=== PATIENT | female | born 1965 | race Caucasian/White ===

== ENCOUNTER 2020-07-22 08:43 | Outpatient (REF) | payer OTHER, SELFPAY ==
[2020-07-22 10:07] LABS: MANUAL DIFF FLAG NO
[2020-07-22 10:16] LABS: Basophils Percent Auto 0.3 % (0-2); Eosinophils Absolute Auto 0.4 X10*3/uL (0.0-0.4); Eosinophils Percent Auto 4.6 % (0-4); Hematocrit 41.5 % (37-47); Hemoglobin 13.5 g/dl (12.0-16.0); Imm Gran Abs Auto 0.02 X10*3/uL (0.00-0.03); Imm Gran Pct Auto 0.2 % (0.0-0.4); Lymphocytes Absolute Auto 2.1 X10*3/uL (1.2-4.9); Lymphocytes Percent Auto 23.2 % (20-40); Mean Corpuscular HGB Conc 32.5 g/dl (31.0-35.0); Mean Corpuscular Hemoglobin 29.7 pg (27.0-33.0); Mean Corpuscular Volume 91.4 fL (80-98); Mean Platelet Volume 10.1 fL (9.4-12.3); Monocytes Absolute Auto 0.5 X10*3/uL (0.1-1.2); Neutrophils Absolute Auto 5.9 X10*3/uL (2.0-8.3); Neutrophils Percent Auto 65.7 % (45-73); Platelet Count 312 X10*3/uL (160-400); Red Blood Count 4.54 X10*6/uL (4.20-5.50); Red Cell Distribution Width 13.2 % (11.0-16.0); White Blood Count 9.1 X10*3/uL (4.8-10.8)
[2020-07-22 10:44] LABS: Alanine Aminotransferase 21 U/L (0-31); Albumin Level 4.2 g/dL (3.5-5.0); Alkaline Phosphatase 65 U/L (39-117); Anion Gap 13 (12-20); Aspartate Amino Transferase 18 U/L (5-31); Bilirubin Total 0.3 mg/dL (0.0-1.0); Blood Urea Nitrogen 17 mg/dL (9-16); Calcium 8.9 mg/dL (8.4-10.2); Carbon Dioxide 35 mmol/L (22-29); Chloride 100 mmol/L (96-108); Cholesterol 205 mg/dL; Estimated Glomerular Filt Rate > 60; Glucose Fasting 93 mg/dL (60-99); HDL Cholesterol 50 mg/dL; LDL Cholesterol Calculated 126 mg/dl; Sodium 144 mmol/L (135-145); Total Protein 7.1 g/dL (6.5-8.0); Triglycerides 146 mg/dL
[2020-07-22 11:04] LABS: Thyroid Stimulating Hormone 8.95 mIU/mL (0.32-4.0)
== END 2020-07-22 08:44 | disposition home or self-care (01) ==
LOC: HO.LAB 08:43
PROVIDERS: Visit Provider Internal Medicine
DX: M54.9 Dorsalgia, unspecified (principal); E11.9 Type 2 diabetes mellitus without complications; E03.9 Hypothyroidism, unspecified
CPT/HCPCS: 36415; 80053; 80061; 84443; 85025

== ENCOUNTER 2020-11-29 12:07 | Outpatient (REF) | payer OTHER, SELFPAY ==
--- NOTE | ~2020-11-29 | XR_ITS ---
EXAMINATION: XR KNEE, LEFT CLINICAL INFORMATION: Pain COMPARISON: Previous x-ray July 2012 TECHNIQUE: Four views of the left knee. FINDINGS: There is slight varus angulation at the knee joint. Bone alignment is otherwise normal. No fracture or dislocation is seen. There is severe arthritis at the medial femoral tibial and patellofemoral joints with joint space narrowing and osteophyte formation. There are small osteophytes at the lateral femoral tibial joint. There may be lateral ossified intra-articular loose bodies seen on the sunrise view. There is a small joint effusion. XR/XR knee LT 4V IMPRESSION: Severe arthritis. This is increased from 2012 exam.
== END 2020-11-29 12:08 | disposition home or self-care (01) ==
LOC: HO.XRAY 12:07
PROVIDERS: PCP Internal Medicine; Visit Provider Internal Medicine
DX: M25.562 Pain in left knee (principal)
CPT/HCPCS: 73564

== ENCOUNTER 2021-01-31 08:13 | Outpatient (REF) | payer OTHER, SELFPAY ==
--- NOTE | ~2021-01-31 | XR_ITS ---
EXAMINATION: XR KNEE AP STANDING CLINICAL INFORMATION: Pain. COMPARISON: Left knee radiographs dated 11/29/2020 and right knee radiograph dated 08/15/2012. TECHNIQUE: AP bilateral standing view of the knees was obtained. FINDINGS: Severe medial compartment joint space narrowing with bony remodeling. Prominent tricompartmental marginal osteophytes. No acute fracture or dislocation. No abnormal soft tissue calcification. Findings are similar when compared to the recent radiographs. Severe medial compartment joint space narrowing. Tricompartmental marginal osteophytes. No acute fracture or dislocation. No abnormal soft tissue calcification. Findings have progressed when compared to the prior radiographs. XR/XR knee standing BI IMPRESSION: 1. Tricompartmental osteoarthritis within the left knee, most severe within the medial compartment. Findings are similar when compared to the recent radiographs and are progressed when compared to the radiographs from 2011. 2. Tricompartmental right knee osteoarthritis, most severe within the medial compartment. Findings are progressed when compared to the radiographs from 2012.
== END 2021-01-31 08:14 | disposition home or self-care (01) ==
LOC: HO.HOSX 08:13
PROVIDERS: Visit Provider Orthopaedic Surgery
DX: M17.12 Unilateral primary osteoarthritis, left knee (principal)
CPT/HCPCS: 20610; 73565; J1100

== ENCOUNTER → 2021-05-02 13:58 | Outpatient (BNVA) | payer OTHER, SELFPAY | PROVIDERS: PCP Internal Medicine; Visit Provider Orthopaedic Surgery | DX: M17.12 Unilateral primary osteoarthritis, left knee (principal) | CPT/HCPCS: 20610; J1100 ==

== ENCOUNTER → 2021-08-01 13:54 | Outpatient (BNVA) | payer OTHER, SELFPAY | PROVIDERS: PCP Internal Medicine; Visit Provider Orthopaedic Surgery | DX: M17.12 Unilateral primary osteoarthritis, left knee (principal); M17.11 Unilateral primary osteoarthritis, right knee | CPT/HCPCS: 20610; J1100 ==

== ENCOUNTER 2021-09-13 15:00 | Outpatient (RCR) | payer OTHER, SELFPAY ==
--- NOTE | 2021-05-30 14:57 | MHC.PT.EP ---
[facility] Office [place] Office [place] Office [address] [phone] F: [phone] F: [phone] F: [phone] F: [phone] Physical Therapy Plan of Care Date of Evaluation: Date of Surgery: Diagnosis: primary OA L knee Assessment: 55 y/o F referred to PT with primary OA of L knee. She would like to avoid surgery. 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 Examination shows decreased knee AROM (L 0-108), decreased hip and knee strength, B TF joint tenderness, hypomobility of patella, and impaired gait pattern. Recommend PT 2x/week for 5 weeks to address impairments, implement HEP, and optimize functional mobility. Frequency and Duration: The patient will be seen 2x/week for 5 weeks Short Term Goals: 3 weeks 1. I with hEP 2. Improve knee flexion to 116 3. Improve hip abduction strength by one MMT grade Retirement Goals: 5 weeks 1. I with HEP and self management of sx 2. Pt will be able to walk > 30 min with pain < 3/10 3. Pt will be able to ascend/descend stairs in step through pattern with pineda < 3/10 Treatment Plan: Modalities to reduce pain, spasms and effusion. Manual therapy to restore motion and function. Therapeutic exercise to improve strength and flexibility. Neuromuscular re-education for posture and balance. Therapeutic activities to return to functional activities of daily living. Electronically signed by: Lizabeth Conrad PT Please sign and return to therapist. Thank you for your referral.
--- NOTE | 2021-09-19 14:13 | MHC.PT.DC ---
[facility] [place] Office [place] Office [place] Office [address] [phone] F: [phone] F: [phone] F: [phone] F: [phone] Physical Therapy Discharge Report Diagnosis: primary OA L knee Date of Surgery: Date of Evaluation: 05/30/21 Date of Discharge: 09/19/21 Treatments to Date: 20 Cancellations to Date: 0 No Shows to Date: 0 Discharge Status: Improved Function Independent with HEP Discharge Summary: Appropriate for d/c to I HEP. Improved strength and function noted. Electronically signed by: Lizaebth Conrad PT Please sign and return to therapist. Thank you for your referral.
== END 2021-09-19 14:14 | disposition home or self-care (01) ==
LOC: HO.PTCHIC 15:00
PROVIDERS: PCP Internal Medicine; Visit Provider Orthopaedic Surgery
DX: M17.12 Unilateral primary osteoarthritis, left knee (principal); R53.81 Other malaise
CPT/HCPCS: 97110; 97112; 97140; 97161; 97530

== ENCOUNTER → 2021-09-19 10:03 | Outpatient (BNVA) | payer OTHER, SELFPAY | PROVIDERS: Visit Provider Orthopaedic Surgery | DX: Z01.812 Encounter for preprocedural laboratory examination (principal); Z01.810 Encounter for preprocedural cardiovascular examination ==

== ENCOUNTER → 2021-10-13 13:55 | Outpatient (BNVA) | payer OTHER, SELFPAY | PROVIDERS: Visit Provider Physician Assistant ==

== ENCOUNTER 2021-10-18 11:36 | Inpatient (IN) | payer OTHER, SELFPAY ==
--- NOTE | 2021-09-19 11:29 | ECG_ITS ---
Test Reason : z01.810 Blood Pressure : / mmHG Vent. Rate : 064 BPM Atrial Rate : 064 BPM P-R Int : 154 ms QRS Dur : 086 ms QT Int : 420 ms P-R-T Axes : 072 018 -05 degrees QTc Int : 433 ms Normal sinus rhythm Normal ECG When compared with ECG of 30-AUG-2009 12:24, Nonspecific T wave abnormality now evident in Anterior leads Referred By: Isai Yusuf Electronically Signed By:MACARIO HOUGH MD
[2021-09-19 11:47] LABS: MANUAL DIFF FLAG NO
[2021-09-19 11:57] LABS: Basophils Percent Auto 0.4 % (0-2); Eosinophils Absolute Auto 0.3 X10*3/uL (0.0-0.4); Eosinophils Percent Auto 3.9 % (0-4); Hematocrit 38.3 % (37.0-47.0); Hemoglobin 12.6 g/dl (12.0-16.0); Imm Gran Abs Auto 0.01 X10*3/uL (0.00-0.03); Imm Gran Pct Auto 0.1 % (0.0-0.4); Lymphocytes Absolute Auto 2.3 X10*3/uL (1.2-4.9); Lymphocytes Percent Auto 30.1 % (20-40); Mean Corpuscular HGB Conc 32.9 g/dl (31.0-35.0); Mean Corpuscular Hemoglobin 29.8 pg (27.0-33.0); Mean Corpuscular Volume 90.5 fL (80.0-98.0); Mean Platelet Volume 9.4 fL (9.4-12.3); Monocytes Absolute Auto 0.6 X10*3/uL (0.1-1.2); Monocytes Percent Auto 8.3 % (2-11); Neutrophils Absolute Auto 4.4 x10*3/uL (2.0-8.3); Neutrophils Percent Auto 57.2 % (45-73); Platelet Count 258 X10*3/uL (160-400); Red Blood Count 4.23 X10*6/uL (4.20-5.50); Red Cell Distribution Width 12.9 % (11.0-16.0); White Blood Count 7.7 X10*3/uL (4.8-10.8)
[2021-09-19 12:18] LABS: Anion Gap 10 (12-20); Blood Urea Nitrogen 23 mg/dL (9-16); Calcium 9.5 mg/dL (8.4-10.2); Carbon Dioxide 37 mmol/L (22-29); Chloride 99 mmol/L (96-108); Estimated Glomerular Filt Rate 56; Glucose Random 99 mg/dL (60-115); Potassium 3.5 mmol/L (3.3-5.1); Sodium 142 mmol/L (135-145)
[2021-10-05 12:13] VITALS: BP 158/86; PULSE 82; RESP 20; O2SAT 97; BMI 38.9
--- NOTE | 2021-10-05 12:46 | P.CONAN_ITS ---
Documented by User: Serina Garcia NP 10/05/21 13:03 HPI - Anesthesia Eval Consult details Narrative: 56yo F for Left Total Knee Replacement Methadone and oxy daily for pain. Rx'd by PCP [facility] Active Problems Active Problems: All Active Problems (Updated 10/05/21 @ 12:30 by Shasta Díaz RN) Back pain (Acute) Osteoarthritis (Acute) Knee pain (Acute) Arthritis of left knee (Acute) Physical deconditioning (Acute) Primary localized osteoarthritis of right knee (Acute) Pre-op exam (Acute) Obesity (Acute) Hypothyroidism (Acute) Past Medical History Medical History COVID-19 vaccine series completed GERD (gastroesophageal reflux disease) Hernia of abdominal cavity History of COVID-19 HTN (hypertension) Hypothyroidism Obesity Osteoarthritis Family History Family History Father Esophageal cancer Mother No problems noted. Maternal Grandmother Osteoarthritis Sister No problems noted. Family history of problems with anesthesia: No Surgical History Surgical History H/O colonoscopy Hx of breast reduction, elective Hx of umbilical hernia repair History of Problems with Anesthesia: No Social History Social History Housing: House Are you a primary customer care specialist to a significant other at home: No Do you presently have visiting nurse or other home services: No Alcohol intake: current Alcohol intake frequency: holidays/special occasions o nly Patient Tobacco Use Status: Former Tobacco user Quit Date: 11/2020 Tobacco use type: Cigarette e-Cigarette/Vaping Use: Never Used Second Hand Smoke Exposure: No Use of substances other than those prescribed or required for medical reasons: No Substance Use Type Other:: is taking methadone/oxycodone for pain control - managed by Have you been hit, kicked, punched, or otherwise hurt by someone within the past year? If so, by whom?: No Are you DNR?: No Advance Directives Information Provided: Yes (brochure given per patient request) Advance Directives on File: No Recently lost weight without trying: No Nutrition Risks: No Nutritional Risk Patient : No Poor oral hygiene: No service: No Current occupational status: unemployed Current occupation: Right Handed Cognitive needs: No Hearing needs: No Vision needs: No Narrative Narrative: No recent illness No CP/SOB with activity. Limited to pain Meds Allergies Allergy/AdvReac Type Severity Reaction Status Date / Time No Known Allergies Allergy Verified 10/13/21 14:14 [No Known Allergies*] Exam Exam Date and Time: October 05, 2021 1246 Height,Weight and Vital Signs: Height 5 ft 4 in Weight 102.9 kg Last Vital Signs Pulse 82 10/05/21 12:13 Resp 20 10/05/21 12:13 BP 158/86 H 10/05/21 12:13 Pulse Ox 97 10/05/21 12:13 Pertinent Lab Results Pertinent Lab Results: Laboratory Tests 09/19/21 09/19/21 11:43 11:43 WBC 7.7 RBC 4.23 Hgb 12.6 Hct 38.3 MCV 90.5 MCH 29.8 MCHC 32.9 RDW 12.9 Plt Count 258 MPV 9.4 Immature Gran % (Auto) 0.1 Neut % (Auto) 57.2 Lymph % (Auto) 30.1 Lamb % (Auto) 8.3 Eos % (Auto) 3.9 Baso % (Auto) 0.4 Lymph # (Auto) 2.3 Lamb # (Auto) 0.6 Eos # (Auto) 0.3 Baso # (Auto) 0.0 Abs Immat Gran (auto) 0.01 Absolute Neuts (auto) 4.4 Absolute Nucleated RBC 0.000 Nucleated RBC % (auto) 0.0 Sodium 142 Potassium 3.5 Chloride 99 Carbon Dioxide 37 H Anion Gap 10 L BUN 23 H Creatinine 1.03 Estim Creat Clear Calc TNP Estimated GFR 56 Random Glucose 99 Calcium 9.5 D Narrative Narrative: EKG 09/2021 Vent. Rate : 064 BPM ? ? Atrial Rate : 064 BPM ?? P-R Int : 154 ms? QRS Dur : 086 ms ? ? QT Int : 420 ms ? ? ? P-R-T Axes : 072 018 -05 degrees ?? QTc Int : 433 ms ? Normal sinus rhythm Normal ECG When compared with ECG of 30-AUG-2009 12:24, Nonspecific T wave abnormality now evident in Anterior leads Airway Mallampati Class: I TM Dist: >3cm Neck ROM: Full Loose/Missing/Broken Teeth: Yes Heart: RRR Lungs: CTAB Assessment and Plan Assessment Anesthesia Assessment: Anesthesia Plan Discussed and PAT Visit Final Anesthetic Review Family History of Problems with Anesthesia: No History of Problems with Anesthesia: No Documented by User: Delta Loaiza MD 10/18/21 14:33 [facility] Past Medical History Medical History COVID-19 vaccine series completed GERD (gastroesophageal reflux disease) Hernia of abdominal cavity History of COVID-19 HTN (hypertension) Hypothyroidism Obesity Osteoarthritis Family History Family History Father Esophageal cancer Mother No problems noted. Maternal Grandmother Osteoarthritis Sister No problems noted. Surgical History Surgical History H/O colonoscopy Hx of breast reduction, elective Hx of umbilical hernia repair Social History Social History Housing: House Are you a primary customer care specialist to a significant other at home: No Do you presently have visiting nurse or other home services: No Alcohol intake: current Alcohol intake frequency: holidays/special occasions only Patient Tobacco Use Status: Former Tobacco user Quit Date: 11/2020 Tobacco use type: Cigarette e-Cigarette/Vaping Use: Never Used Second Hand Smoke Exposure: No Use of substances other than those prescribed or required for medical reasons: No Substance Use Type Other:: is taking methadone/oxycodone for pain control - managed by Have you been hit, kicked, punched, or otherwise hurt by someone within the past year? If so, by whom?: No Are you DNR?: No Advance Directives Information Provided: Yes (brochure given per patient request) Advance Directives on File: No Recently lost weight without trying: No Nutrition Risks: No Nutritional Risk Patient : No Poor oral hygiene: No service: No Current occupational status: unemployed Current occupation: Right Handed Cognitive needs: No Hearing needs: No Vision needs: No Meds Allergies Allergy/AdvReac Type Severity Reaction Status Date / Time No Known Allergies Allergy Verified 10/13/21 14:14 [No Known Allergies*] Assessment and Plan Final Anesthetic Review NPO: Yes ASA Class: III Final Preanesthetic Review: No Changes in Pt Med Stat, Meds/Allgs Chart Reviewed, Consent Obtained/Reviewed and Anes Risks/Benef Reviewed Patient Risk: Intermediate Procedure Risk: Intermediate Anesthetic Plan Anesthetic Plan: Spinal and Regional Block Disposition: Standard PACU
[2021-10-05 15:12] LABS: MRSA Nasal PCR NEGATIVE (Negative); SA Nasal PCR POSITIVE (Negative)
[2021-10-18] VITALS (11 sets, daily range): BP systolic 114–169; BP diastolic 67–104; PULSE 67–99; RESP 16–21; TEMP 36.1–37.3; O2SAT 94–100
--- NOTE | ~2021-10-18 | XR_ITS ---
EXAMINATION: XR KNEE, LEFT CLINICAL INFORMATION: Left TKA COMPARISON: Left knee 08/15/2012, 11/29/2020 TECHNIQUE: Three views of the left knee. FINDINGS: Status post left knee replacement. Orthopedic components in position. There is gas in the knee joint from the surgery. Surgical skin clips at the anterior knee. XR/XR knee LT 2V IMPRESSION: Status post left knee replacement.
[2021-10-18] MEDS: Lactated Ringers 1,000 ML 100 ML IVCONT (12:07)
--- NOTE | 2021-10-18 12:14 | PC.NURSE ---
Left inner eye noted to be bloodshot/broken blood vessels. Patient states It happened a few days, when I was sneezing I think. 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 Anesthesia aware.
[2021-10-18 12:16] LABS: COVID-19 Test Negative (Negative); IDNOW Serial# 9DD0AD1C
--- NOTE | 2021-10-18 12:51 | MHC.SHP ---
Pre-Procedural Eval Section A Date of Service: 10/18/21 The patient is an INPATIENT: No Changes since office visit: Yes Patient answered all questions; No Cold of Flu in the past 2 weeks, No New Medical Problems and No Changes in Medication The History & Physical has been completed within 30 days and I have reviewed it.: Yes Section B Chief Complaint: LT TKA Allergies: Allergies Allergy/AdvReac Type Severity Reaction Status Date / Time No Known Allergies Allergy Verified 10/13/21 14:14 [No Known Allergies*] Plan I have reviewed the history and physical and performed a pertinent physical examination on my patient. No changes have occurred unless specified.
--- NOTE | 2021-10-18 14:48 | P.BOP_ITS ---
Brief Operative Note Date of Service: 10/18/21 Pre-op diagnosis: Left knee OA Post-op diagnosis: same Procedure: Left TKA Implants: [place] triathalon press fir posterior stabilized 11/18/12 Surgeon: Isai Yusuf MD Anesthesia: regional and spinal Was an Senior Bookkeeper used for this Procedure?: Yes Senior Bookkeeper: Jeanine Soto Estimated blood loss (mL): 200 IV fluids (mL): 1,000 Pathology: other Condition: stable Disposition: PACU
--- NOTE | 2021-10-18 14:54 | W.PM.OPN ---
Operative Note Operative Note Date of Service: 10/18/21 Narrative: Date of Service: 10/18/21 Pre-op diagnosis: Left knee OA Post-op diagnosis: same Procedure: Left TKA Implants: [place] triathalon press fir posterior stabilized 11/18/12 Surgeon: Isai Yusuf MD Anesthesia: regional and spinal Was an Road Mixer Operator used for this Procedure?: Yes Road Mixer Operator: Jeanine Soto Estimated blood loss (mL): 200 IV fluids (mL): 1,000 Pathology: other Condition: stable Disposition: PACU Procedure in detail: The patient was brought to the operating room and prepped and draped in standard sterile fashion. A time-out was called to identify proper site proper procedure proper surgeon and IV antibiotics were administered. 1 g of IV tranexamic acid was administered. I began by making a midline incision to the retinaculum and performed a medial parapatellar arthrotomy. The patella was translated laterally and the knee was flexed up. There was medial compartment severe eburnation and extesive osteophytes along the lateral and inferior patella . I performed a small medial peel and resected the infrapatellar fat pad. Charo's line was then used to drill my intramedullary femoral guide and my distal femur cut of 12 mm was made in 5 degrees of valgus while protecting the soft tissues. She has a 10 deg pre operative flexion contracture. I then measured a # 3 femur and placed my cutting guide and made my anterior posterior and chamfer cuts protecting the soft tissues at all times. Once I was satisfied with my cuts I turned my attention to the tibia. I removed the meniscus medially and laterally and , using an external cutting guide, in line with the tibial crest and the third ray, I made my distal tibial cut in 0 deg slope of while protecting the posterior soft tissues at all times. I then made my box cut removeing the PCL. An extension block was used to confirm appropriate amount of bony resection. I then sized a #4 tibia and once I was satisfied that there was complete tibial coverage I placed my trial and with the trial femur in place took the knee through range of motion. I was satisfied with the extension and flexion as well as the stability at 0, 30 and 90 degrees. I then turned my attention to the patella where I removed 1 cm from the undersurface of the patella and then trialed a 29a patellar button. Again the knee was taken through range of motion I was satisfied with the tracking. I then returned to the femur and drilled my femoral lug holes and prepared the tibia. A femoral bone plug was placed and the knee was irrigated copiously. I then press fit the patella, tibia and femur in standard fashion. I trialed different inserts until I selected a #13insert. The final insert was placed and a 3 minutes iodine soak with local TXA was performed. The knee was then closed with a running Quill suture, a 3 0 Vicryl and keeley on the skin. Patient was then placed in sterile dressing and brought to recovery room in stable condition there were no known complications.
[2021-10-18] MEDS: ondansetron HCL 4 MG/2 ML VIAL IVPUSH (15:47)
--- NOTE | 2021-10-18 16:58 | PC.NURSE ---
patient able to move right lower extremity without diffficult. left leg remains unable to wiggle toes at this time. sensation at just above the knee present.
[2021-10-18] MEDS: Acetaminophen 325 MG TABLET 650 MG PO (18:10)
[2021-10-18] MEDS: HYDROmorphone HCl 1 MG/ML SYRINGE 0.25 MG IVPUSH (18:16)
[2021-10-18] MEDS: 0.9 % Sodium Chloride Flush 3 ML SYRINGE IVFLUSH (19:21)
[2021-10-18] MEDS: oxyCODONE HCl Immed Release 5 MG TABLET 10 MG PO (19:21)
[2021-10-18] MEDS: Dextrose 5 % and 0.45 % NaCl 1,000 ML 80 ML IVCONT (19:28)
[2021-10-18] MEDS: ceFAZolin Sodium/Dextrose,Iso 2 GM/50 ML PIGGYBACK IV (19:29)
[2021-10-18] MEDS: HYDROmorphone HCl 0.5 MG/0.5 ML SYRINGE IVPUSH (21:26)
[2021-10-18] MEDS: Docusate Sodium 100 MG CAPSULE PO (22:32)
[2021-10-18] MEDS: methADONE HCl 10 MG TABLET 40 MG PO (22:33)
[2021-10-19] VITALS (7 sets, daily range): BP systolic 143–176; BP diastolic 73–88; PULSE 82–98; RESP 18; TEMP 36.7–37.2; O2SAT 92–96
[2021-10-19] MEDS: HYDROmorphone HCl/NS 10 MG/50 ML PIGGYBACK 1.5 MG IV ×3 (00:03→19:14)
--- NOTE | 2021-10-19 00:26 | PC.NURSE ---
Pt was given GAMING CAGE CASHIER pump, values were checked by Nursing Air Brake Tester
--- NOTE | 2021-10-19 06:53 | HO.POSTANES ---
Post Anesthesia Evaluation Post Anesthesia Evaluation Vital Signs: Vital Signs Temp Pulse Resp BP Pulse Ox 10/19/21 03:08 98.8 F 98 18 174/81 H 96 10/18/21 23:00 99.2 F 95 21 H 167/87 H 97 10/18/21 19:31 97.9 F 99 18 169/104 H 96 Anesthesia: Spinal and Nerve Block Mental Status: Awake Pain Control: Satisfactory Nausea/Vomiting: None Hydration: Adequate Anesthesia-Related Issues: No Anes. Related Issues
[2021-10-19 07:00] LABS: MANUAL DIFF FLAG NO
[2021-10-19 07:03] LABS: Basophils Percent Auto 0.1 % (0-2); Hematocrit 35.1 % (37.0-47.0); Hemoglobin 11.6 g/dl (12.0-16.0); Imm Gran Abs Auto 0.08 X10*3/uL (0.00-0.03); Imm Gran Pct Auto 0.5 % (0.0-0.4); Lymphocytes Absolute Auto 1.6 X10*3/uL (1.2-4.9); Lymphocytes Percent Auto 9.1 % (20-40); Mean Corpuscular Hemoglobin 29.4 pg (27.0-33.0); Mean Corpuscular Volume 88.9 fL (80.0-98.0); Mean Platelet Volume 9.8 fL (9.4-12.3); Monocytes Absolute Auto 1.1 X10*3/uL (0.1-1.2); Monocytes Percent Auto 6.5 % (2-11); Neutrophils Absolute Auto 14.4 x10*3/uL (2.0-8.3); Neutrophils Percent Auto 83.8 % (45-73); Platelet Count 263 X10*3/uL (160-400); Red Blood Count 3.95 X10*6/uL (4.20-5.50); Red Cell Distribution Width 12.9 % (11.0-16.0); White Blood Count 17.2 X10*3/uL (4.8-10.8)
[2021-10-19 07:26] LABS: Anion Gap 13 (12-20); Blood Urea Nitrogen 15 mg/dL (9-16); Calcium 8.8 mg/dL (8.4-10.2); Carbon Dioxide 33 mmol/L (22-29); Chloride 97 mmol/L (96-108); Creatinine Clr Calc Pharmacy 90.5; Estimated Glomerular Filt Rate > 60; Glucose Fasting 145 mg/dL (60-99); Potassium 3.3 mmol/L (3.3-5.1); Sodium 140 mmol/L (135-145)
[2021-10-19] MEDS: methADONE HCl 10 MG TABLET 40 MG PO ×2 (08:35→21:44)
[2021-10-19] MEDS: Levothyroxine Sodium 150 MCG TABLET 300 MCG PO (08:35)
[2021-10-19] MEDS: Omeprazole 40 MG CAPSULE.DR PO (08:36)
[2021-10-19] MEDS: Acetaminophen 325 MG TABLET 650 MG PO ×2 (08:36→15:27)
[2021-10-19] MEDS: hydroCHLOROthiazide 25 MG TABLET PO (08:36)
[2021-10-19] MEDS: Famotidine 20 MG TABLET 40 MG PO (08:36)
[2021-10-19] MEDS: Docusate Sodium 100 MG CAPSULE PO ×2 (08:36→20:32)
[2021-10-19] MEDS: Sertraline HCL 50 MG TABLET PO (08:36)
[2021-10-19] MEDS: Dextrose 5 % and 0.45 % NaCl 1,000 ML 80 ML IVCONT (08:37)
--- NOTE | 2021-10-19 08:45 | P.PNOP_ITS ---
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 Denies cp, sob, palpitations Physical Exam Verdana 4l Vital Signs: Verdana 4d Verdana 4d Vital Signs: Verdana 4d Verdana 4Bd Last Vital Signs Verdana 4d Medical Office Assistant Instructor New 4d Medical Office Assistant Instructor New 4d Temp 99.0 F 10/19/21 07:19 Medical Office Assistant Instructor New 4d Pulse 95 10/19/21 07:19 Medical Office Assistant Instructor New 4d Resp 18 10/19/21 07:19 BP 170/84 H 10/19/21 07:19 Pulse Ox 93 10/19/21 07:19 BMI result Body Mass Index 38.9 Const: General: cooperative, healthy appearing and no acute distress Resp: Effort & Inspection: normal respiratory effort and able to speak in complete sentences Cardio: Rate: regular rate Peripheral pulses: Peripheral pulses 2+ throughout GI: Palpation (GI): Soft to palpation Skin: General skin exam: no rashes or lesions noted Extrem: Other: bandage c,d,i. No erythema or joint effusion. Calf supple nontender. Neurovascularly intact. 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, continue daily methadone dose PT for LT TKA ASA for dvt ppx dispo planning-PT eval and pain mgmnt Fall Risk Details Current Medications: Current Medications Acetaminophen (Acetaminophen 325 Mg Tablet) 650 mg PO Q6H PRN PRN Reason: Pain, Mild (Pain Scale 1-3) Last Admin: 10/19/21 08:36 Dose: 650 mg Documented by: Docusate Sodium (Docusate Sodium 100 Mg Capsule) 100 mg PO BID [facility] Last Admin: 10/19/21 08:36 Dose: 100 mg Documented by: Famotidine (Famotidine 20 Mg Tablet) 40 mg PO DAILY [facility] Last Admin: 10/19/21 08:36 Dose: 40 mg Documented by: Hydrochlorothiazide (Hydrochlorothiazide 25 Mg Tablet) 25 mg PO DAILY [facility] Last Admin: 10/19/21 08:36 Dose: 25 mg Documented by: Dextrose/Sodium Chloride (D51/2ns) 1,000 mls @ 80 mls/hr IVCONT .[id number] [facility] Last Admin: 10/19/21 08:37 Dose: 80 mls/hr Documented by: Hydromorphone HCl (Dilaudid) 10 mg in 50 mls @ 0 mls/hr IV .Q0M [facility]; Protocol Last Admin: 10/19/21 08:24 Dose: 0.3 mg/hr, 1.5 mls/hr Documented by: Ketorolac Tromethamine (Ketorolac Tromethamine 30 Mg/Ml Vial) 30 mg IVPUSH Q6H PRN PRN Reason: Pain, Severe (Pain Scale 7-10) Levothyroxine Sodium (Levothyroxine Sodium 150 Mcg Tablet) 300 mcg PO DAILY [facility] Last Admin: 10/19/21 08:35 Dose: 300 mcg Documented by: Methadone HCl (Methadone Hcl 10 Mg Tablet) 40 mg PO BID [facility] Last Admin: 10/19/21 08:35 Dose: 40 mg Documented by: Naloxone HCl (Naloxone Hcl 0.4 Mg/Ml Vial) 0.2 mg IVPUSH Q2M PRN PRN Reason: Excessive sedation or RR < 8 Omeprazole (Omeprazole 40 Mg Capsule.Dr) 40 mg PO DAILY [facility] Last Admin: 10/19/21 08:36 Dose: 40 mg Documented by: Ondansetron HCl (Ondansetron Hcl 4 Mg/2 Ml Vial) 4 mg IVPUSH Q8H PRN PRN Reason: Nausea and Vomiting Sertraline HCl (Sertraline Hcl 50 Mg Tablet) 50 mg PO DAILY [facility] Last Admin: 10/19/21 08:36 Dose: 50 mg Documented by: Sodium Chloride (0.9 % Sodium Chloride Flush 3 Ml Syringe) 3 ml IVFLUSH QSHIFT [facility] Last Admin: 10/19/21 08:36 Dose: Not Given Documented by: Time Spent With Patient Time: Total time spent is greater than 50% in coordination of care (as documented) at patient's floor/unit and/or counseling patient: Time with patient: less than 15 minutes Quality Stroke Does the patient have a stroke diagnosis?: No VTE Prior VTE?: No VTE Risk Level:: Surgical - very high VTE Device Contraindication: N/A - Device Ordered VTE Drug Contraindication: N/A - Med Ordered
--- NOTE | 2021-10-19 11:13 | P.CONIM_ITS ---
History of Present Illness Data of Consult Service Date: 10/19/21 Primary Care Provider: Barrera Coronado MD HPI Reason for consult: post-op medical management This is a 56 yo F with chronic back pain on methadone + oxycodone, HTN, hypothyroidism, obesity, OA, prior COVID19 infection who is admitted post-op L TKA. Medical consult requested for post-op medical management. Patient is seen and examined in her room. She reports L knee pain on chronic back pain as her main issue. She denies any symptoms of elevated HTN. She denies any cp or sob. She reports anxiety surrounding her pain and her ability to manage it at home. She does report that overall her pain is getting better compared to yesterday. Review of Systems Verdana 4l Review of Systems: Verdana 4d negative except Verdana 4d HPI Verdana 4d [facility] Medical History COVID-19 vaccine series completed GERD (gastroesophageal reflux disease) Hernia of abdominal cavity History of COVID-19 HTN (hypertension) Hypothyroidism Obesity Osteoarthritis Family History Father Esophageal cancer Mother No problems noted. Maternal Grandmother Osteoarthritis Sister No problems noted. Surgical History H/O colonoscopy Hx of breast reduction, elective Hx of umbilical hernia repair Social History Housing: House Are you a primary healthcare recruiter to a significant other at home: No Do you presently have visiting nurse or other home services: No Alcohol intake: current Alcohol intake frequency: holidays/special occasions only Patient Tobacco Use Status: Former Tobacco user Quit Date: 11/2020 Tobacco use type: Cigarette e-Cigarette/Vaping Use: Never Used Second Hand Smoke Exposure: No service: No Current occupational status: unemployed Current occupation: Right Handed Cognitive needs: No Hearing needs: No Vision needs: No Meds Allergies Allergy/AdvReac Type Severity Reaction Status Date / Time No Known Allergies Allergy Verified 10/13/21 14:14 [No Known Allergies*] Active Medications: Current Medications Acetaminophen (Acetaminophen 325 Mg Tablet) 650 mg PO Q6H PRN PRN Reason: Pain, Mild (Pain Scale 1-3) Last Admin: 10/19/21 08:36 Dose: 650 mg Documented by: Aspirin (Aspirin 325 Mg Tablet) 325 mg PO BID [facility] Docusate Sodium (Docusate Sodium 100 Mg Capsule) 100 mg PO BID [facility] Last Admin: 10/19/21 08:36 Dose: 100 mg Documented by: Famotidine (Famotidine 20 Mg Tablet) 40 mg PO DAILY [facility] Last Admin: 10/19/21 08:36 Dose: 40 mg Documented by: Hydrochlorothiazide (Hydrochlorothiazide 25 Mg Tablet) 25 mg PO DAILY [facility] Last Admin: 10/19/21 08:36 Dose: 25 mg Documented by: Dextrose/Sodium Chloride (D51/2ns) 1,000 mls @ 80 mls/hr IVCONT .[id number] [facility] Last Admin: 10/19/21 08:37 Dose: 80 mls/hr Documented by: Hydromorphone HCl (Dilaudid) 10 mg in 50 mls @ 0 mls/hr IV .Q0M [facility]; Protocol Last Admin: 10/19/21 08:24 Dose: 0.3 mg/hr, 1.5 mls/hr Documented by: Ketorolac Tromethamine (Ketorolac Tromethamine 30 Mg/Ml Vial) 30 mg IVPUSH Q6H PRN PRN Reason: Pain, Severe (Pain Scale 7-10) Levothyroxine Sodium (Levothyroxine Sodium 150 Mcg Tablet) 300 mcg PO DAILY [facility] Last Admin: 10/19/21 08:35 Dose: 300 mcg Documented by: Methadone HCl (Methadone Hcl 10 Mg Tablet) 40 mg PO BID [facility] Last Admin: 10/19/21 08:35 Dose: 40 mg Documented by: Naloxone HCl (Naloxone Hcl 0.4 Mg/Ml Vial) 0.2 mg IVPUSH Q2M PRN PRN Reason: Excessive sedation or RR < 8 Omeprazole (Omeprazole 40 Mg Capsule.Dr) 40 mg PO DAILY [facility] Last Admin: 10/19/21 08:36 Dose: 40 mg Documented by: Ondansetron HCl (Ondansetron Hcl 4 Mg/2 Ml Vial) 4 mg IVPUSH Q8H PRN PRN Reason: Nausea and Vomiting Sertraline HCl (Sertraline Hcl 50 Mg Tablet) 50 mg PO DAILY [facility] Last Admin: 10/19/21 08:36 Dose: 50 mg Documented by: Sodium Chloride (0.9 % Sodium Chloride Flush 3 Ml Syringe) 3 ml IVFLUSH QSHIFT DONG Last Admin: 10/19/21 08:36 Dose: Not Given Documented by: Physical Exam Verdana 4l Vital Signs and Narrative: Verdana 4d Verdana 4d Vital Signs: Verdana 4d Verdana 4Bd Last Vital Signs Verdana 4d Track Welder New 4d Track Welder New 4d Temp 98.3 F 10/19/21 10:55 Track Welder New 4d Pulse 97 10/19/21 10:55 Track Welder New 4d Resp 18 10/19/21 10:55 BP 176/87 H 10/19/21 10:55 Pulse Ox 95 10/19/21 10:55 BMI result Body Mass Index 38.9 Const: Other: General - no acute distress, appears comfortable Cardiovascular - regular rate and rhythm, S1-S2 Lungs - normal respiratory effort, clear to auscultation bilaterally, no wheezing Abdomen - soft, nontender, no rebound or guarding Extremities - no edema bilaterally Neuro - awake and alert, no focal deficits Results Labs CBC and Chem 7: 10/19/21 06:18 10/19/21 06:18 Labs: Laboratory Results - last 24 hr 10/18/21 10/19/21 10/19/21 11:10 06:18 06:18 MCV 88.9 MCH 29.4 MCHC 33.0 RDW 12.9 Plt Count 263 MPV 9.8 Immature Gran % (Auto) 0.5 H Neut % (Auto) 83.8 H Lymph % (Auto) 9.1 L [place] % (Auto) 6.5 Eos % (Auto) 0.0 Baso % (Auto) 0.1 Lymph # (Auto) 1.6 [place] # (Auto) 1.1 Eos # (Auto) 0.0 Baso # (Auto) 0.0 Abs Immat Gran (auto) 0.08 H Absolute Neuts (auto) 14.4 H Absolute Nucleated RBC 0.000 Nucleated RBC % (auto) 0.0 Anion Gap 13 Estim Creat Clear Calc 90.5 Estimated GFR > 60 Fasting Glucose 145 H Calcium 8.8 D COVID-19 (EVERT) Negative COVID-19 Clin Com See Note Imaging Radiologist's Impressions: Impressions Knee X-Ray 10/18/21 15:45 IMPRESSION: Status post left knee replacement. Assessment and Plan (1) Hypothyroidism: Status: Acute Plan This is a 56 yo F with chronic back pain on methadone + oxycodone, HTN, hypothyroidism, obesity, OA, prior COVID19 infection who is admitted post-op L TKA. Medical consult requested for post-op medical management. 1. HTN, uncontrolled suspect due to pain + anxiety - should improve as her pain improves chlorthalidone is NF, continue hctz no indication for IV antihypertensives at this time 2. Hyothyroid synthroid 3. Chronic pain continue her baseline line for her acute post-op pain -- on CASE LINER, continue; consider pain management consult if persistent 4. GERD PPI Will follow up as needed.
--- NOTE | 2021-10-19 11:18 | MHC.CM.PN ---
met with pt who lives with her ,she expects to be dcd fri and explinsm that leon denney [place] [facility] [place] ,she will make arrangemnts for her own transportaion home
[2021-10-19] MEDS: Aspirin 325 MG TABLET PO ×2 (13:27→20:32)
[2021-10-19] MEDS: 0.9 % Sodium Chloride Flush 3 ML SYRINGE IVFLUSH ×2 (15:28→20:32)
[2021-10-19] MEDS: Ketorolac Tromethamine 30 MG/ML VIAL IVPUSH (20:32)
[2021-10-20] VITALS (10 sets, daily range): BP systolic 122–165; BP diastolic 63–89; PULSE 83–97; RESP 14–18; TEMP 36–37.1; O2SAT 90–99
[2021-10-20] MEDS: Acetaminophen 325 MG TABLET 650 MG PO ×2 (04:09→17:53)
[2021-10-20 06:08] LABS: MANUAL DIFF FLAG NO
[2021-10-20 06:13] LABS: Basophils Percent Auto 0.1 % (0-2); Eosinophils Percent Auto 0.2 % (0-4); Hematocrit 30.7 % (37.0-47.0); Hemoglobin 10.4 g/dl (12.0-16.0); Imm Gran Abs Auto 0.06 X10*3/uL (0.00-0.03); Imm Gran Pct Auto 0.5 % (0.0-0.4); Lymphocytes Absolute Auto 1.6 X10*3/uL (1.2-4.9); Lymphocytes Percent Auto 12.5 % (20-40); Mean Corpuscular HGB Conc 33.9 g/dl (31.0-35.0); Mean Corpuscular Hemoglobin 29.6 pg (27.0-33.0); Mean Corpuscular Volume 87.5 fL (80.0-98.0); Monocytes Absolute Auto 1.2 X10*3/uL (0.1-1.2); Neutrophils Absolute Auto 10.2 x10*3/uL (2.0-8.3); Neutrophils Percent Auto 77.7 % (45-73); Platelet Count 211 X10*3/uL (160-400); Red Blood Count 3.51 X10*6/uL (4.20-5.50); Red Cell Distribution Width 13.3 % (11.0-16.0); White Blood Count 13.1 X10*3/uL (4.8-10.8)
[2021-10-20 06:42] LABS: Anion Gap 11 (12-20); Blood Urea Nitrogen 15 mg/dL (9-16); Calcium 8.4 mg/dL (8.4-10.2); Carbon Dioxide 36 mmol/L (22-29); Chloride 95 mmol/L (96-108); Creatinine Clr Calc Pharmacy 87.3; Estimated Glomerular Filt Rate > 60; Glucose Fasting 112 mg/dL (60-99); Potassium 2.8 mmol/L (3.3-5.1); Sodium 139 mmol/L (135-145)
[2021-10-20] MEDS: Famotidine 20 MG TABLET 40 MG PO (07:39)
[2021-10-20] MEDS: Omeprazole 40 MG CAPSULE.DR PO (07:39)
[2021-10-20] MEDS: methADONE HCl 10 MG TABLET 40 MG PO ×2 (07:39→20:24)
[2021-10-20] MEDS: Levothyroxine Sodium 150 MCG TABLET 300 MCG PO (07:39)
[2021-10-20] MEDS: Docusate Sodium 100 MG CAPSULE PO ×2 (07:39→20:25)
[2021-10-20] MEDS: Aspirin 325 MG TABLET PO ×2 (07:40→20:24)
[2021-10-20] MEDS: Sertraline HCL 50 MG TABLET PO (07:44)
[2021-10-20] MEDS: hydroCHLOROthiazide 25 MG TABLET PO (07:55)
--- NOTE | 2021-10-20 09:01 | P.PNOP_ITS ---
Subjective Subjective Date of Service: 10/20/21 Interval history: POD 2 s/p LT TKA No overnight events pain is improving has been working with PT denies cp, sob, palpitations Physical Exam Verdana 4l Vital Signs: Verdana 4d Verdana 4d Vital Signs: Verdana 4d Verdana 4Bd Last Vital Signs Verdana 4d Front Desk Lead New 4d Front Desk Lead New 4d Temp 98.3 F 10/20/21 07:54 Front Desk Lead New 4d Pulse 97 10/20/21 07:54 Front Desk Lead New 4d Resp 18 10/20/21 07:54 BP 165/88 H 10/20/21 07:54 Pulse Ox 97 10/20/21 07:54 BMI result Body Mass Index 38.9 Const: General: cooperative, healthy appearing and no acute distress Resp: Effort & Inspection: normal respiratory effort and able to speak in complete sentences Cardio: Rate: regular rate Peripheral pulses: Peripheral pulses 2+ throughout GI: Palpation (GI): Soft to palpation Skin: General skin exam: no rashes or lesions noted Extrem: Other: incision clean dry and intact. [place] intact. No erythema or joint effusion. Calf supple nontender. Neurovascularly intact. Procedures Date of Service Date of Service: 10/20/21 Progress Note: A&P Assessment and plan (1) Status post total left knee replacement: Status: Acute Assessment and Plan: * Continue pain mgmnt-wean BASKET PERSON begin PO meds * continue Aspirin for dvt ppx * continue PT for LT TKA * Dispo planning-Pending PT eval, pain mgmnt Fall Risk Details Current Medications: Current Medications Acetaminophen (Acetaminophen 325 Mg Tablet) 650 mg PO Q6H PRN PRN Reason: Pain, Mild (Pain Scale 1-3) Last Admin: 10/20/21 04:09 Dose: 650 mg Documented by: Aspirin (Aspirin 325 Mg Tablet) 325 mg PO BID [facility] Last Admin: 10/20/21 07:40 Dose: 325 mg Documented by: Docusate Sodium (Docusate Sodium 100 Mg Capsule) 100 mg PO BID [facility] Last Admin: 10/20/21 07:39 Dose: 100 mg Documented by: Famotidine (Famotidine 20 Mg Tablet) 40 mg PO DAILY [facility] Last Admin: 10/20/21 07:39 Dose: 40 mg Documented by: Hydrochlorothiazide (Hydrochlorothiazide 25 Mg Tablet) 25 mg PO DAILY [facility] Last Admin: 10/20/21 07:55 Dose: 25 mg Documented by: Hydromorphone HCl (Dilaudid) 10 mg in 50 mls @ 0 mls/hr IV .Q0M [facility]; Protocol Last Admin: 10/19/21 19:14 Dose: 0.3 mg/hr, 1.5 mls/hr Documented by: Ketorolac Tromethamine (Ketorolac Tromethamine 30 Mg/Ml Vial) 30 mg IVPUSH Q6H PRN PRN Reason: Pain, Severe (Pain Scale 7-10) Last Admin: 10/19/21 20:32 Dose: 30 mg Documented by: Levothyroxine Sodium (Levothyroxine Sodium 150 Mcg Tablet) 300 mcg PO DAILY [facility] Last Admin: 10/20/21 07:39 Dose: 300 mcg Documented by: Methadone HCl (Methadone Hcl 10 Mg Tablet) 40 mg PO BID [facility] Last Admin: 10/20/21 07:39 Dose: 40 mg Documented by: Naloxone HCl (Naloxone Hcl 0.4 Mg/Ml Vial) 0.2 mg IVPUSH Q2M PRN PRN Reason: Excessive sedation or RR < 8 Omeprazole (Omeprazole 40 Mg Capsule.Dr) 40 mg PO DAILY [facility] Last Admin: 10/20/21 07:39 Dose: 40 mg Documented by: Ondansetron HCl (Ondansetron Hcl 4 Mg/2 Ml Vial) 4 mg IVPUSH Q8H PRN PRN Reason: Nausea and Vomiting Sertraline HCl (Sertraline Hcl 50 Mg Tablet) 50 mg PO DAILY [facility] Last Admin: 10/20/21 07:44 Dose: 50 mg Documented by: Sodium Chloride (0.9 % Sodium Chloride Flush 3 Ml Syringe) 3 ml IVFLUSH QSHIFT [facility] Last Admin: 10/20/21 07:40 Dose: Not Given Documented by: Time Spent With Patient Time: Total time spent is greater than 50% in coordination of care (as documented) at patient's floor/unit and/or counseling patient: Time with patient: less than 15 minutes Quality Stroke Does the patient have a stroke diagnosis?: No VTE Prior VTE?: No VTE Risk Level:: Surgical - very high VTE Device Contraindication: N/A - Device Ordered VTE Drug Contraindication: N/A - Med Ordered
[2021-10-20] MEDS: oxyCODONE HCl ER 40 MG TAB.ER.12H PO ×2 (10:25→20:25)
[2021-10-20] MEDS: HYDROmorphone HCl/NS 10 MG/50 ML PIGGYBACK 1.5 MG IV (10:28)
--- NOTE | 2021-10-20 12:28 | MHC.CM.PN ---
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
[2021-10-20] MEDS: oxyCODONE HCl Immed Release 5 MG TABLET 10 MG PO ×2 (12:34→16:37)
[2021-10-21] VITALS (10 sets, daily range): BP systolic 123–136; BP diastolic 69–83; PULSE 84–88; RESP 14–18; TEMP 36.1–36.2; O2SAT 92–94
[2021-10-21] MEDS: HYDROmorphone HCl/NS 10 MG/50 ML PIGGYBACK 1.5 MG IV (00:02)
--- NOTE | 2021-10-21 00:24 | PC.NURSE ---
Addendum entered by Abby Hernández RN 10/21/21 00:28: wasted 35 ml in pyxis with Michell Jose RN. Original Note: dilaudid SURGICAL SCRUB TECHNOLOGIST pump bag changed and program changed with Michell Jose RN. program changed from 0.3 mg boluses q10/min, max of 4 per hour changed to 0.3 mg boluses q10/min, max 2 per hour.
[2021-10-21] MEDS: oxyCODONE HCl Immed Release 5 MG TABLET 10 MG PO ×2 (03:27→07:18)
[2021-10-21 06:17] LABS: MANUAL DIFF FLAG NO
[2021-10-21 06:20] LABS: Basophils Percent Auto 0.3 % (0-2); Eosinophils Absolute Auto 0.3 X10*3/uL (0.0-0.4); Eosinophils Percent Auto 3.2 % (0-4); Hematocrit 29.7 % (37.0-47.0); Hemoglobin 9.7 g/dl (12.0-16.0); Imm Gran Abs Auto 0.03 X10*3/uL (0.00-0.03); Imm Gran Pct Auto 0.3 % (0.0-0.4); Lymphocytes Absolute Auto 1.9 X10*3/uL (1.2-4.9); Lymphocytes Percent Auto 18.7 % (20-40); Mean Corpuscular HGB Conc 32.7 g/dl (31.0-35.0); Mean Corpuscular Hemoglobin 29.2 pg (27.0-33.0); Mean Corpuscular Volume 89.5 fL (80.0-98.0); Mean Platelet Volume 9.7 fL (9.4-12.3); Monocytes Absolute Auto 0.9 X10*3/uL (0.1-1.2); Monocytes Percent Auto 8.9 % (2-11); Neutrophils Absolute Auto 6.9 x10*3/uL (2.0-8.3); Neutrophils Percent Auto 68.6 % (45-73); Platelet Count 201 X10*3/uL (160-400); Red Blood Count 3.32 X10*6/uL (4.20-5.50); Red Cell Distribution Width 13.6 % (11.0-16.0); White Blood Count 10.1 X10*3/uL (4.8-10.8)
[2021-10-21 06:51] LABS: Anion Gap 12 (12-20); Blood Urea Nitrogen 13 mg/dL (9-16); Calcium 8.6 mg/dL (8.4-10.2); Carbon Dioxide 36 mmol/L (22-29); Chloride 99 mmol/L (96-108); Creatinine Clr Calc Pharmacy 93.9; Estimated Glomerular Filt Rate > 60; Glucose Fasting 101 mg/dL (60-99); Potassium 3.7 mmol/L (3.3-5.1); Sodium 143 mmol/L (135-145)
[2021-10-21] MEDS: Acetaminophen 325 MG TABLET 650 MG PO (07:18)
[2021-10-21] MEDS: Docusate Sodium 100 MG CAPSULE PO (09:41)
[2021-10-21] MEDS: Aspirin 325 MG TABLET PO (09:41)
[2021-10-21] MEDS: Famotidine 20 MG TABLET 40 MG PO (09:42)
[2021-10-21] MEDS: hydroCHLOROthiazide 25 MG TABLET PO (09:43)
[2021-10-21] MEDS: Levothyroxine Sodium 150 MCG TABLET 300 MCG PO (09:43)
[2021-10-21] MEDS: methADONE HCl 10 MG TABLET 40 MG PO (09:44)
[2021-10-21] MEDS: Omeprazole 40 MG CAPSULE.DR PO (09:46)
[2021-10-21] MEDS: Sertraline HCL 50 MG TABLET PO (09:47)
[2021-10-21] MEDS: oxyCODONE HCl ER 40 MG TAB.ER.12H PO (09:47)
--- NOTE | 2021-10-24 09:00 | P.DS_ITS ---
DS: Providers Provider Date of Service: 10/24/21 Date of admission: 10/18/21 11:36 Primary care physician: Barrera Coronado MD Consults: 10/18/21 18:00 Consult to Hospitalist Routine Consulting Provider: Hospitalist Reason For Exam: post op medical management DS: Diagnosis Discharge Diagnosis (1) Status post total left knee replacement: Status: Acute DS: Summary Hospital Course Hospital Course: The patient underwent a successful left total knee arthroplasty, was transferred to PACU and then to the floor to recover. During their stay, their vitals were stable, afebrile at 97.0. Labs were unremarkable, H/H 9.7/29.7. POD 1 she was started on ASA for DVT ppx, they also received PT services twice a day. Prior to discharge, their dressing was change, incision clean dry and intact, new Aquacel dressing applied and the plan was to be discharged home with vna services Time Spent with Patient Time attestation: Total time spent providing and/or coordinating discharge services: Discharge coordination time: Less than 30 minutes Quality: Stroke Does the patient have a stroke diagnosis?: No Physical Exam Verdana 4l Vital Signs: Verdana 4d Verdana 4d Vital Signs: Verdana 4d Verdana 4Bd Last Vital Signs Verdana 4d Dancing Instructor New 4d Dancing Instructor New 4d Temp 97.0 F 10/21/21 11:32 Dancing Instructor New 4d Pulse 88 10/21/21 11:32 Dancing Instructor New 4d Resp 18 10/21/21 11:32 BP 123/69 10/21/21 11:32 Pulse Ox 94 10/21/21 13:13 BMI result Body Mass Index 38.9 Const: General: cooperative, healthy appearing and no acute distress Resp: Effort & Inspection: normal respiratory effort and able to speak in complete sentences Cardio: Rate: regular rate Peripheral pulses: Peripheral pulses 2+ throughout GI: Palpation (GI): Soft to palpation Skin: General skin exam: no rashes or lesions noted Extrem: Other: incision clean dry and intact. [place] intact. No erythema or joint effusion. Calf supple nontender. Neurovascularly intact. DS: Data Data Completed and Pending Completed studies during hospitalization [Text1]: Pending at discharge 10/18/21 14:35 Surgical [PTH] Routine Discharge Plan Discharge Patient Disposition: Home Health Service Discharge Diagnosis: lt tka Referrals: [facility] [Other] - 1 Week (HOME PHYSICAL THERAPY TO START ON SUNDAY IF YOU DO NOT HEAR FROMT HEM BEFORE 12 NOON PLEASE CALL THE ABOVE NUMBER , (YOU WILL GET THE ANSWERING SERVICES ASK FOR THE OCULAR PATHOLOGIST PHYSICAL THERAPIST) THE ORTHOPEDIC PA [facility] INFORMED KAILA ALREADY THAT WE SECURED HOME PT FOR YOU PCP FOLLOW UP POST HOSPITAL DISCHARGE ORTHOPEDIC SURGICAL FOLLOW UP PER DIC INSTRUCTIONS TRANSPORTATION FAMILY ) Jeanine Soto PA-C [Physician Peer Financial Counselor] - 2 Weeks (11/03/21 11:30 [facility]geons Jeanine Soto PA-C) Discharge Medications: New docusate sodium 100 mg Capsule 100 mg PO BID 14 Days Qty: 28 0RF oxycodone 10 mg tablet 10 mg PO Q4-6H PRN (Reason: Pain, Moderate (Pain Scale 4-6) 7 Days Qty: 42 0RF aspirin 325 mg Tablet 325 mg PO BID 42 Days Qty: 84 0RF acetaminophen 325 mg Tablet 650 mg PO Q6H PRN (Reason: Pain, Mild (Pain Scale 1-3)) 30 Days Qty: 240 0RF Continued methadone 10 mg tablet 40 mg PO BID Qty: 240 0RF celecoxib [Celebrex] 200 mg capsule 200 mg PO BID 30 Days Qty: 60 3RF chlorthalidone 25 mg tablet 25 mg PO DAILY Qty: 90 8RF famotidine 40 mg tablet 40 mg PO DAILY Qty: 90 8RF levothyroxine 300 mcg tablet 300 mcg PO DAILY Qty: 90 8RF sertraline 50 mg tablet 50 mg PO DAILY Qty: 90 8RF Narcan 4 mg/actuation spray,non-aerosol 1 spray intranasal Q2M Qty: 2 0RF Rx Instructions: spray 1 dose into ONE nostril; alternate nostrils w each dose until help arrives omeprazole 40 mg capsule,delayed release(DR/EC) 40 mg PO DAILY Qty: 90 8RF oxycodone 10 mg tablet 10 mg PO Q4H Qty: 45 0RF Discharge Orders: Discharge Order (Routine); Ordered 10/21/21 Ordered By: Jeanine Soto Diet: regular diet Activity on Discharge: Use cane or walker Stand Alone Forms: Patient Portal Discharge page Care Plan Goals: Restore function of joint Health Concerns: Wean narcotics Plan of Treatment: * Physical Therapy for Total knee arthroplasty: gait training, ROM 0-12, quad strength * Limit stair climbing * No showering, no tub bath-keep dressing clean, dry and intact * No driving x6 weeks * Continue Aspirin twice a day x 6 weeks * Continue Oxycodone 10mg tabs po q4 hrs prn pain * 20mg bid x 2 days then wean to 10mg bid x1 day Not to exceed more than 40 mg a day on day 1 and 2, then not to exceed 20 mg a day on day 3 * Follow up with [facility] Orthopedics in 2 weeks Assessment: Physical Therapy Pain management DVT prophylaxis Discharge Date/Time: 10/21/21 13:41
== END 2021-10-21 13:41 | disposition home health service (06) | DRG 326 ==
LOC: HO.SSSA 15:56 → HO.S3 16:44 → HO.IMC 21:41 → HO.S3 10-19 18:07
PROVIDERS: Physician Assistant; Admitting Provider Orthopaedic Surgery; PCP Internal Medicine; Visit Provider Orthopaedic Surgery
PROC: 0SRD0JA Replacement of Left Knee Joint with Synthetic Substitute, Uncemented, Open Approach (ICD-10-PCS; CPT 27447; principal; 2021-10-18 12:50)
DX: M17.12 Unilateral primary osteoarthritis, left knee (principal); E03.9 Hypothyroidism, unspecified; G89.29 Other chronic pain; I10 Essential (primary) hypertension; E66.9 Obesity, unspecified; Z68.38 Body mass index [BMI] 38.0-38.9, adult; Z20.822 Contact with and (suspected) exposure to COVID-19; Z79.890 Hormone replacement therapy; Z87.891 Personal history of nicotine dependence; Z79.899 Other long term (current) drug therapy
CPT/HCPCS: 36415; 73560; 80048; 85025; 86850; 86900; 86901; 87635; 87640; 87641; 88305; 88311; 93005; 97110; 97116; 97162; 97530; C1776; J0690; J1100; J1170; J1885; J2250; J2405

== ENCOUNTER → 2021-11-03 11:20 | Outpatient (BNVA) | payer OTHER, SELFPAY | PROVIDERS: PCP Internal Medicine; Visit Provider Physician Assistant ==

== ENCOUNTER 2021-11-24 15:00 | Outpatient (RCR) | payer OTHER, SELFPAY ==
--- NOTE | 2021-11-03 13:30 | MHC.PT.EP ---
[facility] [place] Office [place] Office [place] Office [address] Emi Bennett [address] [phone] F: [phone] F: [phone] F: [phone] F: [phone] Physical Therapy Plan of Care Date of Evaluation: Date of Surgery: 10/18/21 Diagnosis: S/P LEFT TKA Assessment: 56 YO FEMALE REF TO PT S/P LEFT TKR ON 10/18/21- SHE HAD ADRIÁN REMOVED 11/03/21- Pt HAS OA IN Rt KNEE, BUT NOTED REDUCED PAIN S/P LEFT TKA- SHE HAS A H/O LEFT LBP AND LEFT SCIATICA-LIKE SXS PRE-OP AND CURRENT WITH LEFT THIGH HYPERSENSITIVITY AND NUMBNESS LEFT LAT KNEE. 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 OBJECTIVE FINDINGS: HEALING Lt KNEE INCISION, LUMBOPELVIC/ PROX LEs WEAKNESS, DECR POSTURAL AWARENESS, ALTERED GAIT (?LLI IMPACTING LBP), TIGHT PSOAS AND CALF, AND INTERM LEFT KNEE PAIN. FUNCTIONALLY, Pt IS MOTIVATED FOR INCR MOBILITY- SHE CURRENTLY AMB W A QUAD CANE, DECR OSBALDO TO PROLONGED STANDING, INCR STAIR MGMT, AND GENERAL ADLs/ HOUSEWORK. Pt WOULD BENEFIT FROM PT TO GUIDE HER IN MEETING HER POST-OP TKA GOALS, ADDRESSING THE ABOVE FINDINGS AND DEV A HEP/ SELF-SX MGMT STRATEGY PLAN. Frequency and Duration: The patient will be seen 2 x WK x 8 WKS Short Term Goals: Pt DEMON PROPER CORE STAB AND LEFT QUAD SET W THER EXER -> PROMOTING LUMBOPELVIC SYMMETRY IN 1 WK Pt'S LEFT KNEE PAIN DECREASED TO 2-3/10 IN 2 WKS Pt DEMON WFL AROM HIP EXT AND ANKLE DF/PF AND PROMOTE CURRENT AROM KNEE 0* TO 124* IN 3 WKS Pt DEMO IMPROVED GAIT MECH W LEAST RESTRICTIVE AD (REDUCED LATERAL WT SHIFT) ON LEVEL GROUND AND STAIRS IN 2 WKS Pt INDEP SELF SCAR MSG IN 3 WKS Mcfp Goals: Pt INDEP W HEP PROGRESSION AND SELF-SX MGMT STRATEGIES IN 8 WKS Pt RESUME REG ADLs EVIDENT W IMPROVED LEFI SCORE BY 5-8 POINTS (AT EVAL 46/80 ) IN 8 WKS Pt INCR LUMBOPELVIC STAB AND LEFT LE STRENGTH BY 1 GRADE IN 8 WKS Pt DEMON RECIPROCAL TECHN W STAIR MGMT , W RESPECT TO OPPOS (Rt KNEE ) IN 5 WKS Treatment Plan: Modalities to reduce pain, spasms and effusion. Manual therapy to restore motion and function. Therapeutic exercise to improve strength and flexibility. Neuromuscular re-education for posture and balance. Therapeutic activities to return to functional activities of daily living. Electronically signed by: Lindsay GutiérrezPT Please sign and return to therapist. Thank you for your referral.
--- NOTE | 2021-12-28 07:57 | MHC.PT.DC ---
[facility] [place] Office [place] Office [place] Office [address] Emi Bennett [address] [phone] F: [phone] F: [phone] F: [phone] F: [phone] Physical Therapy Discharge Report Diagnosis: S/P LEFT TKA Date of Surgery: 10/18/21 Date of Evaluation: 11/03/21 Date of Discharge: 12/28/21 Treatments to Date: 4 Cancellations to Date: No Shows to Date: Discharge Status: Achieved Goals Improved Function Independent with HEP Patient Elected to Stop Discharge Summary: Pt is demonstrating good ROM and strength at the time of the last PT session. Functionally, she was completing daily activities with minimal limitations allowing her to meet her goals. At times she feels a little less confident in her LLE when compared to her R but this is improving. She is very compliant with her HEP and has a thorough program at home to continue on her own. Discussion had on ending PT due to high copay which we had discussed right from the evaluation. Pt had elected to be put on a 30 day hold in case something comes up and will now be d/c at that time. Electronically signed by: Marie García PT Please sign and return to therapist. Thank you for your referral.
== END 2021-12-28 07:59 | disposition home or self-care (01) ==
LOC: HO.PTCHIC 15:00
PROVIDERS: Visit Provider Physician Assistant
DX: Z96.651 Presence of right artificial knee joint (principal)
CPT/HCPCS: 97110; 97161; 97530

== ENCOUNTER → 2021-11-28 09:57 | Outpatient (BNVA) | payer OTHER, SELFPAY | PROVIDERS: PCP Internal Medicine; Visit Provider Internal Medicine | DX: M54.30 Sciatica, unspecified side (principal); G54.1 Lumbosacral plexus disorders; Z79.891 Long term (current) use of opiate analgesic; Z87.891 Personal history of nicotine dependence; Z79.899 Other long term (current) drug therapy | CPT/HCPCS: 99202 ==

== ENCOUNTER → 2021-12-01 14:24 | Outpatient (BNVA) | payer OTHER, SELFPAY | PROVIDERS: Visit Provider Physician Assistant | DX: Z13.89 Encounter for screening for other disorder (principal) ==

== ENCOUNTER 2022-01-12 13:22 | Outpatient (REF) | payer OTHER, SELFPAY ==
--- NOTE | ~2022-01-12 | XR_ITS ---
EXAMINATION: XR KNEE, LEFT XR KNEE AP STANDING CLINICAL INFORMATION: Pain. COMPARISON: Prior radiographs, most recently 01/31/2021. TECHNIQUE: Four views of the left knee. AP bilateral standing view of the knees was obtained. FINDINGS: Prosthetic components of the left total knee arthroplasty are appropriately aligned without periprosthetic fracture or abnormal lucency. No component migration. No significant joint effusion. There is marked asymmetric narrowing of the medial joint space compartment of the right knee, with peripheral osteophyte formation. The lateral joint space compartment is well-maintained, with only mild peripheral osteophyte formation. There is a slight secondary valgus configuration. No fracture or dislocation is seen. There is no foreign body. XR/XR knee standing BI IMPRESSION: 1. There is alignment of the left total knee arthroplasty, without evidence of complications. 2. There is marked osteoarthritic change of the medial joint space compartment of the right knee, and only mild osteoarthritic change is seen of the medial joint space compartment. There is a secondary slight varus configuration.
--- NOTE | ~2022-01-12 | XR_ITS ---
EXAMINATION: XR KNEE, LEFT XR KNEE AP STANDING CLINICAL INFORMATION: Pain. COMPARISON: Prior radiographs, most recently 01/31/2021. TECHNIQUE: Four views of the left knee. AP bilateral standing view of the knees was obtained. FINDINGS: Prosthetic components of the left total knee arthroplasty are appropriately aligned without periprosthetic fracture or abnormal lucency. No component migration. No significant joint effusion. There is marked asymmetric narrowing of the medial joint space compartment of the right knee, with peripheral osteophyte formation. The lateral joint space compartment is well-maintained, with only mild peripheral osteophyte formation. There is a slight secondary valgus configuration. No fracture or dislocation is seen. There is no foreign body. XR/XR knee LT 2V IMPRESSION: 1. There is alignment of the left total knee arthroplasty, without evidence of complications. 2. There is marked osteoarthritic change of the medial joint space compartment of the right knee, and only mild osteoarthritic change is seen of the medial joint space compartment. There is a secondary slight varus configuration.
== END 2022-01-12 13:23 | disposition home or self-care (01) ==
LOC: HO.HOSX 13:22
PROVIDERS: Visit Provider Orthopaedic Surgery
DX: Z47.1 Aftercare following joint replacement surgery (principal); Z96.652 Presence of left artificial knee joint
CPT/HCPCS: 73560; 73565

== ENCOUNTER 2022-02-09 10:46 | Outpatient (REF) | payer OTHER, SELFPAY ==
--- NOTE | ~2022-02-09 | XR_ITS ---
EXAMINATION: XR FOOT, LEFT CLINICAL INFORMATION: Pain. COMPARISON: No similar priors. TECHNIQUE: AP, lateral, and oblique views of the left foot. FINDINGS: No acute fractures or malalignment. There is multifocal degenerative osteoarthritis, which is more notable on the lateral views along the dorsal surface of the TMT joints. Plantar calcaneal spurring. There is diffuse soft tissue swelling with a more focal area of greater thickness along the dorsal surface of the foot, in the area of the pain. There are no unexpected radiopaque foreign bodies. There are scattered vascular calcifications. XR/XR foot LT min 3V IMPRESSION: Soft tissue swelling in the dorsal surface of the foot is nonspecific, clinical correlation for infection and cellulitis should be obtained. Underlying this area of soft tissue thickening, there are prominent degenerative changes of the TMT joints without clear erosions. If a bone infection is suspected, correlation with an MR is recommended. Plantar calcaneus spurring. No acute fractures.
== END 2022-02-09 10:47 | disposition home or self-care (01) ==
LOC: HO.HOSX 10:46
PROVIDERS: Visit Provider Orthopaedic Surgery
DX: M79.672 Pain in left foot (principal); M17.11 Unilateral primary osteoarthritis, right knee; M19.079 Primary osteoarthritis, unspecified ankle and foot
CPT/HCPCS: 73630

== ENCOUNTER 2022-07-13 09:57 | Outpatient (REF) | payer OTHER, SELFPAY ==
[2022-07-13 10:13] LABS: MANUAL DIFF FLAG NO
[2022-07-13 10:57] LABS: Basophils Absolute Auto 0.1 X10*3/uL (0.0-0.2); Basophils Percent Auto 0.6 % (0-2); Eosinophils Absolute Auto 0.3 X10*3/uL (0.0-0.4); Eosinophils Percent Auto 3.7 % (0-4); Hematocrit 38.9 % (37.0-47.0); Hemoglobin 12.6 g/dl (12.0-16.0); Imm Gran Abs Auto 0.02 X10*3/uL (0.00-0.03); Imm Gran Pct Auto 0.2 % (0.0-0.4); Lymphocytes Absolute Auto 2.8 X10*3/uL (1.2-4.9); Lymphocytes Percent Auto 31.9 % (20-40); Mean Corpuscular HGB Conc 32.4 g/dl (31.0-35.0); Mean Corpuscular Volume 89.6 fL (80.0-98.0); Mean Platelet Volume 9.9 fL (9.4-12.3); Monocytes Absolute Auto 0.6 X10*3/uL (0.1-1.2); Monocytes Percent Auto 7.4 % (2-11); Neutrophils Absolute Auto 4.9 x10*3/uL (2.0-8.3); Neutrophils Percent Auto 56.2 % (45-73); Platelet Count 293 X10*3/uL (160-400); Red Blood Count 4.34 X10*6/uL (4.20-5.50); White Blood Count 8.7 X10*3/uL (4.8-10.8)
[2022-07-13 11:43] LABS: Alanine Aminotransferase 16 U/L (0-31); Albumin Level 4.1 g/dL (3.5-5.0); Alkaline Phosphatase 76 U/L (39-117); Anion Gap 16 (12-20); Aspartate Amino Transferase 17 U/L (5-31); Bilirubin Total 0.3 mg/dL (0.0-1.0); Blood Urea Nitrogen 21 mg/dL (9-16); Calcium 9.2 mg/dL (8.4-10.2); Carbon Dioxide 32 mmol/L (22-29); Chloride 98 mmol/L (96-108); Cholesterol 235 mg/dL; Estimated Glomerular Filt Rate > 60; Glucose Fasting 98 mg/dL (60-99); HDL Cholesterol 45 mg/dL; LDL Cholesterol Calculated 155 mg/dl; Potassium 3.6 mmol/L (3.3-5.1); Sodium 142 mmol/L (135-145); Total Protein 7.5 g/dL (6.5-8.0); Triglycerides 179 mg/dL
[2022-07-13 11:47] LABS: Thyroid Stimulating Hormone 0.03 uIU/mL (0.32-4.0)
== END 2022-07-13 09:58 | disposition home or self-care (01) ==
LOC: HO.LAB 09:57
PROVIDERS: PCP Internal Medicine; Visit Provider Internal Medicine
DX: I10 Essential (primary) hypertension (principal); E78.5 Hyperlipidemia, unspecified; E03.9 Hypothyroidism, unspecified; Z13.0 Encounter for screening for diseases of the blood and blood-forming organs and certain disorders involving the immune mechanism
CPT/HCPCS: 36415; 80053; 80061; 84443; 85025

== ENCOUNTER 2022-07-14 10:29 | Outpatient (REF) | payer OTHER, SELFPAY ==
--- NOTE | ~2022-07-14 | CT_ITS ---
EXAMINATION: CT ABDOMEN AND PELVIS WITHOUT CONTRAST CLINICAL INFORMATION: Other intra-abdominal and pelvic swelling, mass and lump. COMPARISON: None. TECHNIQUE: Multidetector volumetric imaging was performed from the superior aspect of the liver through the pubic symphysis. Sagittal and coronal reformatted images were obtained on the technologist's workstation. This CT examination was performed using dose optimization techniques as appropriate, variously including the following: *Automated exposure control *Adjustment of mA and/or kV according to patient size (this includes techniques or standardized protocols for targeted exams where dose is matched to indication/reason for exam; i.e. extremities or head) *Use of iterative reconstruction technique DLP: 754 mGy-cm. FINDINGS: LUNG BASES: The visualized lung bases are unremarkable aside from coronary calcifications. LIVER, GALLBLADDER, AND BILIARY TREE: The liver is normal in size, shape, and attenuation. No focal hepatic lesion or biliary ductal dilatation is present. The gallbladder is unremarkable with no evidence of radiopaque gallstones, gallbladder wall thickening, or obvious pericholecystic inflammatory changes. PANCREAS: Unremarkable. SPLEEN: Unremarkable. ADRENAL GLANDS: Right adrenal mass is present measuring 5.3 x 3.9 x 4.3 cm. The mass has punctate calcification (4:80) along with some hyperattenuating areas measuring 46 Hounsfield units. However, the majority of the mass measures fluid density, under 10 Hounsfield units. There is one small rounded 6 mm area of gross fat density (3:36 and 5:107). As such, this is compatible with a benign adenoma. The left adrenal gland is normal. KIDNEYS AND URETERS: The kidneys are normal in size, shape, and attenuation. The right kidney is displaced slightly by the adrenal mass. No hydronephrosis, hydroureter, or calculi seen. No perinephric stranding. BLADDER: Unremarkable. GASTROINTESTINAL TRACT: There are colonic diverticula without diverticulitis. The small and large bowel are unremarkable. The appendix is unremarkable. ABDOMINAL WALL: No significant hernia is appreciated. LYMPH NODES: Normal. VASCULAR: Unremarkable. PELVIC VISCERA: Normal anteverted uterus. There is a 3.3 cm benign left ovarian cyst. OSSEOUS STRUCTURES: Degenerative changes are noted throughout the spine. No bony destructive lesions. CT/CT abdomen pelvis wo IV con IMPRESSION: 1. Right adrenal mass as described above. The majority of the mass measures fluid density. There is one area of punctate calcification and one small area of gross fat density. Differential diagnosis includes an adrenal myelolipoma as well as a benign adenoma. Both of these are benign findings. 2. Other incidental findings as described above including coronary calcifications, benign left ovarian cyst, colonic diverticula and degenerative changes in the spine. Fleischner guidelines were followed.
== END 2022-07-14 10:30 | disposition home or self-care (01) ==
LOC: HO.CT 10:29
PROVIDERS: Visit Provider Surgery
DX: R19.09 Other intra-abdominal and pelvic swelling, mass and lump (principal)
CPT/HCPCS: 74176

== ENCOUNTER → 2022-10-18 13:18 | Outpatient (BNVA) | payer OTHER, SELFPAY | PROVIDERS: PCP Internal Medicine; Visit Provider Physician Assistant | DX: Z13.89 Encounter for screening for other disorder (principal) ==

== ENCOUNTER 2022-10-24 07:32 | Inpatient (IN) | payer OTHER, SELFPAY ==
--- NOTE | 2022-10-18 | ECG_ITS ---
Test Reason : LT TKA Blood Pressure : / mmHG Vent. Rate : 067 BPM Atrial Rate : 067 BPM P-R Int : 160 ms QRS Dur : 082 ms QT Int : 392 ms P-R-T Axes : 063 010 044 degrees QTc Int : 414 ms Normal sinus rhythm Nonspecific ST and T wave abnormality Abnormal ECG When compared with ECG of 19-SEP-2021 11:37, No significant change was found Referred By: Jeanine Soto Electronically Signed By:Marcelo Celis
[2022-10-18 12:16] VITALS: BP 129/78; PULSE 73; RESP 20; O2SAT 97; BMI 39.2
[2022-10-18 13:07] LABS: MANUAL DIFF FLAG NO
[2022-10-18 14:20] LABS: Anion Gap 14 (12-20); Blood Urea Nitrogen 19 mg/dL (9-16); Carbon Dioxide 35 mmol/L (22-29); Chloride 98 mmol/L (96-108); Creatinine Clr Calc Pharmacy 77.9; Estimated Glomerular Filt Rate 59; Potassium 4.3 mmol/L (3.3-5.1); Sodium 143 mmol/L (135-145)
[2022-10-18 14:27] LABS: Basophils Percent Auto 0.5 % (0-2); Eosinophils Absolute Auto 0.2 X10*3/uL (0.0-0.4); Eosinophils Percent Auto 2.7 % (0-4); Hematocrit 41.4 % (37.0-47.0); Hemoglobin 13.1 g/dl (12.0-16.0); Imm Gran Abs Auto 0.02 X10*3/uL (0.00-0.03); Imm Gran Pct Auto 0.2 % (0.0-0.4); Lymphocytes Percent Auto 22.6 % (20-40); Mean Corpuscular HGB Conc 31.6 g/dl (31.0-35.0); Mean Corpuscular Hemoglobin 28.8 pg (27.0-33.0); Mean Platelet Volume 9.7 fL (9.4-12.3); Monocytes Absolute Auto 0.6 X10*3/uL (0.1-1.2); Monocytes Percent Auto 6.8 % (2-11); Neutrophils Percent Auto 67.2 % (45-73); Platelet Count 292 X10*3/uL (160-400); Red Blood Count 4.55 X10*6/uL (4.20-5.50); Red Cell Distribution Width 13.3 % (11.0-16.0); White Blood Count 8.9 X10*3/uL (4.8-10.8)
[2022-10-18 15:25] LABS: MRSA Nasal PCR NEGATIVE (Negative); SA Nasal PCR POSITIVE (Negative)
[2022-10-24] VITALS (19 sets, daily range): BP systolic 120–172; BP diastolic 70–92; PULSE 64–98; RESP 12–20; TEMP 36.1–37.6; O2SAT 91–99
--- NOTE | ~2022-10-24 | XR_ITS ---
EXAMINATION: XR KNEE, RIGHT CLINICAL INFORMATION: Status post right total knee arthroplasty COMPARISON: None TECHNIQUE: Two views of the right knee. FINDINGS: The patient is status post right knee arthroplasty showing good anatomic alignment and no evidence for hardware malfunction. There is no acute fracture. Mild intra-articular and soft tissue air is noted. Multiple skin keeley are seen anteriorly. XR/XR knee RT 2V IMPRESSION: Postsurgical changes. No hardware abnormality.
--- NOTE | 2022-10-24 07:48 | HO.ANESPROP2 ---
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 Maternal Grandmother Osteoarthritis Sister No problems noted. Family history of problems with anesthesia: No Surgical History Surgical History H/O colonoscopy History of left knee replacement Hx of breast reduction, elective Hx of umbilical hernia repair History of Problems with Anesthesia: No Social History Social History Housing: House Are you a primary primary care physician to a significant other at home: No Do you presently have visiting nurse or other home services: No Alcohol intake: current Alcohol intake frequency: holidays/special occasions only Patient Tobacco Use Status: Former Tobacco user Quit Date: 2020 Tobacco use type: Cigarette Years Smoked: 40 e-Cigarette/Vaping Use: Never Used Second Hand Smoke Exposure: No Use of substances other than those prescribed or required for medical reasons: No Substance Use Type Other:: taking methadone for pain control-Rx Dr. Coronado Have you been hit, kicked, punched, or otherwise hurt by someone within the past year? If so, by whom?: No Are you DNR?: Yes Advance Directives Information Provided: Yes (will bring DOS) Advance Directives on File: No Recently lost weight without trying: No Eating poorly because of decreased appetite: No Nutrition Risks: No Nutritional Risk Poor oral hygiene: No service: No Current occupational status: unemployed Current occupation: Right Handed Cognitive needs: No Hearing needs: No Vision needs: Yes (reading glasses) Meds Allergies Allergy/AdvReac Type Severity Reaction Status Date / Time No Known Allergies Allergy Verified 10/04/22 09:30 [No Known Allergies*] Active Medications: Current Medications Hydromorphone HCl (Dilaudid) 10 mg in 50 mls @ 0 mls/hr IV .Q0M DONG; Protocol Cefazolin Sodium/Dextrose (Ancef) 2 gm in 50 mls @ 100 mls/hr IV PREOP ONE Stop: 10/24/22 08:01 Naloxone HCl (Naloxone Hcl 0.4 Mg/Ml Vial) 0.2 mg IVPUSH Q2M PRN PRN Reason: Excessive sedation or RR < 8 Home Medications Medication Instructions Recorded Confirmed Last Taken Type ibuprofen 600 mg tablet 600 mg PO BID PRN pain 10/18/22 10/18/22 Unknown History oxycodone 10 mg tablet 10 mg PO Q4H PRN Pain 10/18/22 10/18/22 Unknown History psyllium 1 packet PO DAILY 10/18/22 10/18/22 Unknown History Exam Exam Date and Time: October 24, 2022 0748 Height,Weight and Vital Signs: Height 5 ft 5 in Weight 107.048 kg Last Vital Signs Pulse 73 10/18/22 12:16 Resp 20 10/18/22 12:16 BP 129/78 10/18/22 12:16 Pulse Ox 97 10/18/22 12:16 O2 Del Method 10/18/22 12:16 Pertinent Lab Results Pertinent Lab Results: Laboratory Tests 10/18/22 10/18/22 10/18/22 12:30 13:05 13:05 WBC 8.9 RBC 4.55 Hgb 13.1 Hct 41.4 MCV 91.0 MCH 28.8 MCHC 31.6 RDW 13.3 Plt Count 292 MPV 9.7 Immature Gran % (Auto) 0.2 Neut % (Auto) 67.2 Lymph % (Auto) 22.6 [place] % (Auto) 6.8 Eos % (Auto) 2.7 Baso % (Auto) 0.5 Lymph # (Auto) 2.0 [place] # (Auto) 0.6 Eos # (Auto) 0.2 Baso # (Auto) 0.0 Abs Immat Gran (auto) 0.02 Absolute Neuts (auto) 6.0 Absolute Nucleated RBC 0.000 Nucleated RBC % (auto) 0.0 Sodium 143 Potassium 4.3 Chloride 98 Carbon Dioxide 35 H Anion Gap 14 BUN 19 H Creatinine 0.98 Estim Creat Clear Calc 77.9 Estimated GFR 59 Nasal Screen MRSA (PCR) NEGATIVE Nasal S. aureus Screen POSITIVE A Nasal MRSA/S.aureus Interp SEE NOTE Blood Type Antibody Screen 10/18/22 13:05 WBC RBC Hgb Hct MCV MCH MCHC RDW Plt Count MPV Immature Gran % (Auto) Neut % (Auto) Lymph % (Auto) [place] % (Auto) Eos % (Auto) Baso % (Auto) Lymph # (Auto) [place] # (Auto) Eos # (Auto) Baso # (Auto) Abs Immat Gran (auto) Absolute Neuts (auto) Absolute Nucleated RBC Nucleated RBC % (auto) Sodium Potassium Chloride Carbon Dioxide Anion Gap BUN Creatinine Estim Creat Clear Calc Estimated GFR Nasal Screen MRSA (PCR) Nasal S. aureus Screen Nasal MRSA/S.aureus Interp Blood Type A Positive Antibody Screen NEGATIVE Airway Mallampati Class: II TM Dist: >3cm Neck ROM: Full Heart: rrr Lungs: cta Assessment and Plan Assessment Anesthesia Assessment: Anesthesia Plan Discussed and Chart Reviewed Final Anesthetic Review Family History of Problems with Anesthesia: No History of Problems with Anesthesia: No ASA Class: III Final Preanesthetic Review: No Changes in Pt Med Stat, Meds/Allgs Chart Reviewed, Consent Obtained/Reviewed and Anes Risks/Benef Reviewed Patient Risk: Intermediate Procedure Risk: Intermediate Anesthetic Plan Anesthetic Plan: Spinal and Agree w/ Assess. and Plan Disposition: Standard PACU
[2022-10-24 07:53] LABS: Hematocrit 40.9 % (37.0-47.0); Hemoglobin 13.4 g/dl (12.0-16.0)
[2022-10-24 08:15] LABS: COVID-19 Test Negative (Negative); IDNOW Serial# BCCEAD1C
[2022-10-24] MEDS: Lactated Ringers 1,000 ML 50 ML IVCONT (08:25)
--- NOTE | 2022-10-24 09:03 | MHC.SHP ---
Pre-Procedural Eval Section A Date of Service: 10/24/22 The patient is an INPATIENT: No Changes since office visit: No Cold of Flu in the past 2 weeks, No New Medical Problems, No Changes in Medication and No Patient answered all questions The History & Physical has been completed within 30 days and I have reviewed it.: Yes Section B Chief Complaint: Right TKA Allergies: Allergies Allergy/AdvReac Type Severity Reaction Status Date / Time No Known Allergies Allergy Verified 10/04/22 09:30 [No Known Allergies*] Plan I have reviewed the history and physical and performed a pertinent physical examination on my patient. No changes have occurred unless specified. Time Spent With Patient Time: Total time managing care of this patient today ____ minutes.
--- NOTE | 2022-10-24 10:52 | PM.OP ---
Brief Operative Note Date of Service: 10/24/22 Pre-op diagnosis: Right knee OA Post-op diagnosis: same Procedure: Right TKA Implants: [place] Triathlon press fir posterior stabilized 11/17/10ps/32a Surgeon: Isai Yusuf MD Anesthesia: regional and spinal Was an Correspondence Representative used for this Procedure?: Yes Correspondence Representative: Jeanine Soto Estimated blood loss (mL): 150 IV fluids (mL): 800 Pathology: other Condition: stable Disposition: PACU
--- NOTE | 2022-10-24 10:55 | W.PM.OPN ---
Operative Note Operative Note Date of Service: 10/24/22 Narrative: Date of Service: 10/24/22 Pre-op diagnosis: Right knee OA Post-op diagnosis: same Procedure: Right TKA Implants: [place] Triathlon press fit posterior stabilized 11/17/10ps/32a Surgeon: Isai Yusuf MD Anesthesia: regional and spinal Was an Customer Supply Coordinator used for this Procedure?: Yes Customer Supply Coordinator: Jeanine Soto Estimated blood loss (mL): 150 IV fluids (mL): 800 Pathology: other Condition: stable Disposition: PACU Procedure in detail: The patient was brought to the operating room and prepped and draped in standard sterile fashion. A time-out was called to identify proper site proper procedure proper surgeon and IV antibiotics were administered. 1 g of IV tranexamic acid was administered. I began by making a midline incision to the retinaculum and performed a medial parapatellar arthrotomy. The patella was translated laterally and the knee was flexed up. There was medial and PF eburnation. I performed a small medial peel and resected the infrapatellar fat pad. Charo's line was then used to drill my intramedullary femoral guide and my distal femur cut of 10 mm was made in 5 degrees of valgus while protecting the soft tissues. I then measured a # 3 femur and placed my cutting guide and made my anterior posterior and chamfer cuts in 3 deg of ER while protecting the soft tissues at all times. I then made my box but removing the PCL. Once I was satisfied with my cuts I turned my attention to the tibia. I removed the meniscus medially and laterally and , using an external cutting guide, in line with the tibial crest and the third ray, I made my distal tibial cut in 0 deg slope of while protecting the posterior soft tissues at all times. An extension block was used to confirm appropriate amount of bony resection. I then sized a #3 tibia and once I was satisfied that there was complete tibial coverage I placed my trial and with the trial femur in place I took the knee through range of motion. I was satisfied with the extension and flexion as well as the stability at 0, 30 and 90 degrees. I then turned my attention to the patella where I removed 1 cm from the undersurface of the patella and then trialed a 32a patellar button. Again the knee was taken through range of motion I was satisfied with the tracking. I then returned to the femur and drilled my femoral lug holes and prepared the tibia. A femoral bone plug was placed and the knee was irrigated copiously. I then press fit the patella, tibia and femur in standard fashion. I trialed different inserts until I selected a #11 insert. The final insert was placed and a 3 minutes iodine soak with local TXA was performed. A Werewolf cautery wand was used to maintain hemostasis over the capsule and meniscal beds, the gutters and peripatellar soft tissues. The knee was then closed with a running Quill suture, a 3 0 Vicryl and keeley on the skin. Patient was then placed in sterile dressing and brought to recovery room in stable condition there were no known complications.
[2022-10-24] MEDS: Lactated Ringers 1,000 ML 100 ML IVCONT ×2 (11:31→20:12)
[2022-10-24] MEDS: HYDROmorphone HCl/NS 10 MG/50 ML PIGGYBACK 2.5 MG IV ×3 (12:31→23:00)
[2022-10-24] MEDS: Acetaminophen 325 MG TABLET 650 MG PO ×2 (12:34→20:00)
[2022-10-24] MEDS: ondansetron HCL 4 MG/2 ML VIAL IVPUSH (14:05)
[2022-10-24] MEDS: oxyCODONE HCl Immed Release 5 MG TABLET 10 MG PO ×2 (14:05→18:23)
[2022-10-24] MEDS: ceFAZolin Sodium/Dextrose,Iso 2 GM/50 ML PIGGYBACK IV (15:17)
[2022-10-24] MEDS: Celecoxib 200 MG CAPSULE PO (19:59)
[2022-10-24] MEDS: methADONE HCl 10 MG TABLET 40 MG PO (19:59)
[2022-10-25] VITALS (21 sets, daily range): BP systolic 132–181; BP diastolic 63–88; PULSE 79–93; RESP 18–20; TEMP 36.3–36.8; O2SAT 92–97
[2022-10-25] MEDS: Acetaminophen 325 MG TABLET 650 MG PO ×3 (03:30→21:12)
[2022-10-25] MEDS: oxyCODONE HCl Immed Release 5 MG TABLET 10 MG PO ×4 (05:09→17:11)
[2022-10-25] MEDS: Omeprazole 40 MG CAPSULE.DR PO (05:10)
[2022-10-25] MEDS: Levothyroxine Sodium 200 MCG TABLET PO (05:11)
[2022-10-25] MEDS: HYDROmorphone HCl/NS 10 MG/50 ML PIGGYBACK 2.5 MG IV ×3 (05:22→17:12)
[2022-10-25] MEDS: Lactated Ringers 1,000 ML 100 ML IVCONT (05:29)
[2022-10-25 06:22] LABS: MANUAL DIFF FLAG NO
[2022-10-25 06:46] LABS: Basophils Percent Auto 0.2 % (0-2); Eosinophils Absolute Auto 0.2 X10*3/uL (0.0-0.4); Eosinophils Percent Auto 1.7 % (0-4); Hematocrit 32.6 % (37.0-47.0); Hemoglobin 10.6 g/dl (12.0-16.0); Imm Gran Abs Auto 0.05 X10*3/uL (0.00-0.03); Imm Gran Pct Auto 0.5 % (0.0-0.4); Lymphocytes Absolute Auto 1.7 X10*3/uL (1.2-4.9); Lymphocytes Percent Auto 16.8 % (20-40); Mean Corpuscular HGB Conc 32.5 g/dl (31.0-35.0); Mean Corpuscular Hemoglobin 28.9 pg (27.0-33.0); Mean Corpuscular Volume 88.8 fL (80.0-98.0); Mean Platelet Volume 9.5 fL (9.4-12.3); Monocytes Percent Auto 10.1 % (2-11); Neutrophils Absolute Auto 7.1 x10*3/uL (2.0-8.3); Neutrophils Percent Auto 70.7 % (45-73); Platelet Count 222 X10*3/uL (160-400); Red Blood Count 3.67 X10*6/uL (4.20-5.50); Red Cell Distribution Width 13.2 % (11.0-16.0); White Blood Count 10.1 X10*3/uL (4.8-10.8)
[2022-10-25 07:06] LABS: Anion Gap 15 (12-20); Blood Urea Nitrogen 13 mg/dL (9-16); Calcium 8.5 mg/dL (8.4-10.2); Carbon Dioxide 30 mmol/L (22-29); Chloride 97 mmol/L (96-108); Creatinine Clr Calc Pharmacy 86.8; Estimated Glomerular Filt Rate > 60; Glucose Fasting 116 mg/dL (60-99); Potassium 3.2 mmol/L (3.3-5.1); Sodium 139 mmol/L (135-145)
--- NOTE | 2022-10-25 07:51 | P.PNOP_ITS ---
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 Physical Exam Vital Signs: Vital Signs: Last Vital Signs Temp 98.0 F 10/25/22 07:41 Pulse 89 10/25/22 07:41 Resp 18 10/25/22 07:41 BP 181/85 H 10/25/22 07:41 Pulse Ox 92 10/25/22 07:41 O2 Del Method 10/25/22 07:41 O2 Flow Rate 2 10/24/22 12:40 BMI result Body Mass Index 39.2 Const: General: cooperative, healthy appearing and no acute distress Resp: Effort & Inspection: normal respiratory effort and able to speak in complete sentences Cardio: Rate: regular rate Peripheral pulses: Peripheral pulses 2+ throughout GI: Palpation (GI): Soft to palpation Skin: General skin exam: no rashes or lesions noted Extrem: Other: incision clean dry and intact. [place] intact. No erythema or joint effusion. Calf supple nontender. Neurovascularly intact. Procedures Date of Service Date of Service: 10/25/22 Progress Note: A&P Assessment and plan (1) Status post total right knee replacement: Status: Acute Assessment and Plan: * Continue pain mgmnt * Begin Aspirin for dvt ppx * begin PT for RT TKA * Dispo planning-Pending PT eval, pain mgmnt Time Spent With Patient Time: Total time managing care of this patient today ____ minutes. Quality Stroke Does the patient have a stroke diagnosis?: No VTE Prior VTE?: No VTE Risk Level:: Surgical - very high VTE Device Contraindication: N/A - Device Ordered VTE Drug Contraindication: N/A - Med Ordered
[2022-10-25] MEDS: Aspirin 325 MG TABLET PO ×2 (09:10→21:12)
[2022-10-25] MEDS: Famotidine 20 MG TABLET 40 MG PO (09:11)
[2022-10-25] MEDS: Celecoxib 200 MG CAPSULE PO ×2 (09:11→21:11)
[2022-10-25] MEDS: Sertraline HCL 50 MG TABLET PO (09:11)
[2022-10-25] MEDS: methADONE HCl 10 MG TABLET 40 MG PO ×2 (10:45→21:12)
--- NOTE | 2022-10-25 10:57 | MHC.CM.PN ---
CM met with Patient and her at bedside. Patient lives in a house with her /HCP and she required no services nor DME SHAMPOOER. PT is recommending home with new VNA and CM has initiated and will follow for dc planning.Patient has received [employer]/Raidar[employer] vax x3 and her PCP is DR. Barrera Coronado.
--- NOTE | 2022-10-25 14:44 | HO.POSTANES ---
Post Anesthesia Evaluation Post Anesthesia Evaluation Vital Signs: Vital Signs Temp Pulse Resp BP Pulse Ox O2 Del Method 10/25/22 14:04 83 173/88 H 92 10/25/22 11:59 97.4 F 83 19 173/88 H 92 Room Air 10/25/22 10:00 98.2 F 83 19 173/79 H 92 Room Air 10/25/22 08:00 84 18 181/85 H 95 10/25/22 09:48 92 10/25/22 07:50 92 Room Air 10/25/22 07:41 98.0 F 89 18 181/85 H 92 Room Air 10/25/22 06:00 95 Room Air 10/25/22 04:00 84 18 132/70 95 10/25/22 03:26 97.9 F 79 20 154/74 H 93 Room Air Anesthesia: Spinal and Nerve Block Mental Status: Awake Pain Control: Satisfactory Nausea/Vomiting: None Hydration: Adequate Anesthesia-Related Issues: No Anes. Related Issues
[2022-10-26] VITALS (18 sets, daily range): BP systolic 116–166; BP diastolic 56–81; PULSE 81–97; RESP 16–19; TEMP 36.2–37.2; O2SAT 93–98
[2022-10-26] MEDS: HYDROmorphone HCl/NS 10 MG/50 ML PIGGYBACK 2.5 MG IV (01:54)
[2022-10-26] MEDS: Levothyroxine Sodium 200 MCG TABLET PO (05:47)
[2022-10-26] MEDS: Omeprazole 40 MG CAPSULE.DR PO (05:47)
[2022-10-26] MEDS: oxyCODONE HCl Immed Release 5 MG TABLET 10 MG PO ×4 (05:49→19:18)
[2022-10-26 06:49] LABS: MANUAL DIFF FLAG NO
[2022-10-26 07:03] LABS: Basophils Percent Auto 0.4 % (0-2); Eosinophils Absolute Auto 0.4 X10*3/uL (0.0-0.4); Eosinophils Percent Auto 4.1 % (0-4); Hematocrit 34.1 % (37.0-47.0); Imm Gran Abs Auto 0.03 X10*3/uL (0.00-0.03); Imm Gran Pct Auto 0.3 % (0.0-0.4); Lymphocytes Absolute Auto 1.6 X10*3/uL (1.2-4.9); Lymphocytes Percent Auto 15.5 % (20-40); Mean Corpuscular HGB Conc 32.3 g/dl (31.0-35.0); Mean Corpuscular Hemoglobin 29.2 pg (27.0-33.0); Mean Corpuscular Volume 90.5 fL (80.0-98.0); Mean Platelet Volume 9.8 fL (9.4-12.3); Monocytes Absolute Auto 0.8 X10*3/uL (0.1-1.2); Monocytes Percent Auto 7.4 % (2-11); Neutrophils Absolute Auto 7.5 x10*3/uL (2.0-8.3); Neutrophils Percent Auto 72.3 % (45-73); Platelet Count 231 X10*3/uL (160-400); Red Blood Count 3.77 X10*6/uL (4.20-5.50); Red Cell Distribution Width 13.8 % (11.0-16.0); White Blood Count 10.4 X10*3/uL (4.8-10.8)
[2022-10-26 07:26] LABS: Anion Gap 18 (12-20); Blood Urea Nitrogen 10 mg/dL (9-16); Calcium 8.5 mg/dL (8.4-10.2); Carbon Dioxide 30 mmol/L (22-29); Chloride 100 mmol/L (96-108); Creatinine Clr Calc Pharmacy 95.5; Estimated Glomerular Filt Rate > 60; Glucose Fasting 106 mg/dL (60-99); Potassium 3.5 mmol/L (3.3-5.1); Sodium 144 mmol/L (135-145)
--- NOTE | 2022-10-26 08:43 | P.PNOP_ITS ---
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 tolerating pain well Physical Exam Vital Signs: Vital Signs: Last Vital Signs Temp 98.9 F 10/26/22 07:45 Pulse 97 10/26/22 07:45 Resp 17 10/26/22 07:45 BP 139/67 10/26/22 07:45 Pulse Ox 94 10/26/22 07:45 O2 Del Method 10/26/22 07:45 O2 Flow Rate 2 10/24/22 12:40 BMI result Body Mass Index 39.2 Const: General: cooperative, healthy appearing and no acute distress Resp: Effort & Inspection: normal respiratory effort and able to speak in complete sentences Cardio: Rate: regular rate Peripheral pulses: Peripheral pulses 2+ throughout GI: Palpation (GI): Soft to palpation Skin: General skin exam: no rashes or lesions noted Extrem: Other: incision clean dry and intact. [place] intact. No erythema or joint effusion. Calf supple nontender. Neurovascularly intact. Procedures Date of Service Date of Service: 10/26/22 Progress Note: A&P Assessment and plan (1) Status post total right knee replacement: Status: Acute Assessment and Plan: * Continue pain mgmnt * continue Aspirin for dvt ppx * continue PT for RT TKA * Dispo planning-pain mgmnt and PT Time Spent With Patient Time: Total time managing care of this patient today ____ minutes. Quality Stroke Does the patient have a stroke diagnosis?: No VTE Prior VTE?: No VTE Risk Level:: Surgical - very high VTE Device Contraindication: N/A - Device Ordered VTE Drug Contraindication: N/A - Med Ordered
[2022-10-26] MEDS: Sertraline HCL 50 MG TABLET PO (08:56)
[2022-10-26] MEDS: Famotidine 20 MG TABLET 40 MG PO (08:56)
[2022-10-26] MEDS: Celecoxib 200 MG CAPSULE PO ×2 (08:56→21:13)
[2022-10-26] MEDS: methADONE HCl 10 MG TABLET 40 MG PO ×2 (08:56→21:13)
[2022-10-26] MEDS: Aspirin 325 MG TABLET PO ×2 (08:57→21:14)
[2022-10-26] MEDS: Acetaminophen 325 MG TABLET 650 MG PO (08:57)
--- NOTE | 2022-10-26 09:16 | PC.NURSE ---
NAVAL AIRCREWMAN OPERATOR pump basal rate adjusted per MD order from 0.5mg/hr to 0.2mg/hr. Per same order bolus amount adjusted from 0.5mg to 0.2mg and number of boluses per hour adjusted from 4/hr to 2/hr Doreen Cash RN witness to changes in pump.
--- NOTE | 2022-10-26 11:55 | MHC.CM.PN ---
PT S/P TKA CURRENT RECOMMENDATION IS HOME WITH PT REFERRAL BROADCASTED TO ALL [facility] CONTRACTED VNA'S IN THE AREA NO ONE HAS ACCEPTED AWAITING FURTHER RESPONSES
[2022-10-26] MEDS: HYDROmorphone HCl/NS 10 MG/50 ML PIGGYBACK IV (14:45)
--- NOTE | 2022-10-26 14:55 | PC.NURSE ---
New bag of Dilaudid hung witnessed, with KIT Ames. Wasted 10ml of previous bag with KIT Ames.
[2022-10-27] VITALS (10 sets, daily range): BP systolic 108–157; BP diastolic 59–78; PULSE 73–84; RESP 12–18; TEMP 36.4–37.3; O2SAT 93–97
[2022-10-27] MEDS: oxyCODONE HCl Immed Release 5 MG TABLET 10 MG PO ×2 (00:59→05:45)
[2022-10-27] MEDS: Omeprazole 40 MG CAPSULE.DR PO (05:45)
[2022-10-27] MEDS: Levothyroxine Sodium 200 MCG TABLET PO (05:45)
[2022-10-27 07:05] LABS: MANUAL DIFF FLAG NO
[2022-10-27 07:13] LABS: Basophils Percent Auto 0.3 % (0-2); Eosinophils Absolute Auto 0.6 X10*3/uL (0.0-0.4); Eosinophils Percent Auto 6.5 % (0-4); Hematocrit 30.2 % (37.0-47.0); Hemoglobin 9.5 g/dl (12.0-16.0); Imm Gran Abs Auto 0.02 X10*3/uL (0.00-0.03); Imm Gran Pct Auto 0.2 % (0.0-0.4); Lymphocytes Absolute Auto 1.9 X10*3/uL (1.2-4.9); Lymphocytes Percent Auto 20.5 % (20-40); Mean Corpuscular HGB Conc 31.5 g/dl (31.0-35.0); Mean Corpuscular Hemoglobin 28.9 pg (27.0-33.0); Mean Corpuscular Volume 91.8 fL (80.0-98.0); Monocytes Absolute Auto 0.7 X10*3/uL (0.1-1.2); Monocytes Percent Auto 7.3 % (2-11); Neutrophils Absolute Auto 5.9 x10*3/uL (2.0-8.3); Neutrophils Percent Auto 65.2 % (45-73); Platelet Count 224 X10*3/uL (160-400); Red Blood Count 3.29 X10*6/uL (4.20-5.50); Red Cell Distribution Width 13.8 % (11.0-16.0); White Blood Count 9.1 X10*3/uL (4.8-10.8)
--- NOTE | 2022-10-27 07:49 | PM.DS ---
DS: Providers Provider Date of Service: 10/27/22 Date of admission: 10/24/22 07:32 Primary care physician: Barrera Coronado MD DS: Diagnosis Discharge Diagnosis (1) Status post total right knee replacement: Status: Acute DS: Summary Hospital Course Hospital Course: The patient underwent a successful right total knee arthroplasty, was transferred to PACU and then to the floor to recover. During their stay, their vitals were stable, afebrile at 97.6. Labs were unremarkable, H/H 9.5/30.2. POD 1 she was started on ASA for DVT ppx, they also received pt services twice a day. Prior to discharge, their dressing was change, incision clean dry and intact, new Aquacel dressing applied and the plan was to be discharged home with VNA Time Spent with Patient Time attestation: Total time managing care of this patient today ____ minutes. Discharge coordination time: Less than 30 minutes Quality: Safe Use of Opioids Does Pt have an Active Cancer Diagnosis on the Problem List?: No Quality: Stroke Does the patient have a stroke diagnosis?: No Physical Exam Vital Signs: Vital Signs: Last Vital Signs Temp 97.6 F 10/27/22 07:45 Pulse 73 10/27/22 07:45 Resp 18 10/27/22 07:45 BP 108/59 L 10/27/22 07:45 Pulse Ox 97 10/27/22 07:45 O2 Del Method 10/27/22 07:45 O2 Flow Rate 2 10/24/22 12:40 BMI result Body Mass Index 39.2 Const: General: cooperative, healthy appearing and no acute distress Resp: Effort & Inspection: normal respiratory effort and able to speak in complete sentences Cardio: Rate: regular rate Peripheral pulses: Peripheral pulses 2+ throughout GI: Palpation (GI): Soft to palpation Skin: General skin exam: no rashes or lesions noted Extrem: Other: incision clean dry and intact. [place] intact. No erythema or joint effusion. Calf supple nontender. Neurovascularly intact. DS: Data Data Completed and Pending Completed studies during hospitalization [Text1]: Pending at discharge 10/24/22 10:49 Surgical [PTH] Routine Procedures Replacement of Left Knee Joint with Synthetic Substitute, Uncemented, Open Approach (10/18/21) Labs on day of discharge: Laboratory Results - last 24 hr 10/27/22 05:30 WBC 9.1 RBC 3.29 L Hgb 9.5 L Hct 30.2 L MCV 91.8 MCH 28.9 MCHC 31.5 RDW 13.8 Plt Count 224 MPV 10.0 Immature Gran % (Auto) 0.2 Neut % (Auto) 65.2 Lymph % (Auto) 20.5 [place] % (Auto) 7.3 Eos % (Auto) 6.5 H Baso % (Auto) 0.3 Lymph # (Auto) 1.9 [place] # (Auto) 0.7 Eos # (Auto) 0.6 H Baso # (Auto) 0.0 Abs Immat Gran (auto) 0.02 Absolute Neuts (auto) 5.9 Absolute Nucleated RBC 0.000 Nucleated RBC % (auto) 0.0 Discharge Plan Discharge Anticipated Discharge Date/Time: 10/27/22 15:00 Patient Disposition: Home Health Service Discharge Diagnosis: s/p RTKA Referrals: Aenta Marshall PA-C [Physician Commodities Manager] - 11/09/22 1:30 pm Discharge Medications: New celecoxib 200 mg Capsule 200 mg PO BID 30 Days Qty: 60 0RF aspirin 325 mg Tablet 325 mg PO BID 42 Days Qty: 84 0RF acetaminophen 325 mg Tablet 650 mg PO Q6H PRN (Reason: Pain, Mild (Pain Scale 1-3)) 30 Days Qty: 240 0RF oxycodone 5 mg Tablet 10 mg PO Q4H PRN (Reason: Pain, Moderate (Pain Scale 4-6) 7 Days Qty: 42 0RF Rx Instructions: Partial Fill upon patient request. Continued chlorthalidone 25 mg tablet 25 mg PO DAILY Qty: 90 8RF famotidine 40 mg tablet 40 mg PO DAILY Qty: 90 8RF sertraline 50 mg tablet 50 mg PO DAILY Qty: 90 8RF oxycodone 10 mg tablet 10 mg PO Q4H PRN (Reason: Pain) psyllium Packet 1 packet PO DAILY Rx Instructions: mix into at least 8 oz of water or juice before administering Narcan 4 mg/actuation spray,non-aerosol 1 spray intranasal Q2M Qty: 2 0RF Rx Instructions: spray 1 dose into ONE nostril; alternate nostrils w each dose until help arrives omeprazole 40 mg capsule,delayed release(DR/EC) 40 mg PO DAILY Qty: 90 8RF levothyroxine 200 mcg tablet 200 mcg PO DAILY Qty: 90 8RF methadone 10 mg tablet 40 mg PO BID Qty: 240 0RF Discontinued ibuprofen 600 mg tablet 600 mg PO BID PRN (Reason: pain) Discharge Orders: Discharge Order (Routine); Ordered 10/27/22 Ordered By: Jeanine Soto Diet: Regular diet Activity on Discharge: Use cane or walker Stand Alone Forms: Patient Portal Discharge page Activity Restrictions/Additional Instructions: Physical Therapy for ROM 0-120, quad strength, gait training. Use walker for ambulation Limit stair climbing, No shower, No tub bath, No driving Continue anticoagulant Keep Aquacel dressing clean, dry and intact. Follow up with orthopedics in 2 weeks Care Plan Goals: restore fxn to right knee Health Concerns: None Plan of Treatment: Physical Therapy for ROM 0-120, quad strength, gait training. Use walker for ambulation Limit stair climbing, No shower, No tub bath, No driving Continue anticoagulant Keep Aquacel dressing clean, dry and intact. Follow up with orthopedics in 2 weeks Assessment: Stable for d/c
[2022-10-27 07:52] LABS: Anion Gap 12 (12-20); Blood Urea Nitrogen 11 mg/dL (9-16); Calcium 8.1 mg/dL (8.4-10.2); Carbon Dioxide 32 mmol/L (22-29); Chloride 101 mmol/L (96-108); Creatinine Clr Calc Pharmacy 96.6; Estimated Glomerular Filt Rate > 60; Glucose Fasting 95 mg/dL (60-99); Potassium 3.3 mmol/L (3.3-5.1); Sodium 142 mmol/L (135-145)
[2022-10-27] MEDS: methADONE HCl 10 MG TABLET 40 MG PO (08:56)
[2022-10-27] MEDS: Aspirin 325 MG TABLET PO (08:56)
[2022-10-27] MEDS: Acetaminophen 325 MG TABLET 650 MG PO (08:56)
[2022-10-27] MEDS: Celecoxib 200 MG CAPSULE PO (08:57)
[2022-10-27] MEDS: Famotidine 20 MG TABLET 40 MG PO (08:57)
[2022-10-27] MEDS: Sertraline HCL 50 MG TABLET PO (08:57)
--- NOTE | 2022-10-27 09:01 | PC.NURSE ---
Addendum entered by Raquel Ames RN 10/27/22 09:08: 20ml hydromorphone wasted, witnessed by Mahi Pop RN, Original Note: CUSTOM PROTECTION OFFICER pump discontinued per Jeanine PUENTE.
--- NOTE | 2022-10-27 09:21 | MHC.CM.PN ---
DP: PT HAS BEEN MEDICALLY CLEARED FOR DC [place] [facility] [place] VNA IS ABLE TO ACCEPT. RN AWARE. PA AWARE. WILL TRANSPORT HOME.
== END 2022-10-27 11:08 | disposition home health service (06) | DRG 326 ==
LOC: HO.SSSA 10:33 → HO.S3 12:55
PROVIDERS: Physician Assistant; Admitting Provider Orthopaedic Surgery; PCP Internal Medicine; Visit Provider Orthopaedic Surgery
PROC: 0SRC0JA Replacement of Right Knee Joint with Synthetic Substitute, Uncemented, Open Approach (ICD-10-PCS; CPT 27447; principal; 2022-10-24 09:40)
DX: M17.11 Unilateral primary osteoarthritis, right knee (principal); E03.9 Hypothyroidism, unspecified; K21.9 Gastro-esophageal reflux disease without esophagitis; Z20.822 Contact with and (suspected) exposure to COVID-19; Z86.16 Personal history of COVID-19; Z79.890 Hormone replacement therapy; Z79.899 Other long term (current) drug therapy
CPT/HCPCS: 27447; 36415; 73560; 80048; 80051; 82565; 84520; 85014; 85018; 85025; 86850; 86900; 86901; 87635; 87640; 87641; 88305; 88311; 93005; 97110; 97116; 97162; C1776; J0690; J1100; J1170; J2250; J2370; J2405; J2795

== ENCOUNTER → 2022-11-09 12:51 | Outpatient (BNVA) | payer OTHER, SELFPAY | PROVIDERS: PCP Internal Medicine; Visit Provider Physician Assistant | DX: Z13.89 Encounter for screening for other disorder (principal) ==

== ENCOUNTER 2022-11-29 15:00 | Outpatient (RCR) | payer OTHER, SELFPAY ==
--- NOTE | 2022-10-31 16:00 | MHC.PT.EP ---
[facility] [place] Office [place] Office [place] Office [address] Emi Bennett [address] [phone] F: [phone] F: [phone] F: [phone] F: [phone] Physical Therapy Plan of Care Date of Evaluation: Date of Surgery: 10/24/2022 Diagnosis: R TKA 10/24/2022 Assessment: Patient is a 57 year old female presenting to PT s/p R TKA on 10/24/2022. She presents today with impairments in pain, ROM, knee strength, hip strength, gait mechanics. Pt's current occupation is retired, with baseline physical activities including ADLs, ambulating, stair negotiation. 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 Clinical presentation today is most consistent with signs and sx associated with s/p R TKA 10/24/2022 and pt will benefit from skilled PT to address the following problems and impairments noted upon evaluation: pain, ROM, knee strength, hip strength, gait mechanics. These problems limit the patient with the following functional activities: ambulating, stair negotiation, ADLs. The prescribed treatment plan of care is medically necessary. Co-morbidities of HTN were identified and taken into considerations of plan of care. Pt was educated on HEP, role of PT, prognosis, POC. Frequency and Duration: The patient will be seen 1 x week x 6 weeks Short Term Goals: Pt will demonstrate improved R knee AROM to 120 in 3 weeks. Pt will demonstrate ability to perform SLR without lag in 3 weeks for improved quad control. Pt will demonstrate improved knee strength to 5/5 for in 3 weeks. Penitentiary Goals: Pt will demonstrate improved LEFI score by 9 points in 6 weeks for improved functional mobility. Pt will demonstrate ability to ambulate community distances with min to no pain or antalgia in 6 weeks for return to PLOF. Pt will demonstrate ability to negotiate stairs with step over step pattern and min to no pain in 6 weeks for improved access to her home. Treatment Plan: Modalities to reduce pain, spasms and effusion. Manual therapy to restore motion and function. Therapeutic exercise to improve strength and flexibility. Neuromuscular re-education for posture and balance. Therapeutic activities to return to functional activities of daily living. Electronically signed by: Shania Paula, PT, DPT, ATC Please sign and return to therapist. Thank you for your referral.
--- NOTE | 2022-12-06 10:40 | MHC.PT.DC ---
[facility] [place] Office [place] Office [place] Office [address] Emi Bennett [address] [phone] F: [phone] F: [phone] F: [phone] F: [phone] Physical Therapy Discharge Report Diagnosis: R TKA 10/24/2022 Date of Surgery: 10/24/2022 Date of Evaluation: 10/31/22 Date of Discharge: 12/06/22 Treatments to Date: 5 Cancellations to Date: 0 No Shows to Date: 0 Discharge Status: Achieved Goals Independent with HEP Discharge Summary: Pt saw HUMAN SERVICES WORKER for last visit. Per last HUMAN SERVICES WORKER note she is demonstrating good ROM and strength at this point and is happy with her progress. Pt to be d/c to HEP. Electronically signed by: Shania Paula, PT, DPT, ATC Please sign and return to therapist. Thank you for your referral.
== END 2022-12-06 10:40 | disposition home or self-care (01) ==
LOC: HO.PTCHIC 15:00
PROVIDERS: PCP Internal Medicine; Visit Provider Physician Assistant
DX: Z96.651 Presence of right artificial knee joint (principal)
CPT/HCPCS: 97110; 97161; 97530

== ENCOUNTER 2022-12-27 09:18 | Outpatient (REF) | payer OTHER, SELFPAY ==
[2022-12-27 11:52] LABS: Alanine Aminotransferase 16 U/L (0-31); Albumin Level 4.3 g/dL (3.5-5.0); Alkaline Phosphatase 88 U/L (39-117); Anion Gap 13 (12-20); Aspartate Amino Transferase 14 U/L (5-31); Bilirubin Total 0.5 mg/dL (0.0-1.0); Blood Urea Nitrogen 20 mg/dL (9-16); Calcium 9.6 mg/dL (8.4-10.2); Carbon Dioxide 37 mmol/L (22-29); Chloride 97 mmol/L (96-108); Cholesterol 249 mg/dL; Estimated Glomerular Filt Rate > 60; Glucose Fasting 102 mg/dL (60-99); HDL Cholesterol 43 mg/dL; LDL Cholesterol Calculated 164 mg/dl; Potassium 4.4 mmol/L (3.3-5.1); Sodium 143 mmol/L (135-145); Total Protein 7.5 g/dL (6.5-8.0); Triglycerides 210 mg/dL
[2022-12-27 12:10] LABS: Thyroid Stimulating Hormone 7.89 uIU/mL (0.32-4.0)
== END 2022-12-27 09:19 | disposition home or self-care (01) ==
LOC: HO.LAB 09:18
PROVIDERS: PCP Internal Medicine; Visit Provider Internal Medicine
DX: E78.5 Hyperlipidemia, unspecified (principal); N28.9 Disorder of kidney and ureter, unspecified; E03.9 Hypothyroidism, unspecified
CPT/HCPCS: 36415; 80053; 80061; 84443

== ENCOUNTER 2023-04-19 09:47 | Outpatient (AMB) | payer OTHER, SELFPAY ==
[2023-04-19 09:48] VITALS: BP 120/70; PULSE 85; O2SAT 97; BMI 37.5
--- NOTE | 2023-04-19 09:48 | MHC.PC.OV ---
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 Teacher Required: No Accompanied by: Self / Same As Patient Allergies No Known Allergies [No Known Allergies*] Allergy (Verified 04/19/23 09:49) Medication List - Last Reconciled 04/19/23 by Barrera Coronado MD acetaminophen 650 mg (2 x 325 mg) PO Q6H PRN 30 days aspirin 325 mg PO BID 42 days celecoxib 200 mg PO BID chlorthalidone 25 mg PO DAILY famotidine 40 mg PO DAILY levothyroxine 200 mcg PO DAILY methadone 40 mg (4 x 10 mg) PO BID naloxone 4 mg/actuation (Narcan) 1 spray intranasal Q2M omeprazole 40 mg PO DAILY oxycodone 10 mg PO Q4H PRN 7 days psyllium 1 packet PO DAILY sertraline 50 mg PO DAILY Tobacco use date assessed: 04/19/23 Dental Screening Dental Screen Date: 04/19/23 Did you have a dental visit in the last 12 months?: Yes Did you have a dental problem in the last 6 months where you did not have access to dental care?: No Was dental information given to patient?: Patient has dentist HPI med HPI Details f/u chronic back pain; stable on rx PFSH Medical History COVID-19 vaccine series completed GERD (gastroesophageal reflux disease) Hernia of abdominal cavity History of COVID-19 HTN (hypertension) Hypothyroidism Neuropathy of genitofemoral nerve Obesity Osteoarthritis Surgical History H/O colonoscopy History of left knee replacement Hx of breast reduction, elective Hx of umbilical hernia repair Family History Father Esophageal cancer Mother No problems noted. Maternal Grandmother Osteoarthritis Sister No problems noted. Social History Household Members: Spouse Housing: House Are you a primary childcare administrator to a significant other at home: No Do you presently have visiting nurse or other home services: No Alcohol intake: current Alcohol intake frequency: holidays/special occasions only Patient Tobacco Use Status: Never used Tobacco Tobacco use type: Cigarette Years Smoked: 40 e-Cigarette/Vaping Use: Never Used Second Hand Smoke Exposure: No service: No Current occupational status: retired Current occupation: Right Handed Cognitive needs: No Hearing needs: No Vision needs: Yes (reading glasses) Questionnaire PHQ-9 Over the last 2 weeks, how often have you been bothered by any of the following problems? 1. Little interest or pleasure in doing things: not at all 2. Feeling down, depressed, or hopeless: not at all 3. Trouble falling or staying asleep, or sleeping too much: not at all 4. Feeling tired or having little energy: not at all 5. Poor appetite or overeating: not at all 6. Feeling bad about yourself - or that you are a failure or have let yourself or your family down: not at all 7. Trouble concentrating on things, such as reading the newspaper or watching television: not at all 8. Moving or speaking so slowly that other people could have noticed. Or the opposite - being so fidgety or restless that you have been moving around a lot more than usual: not at all 9. Thoughts that you would be better off or of hurting yourself in some way: not at all Total score: 0 Depression Screening Interpretation: Negative 24866 - PHQ-9 Billing: Yes Source: Developed by Drs. Cecil Harley, Shanell Suarez, Carlos Seth and colleagues, with an educational sanjay from [employer]. Thrive Questionnaire Date Thrive assessed: 04/19/23 I am a: Patient What is your living situation today?: I have a steady place to live Within the past 12 months, did the food you bought not last and you didn't have the money to get more?: Never true Within the past 12 months, did you worry whether your food would run out before you got money to buy more?: Never true Do you have trouble paying for medicines?: No Do you have trouble getting transportation to medical appointments?: No Do you have trouble paying your heating and electricity bill?: No Do you have trouble taking care of your child, family member or friend?: No Do you have trouble with day-to-day activities such as bathing, preparing meals, shopping, managing finances, etc.?: No Are you currently unemployed and looking for a job?: No Are you interested in more education?: No Please select the resources that you would like help with: None Currently or been in a relationship where the following occur: no concerns reported AUDIT C Alcohol Use Questionnaire (AUDIT-C) 1. How often do you have a drink containing alcohol?: Monthly or less 2. How many drinks containing alcohol do you have on a typical day when you are drinking?: 1 or 2 3. How often do you have six or more drinks on one occasion?: Never Total Score: 1 Score Reviewed/Action Taken: Yes GHULAM-7 AMB Questionnaire GHULAM-7 Date GHULAM - 7 assessed: 04/19/23 Feeling nervous, anxious, or on edge: 0 = Not at all Not being able to stop or control worryin = Not at all Worrying too much about different things: 0 = Not at all Trouble relaxin = Not at all Being so restless that it is hard to sit still: 0 = Not at all Becoming easily annoyed or irritable: 0 = Not at all Feeling afraid as if something awful might happen: 0 = Not at all Total GHULAM-7 score (0-4 normal; 5-9 mild; 10-14 moderate; 15-21 severe): 0 Source: Developed by Drs. Cecil Harley, Shanell Suarez, Carlso Seth and colleagues, with an educational sanjay from [employer]. Review of Systems Const Denies chills, Denies headache(s) and Denies weight loss ENT Denies headache(s) Card Denies chest pain, Denies syncope, Denies irregular heart rhythm and Denies dyspnea Resp Denies chest congestion, Denies cough and Denies dyspnea GI Denies abdominal pain, Denies change in stool character, Denies nausea and Denies vomiting Musc Denies deformity and Denies joint swelling Neuro Denies syncope and Denies headache(s) Physical exam (Primary Care) Vital Signs: Last Vital Signs Pulse 85 04/19/23 09:48 BP 120/70 04/19/23 09:48 Pulse Ox 97 04/19/23 09:48 Oxygen Delivery Method Room Air 04/19/23 09:48 BMI result Body Mass Index 37.5 Tobacco/Smoking Status: Tobacco use Status Tobacco use date assessed 04/19/23 04/19/23 09:58 Patient Tobacco Use Status Never used Tobacco 04/19/23 09:58 Tobacco use type Cigarette 04/19/23 09:58 e-Cigarette/Vaping Use Never Used 04/19/23 09:58 PHQ-9: PHQ-9 Score PHQ-9: Total score 0 04/19/23 10:01 Depression Screening Interpretation: Negative Thrive Assessment: Date of Thrive Assessment Date Thrive assessed 04/19/23 04/19/23 09:58 Currently or been in a relationship where the following occur: no concerns reported Const General: cooperative, comfortable and no acute distress Resp Effort & Inspection: normal respiratory effort Auscultation: clear to auscultation bilaterally Percussion: percussion normal Cardio Jugular venous distension: no JVD Rate: regular rate Rhythm: regular rhythm GI Inspection: Yes normal to inspection Assessment and Plan Assessment & Plan (1) Low back pain: Code(s): M54.50 - Low back pain, unspecified Plan: stable; same rx Orders: Orders Thyroid Stimulating Hormone Today E03.9 - Hypothyroidism, unspecified Medications: Refilled methadone 40 mg (4 x 10 mg) PO BID 240 tabs 0RF M25.569 - Pain in unspecified knee, M54.9 - Dorsalgia, unspecified oxycodone 10 mg PO Q4H PRN 45 tabs 0RF Pain 7 days Coding Level of Care Code Est Pt Level 3 (21780) Diagnoses Low back pain M54.50
== END 2023-04-19 10:41 | disposition home or self-care (01) ==
PROVIDERS: PCP Internal Medicine; Visit Provider Internal Medicine
DX: M54.50 Low back pain, unspecified (principal)
CPT/HCPCS: 99213

== ENCOUNTER 2023-04-19 10:38 | Outpatient (REF) | payer OTHER, SELFPAY ==
[2023-04-19 12:01] LABS: Thyroid Stimulating Hormone 10.23 uIU/mL (0.32-4.0)
== END 2023-04-19 10:39 | disposition home or self-care (01) ==
LOC: HO.LAB 10:38
PROVIDERS: PCP Internal Medicine; Visit Provider Internal Medicine
DX: E03.9 Hypothyroidism, unspecified (principal)
CPT/HCPCS: 36415; 84443

== ENCOUNTER 2023-05-18 09:34 | Outpatient (AMB) | payer OTHER, SELFPAY ==
[2023-05-18 09:36] VITALS: BP 130/82; PULSE 75; O2SAT 98; BMI 38.3
--- NOTE | 2023-05-18 09:36 | MHC.PC.OV ---
Vital Signs 05/18/23 09:36 Height 5 ft 5 in Weight 230 lb 2 oz BMI 38.3 BP 130/82 Blood Pressure Location Lt brachial Position Sitting Pulse 75 Pulse Source Pulse Oximeter Pulse Oximetry (%) 98 Oxygen Delivery Method Room Air Intake Visit Reasons: med Health Informatics Instructor Required: No Sap Portal Developer: Not Required per policy Accompanied by: Self / Same As Patient Allergies No Known Allergies [No Known Allergies*] Allergy (Verified 05/18/23 09:37) Medication List - Last Reconciled 05/18/23 by Barrera Coronado MD acetaminophen 650 mg (2 x 325 mg) PO Q6H PRN 30 days aspirin 325 mg PO BID 42 days celecoxib 200 mg PO BID chlorthalidone 25 mg PO DAILY famotidine 40 mg PO DAILY levothyroxine 200 mcg PO DAILY methadone 40 mg (4 x 10 mg) PO BID naloxone 4 mg/actuation (Narcan) 1 spray intranasal Q2M omeprazole 40 mg PO DAILY oxycodone 10 mg PO Q4H PRN 7 days psyllium 1 packet PO DAILY sertraline 50 mg PO DAILY Tobacco use date assessed: 04/19/23 Dental Screening Dental Screen Date: 05/18/23 Did you have a dental visit in the last 12 months?: Yes Did you have a dental problem in the last 6 months where you did not have access to dental care?: No Was dental information given to patient?: Patient has dentist HPI med HPI Details f/u chronic back pain; stable PFSH Medical History COVID-19 vaccine series completed GERD (gastroesophageal reflux disease) Hernia of abdominal cavity History of COVID-19 HTN (hypertension) Hypothyroidism Neuropathy of genitofemoral nerve Obesity Osteoarthritis Surgical History H/O colonoscopy History of left knee replacement Hx of breast reduction, elective Hx of umbilical hernia repair Family History Father Esophageal cancer Mother No problems noted. Maternal Grandmother Osteoarthritis Sister No problems noted. Social History Household Members: Spouse Housing: House Are you a primary career center advisor to a significant other at home: No Do you presently have visiting nurse or other home services: No Alcohol intake: current Alcohol intake frequency: holidays/special occasions only Patient Tobacco Use Status: Never used Tobacco Tobacco use type: Cigarette Years Smoked: 40 e-Cigarette/Vaping Use: Never Used Second Hand Smoke Exposure: No service: No Current occupational status: retired Current occupation: Right Handed Cognitive needs: No Hearing needs: No Vision needs: Yes (reading glasses) Questionnaire PHQ-9 Over the last 2 weeks, how often have you been bothered by any of the following problems? 1. Little interest or pleasure in doing things: not at all 2. Feeling down, depressed, or hopeless: not at all 3. Trouble falling or staying asleep, or sleeping too much: not at all 4. Feeling tired or having little energy: not at all 5. Poor appetite or overeating: not at all 6. Feeling bad about yourself - or that you are a failure or have let yourself or your family down: not at all 7. Trouble concentrating on things, such as reading the newspaper or watching television: not at all 8. Moving or speaking so slowly that other people could have noticed. Or the opposite - being so fidgety or restless that you have been moving around a lot more than usual: not at all 9. Thoughts that you would be better off or of hurting yourself in some way: not at all Total score: 0 Depression Screening Interpretation: Negative 99302 - PHQ-9 Billing: Yes Source: Developed by Drs. Cecil Harley, Shanell Suarez, Carlos Seth and colleagues, with an educational sanjay from [employer]. Thrive Questionnaire Date Thrive assessed: 04/19/23 Currently or been in a relationship where the following occur: no concerns reported AUDIT C Alcohol Use Questionnaire (AUDIT-C) 1. How often do you have a drink containing alcohol?: Monthly or less 2. How many drinks containing alcohol do you have on a typical day when you are drinking?: 1 or 2 3. How often do you have six or more drinks on one occasion?: Never Total Score: 1 Score Reviewed/Action Taken: Yes GHULAM-7 AMB Questionnaire GHULAM-7 Date GHULAM - 7 assessed: 04/19/23 Source: Developed by Drs. Cecil Harley, Carlos Collins Kroenke and colleagues, with an educational sanjay from [employer]. Review of Systems Const Denies chills, Denies headache(s) and Denies weight loss ENT Denies headache(s) Card Denies chest pain, Denies syncope, Denies irregular heart rhythm and Denies dyspnea Resp Denies chest congestion, Denies cough and Denies dyspnea GI Denies abdominal pain, Denies change in stool character, Denies nausea and Denies vomiting Musc Denies deformity and Denies joint swelling Neuro Denies syncope and Denies headache(s) Physical exam (Primary Care) Vital Signs: Last Vital Signs Pulse 75 05/18/23 09:36 BP 130/82 05/18/23 09:36 Pulse Ox 98 05/18/23 09:36 Oxygen Delivery Method Room Air 05/18/23 09:36 BMI result Body Mass Index 38.3 Tobacco/Smoking Status: Tobacco use Status Tobacco use date assessed 04/19/23 05/18/23 09:38 Patient Tobacco Use Status Never used Tobacco 05/18/23 09:38 Tobacco use type Cigarette 05/18/23 09:38 e-Cigarette/Vaping Use Never Used 05/18/23 09:38 PHQ-9: PHQ-9 Score PHQ-9: Total score 0 05/18/23 09:38 Depression Screening Interpretation: Negative Thrive Assessment: Date of Thrive Assessment Date Thrive assessed 04/19/23 05/18/23 09:38 Currently or been in a relationship where the following occur: no concerns reported Const General: cooperative, comfortable and no acute distress Resp Effort & Inspection: normal respiratory effort Auscultation: clear to auscultation bilaterally Percussion: percussion normal Cardio Jugular venous distension: no JVD Rate: regular rate Rhythm: regular rhythm GI Inspection: Yes normal to inspection Assessment and Plan Assessment & Plan (1) Low back pain: Code(s): M54.50 - Low back pain, unspecified Plan: stable; same rx Medications: Refilled methadone 40 mg (4 x 10 mg) PO BID 240 tabs 0RF M25.569 - Pain in unspecified knee, M54.9 - Dorsalgia, unspecified oxycodone 10 mg PO Q4H PRN 45 tabs 0RF Pain 7 days Coding Level of Care Code Est Pt Level 3 (25977) Diagnoses Low back pain M54.50
== END 2023-05-18 09:52 | disposition home or self-care (01) ==
PROVIDERS: PCP Internal Medicine; Visit Provider Internal Medicine
DX: M54.50 Low back pain, unspecified (principal)
CPT/HCPCS: 99213

== ENCOUNTER 2023-06-18 09:17 | Outpatient (AMB) | payer OTHER, SELFPAY ==
[2023-06-18 09:25] VITALS: BP 136/82; PULSE 76; O2SAT 98; BMI 38.3
--- NOTE | 2023-06-18 09:25 | MHC.PC.OV ---
Vital Signs 06/18/23 09:25 Height 5 ft 5 in Weight 230 lb BMI 38.3 BP 136/82 Blood Pressure Location Lt brachial Position Sitting Pulse 76 Pulse Source Pulse Oximeter Pulse Oximetry (%) 98 Oxygen Delivery Method Room Air Intake Visit Reasons: med Allergies No Known Allergies [No Known Allergies*] Allergy (Verified 06/18/23 09:26) Medication List - Last Reconciled 06/18/23 by Barrera Coronado MD acetaminophen 650 mg (2 x 325 mg) PO Q6H PRN 30 days aspirin 325 mg PO BID 42 days celecoxib 200 mg PO BID chlorthalidone 25 mg PO DAILY famotidine 40 mg PO DAILY levothyroxine 200 mcg PO DAILY methadone 40 mg (4 x 10 mg) PO BID naloxone 4 mg/actuation (Narcan) 1 spray intranasal Q2M omeprazole 40 mg PO DAILY oxycodone 10 mg PO Q4H PRN 7 days psyllium 1 packet PO DAILY sertraline 50 mg PO DAILY Tobacco use date assessed: 04/19/23 Dental Screening Dental Screen Date: 06/18/23 Did you have a dental visit in the last 12 months?: Yes Did you have a dental problem in the last 6 months where you did not have access to dental care?: No Was dental information given to patient?: Patient has dentist HPI med HPI Details chronic back pain on rx; stable and compliant [facility] Medical History Neuropathy of genitofemoral nerve History of COVID-19 HTN (hypertension) GERD (gastroesophageal reflux disease) COVID-19 vaccine series completed Osteoarthritis Obesity Hypothyroidism Hernia of abdominal cavity Surgical History History of left knee replacement H/O colonoscopy Hx of umbilical hernia repair Hx of breast reduction, elective Family History Father Esophageal cancer Mother No problems noted. Maternal Grandmother Osteoarthritis Sister No problems noted. Social History Household Members: Spouse Housing: House Are you a primary emergency care attendant to a significant other at home: No Do you presently have visiting nurse or other home services: No Alcohol intake: current Alcohol intake frequency: holidays/special occasions only Patient Tobacco Use Status: Never used Tobacco Tobacco use type: Cigarette Years Smoked: 40 e-Cigarette/Vaping Use: Never Used Second Hand Smoke Exposure: No service: No Current occupational status: retired Current occupation: Right Handed Cognitive needs: No Hearing needs: No Vision needs: Yes (reading glasses) Questionnaire PHQ-9 Over the last 2 weeks, how often have you been bothered by any of the following problems? 1. Little interest or pleasure in doing things: not at all 2. Feeling down, depressed, or hopeless: not at all 3. Trouble falling or staying asleep, or sleeping too much: not at all 4. Feeling tired or having little energy: not at all 5. Poor appetite or overeating: not at all 6. Feeling bad about yourself - or that you are a failure or have let yourself or your family down: not at all 7. Trouble concentrating on things, such as reading the newspaper or watching television: not at all 8. Moving or speaking so slowly that other people could have noticed. Or the opposite - being so fidgety or restless that you have been moving around a lot more than usual: not at all 9. Thoughts that you would be better off or of hurting yourself in some way: not at all Total score: 0 Depression Screening Interpretation: Negative 49811 - PHQ-9 Billing: Yes Source: Developed by Drs. Cecil Harley, Shanell Suarez, Carlos Seth and colleagues, with an educational sanjay from [employer]. Thrive Questionnaire Date Thrive assessed: 04/19/23 AUDIT C Alcohol Use Questionnaire (AUDIT-C) 1. How often do you have a drink containing alcohol?: Monthly or less 2. How many drinks containing alcohol do you have on a typical day when you are drinking?: 1 or 2 3. How often do you have six or more drinks on one occasion?: Never Total Score: 1 Score Reviewed/Action Taken: Yes GHULAM-7 AMB Questionnaire GHULAM-7 Date GHULAM - 7 assessed: 04/19/23 Source: Developed by Drs. Cecil Harley, Shanell Suarez, Carlos Seth and colleagues, with an educational sanjay from [employer]. Review of Systems Const Denies chills, Denies headache(s) and Denies weight loss ENT Denies headache(s) Card Denies chest pain, Denies syncope, Denies irregular heart rhythm and Denies dyspnea Resp Denies chest congestion, Denies cough and Denies dyspnea GI Denies abdominal pain, Denies change in stool character, Denies nausea and Denies vomiting Musc Denies deformity and Denies joint swelling Neuro Denies syncope and Denies headache(s) Physical exam (Primary Care) Vital Signs: Last Vital Signs Pulse 76 06/18/23 09:25 BP 136/82 06/18/23 09:25 Pulse Ox 98 06/18/23 09:25 Oxygen Delivery Method Room Air 06/18/23 09:25 BMI result Body Mass Index 38.3 Tobacco/Smoking Status: Tobacco use Status Tobacco use date assessed 04/19/23 06/18/23 09:30 Patient Tobacco Use Status Never used Tobacco 06/18/23 09:30 Tobacco use type Cigarette 06/18/23 09:30 e-Cigarette/Vaping Use Never Used 06/18/23 09:30 PHQ-9: PHQ-9 Score PHQ-9: Total score 0 06/18/23 09:30 Depression Screening Interpretation: Negative Thrive Assessment: Date of Thrive Assessment Date Thrive assessed 04/19/23 06/18/23 09:30 Const General: cooperative, comfortable, no acute distress and alert Neck Neck: Yes no lymphadenopathy Thyroid: Thyroid normal Resp Effort & Inspection: normal respiratory effort Auscultation: clear to auscultation bilaterally Percussion: percussion normal Cardio Jugular venous distension: no JVD Palpation: normal PMI Rate: regular rate Rhythm: regular rhythm Heart sounds: S1 normal heart sound present and S2 normal heart sound present GI Inspection: Yes normal to inspection Palpation (GI): No hepatosplenomegaly present Skin General skin exam: no rashes or lesions noted Extrem General: Yes no clubbing, cyanosis or edema Assessment and Plan Assessment & Plan (1) Low back pain: Code(s): M54.50 - Low back pain, unspecified Plan: stable; same rx Orders: Orders Influenza [id number] Immunization Today Z23 - Encounter for immunization Medications: New flu vacc [id number] 6mos up(PF) 0.5 mL IM ONCE 0.5 mL 0RF Z23 - Encounter for immunization Coding Level of Care Code Est Pt Level 3 (15259) Diagnoses Low back pain M54.50
== END 2023-06-18 09:40 | disposition home or self-care (01) ==
PROVIDERS: Visit Provider Internal Medicine
DX: M54.50 Low back pain, unspecified (principal); Z23 Encounter for immunization
CPT/HCPCS: 90471; 90686; 99213

== ENCOUNTER 2023-07-18 09:28 | Outpatient (AMB) | payer OTHER, SELFPAY ==
--- NOTE | 2023-07-18 09:33 | A.OFFPC_ITS ---
Vital Signs 07/18/23 09:34 Height 5 ft 5 in Weight 235 lb BMI 39.1 BP 122/60 Blood Pressure Location Lt brachial Position Sitting Intake Visit Reasons: med Intake Note: Patient is here to follow up on medication management. 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: Not Required per policy Accompanied by: Self / Same As Patient Allergies No Known Allergies [No Known Allergies*] Allergy (Verified 07/18/23 09:34) Medication List - Last Reconciled 07/18/23 by Barrera Coronado MD acetaminophen 650 mg (2 x 325 mg) PO Q6H PRN 30 days aspirin 325 mg PO BID 42 days celecoxib 200 mg PO BID chlorthalidone 25 mg PO DAILY famotidine 40 mg PO DAILY levothyroxine 200 mcg PO DAILY methadone 40 mg (4 x 10 mg) PO BID naloxone 4 mg/actuation (Narcan) 1 spray intranasal Q2M omeprazole 40 mg PO DAILY oxycodone 10 mg PO Q4H PRN 7 days psyllium 1 packet PO DAILY sertraline 50 mg PO DAILY Tobacco use date assessed: 07/18/23 HPI med HPI Details f/u chronic back pain; doing well and compliant [facility] Medical History Neuropathy of genitofemoral nerve History of COVID-19 HTN (hypertension) GERD (gastroesophageal reflux disease) COVID-19 vaccine series completed Osteoarthritis Obesity Hypothyroidism Hernia of abdominal cavity Surgical History History of left knee replacement H/O colonoscopy Hx of umbilical hernia repair Hx of breast reduction, elective Family History Father Esophageal cancer Mother No problems noted. Maternal Grandmother Osteoarthritis Sister No problems noted. Social History Household Members: Spouse Housing: House Are you a primary senior caregiver to a significant other at home: No Do you presently have visiting nurse or other home services: No Alcohol intake: current Alcohol intake frequency: holidays/special occasions only Patient Tobacco Use Status: Never used Tobacco Tobacco use type: Cigarette Years Smoked: 40 e-Cigarette/Vaping Use: Never Used Second Hand Smoke Exposure: No service: No Current occupational status: retired Current occupation: Right Handed Cognitive needs: No Hearing needs: No Vision needs: Yes (reading glasses) Questionnaire Thrive Questionnaire Date Thrive assessed: 04/19/23 GHULAM-7 AMB Questionnaire GHULAM-7 Date GHULAM - 7 assessed: 04/19/23 Source: Developed by Drs. Cecil Harley, Shanell Suarez, Carlos Seth and colleagues, with an educational sanjay from [employer]. Review of Systems Const Denies chills, Denies headache(s) and Denies weight loss ENT Denies headache(s) Card Denies chest pain, Denies syncope, Denies irregular heart rhythm and Denies dyspnea Resp Denies chest congestion, Denies cough and Denies dyspnea GI Denies abdominal pain, Denies change in stool character, Denies nausea and Denies vomiting Musc Denies deformity and Denies joint swelling Neuro Denies syncope and Denies headache(s) Physical exam (Primary Care) Vital Signs: Last Vital Signs BP 122/60 07/18/23 09:34 BMI result Body Mass Index 39.1 Tobacco/Smoking Status: Tobacco use Status Tobacco use date assessed 07/18/23 07/18/23 09:38 Patient Tobacco Use Status Never used Tobacco 07/18/23 09:38 Tobacco use type Cigarette 07/18/23 09:38 e-Cigarette/Vaping Use Never Used 07/18/23 09:38 Thrive Assessment: Date of Thrive Assessment Date Thrive assessed 04/19/23 07/18/23 09:38 Const General: cooperative, comfortable, no acute distress and alert Neck Neck: Yes no lymphadenopathy Thyroid: Thyroid normal Resp Effort & Inspection: normal respiratory effort Auscultation: clear to auscultation bilaterally Percussion: percussion normal Cardio Jugular venous distension: no JVD Palpation: normal PMI Rate: regular rate Rhythm: regular rhythm Heart sounds: S1 normal heart sound present and S2 normal heart sound present GI Inspection: Yes normal to inspection Palpation (GI): No hepatosplenomegaly present Skin General skin exam: no rashes or lesions noted Extrem General: Yes no clubbing, cyanosis or edema Assessment and Plan Assessment & Plan (1) Back pain: Code(s): M54.9 - Dorsalgia, unspecified Plan: stable; same rx Medications: Refilled methadone 40 mg (4 x 10 mg) PO BID 240 tabs 0RF M25.569 - Pain in unspecified knee, M54.9 - Dorsalgia, unspecified oxycodone 10 mg PO Q4H PRN 45 tabs 0RF Pain 7 days Coding Level of Care Code Est Pt Level 3 (99073) Diagnoses Back pain M54.9
[2023-07-18 09:34] VITALS: BP 122/60; BMI 39.1
== END 2023-07-18 09:48 | disposition home or self-care (01) ==
PROVIDERS: PCP Internal Medicine; Visit Provider Internal Medicine
DX: M54.9 Dorsalgia, unspecified (principal)
CPT/HCPCS: 99213

== ENCOUNTER 2023-08-15 09:46 | Outpatient (AMB) | payer OTHER, SELFPAY ==
[2023-08-15 09:49] VITALS: BP 140/78; PULSE 81; O2SAT 98; BMI 39.1
--- NOTE | 2023-08-15 09:49 | MHC.PC.OV ---
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: Not Required per policy Accompanied by: Self / Same As Patient Allergies No Known Allergies [No Known Allergies*] Allergy (Verified 08/15/23 09:49) Medication List - Last Reconciled 08/15/23 by Barrera Coronado MD acetaminophen 650 mg (2 x 325 mg) PO Q6H PRN 30 days aspirin 325 mg PO BID 42 days celecoxib 200 mg PO BID chlorthalidone 25 mg PO DAILY famotidine 40 mg PO DAILY levothyroxine 200 mcg PO DAILY methadone 40 mg (4 x 10 mg) PO BID naloxone 4 mg/actuation (Narcan) 1 spray intranasal Q2M omeprazole 40 mg PO DAILY oxycodone 10 mg PO Q4H PRN 7 days psyllium 1 packet PO DAILY sertraline 50 mg PO DAILY Tobacco use date assessed: 07/18/23 Dental Screening Dental Screen Date: 08/15/23 Did you have a dental visit in the last 12 months?: Yes Did you have a dental problem in the last 6 months where you did not have access to dental care?: No Was dental information given to patient?: Patient has dentist HPI med HPI Details f/u chronic back pain; stable on rx PFSH Medical History Neuropathy of genitofemoral nerve History of COVID-19 HTN (hypertension) GERD (gastroesophageal reflux disease) COVID-19 vaccine series completed Osteoarthritis Obesity Hypothyroidism Hernia of abdominal cavity Surgical History History of left knee replacement H/O colonoscopy Hx of umbilical hernia repair Hx of breast reduction, elective Family History Father Esophageal cancer Mother No problems noted. Maternal Grandmother Osteoarthritis Sister No problems noted. Social History Household Members: Spouse Housing: House Are you a primary ambulatory care nurse to a significant other at home: No Do you presently have visiting nurse or other home services: No Alcohol intake: current Alcohol intake frequency: holidays/special occasions only Patient Tobacco Use Status: Never used Tobacco Tobacco use type: Cigarette Years Smoked: 40 e-Cigarette/Vaping Use: Never Used Second Hand Smoke Exposure: No service: No Current occupational status: retired Current occupation: Right Handed Cognitive needs: No Hearing needs: No Vision needs: Yes (reading glasses) Questionnaire Thrive Questionnaire Date Thrive assessed: 04/19/23 GHULAM-7 AMB Questionnaire GHULAM-7 Date GHULAM - 7 assessed: 04/19/23 Source: Developed by Drs. Cecil Harley, Shanell Suarez, Carlos Seth and colleagues, with an educational sanjay from [employer]. Review of Systems Const Denies chills, Denies headache(s) and Denies weight loss ENT Denies headache(s) Card Denies chest pain, Denies syncope, Denies irregular heart rhythm and Denies dyspnea Resp Denies chest congestion, Denies cough and Denies dyspnea GI Denies abdominal pain, Denies change in stool character, Denies nausea and Denies vomiting Musc Denies deformity and Denies joint swelling Neuro Denies syncope and Denies headache(s) Physical exam (Primary Care) Vital Signs: Last Vital Signs Pulse 81 08/15/23 09:49 BP 140/78 H 08/15/23 09:49 Pulse Ox 98 08/15/23 09:49 Oxygen Delivery Method Room Air 08/15/23 09:49 BMI result Body Mass Index 39.1 Tobacco/Smoking Status: Tobacco use Status Tobacco use date assessed 07/18/23 08/15/23 09:54 Patient Tobacco Use Status Never used Tobacco 08/15/23 09:54 Tobacco use type Cigarette 08/15/23 09:54 e-Cigarette/Vaping Use Never Used 08/15/23 09:54 Thrive Assessment: Date of Thrive Assessment Date Thrive assessed 04/19/23 08/15/23 09:54 Const General: cooperative, comfortable, no acute distress and alert Neck Neck: Yes no lymphadenopathy Thyroid: Thyroid normal Resp Effort & Inspection: normal respiratory effort Auscultation: clear to auscultation bilaterally Percussion: percussion normal Cardio Jugular venous distension: no JVD Palpation: normal PMI Rate: regular rate Rhythm: regular rhythm Heart sounds: S1 normal heart sound present and S2 normal heart sound present GI Inspection: Yes normal to inspection Palpation (GI): No hepatosplenomegaly present Skin General skin exam: no rashes or lesions noted Extrem General: Yes no clubbing, cyanosis or edema Assessment and Plan Assessment & Plan (1) Low back pain: Code(s): M54.50 - Low back pain, unspecified Plan: stable, same rx Medications: Refilled oxycodone 10 mg PO Q4H 7 days PRN 45 tabs 0RF Pain methadone 40 mg (4 x 10 mg) PO BID 240 tabs 0RF pain M25.569 - Pain in unspecified knee, M54.9 - Dorsalgia, unspecified Coding Level of Care Code Est Pt Level 3 (69742) Diagnoses Low back pain M54.50
== END 2023-08-15 10:01 | disposition home or self-care (01) ==
PROVIDERS: PCP Internal Medicine; Visit Provider Internal Medicine
DX: M54.50 Low back pain, unspecified (principal)
CPT/HCPCS: 99213

== ENCOUNTER 2023-09-19 13:14 | Outpatient (AMB) | payer OTHER, SELFPAY ==
[2023-09-19 13:16] VITALS: BP 130/86; PULSE 96; O2SAT 94; BMI 38.9
--- NOTE | 2023-09-19 13:16 | MHC.PC.OV ---
Vital Signs 09/19/23 13:16 Height 5 ft 5 in Weight 234 lb BMI 38.9 BP 130/86 Blood Pressure Location Lt brachial Position Sitting Pulse 96 Pulse Source Pulse Oximeter Pulse Oximetry (%) 94 Oxygen Delivery Method Room Air Intake Visit Reasons: follow up Pediatrician Required: No Motor Assembly Supervisor: Not Required per policy Accompanied by: Self / Same As Patient Allergies No Known Allergies [No Known Allergies*] Allergy (Verified 09/19/23 13:16) Medication List - Last Reconciled 09/19/23 by Barrera Coronado MD acetaminophen 650 mg (2 x 325 mg) PO Q6H PRN 30 days aspirin 325 mg PO BID 42 days celecoxib 200 mg PO BID chlorthalidone 25 mg PO DAILY famotidine 40 mg PO DAILY levothyroxine 200 mcg PO DAILY methadone 40 mg (4 x 10 mg) PO BID 21 days naloxone 4 mg/actuation (Narcan) 1 spray intranasal Q2M omeprazole 40 mg PO DAILY oxycodone 10 mg PO Q4H PRN 7 days psyllium 1 packet PO DAILY sertraline 50 mg PO DAILY Tobacco use date assessed: 07/18/23 Dental Screening Dental Screen Date: 09/19/23 Did you have a dental visit in the last 12 months?: Yes Did you have a dental problem in the last 6 months where you did not have access to dental care?: No Was dental information given to patient?: Patient has dentist HPI follow up HPI Details chronic back pain on rx; compliant [facility] Medical History Neuropathy of genitofemoral nerve History of COVID-19 HTN (hypertension) GERD (gastroesophageal reflux disease) COVID-19 vaccine series completed Osteoarthritis Obesity Hypothyroidism Hernia of abdominal cavity Surgical History History of left knee replacement H/O colonoscopy Hx of umbilical hernia repair Hx of breast reduction, elective Family History Father Esophageal cancer Mother No problems noted. Maternal Grandmother Osteoarthritis Sister No problems noted. Social History Household Members: Spouse Housing: House Are you a primary primary care nurse to a significant other at home: No Do you presently have visiting nurse or other home services: No Alcohol intake: current Alcohol intake frequency: holidays/special occasions only Patient Tobacco Use Status: Never used Tobacco Tobacco use type: Cigarette Years Smoked: 40 e-Cigarette/Vaping Use: Never Used Second Hand Smoke Exposure: No service: No Current occupational status: retired Current occupation: Right Handed Cognitive needs: No Hearing needs: No Vision needs: Yes (reading glasses) Questionnaire Thrive Questionnaire Date Thrive assessed: 04/19/23 GHULAM-7 AMB Questionnaire GHULAM-7 Date GHULAM - 7 assessed: 04/19/23 Source: Developed by Drs. Cecil Harley, Shanell Suarez, Carlos Seth and colleagues, with an educational sanjay from [employer]. Review of Systems Const Denies chills, Denies headache(s) and Denies weight loss ENT Denies headache(s) Card Denies chest pain, Denies syncope, Denies irregular heart rhythm and Denies dyspnea Resp Denies chest congestion, Denies cough and Denies dyspnea GI Denies abdominal pain, Denies change in stool character, Denies nausea and Denies vomiting Musc Denies deformity and Denies joint swelling Neuro Denies syncope and Denies headache(s) Physical exam (Primary Care) Vital Signs: Last Vital Signs Pulse 96 09/19/23 13:16 BP 130/86 09/19/23 13:16 Pulse Ox 94 09/19/23 13:16 Oxygen Delivery Method Room Air 09/19/23 13:16 BMI result Body Mass Index 38.9 Tobacco/Smoking Status: Tobacco use Status Tobacco use date assessed 07/18/23 09/19/23 13:17 Patient Tobacco Use Status Never used Tobacco 09/19/23 13:17 Tobacco use type Cigarette 09/19/23 13:17 e-Cigarette/Vaping Use Never Used 09/19/23 13:17 Thrive Assessment: Date of Thrive Assessment Date Thrive assessed 04/19/23 09/19/23 13:17 Const General: cooperative, comfortable, no acute distress and alert Neck Neck: Yes no lymphadenopathy Thyroid: Thyroid normal Resp Effort & Inspection: normal respiratory effort Auscultation: clear to auscultation bilaterally Percussion: percussion normal Cardio Jugular venous distension: no JVD Palpation: normal PMI Rate: regular rate Rhythm: regular rhythm Heart sounds: S1 normal heart sound present and S2 normal heart sound present GI Inspection: Yes normal to inspection Palpation (GI): No hepatosplenomegaly present Skin General skin exam: no rashes or lesions noted Extrem General: Yes no clubbing, cyanosis or edema Assessment and Plan Assessment & Plan (1) Back pain: Code(s): M54.9 - Dorsalgia, unspecified Plan: stable; same rx Medications: Changed From methadone 40 mg (4 x 10 mg) PO BID 56 tabs 0RF 7 days M25.569 - Pain in unspecified knee, M54.9 - Dorsalgia, unspecified To methadone 40 mg (4 x 10 mg) PO BID 168 tabs 0RF 21 days M25.569 - Pain in unspecified knee, M54.9 - Dorsalgia, unspecified Coding Level of Care Code Est Pt Level 3 (11100) Diagnoses Back pain M54.9
== END 2023-09-19 13:35 | disposition home or self-care (01) ==
PROVIDERS: PCP Internal Medicine; Visit Provider Internal Medicine
DX: M54.9 Dorsalgia, unspecified (principal)
CPT/HCPCS: 99213

== ENCOUNTER 2023-10-15 08:49 | Outpatient (AMB) | payer OTHER, SELFPAY ==
--- NOTE | 2023-10-15 08:55 | MHC.PC.OV ---
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: Not Required per policy Accompanied by: Self / Same As Patient Allergies No Known Allergies [No Known Allergies*] Allergy (Verified 10/15/23 08:56) Medication List - Last Reconciled 10/15/23 by Barrera Coronado MD acetaminophen 650 mg (2 x 325 mg) PO Q6H PRN 30 days aspirin 325 mg PO BID 42 days celecoxib 200 mg PO BID chlorthalidone 25 mg PO DAILY famotidine 40 mg PO DAILY levothyroxine 200 mcg PO DAILY methadone 40 mg (4 x 10 mg) PO BID 21 days naloxone 4 mg/actuation (Narcan) 1 spray intranasal Q2M omeprazole 40 mg PO DAILY oxycodone 10 mg PO Q4H PRN 7 days psyllium 1 packet PO DAILY sertraline 50 mg PO DAILY Tobacco use date assessed: 10/15/23 Dental Screening Dental Screen Date: 10/15/23 Did you have a dental visit in the last 12 months?: Yes Did you have a dental problem in the last 6 months where you did not have access to dental care?: No Was dental information given to patient?: Patient has dentist HPI med review HPI Details f/u chronic back pain on rx; doing well and stable on rx PFSH Medical History Neuropathy of genitofemoral nerve History of COVID-19 HTN (hypertension) GERD (gastroesophageal reflux disease) COVID-19 vaccine series completed Osteoarthritis Obesity Hypothyroidism Hernia of abdominal cavity Surgical History History of left knee replacement H/O colonoscopy Hx of umbilical hernia repair Hx of breast reduction, elective Family History Father Esophageal cancer Mother No problems noted. Maternal Grandmother Osteoarthritis Sister No problems noted. Social History Household Members: Spouse Housing: House Are you a primary dialysis patient care technician to a significant other at home: No Do you presently have visiting nurse or other home services: No Alcohol intake: current Alcohol intake frequency: holidays/special occasions only Patient Tobacco Use Status: Never used Tobacco Tobacco use type: Cigarette Years Smoked: 40 e-Cigarette/Vaping Use: Never Used Second Hand Smoke Exposure: No service: No Current occupational status: retired Current occupation: Right Handed Cognitive needs: No Hearing needs: No Vision needs: Yes (reading glasses) Questionnaire PHQ-9 Over the last 2 weeks, how often have you been bothered by any of the following problems? 1. Little interest or pleasure in doing things: not at all 2. Feeling down, depressed, or hopeless: not at all 3. Trouble falling or staying asleep, or sleeping too much: not at all 4. Feeling tired or having little energy: not at all 5. Poor appetite or overeating: not at all 6. Feeling bad about yourself - or that you are a failure or have let yourself or your family down: not at all 7. Trouble concentrating on things, such as reading the newspaper or watching television: not at all 8. Moving or speaking so slowly that other people could have noticed. Or the opposite - being so fidgety or restless that you have been moving around a lot more than usual: not at all 9. Thoughts that you would be better off or of hurting yourself in some way: not at all Total score: 0 Depression Screening Interpretation: Negative Depression Screening Done: Yes 19946 - PHQ-9 Billing: Yes Source: Developed by Drs. Cecil Harley, Carlos Collins and colleagues, with an educational sanjay from [employer]. Thrive Questionnaire Date Thrive assessed: 04/19/23 GHULAM-7 AMB Questionnaire GHULAM-7 Date GHULAM - 7 assessed: 04/19/23 Source: Developed by Drs. Cecil Harley, Carlos Collins and colleagues, with an educational sanjay from [employer]. Review of Systems Const Denies chills, Denies headache(s) and Denies weight loss ENT Denies headache(s) Card Denies chest pain, Denies syncope, Denies irregular heart rhythm and Denies dyspnea Resp Denies chest congestion, Denies cough and Denies dyspnea GI Denies abdominal pain, Denies change in stool character, Denies nausea and Denies vomiting Musc Denies deformity and Denies joint swelling Neuro Denies syncope and Denies headache(s) Physical exam (Primary Care) Vital Signs: Last Vital Signs Pulse 76 10/15/23 08:56 BP 130/64 10/15/23 08:56 Pulse Ox 98 10/15/23 08:56 Oxygen Delivery Method Room Air 10/15/23 08:56 BMI result Body Mass Index 39.6 Tobacco/Smoking Status: Tobacco use Status Tobacco use date assessed 10/15/23 10/15/23 08:57 Patient Tobacco Use Status Never used Tobacco 10/15/23 08:57 Tobacco use type Cigarette 10/15/23 08:57 e-Cigarette/Vaping Use Never Used 10/15/23 08:57 PHQ-9: PHQ-9 Score PHQ-9: Total score 0 10/15/23 10:37 Depression Screening Interpretation: Negative Thrive Assessment: Date of Thrive Assessment Date Thrive assessed 04/19/23 10/15/23 08:57 Const General: cooperative, comfortable, no acute distress and alert Neck Neck: Yes no lymphadenopathy Thyroid: Thyroid normal Resp Effort & Inspection: normal respiratory effort Auscultation: clear to auscultation bilaterally Percussion: percussion normal Cardio Jugular venous distension: no JVD Palpation: normal PMI Rate: regular rate Rhythm: regular rhythm Heart sounds: S1 normal heart sound present and S2 normal heart sound present GI Inspection: Yes normal to inspection Palpation (GI): No hepatosplenomegaly present Skin General skin exam: no rashes or lesions noted Extrem General: Yes no clubbing, cyanosis or edema Assessment and Plan Assessment & Plan (1) Back pain: Code(s): M54.9 - Dorsalgia, unspecified Plan: stable; same rx Medications: Refilled methadone 40 mg (4 x 10 mg) PO BID 168 tabs 0RF 21 days M25.569 - Pain in unspecified knee, M54.9 - Dorsalgia, unspecified oxycodone 10 mg PO Q4H PRN 45 tabs 0RF Pain 7 days Coding Level of Care Code Est Pt Level 3 (81105) Diagnoses Back pain M54.9
[2023-10-15 08:56] VITALS: BP 130/64; PULSE 76; O2SAT 98; BMI 39.6
== END 2023-10-15 10:46 | disposition home or self-care (01) ==
PROVIDERS: PCP Internal Medicine; Visit Provider Internal Medicine
DX: M54.9 Dorsalgia, unspecified (principal)
CPT/HCPCS: 99213

== ENCOUNTER 2023-11-01 10:56 | Outpatient (AMB) | payer OTHER, SELFPAY ==
[2023-11-01 10:58] VITALS: BP 142/86; PULSE 83; O2SAT 95; BMI 39.3
--- NOTE | 2023-11-01 10:58 | A.OFFPC_ITS ---
Vital Signs 11/01/23 10:58 Height 5 ft 5 in Weight 236 lb BMI 39.3 BP 142/86 H Blood Pressure Location Lt brachial Position Sitting Pulse 83 Pulse Source Pulse Oximeter Pulse Oximetry (%) 95 Oxygen Delivery Method Room Air Intake Visit Reasons: medication follow-up. Switchboard Wirer Required: No Fitness Coordinator: Not Required per policy Accompanied by: Self / Same As Patient Allergies No Known Allergies [No Known Allergies*] Allergy (Verified 11/01/23 10:58) Medication List - Last Reconciled 11/01/23 by Barrera Coronado MD acetaminophen 650 mg (2 x 325 mg) PO Q6H PRN 30 days aspirin 325 mg PO BID 42 days celecoxib 200 mg PO BID chlorthalidone 25 mg PO DAILY famotidine 40 mg PO DAILY levothyroxine 200 mcg PO DAILY methadone 40 mg (4 x 10 mg) PO BID 21 days naloxone 4 mg/actuation (Narcan) 1 spray intranasal Q2M omeprazole 40 mg PO DAILY oxycodone 10 mg PO Q4H PRN 7 days psyllium 1 packet PO DAILY sertraline 50 mg PO DAILY Tobacco use date assessed: 10/15/23 HPI medication follow-up. HPI Details Because she could only get a one week prescription for methadone from this office while I was away, her scripts and appts are now out of sync; she is due for methadone but not her oxycodone [facility] Medical History Neuropathy of genitofemoral nerve History of COVID-19 HTN (hypertension) GERD (gastroesophageal reflux disease) COVID-19 vaccine series completed Osteoarthritis Obesity Hypothyroidism Hernia of abdominal cavity Surgical History History of left knee replacement H/O colonoscopy Hx of umbilical hernia repair Hx of breast reduction, elective Family History Father Esophageal cancer Mother No problems noted. Maternal Grandmother Osteoarthritis Sister No problems noted. Social History Household Members: Spouse Housing: House Are you a primary hearing care professional to a significant other at home: No Do you presently have visiting nurse or other home services: No Alcohol intake: current Alcohol intake frequency: holidays/special occasions only Patient Tobacco Use Status: Never used Tobacco Tobacco use type: Cigarette Years Smoked: 40 e-Cigarette/Vaping Use: Never Used Second Hand Smoke Exposure: No service: No Current occupational status: retired Current occupation: Right Handed Cognitive needs: No Hearing needs: No Vision needs: Yes (reading glasses) Questionnaire Thrive Questionnaire Date Thrive assessed: 11/01/23 I am a: Patient What is your living situation today?: I have a steady place to live Within the past 12 months, did the food you bought not last and you didn't have the money to get more?: Never true Within the past 12 months, did you worry whether your food would run out before you got money to buy more?: Never true Do you have trouble paying for medicines?: No Do you have trouble getting transportation to medical appointments?: No Do you have trouble paying your heating and electricity bill?: No Do you have trouble taking care of your child, family member or friend?: No Do you have trouble with day-to-day activities such as bathing, preparing meals, shopping, managing finances, etc.?: No Are you currently unemployed and looking for a job?: No Are you interested in more education?: No Please select the resources that you would like help with: None THRIVE Score: 0 AUDIT C Alcohol Use Questionnaire (AUDIT-C) 1. How often do you have a drink containing alcohol?: Monthly or less 2. How many drinks containing alcohol do you have on a typical day when you are drinking?: 1 or 2 3. How often do you have six or more drinks on one occasion?: Never Total Score: 1 Score Reviewed/Action Taken: Yes GHULAM-7 AMB Questionnaire GHULAM-7 Date GHULAM - 7 assessed: 11/01/23 Feeling nervous, anxious, or on edge: 0 = Not at all Not being able to stop or control worryin = Not at all Worrying too much about different things: 0 = Not at all Trouble relaxin = Not at all Being so restless that it is hard to sit still: 0 = Not at all Becoming easily annoyed or irritable: 0 = Not at all Feeling afraid as if something awful might happen: 0 = Not at all Total GHULAM-7 score (0-4 normal; 5-9 mild; 10-14 moderate; 15-21 severe): 0 Source: Developed by Drs. Cecil Harley, Shanell Suarez, Carlos Seth and colleagues, with an educational sanjay from [employer]. Review of Systems Const Denies chills, Denies headache(s) and Denies weight loss ENT Denies headache(s) Card Denies chest pain, Denies syncope, Denies irregular heart rhythm and Denies dyspnea Resp Denies chest congestion, Denies cough and Denies dyspnea GI Denies abdominal pain, Denies change in stool character, Denies nausea and Denies vomiting Musc Denies deformity and Denies joint swelling Neuro Denies syncope and Denies headache(s) Physical exam (Primary Care) Vital Signs: Last Vital Signs Pulse 83 11/01/23 10:58 BP 142/86 H 11/01/23 10:58 Pulse Ox 95 11/01/23 10:58 Oxygen Delivery Method Room Air 11/01/23 10:58 BMI result Body Mass Index 39.3 Tobacco/Smoking Status: Tobacco use Status Tobacco use date assessed 10/15/23 11/01/23 10:59 Patient Tobacco Use Status Never used Tobacco 11/01/23 10:59 Tobacco use type Cigarette 11/01/23 10:59 e-Cigarette/Vaping Use Never Used 11/01/23 10:59 Thrive Assessment: Date of Thrive Assessment Date Thrive assessed 11/01/23 11/01/23 10:59 Const General: cooperative, comfortable, no acute distress and alert Neck Neck: Yes no lymphadenopathy Thyroid: Thyroid normal Resp Effort & Inspection: normal respiratory effort Auscultation: clear to auscultation bilaterally Percussion: percussion normal Cardio Jugular venous distension: no JVD Palpation: normal PMI Rate: regular rate Rhythm: regular rhythm Heart sounds: S1 normal heart sound present and S2 normal heart sound present GI Inspection: Yes normal to inspection Palpation (GI): No hepatosplenomegaly present Skin General skin exam: no rashes or lesions noted Extrem General: Yes no clubbing, cyanosis or edema Assessment and Plan Assessment & Plan (1) Low back pain: Code(s): M54.50 - Low back pain, unspecified Plan: stable; same rx Medications: Refilled methadone 40 mg (4 x 10 mg) PO BID 240 tabs 0RF 21 days M25.569 - Pain in unspecified knee, M54.9 - Dorsalgia, unspecified Coding Level of Care Code Est Pt Level 3 (82954) Diagnoses Low back pain M54.50
== END 2023-11-01 11:21 | disposition home or self-care (01) ==
PROVIDERS: PCP Internal Medicine; Visit Provider Internal Medicine
DX: M54.50 Low back pain, unspecified (principal)
CPT/HCPCS: 99213

== ENCOUNTER 2023-11-28 08:27 | Outpatient (AMB) | payer OTHER, SELFPAY ==
[2023-11-28 08:37] VITALS: BP 140/82; PULSE 84; O2SAT 98; BMI 40.4
--- NOTE | 2023-11-28 08:37 | MHC.PC.OV ---
Vital Signs 11/28/23 08:37 Height 5 ft 5 in Weight 243 lb BMI 40.4 BP 140/82 H Blood Pressure Location Lt brachial Position Sitting Pulse 84 Pulse Source Pulse Oximeter Pulse Oximetry (%) 98 Oxygen Delivery Method Room Air Intake Visit Reasons: Med Review Lead Retail Sales Associate Required: No Oxyacetylene Torch Operator: Not Required per policy Accompanied by: Self / Same As Patient Allergies No Known Allergies [No Known Allergies*] Allergy (Verified 11/28/23 08:37) Medication List - Last Reconciled 11/28/23 by Barrera Coronado MD acetaminophen 650 mg (2 x 325 mg) PO Q6H PRN 30 days aspirin 325 mg PO BID 42 days celecoxib 200 mg PO BID chlorthalidone 25 mg PO DAILY famotidine 40 mg PO DAILY levothyroxine 200 mcg PO DAILY methadone 40 mg (4 x 10 mg) PO BID 21 days naloxone 4 mg/actuation (Narcan) 1 spray intranasal Q2M omeprazole 40 mg PO DAILY oxycodone 10 mg PO Q4H PRN 7 days psyllium 1 packet PO DAILY sertraline 50 mg PO DAILY Tobacco use date assessed: 10/15/23 HPI Med Review HPI Details chronic back pain on pain management; doing well and compliant [facility] Medical History Neuropathy of genitofemoral nerve History of COVID-19 HTN (hypertension) GERD (gastroesophageal reflux disease) COVID-19 vaccine series completed Osteoarthritis Obesity Hypothyroidism Hernia of abdominal cavity Surgical History History of left knee replacement H/O colonoscopy Hx of umbilical hernia repair Hx of breast reduction, elective Family History Father Esophageal cancer Mother No problems noted. Maternal Grandmother Osteoarthritis Sister No problems noted. Social History Household Members: Spouse Housing: House Are you a primary congregational care pastor to a significant other at home: No Do you presently have visiting nurse or other home services: No Alcohol intake: current Alcohol intake frequency: holidays/special occasions only Patient Tobacco Use Status: Never used Tobacco Tobacco use type: Cigarette Years Smoked: 40 e-Cigarette/Vaping Use: Never Used Second Hand Smoke Exposure: No service: No Current occupational status: retired Current occupation: Right Handed Cognitive needs: No Hearing needs: No Vision needs: Yes (reading glasses) Questionnaire Thrive Questionnaire Date Thrive assessed: 11/01/23 GHULAM-7 AMB Questionnaire GHULAM-7 Date GHULAM - 7 assessed: 11/01/23 Source: Developed by Drs. Cecil Harley, Shanell Suarez, Carlos Seth and colleagues, with an educational sanjay from [employer]. Review of Systems Const Denies chills, Denies headache(s) and Denies weight loss ENT Denies headache(s) Card Denies chest pain, Denies syncope, Denies irregular heart rhythm and Denies dyspnea Resp Denies chest congestion, Denies cough and Denies dyspnea GI Denies abdominal pain, Denies change in stool character, Denies nausea and Denies vomiting Musc Denies deformity and Denies joint swelling Neuro Denies syncope and Denies headache(s) Physical exam (Primary Care) Vital Signs: Last Vital Signs Pulse 84 11/28/23 08:37 BP 140/82 H 11/28/23 08:37 Pulse Ox 98 11/28/23 08:37 Oxygen Delivery Method Room Air 11/28/23 08:37 BMI result Body Mass Index 40.4 Tobacco/Smoking Status: Tobacco use Status Tobacco use date assessed 10/15/23 11/28/23 08:38 Patient Tobacco Use Status Never used Tobacco 11/28/23 08:38 Tobacco use type Cigarette 11/28/23 08:38 e-Cigarette/Vaping Use Never Used 11/28/23 08:38 Thrive Assessment: Date of Thrive Assessment Date Thrive assessed 11/01/23 11/28/23 08:38 Const General: cooperative, comfortable, no acute distress and alert Neck Neck: Yes no lymphadenopathy Thyroid: Thyroid normal Resp Effort & Inspection: normal respiratory effort Auscultation: clear to auscultation bilaterally Percussion: percussion normal Cardio Jugular venous distension: no JVD Palpation: normal PMI Rate: regular rate Rhythm: regular rhythm Heart sounds: S1 normal heart sound present and S2 normal heart sound present GI Inspection: Yes normal to inspection Palpation (GI): No hepatosplenomegaly present Skin General skin exam: no rashes or lesions noted Extrem General: Yes no clubbing, cyanosis or edema Assessment and Plan Assessment & Plan (1) Back pain: Code(s): M54.9 - Dorsalgia, unspecified Plan: stable; same rx Medications: Refilled oxycodone 10 mg PO Q4H PRN 45 tabs 0RF Pain 7 days methadone 40 mg (4 x 10 mg) PO BID 240 tabs 0RF 21 days M25.569 - Pain in unspecified knee, M54.9 - Dorsalgia, unspecified Coding Level of Care Code Est Pt Level 3 (04852) Diagnoses Back pain M54.9
== END 2023-11-28 08:59 | disposition home or self-care (01) ==
PROVIDERS: PCP Internal Medicine; Visit Provider Internal Medicine
DX: M54.9 Dorsalgia, unspecified (principal)
CPT/HCPCS: 99213

== ENCOUNTER 2023-12-27 10:52 | Outpatient (AMB) | payer OTHER, SELFPAY ==
[2023-12-27 10:58] VITALS: BP 134/82; PULSE 82; O2SAT 95; BMI 39.6
--- NOTE | 2023-12-27 10:58 | MHC.PC.OV ---
Vital Signs 12/27/23 10:58 Height 5 ft 5 in Weight 238 lb BMI 39.6 BP 134/82 Blood Pressure Location Lt brachial Position Sitting Pulse 82 Pulse Source Pulse Oximeter Pulse Oximetry (%) 95 Oxygen Delivery Method Room Air Intake Visit Reasons: Med Review Allergies No Known Allergies [No Known Allergies*] Allergy (Verified 12/27/23 11:47) Tobacco use date assessed: 10/15/23 Dental Screening Dental Screen Date: 10/15/23 HPI Med Review HPI Details chronic back pain on pain management; doing well and compliant [facility] Medical History Neuropathy of genitofemoral nerve History of COVID-19 HTN (hypertension) GERD (gastroesophageal reflux disease) COVID-19 vaccine series completed Osteoarthritis Obesity Hypothyroidism Hernia of abdominal cavity Surgical History History of left knee replacement H/O colonoscopy Hx of umbilical hernia repair Hx of breast reduction, elective Family History Father Esophageal cancer Mother No problems noted. Maternal Grandmother Osteoarthritis Sister No problems noted. Social History Household Members: Spouse Housing: House Are you a primary critical care clinical nurse specialist to a significant other at home: No Do you presently have visiting nurse or other home services: No Alcohol intake: current Alcohol intake frequency: holidays/special occasions only Patient Tobacco Use Status: Never used Tobacco Tobacco use type: Cigarette Years Smoked: 40 e-Cigarette/Vaping Use: Never Used Second Hand Smoke Exposure: No service: No Current occupational status: retired Current occupation: Right Handed Cognitive needs: No Hearing needs: No Vision needs: Yes (reading glasses) Questionnaire Thrive Questionnaire Date Thrive assessed: 11/01/23 AUDIT C Alcohol Use Questionnaire (AUDIT-C) 1. How often do you have a drink containing alcohol?: Monthly or less 2. How many drinks containing alcohol do you have on a typical day when you are drinking?: 1 or 2 3. How often do you have six or more drinks on one occasion?: Never Total Score: 1 Score Reviewed/Action Taken: Yes GHULAM-7 AMB Questionnaire GHULAM-7 Date GHULAM - 7 assessed: 11/01/23 Source: Developed by Shanell Fuller B.W. Erick, Carlos Seth and colleagues, with an educational sanjay from [employer]. Review of Systems Const Denies chills, Denies headache(s) and Denies weight loss ENT Denies headache(s) Card Denies chest pain, Denies syncope, Denies irregular heart rhythm and Denies dyspnea Resp Denies chest congestion, Denies cough and Denies dyspnea GI Denies abdominal pain, Denies change in stool character, Denies nausea and Denies vomiting Musc Denies deformity and Denies joint swelling Neuro Denies syncope and Denies headache(s) Physical exam (Primary Care) Vital Signs: Last Vital Signs Pulse 82 12/27/23 10:58 BP 134/82 12/27/23 10:58 Pulse Ox 95 12/27/23 10:58 Oxygen Delivery Method Room Air 12/27/23 10:58 BMI result Body Mass Index 39.6 Tobacco/Smoking Status: Tobacco use Status Tobacco use date assessed 10/15/23 12/27/23 11:03 Patient Tobacco Use Status Never used Tobacco 12/27/23 11:03 Tobacco use type Cigarette 12/27/23 11:03 e-Cigarette/Vaping Use Never Used 12/27/23 11:03 Thrive Assessment: Date of Thrive Assessment Date Thrive assessed 11/01/23 12/27/23 11:03 Const General: cooperative, comfortable, no acute distress and alert Neck Neck: Yes no lymphadenopathy Thyroid: Thyroid normal Resp Effort & Inspection: normal respiratory effort Auscultation: clear to auscultation bilaterally Percussion: percussion normal Cardio Jugular venous distension: no JVD Palpation: normal PMI Rate: regular rate Rhythm: regular rhythm Heart sounds: S1 normal heart sound present and S2 normal heart sound present GI Inspection: Yes normal to inspection Palpation (GI): No hepatosplenomegaly present Skin General skin exam: no rashes or lesions noted Extrem General: Yes no clubbing, cyanosis or edema Assessment and Plan Assessment & Plan (1) Low back pain: Code(s): M54.50 - Low back pain, unspecified Plan: stable; same rx Orders: Orders Lipid Panel Today Z13.220 - Encounter for screening for lipoid disorders Thyroid Stimulating Hormone Today Z13.29 - Encounter for screening for other suspected endocrine disorder Complete Blood Count Auto Diff Today Z13.0 - Encounter for screening for diseases of the blood and blood-forming organs and certain disorders involving the immune mechanism Comprehensive [place]. Panel Fast Today Z13.9 - Encounter for screening, unspecified Medications: Refilled methadone 40 mg (4 x 10 mg) PO BID 21 days 240 tabs 0RF pain M25.569 - Pain in unspecified knee, M54.9 - Dorsalgia, unspecified oxycodone 10 mg PO Q4H 7 days PRN 45 tabs 0RF Pain Coding Level of Care Code Est Pt Level 3 (82866) Diagnoses Low back pain M54.50
== END 2023-12-27 11:06 | disposition home or self-care (01) ==
PROVIDERS: PCP Internal Medicine; Visit Provider Internal Medicine
DX: M54.50 Low back pain, unspecified (principal)
CPT/HCPCS: 99213

== ENCOUNTER 2023-12-27 11:23 | Outpatient (AMB) | payer OTHER, SELFPAY ==
--- NOTE | 2023-12-27 11:41 | MHC.OFFVIS ---
Intake Vital Signs 12/27/23 11:47 Height 5 ft 5 in Weight 238 lb BMI 39.6 BP 134/82 Blood Pressure Location Lt brachial Position Sitting Pulse 82 Pulse Oximetry (%) 95 Oxygen Delivery Method Room Air Intake Visit Reasons: poss recurrent umbilical hernia Intake Note: This patient presents for question of possible recurrent umbilical hernia. Pt c/o; reports no complaints. Automotive Service Professional Required: No Accompanied by: Self / Same As Patient Allergies No Known Allergies [No Known Allergies*] Allergy (Verified 12/27/23 11:47) Medication List - Last Reconciled 12/27/23 by Brad Junior MD acetaminophen 650 mg (2 x 325 mg) PO Q6H PRN 30 days amoxicillin 2,000 mg (4 x 500 mg) PO ONCE 1 day aspirin 325 mg PO BID 42 days celecoxib 200 mg PO BID chlorthalidone 25 mg PO DAILY famotidine 40 mg PO DAILY ibuprofen 600 mg PO TID PRN levothyroxine 200 mcg PO DAILY methadone 40 mg (4 x 10 mg) PO BID 21 days naloxone 4 mg/actuation (Narcan) 1 spray intranasal Q2M omeprazole 40 mg PO DAILY oxycodone 10 mg PO Q4H PRN 7 days psyllium 1 packet PO DAILY sertraline 50 mg PO DAILY HPI poss recurrent umbilical hernia HPI Details She is here to have her old hernia repair site in the umbilicus checked. She had umbilical hernia repair with V patch mesh in 2019. She is concerned about a recurrence as she feels some ?hardness? on the area of the repair site. She describes some occasional sharp pains as well especially when she is bending over. She otherwise denies GI complaints. [facility] Medical History Neuropathy of genitofemoral nerve History of COVID-19 HTN (hypertension) GERD (gastroesophageal reflux disease) COVID-19 vaccine series completed Osteoarthritis Obesity Hypothyroidism Hernia of abdominal cavity Surgical History History of left knee replacement H/O colonoscopy Hx of umbilical hernia repair Hx of breast reduction, elective Family History Father Esophageal cancer Mother No problems noted. Maternal Grandmother Osteoarthritis Sister No problems noted. Social History Household Members: Spouse Housing: House Are you a primary patient care to a significant other at home: No Do you presently have visiting nurse or other home services: No Alcohol intake: current Alcohol intake frequency: holidays/special occasions only Patient Tobacco Use Status: Never used Tobacco Tobacco use type: Cigarette Years Smoked: 40 e-Cigarette/Vaping Use: Never Used Second Hand Smoke Exposure: No service: No Current occupational status: retired Current occupation: Right Handed Cognitive needs: No Hearing needs: No Vision needs: Yes (reading glasses) Review of Systems Const Denies chills and Denies fever(s) Card Denies chest pain, Denies dyspnea and Denies dyspnea on exertion Resp Denies cough, Denies dyspnea and Denies dyspnea on exertion GI Denies hematochezia and Denies change in bowel habits Denies hematuria Musc Denies back pain and Denies limited range of motion Neuro Denies focal weakness and Denies convulsions Psych Denies depression and Denies mood swings Physical Exam Vital Signs: Last Vital Signs Pulse 82 12/27/23 11:47 BP 134/82 12/27/23 11:47 Pulse Ox 95 12/27/23 11:47 Oxygen Delivery Method Room Air 12/27/23 11:47 BMI result Body Mass Index 39.6 Const Other: Morbidly obese General: comfortable and no acute distress Orientation/consciousness: patient oriented x3 Neck Neck: Yes no lymphadenopathy Resp Auscultation: clear to auscultation bilaterally Cardio Rhythm: regular rhythm GI Other: Question of deep induration and the old hernia repair site on the umbilicus, exam difficult in view of morbid obesity Palpation (GI): Soft to palpation, nontender and no guarding Neuro General: patient oriented x3 Assessment & Plan Assessment & Plan (1) Umbilical mass: Code(s): R19.09 - Other intra-abdominal and pelvic swelling, mass and lump Plan: I will order for a CAT scan of the abdomen without contrast to check for hernia recurrence in the umbilicus. Exam is difficult inferior her morbid obesity I will see her again in the office after her CT scan. She understands the plan well and is comfortable with this. Orders: Orders CT abdomen pelvis wo IV con Today R19.09 - Other intra-abdominal and pelvic swelling, mass and lump Coding Level of Care Code Est Pt Level 3 (43076) Diagnoses Umbilical mass R19.09
[2023-12-27 11:47] VITALS: BP 134/82; PULSE 82; O2SAT 95; BMI 39.6
== END 2023-12-27 11:54 | disposition home or self-care (01) ==
LOC: HO.HGS 11:23
PROVIDERS: PCP Internal Medicine; Visit Provider Surgery
DX: R19.09 Other intra-abdominal and pelvic swelling, mass and lump (principal)
CPT/HCPCS: 99213

== ENCOUNTER → 2023-12-27 11:23 | Outpatient (BNVA) | payer OTHER, SELFPAY | PROVIDERS: PCP Internal Medicine; Visit Provider Surgery | DX: R19.09 Other intra-abdominal and pelvic swelling, mass and lump (principal) | CPT/HCPCS: 99212 ==

== ENCOUNTER 2024-01-24 09:20 | Outpatient (AMB) | payer OTHER, SELFPAY ==
[2024-01-24 09:25] VITALS: BP 132/80; PULSE 87; O2SAT 98; BMI 39.9
--- NOTE | 2024-01-24 09:25 | MHC.PC.OV ---
Vital Signs 01/24/24 09:25 Height 5 ft 5 in Weight 240 lb BMI 39.9 BP 132/80 Blood Pressure Location Lt brachial Position Standing Pulse 87 Pulse Source Pulse Oximeter Pulse Oximetry (%) 98 Oxygen Delivery Method Room Air Intake Visit Reasons: Med Review [employer] Aide Required: No Hospice Home Health Aide: Not Required per policy Accompanied by: Self / Same As Patient Allergies No Known Allergies [No Known Allergies*] Allergy (Verified 01/24/24 09:25) Medication List - Last Reconciled 01/24/24 by Barrera Coronado MD acetaminophen 650 mg (2 x 325 mg) PO Q6H PRN 30 days amoxicillin 2,000 mg (4 x 500 mg) PO ONCE 1 day aspirin 325 mg PO BID 42 days celecoxib 200 mg PO BID chlorthalidone 25 mg PO DAILY famotidine 40 mg PO DAILY ibuprofen 600 mg PO TID PRN levothyroxine 200 mcg PO DAILY methadone 40 mg (4 x 10 mg) PO BID 21 days naloxone 4 mg/actuation (Narcan) 1 spray intranasal Q2M omeprazole 40 mg PO DAILY oxycodone 10 mg PO Q4H PRN 7 days psyllium 1 packet PO DAILY sertraline 50 mg PO DAILY Tobacco use date assessed: 10/15/23 Dental Screening Dental Screen Date: 10/15/23 HPI Med Review HPI Details chronic back pain on rx; doing well and compliant [facility] Medical History Neuropathy of genitofemoral nerve History of COVID-19 HTN (hypertension) GERD (gastroesophageal reflux disease) COVID-19 vaccine series completed Osteoarthritis Obesity Hypothyroidism Hernia of abdominal cavity Surgical History History of left knee replacement H/O colonoscopy Hx of umbilical hernia repair Hx of breast reduction, elective Family History Father Esophageal cancer Mother No problems noted. Maternal Grandmother Osteoarthritis Sister No problems noted. Social History Household Members: Spouse Housing: House Are you a primary child care lead teacher to a significant other at home: No Do you presently have visiting nurse or other home services: No Alcohol intake: current Alcohol intake frequency: holidays/special occasions only Patient Tobacco Use Status: Never used Tobacco Tobacco use type: Cigarette Years Smoked: 40 e-Cigarette/Vaping Use: Never Used Second Hand Smoke Exposure: No service: No Current occupational status: retired Current occupation: Right Handed Cognitive needs: No Hearing needs: No Vision needs: Yes (reading glasses) Questionnaire Thrive Questionnaire Date Thrive assessed: 11/01/23 GHULAM-7 AMB Questionnaire GHULAM-7 Date GHULAM - 7 assessed: 11/01/23 Source: Developed by Drs. Cecil Harley, Shanell Suarez, Carlos Seth and colleagues, with an educational sanjay from [employer]. Review of Systems Const Denies chills, Denies headache(s) and Denies weight loss ENT Denies headache(s) Card Denies chest pain, Denies syncope, Denies irregular heart rhythm and Denies dyspnea Resp Denies chest congestion, Denies cough and Denies dyspnea GI Denies abdominal pain, Denies change in stool character, Denies nausea and Denies vomiting Musc Denies deformity and Denies joint swelling Neuro Denies syncope and Denies headache(s) Physical exam (Primary Care) Vital Signs: Last Vital Signs Pulse 87 01/24/24 09:25 BP 132/80 01/24/24 09:25 Pulse Ox 98 01/24/24 09:25 Oxygen Delivery Method Room Air 01/24/24 09:25 BMI result Body Mass Index 39.9 Tobacco/Smoking Status: Tobacco use Status Tobacco use date assessed 10/15/23 01/24/24 09:33 Patient Tobacco Use Status Never used Tobacco 01/24/24 09:33 Tobacco use type Cigarette 01/24/24 09:33 e-Cigarette/Vaping Use Never Used 01/24/24 09:33 Thrive Assessment: Date of Thrive Assessment Date Thrive assessed 11/01/23 01/24/24 09:33 Const General: cooperative, comfortable, no acute distress and alert Neck Neck: Yes no lymphadenopathy Thyroid: Thyroid normal Resp Effort & Inspection: normal respiratory effort Auscultation: clear to auscultation bilaterally Percussion: percussion normal Cardio Jugular venous distension: no JVD Palpation: normal PMI Rate: regular rate Rhythm: regular rhythm Heart sounds: S1 normal heart sound present and S2 normal heart sound present GI Inspection: Yes normal to inspection Palpation (GI): No hepatosplenomegaly present Skin General skin exam: no rashes or lesions noted Extrem General: Yes no clubbing, cyanosis or edema Assessment and Plan Assessment & Plan (1) Back pain: Code(s): M54.9 - Dorsalgia, unspecified Plan: stable; same rx Medications: Refilled ibuprofen 600 mg PO TID PRN 90 tabs 8RF pain oxycodone 10 mg PO Q4H 7 days PRN 45 tabs 0RF Pain methadone 40 mg (4 x 10 mg) PO BID 21 days 240 tabs 0RF pain M25.569 - Pain in unspecified knee, M54.9 - Dorsalgia, unspecified Coding Level of Care Code Est Pt Level 3 (67202) Diagnoses Back pain M54.9
== END 2024-01-24 09:40 | disposition home or self-care (01) ==
PROVIDERS: PCP Internal Medicine; Visit Provider Internal Medicine
DX: M54.9 Dorsalgia, unspecified (principal)
CPT/HCPCS: 99213

== ENCOUNTER 2024-01-24 09:55 | Outpatient (REF) | payer OTHER, SELFPAY ==
[2024-01-24 10:15] LABS: MANUAL DIFF FLAG NO
[2024-01-24 10:54] LABS: Basophils Absolute Auto 0.1 X10*3/uL (0.0-0.2); Basophils Percent Auto 0.6 % (0-2); Eosinophils Absolute Auto 0.4 X10*3/uL (0.0-0.4); Eosinophils Percent Auto 5.1 % (0-4); Hematocrit 39.9 % (37.0-47.0); Imm Gran Abs Auto 0.03 X10*3/uL (0.00-0.03); Imm Gran Pct Auto 0.4 % (0.0-0.4); Lymphocytes Percent Auto 23.4 % (20-40); Mean Corpuscular HGB Conc 32.6 g/dl (31.0-35.0); Mean Corpuscular Hemoglobin 29.4 pg (27.0-33.0); Mean Corpuscular Volume 90.3 fL (80.0-98.0); Mean Platelet Volume 9.7 fL (9.4-12.3); Monocytes Absolute Auto 0.6 X10*3/uL (0.1-1.2); Monocytes Percent Auto 6.6 % (2-11); Neutrophils Absolute Auto 5.4 x10*3/uL (2.0-8.3); Neutrophils Percent Auto 63.9 % (45-73); Platelet Count 278 X10*3/uL (160-400); Red Blood Count 4.42 X10*6/uL (4.20-5.50); Red Cell Distribution Width 13.8 % (11.0-16.0); White Blood Count 8.4 X10*3/uL (4.8-10.8)
[2024-01-24 11:27] LABS: Alanine Aminotransferase 19 U/L (0-31); Albumin Level 4.1 g/dL (3.5-5.0); Alkaline Phosphatase 65 U/L (39-117); Anion Gap 14 (12-20); Aspartate Amino Transferase 17 U/L (5-31); Bilirubin Total 0.4 mg/dL (0.0-1.0); Blood Urea Nitrogen 15 mg/dL (9-16); Calcium 9.2 mg/dL (8.4-10.2); Carbon Dioxide 34 mmol/L (22-29); Chloride 98 mmol/L (96-108); Cholesterol 236 mg/dL (<200); Estimated Glomerular Filt Rate > 60; Glucose Fasting 106 mg/dL (60-99); HDL Cholesterol 54 mg/dL (>40); LDL Cholesterol Calculated 153 mg/dL (<100); Potassium 3.2 mmol/L (3.3-5.1); Sodium 143 mmol/L (135-145); Total Protein 7.6 g/dL (6.5-8.0); Triglycerides 146 mg/dL (<150)
[2024-01-24 11:44] LABS: Thyroid Stimulating Hormone 13.48 uIU/mL (0.32-4.0)
== END 2024-01-24 09:56 | disposition home or self-care (01) ==
LOC: HO.LAB 09:55
PROVIDERS: PCP Internal Medicine; Visit Provider Internal Medicine
DX: E03.9 Hypothyroidism, unspecified (principal); Z13.29 Encounter for screening for other suspected endocrine disorder; Z13.9 Encounter for screening, unspecified; Z13.220 Encounter for screening for lipoid disorders; Z13.0 Encounter for screening for diseases of the blood and blood-forming organs and certain disorders involving the immune mechanism
CPT/HCPCS: 36415; 80053; 80061; 84443; 85025

== ENCOUNTER 2024-02-15 14:33 | Outpatient (REF) | payer OTHER, SELFPAY ==
--- NOTE | ~2024-02-15 | CT_ITS ---
EXAMINATION: CT ABDOMEN AND PELVIS WITHOUT CONTRAST CLINICAL INFORMATION: Question of umbilical hernia. COMPARISON: None available. TECHNIQUE: Multidetector volumetric imaging was performed from the superior aspect of the liver through the pubic symphysis. Exam was performed during a Valsalva maneuver. Sagittal and coronal reformatted images were obtained on the technologist's workstation. This CT examination was performed using dose optimization techniques as appropriate, variously including the following: *Automated exposure control. *Adjustment of mA and/or kV according to patient size (this includes techniques or standardized protocols for targeted exams where dose is matched to indication/reason for exam; i.e. extremities or head). *Use of iterative reconstruction technique. DLP: 811 mGy-cm FINDINGS: LUNG BASES: The visualized lung bases are unremarkable aside from coronary calcifications. The right hemidiaphragm is elevated. LIVER, GALLBLADDER, AND BILIARY TREE: The liver is enlarged measuring 19.6 cm in greatest length similar to prior. Attenuation and shape is normal. No focal hepatic lesion or biliary ductal dilatation is present. The gallbladder is contracted but otherwise unremarkable with no evidence of radiopaque gallstones, gallbladder wall thickening, or obvious pericholecystic inflammatory changes. PANCREAS: Unremarkable. SPLEEN: Unremarkable. ADRENAL GLANDS: Right adrenal mass is entirely unchanged measuring 5.3 x 3.9 x 4.3 cm. The mass contains punctate calcification along with some hyperattenuating areas but the majority of the mass measures fluid density, under 10 Hounsfield units. Again seen is one small rounded 6 mm area of gross fat density . Findings are consistent with a benign etiology such as a benign adenoma or adrenal myelolipoma. The left adrenal gland is normal. KIDNEYS AND URETERS: The kidneys are normal in size, shape, and attenuation. The right kidney is displaced slightly by the adrenal mass. No hydronephrosis, hydroureter, or calculi seen. No perinephric stranding. BLADDER: Unremarkable. GASTROINTESTINAL TRACT: There are colonic diverticula without diverticulitis. The small and large bowel are unremarkable. The appendix is unremarkable. ABDOMINAL WALL: No significant hernia is appreciated. There is a small amount of soft tissue thickening in the skin at the level of the umbilicus similar to prior but there is definitely no umbilical hernia present. In the posterior abdominal wall, there is a small chronic fluid collection with some calcium present measuring 7.3 x 1.0 x 5.3 cm. LYMPH NODES: No retroperitoneal lymphadenopathy. VASCULAR: Unremarkable. PELVIC VISCERA: Normal anteverted uterus. There is a 3.3 cm benign left ovarian cyst. OSSEOUS STRUCTURES: Degenerative changes are noted throughout the spine most marked in the lumbar region. No bony destructive lesions. CT/CT abdomen pelvis wo IV con IMPRESSION: 1. No evidence of an umbilical hernia. 2. Incidental note made of a stable benign right adrenal mass, hepatomegaly, colonic diverticulosis and degenerative changes in the spine. 3. Other incidental findings as described above. Fleischner guidelines were followed.
== END 2024-02-15 14:34 | disposition home or self-care (01) ==
LOC: HO.CT 14:33
PROVIDERS: PCP Internal Medicine; Visit Provider Surgery
DX: R19.09 Other intra-abdominal and pelvic swelling, mass and lump (principal)
CPT/HCPCS: 74176

== ENCOUNTER 2024-02-26 13:47 | Outpatient (AMB) | payer OTHER, SELFPAY ==
--- NOTE | 2024-02-26 13:51 | A.OFFPC_ITS ---
Vital Signs 02/26/24 13:52 Height 5 ft 5 in Weight 234 lb 8 oz BMI 39.0 BP 130/88 Blood Pressure Location Lt brachial Position Sitting Pulse 93 Pulse Source Pulse Oximeter Pulse Oximetry (%) 95 Oxygen Delivery Method Room Air Intake Visit Reasons: Med Review [place] Required: No Accompanied by: Self / Same As Patient Allergies No Known Allergies [No Known Allergies*] Allergy (Verified 02/26/24 13:52) Medication List - Last Reconciled 02/27/24 by Barrera Coronado MD acetaminophen 650 mg (2 x 325 mg) PO Q6H PRN 30 days aspirin 325 mg PO BID 42 days celecoxib 200 mg PO BID chlorthalidone 25 mg PO DAILY famotidine 40 mg PO DAILY ibuprofen 600 mg PO TID PRN levothyroxine 50 mcg PO DAILY levothyroxine 200 mcg PO DAILY methadone 40 mg (4 x 10 mg) PO BID 21 days naloxone 4 mg/actuation (Narcan) 1 spray intranasal Q2M omeprazole 40 mg PO DAILY oxycodone 10 mg PO Q4H PRN 7 days psyllium 1 packet PO DAILY sertraline 50 mg PO DAILY Tobacco use date assessed: 10/15/23 Dental Screening Dental Screen Date: 10/15/23 HPI Med Review HPI Details chronic back pain on rx; compliant with regimen PFSH Medical History Neuropathy of genitofemoral nerve History of COVID-19 HTN (hypertension) GERD (gastroesophageal reflux disease) COVID-19 vaccine series completed Osteoarthritis Obesity Hypothyroidism Hernia of abdominal cavity Surgical History History of left knee replacement H/O colonoscopy Hx of umbilical hernia repair Hx of breast reduction, elective Family History Father Esophageal cancer Mother No problems noted. Maternal Grandmother Osteoarthritis Sister No problems noted. Social History Household Members: Spouse Housing: House Are you a primary residential care facility manager to a significant other at home: No Do you presently have visiting nurse or other home services: No Alcohol intake: current Alcohol intake frequency: holidays/special occasions only Patient Tobacco Use Status: Never used Tobacco Tobacco use type: Cigarette Years Smoked: 40 e-Cigarette/Vaping Use: Never Used Second Hand Smoke Exposure: No service: No Current occupational status: retired Current occupation: Right Handed Cognitive needs: No Hearing needs: No Vision needs: Yes (reading glasses) Questionnaire Thrive Questionnaire Date Thrive assessed: 11/01/23 GHULAM-7 AMB Questionnaire GHULAM-7 Date GHULAM - 7 assessed: 11/01/23 Source: Developed by Drs. Cecil Harley, Shanell Suarez, Carlos Seth and colleagues, with an educational sanjay from [employer]. Review of Systems Const Denies chills, Denies headache(s) and Denies weight loss ENT Denies headache(s) Card Denies chest pain, Denies syncope, Denies irregular heart rhythm and Denies dyspnea Resp Denies chest congestion, Denies cough and Denies dyspnea GI Denies abdominal pain, Denies change in stool character, Denies nausea and Denies vomiting Musc Denies deformity and Denies joint swelling Neuro Denies syncope and Denies headache(s) Physical exam (Primary Care) Vital Signs: Last Vital Signs Pulse 93 02/26/24 13:52 BP 130/88 02/26/24 13:52 Pulse Ox 95 02/26/24 13:52 Oxygen Delivery Method Room Air 02/26/24 13:52 BMI result Body Mass Index 39.0 Tobacco/Smoking Status: Tobacco use Status Tobacco use date assessed 10/15/23 02/26/24 13:51 Patient Tobacco Use Status Never used Tobacco 02/26/24 13:51 Tobacco use type Cigarette 02/26/24 13:51 e-Cigarette/Vaping Use Never Used 02/26/24 13:51 Thrive Assessment: Date of Thrive Assessment Date Thrive assessed 11/01/23 02/26/24 13:51 Const General: cooperative, comfortable, no acute distress and alert Neck Neck: Yes no lymphadenopathy Thyroid: Thyroid normal Resp Effort & Inspection: normal respiratory effort Auscultation: clear to auscultation bilaterally Percussion: percussion normal Cardio Jugular venous distension: no JVD Palpation: normal PMI Rate: regular rate Rhythm: regular rhythm Heart sounds: S1 normal heart sound present and S2 normal heart sound present GI Inspection: Yes normal to inspection Palpation (GI): No hepatosplenomegaly present Skin General skin exam: no rashes or lesions noted Extrem General: Yes no clubbing, cyanosis or edema Assessment and Plan Assessment & Plan (1) Low back pain: Code(s): M54.50 - Low back pain, unspecified Plan: stable; same rx Medications: Refilled oxycodone 10 mg PO Q4H PRN 45 tabs 0RF Pain 7 days methadone 40 mg (4 x 10 mg) PO BID 240 tabs 0RF 21 days M25.569 - Pain in unspecified knee, M54.9 - Dorsalgia, unspecified Coding Level of Care Code Est Pt Level 3 (81574) Diagnoses Low back pain M54.50
[2024-02-26 13:52] VITALS: BP 130/88; PULSE 93; O2SAT 95; BMI 39.0
== END 2024-02-26 14:10 | disposition home or self-care (01) ==
PROVIDERS: PCP Internal Medicine; Visit Provider Internal Medicine
DX: M54.50 Low back pain, unspecified (principal)
CPT/HCPCS: 99213

== ENCOUNTER 2024-03-26 13:58 | Outpatient (AMB) | payer OTHER, SELFPAY ==
[2024-03-26 14:07] VITALS: BP 130/82; PULSE 87; O2SAT 96; BMI 39.3
--- NOTE | 2024-03-26 14:07 | MHC.PC.OV ---
Vital Signs 03/26/24 14:07 Height 5 ft 5 in Weight 236 lb BMI 39.3 BP 130/82 Blood Pressure Location Lt brachial Position Sitting Pulse 87 Pulse Source Pulse Oximeter Pulse Oximetry (%) 96 Oxygen Delivery Method Room Air Intake Visit Reasons: Med Review Allergies No Known Allergies [No Known Allergies*] Allergy (Verified 02/26/24 13:52) Tobacco use date assessed: 10/15/23 Dental Screening Dental Screen Date: 10/15/23 HPI Med Review HPI Details f/u chronic back pain; stable on rx; doing well PFSH Medical History Neuropathy of genitofemoral nerve History of COVID-19 HTN (hypertension) GERD (gastroesophageal reflux disease) COVID-19 vaccine series completed Osteoarthritis Obesity Hypothyroidism Hernia of abdominal cavity Surgical History History of left knee replacement H/O colonoscopy Hx of umbilical hernia repair Hx of breast reduction, elective Family History Father Esophageal cancer Mother No problems noted. Maternal Grandmother Osteoarthritis Sister No problems noted. Social History Household Members: Spouse Housing: House Are you a primary home care music therapist to a significant other at home: No Do you presently have visiting nurse or other home services: No Alcohol intake: current Alcohol intake frequency: holidays/special occasions only Patient Tobacco Use Status: Never used Tobacco Tobacco use type: Cigarette Years Smoked: 40 e-Cigarette/Vaping Use: Never Used Second Hand Smoke Exposure: No service: No Current occupational status: retired Current occupation: Right Handed Cognitive needs: No Hearing needs: No Vision needs: Yes (reading glasses) Questionnaire Thrive Questionnaire Date Thrive assessed: 11/01/23 GHULAM-7 AMB Questionnaire GHULAM-7 Date GHULAM - 7 assessed: 11/01/23 Source: Developed by Drs. Cecil Harley, Shanell Suarez, Carlos Seth and colleagues, with an educational sanjay from [employer]. Review of Systems Const Denies chills, Denies headache(s) and Denies weight loss ENT Denies headache(s) Card Denies chest pain, Denies syncope, Denies irregular heart rhythm and Denies dyspnea Resp Denies chest congestion, Denies cough and Denies dyspnea GI Denies abdominal pain, Denies change in stool character, Denies nausea and Denies vomiting Musc Denies deformity and Denies joint swelling Neuro Denies syncope and Denies headache(s) Physical exam (Primary Care) Vital Signs: Last Vital Signs Pulse 87 03/26/24 14:07 BP 130/82 03/26/24 14:07 Pulse Ox 96 03/26/24 14:07 Oxygen Delivery Method Room Air 03/26/24 14:07 BMI result Body Mass Index 39.3 Tobacco/Smoking Status: Tobacco use Status Tobacco use date assessed 10/15/23 03/26/24 14:09 Patient Tobacco Use Status Never used Tobacco 03/26/24 14:09 Tobacco use type Cigarette 03/26/24 14:09 e-Cigarette/Vaping Use Never Used 03/26/24 14:09 Thrive Assessment: Date of Thrive Assessment Date Thrive assessed 11/01/23 03/26/24 14:09 Const General: cooperative, comfortable, no acute distress and alert Neck Neck: Yes no lymphadenopathy Thyroid: Thyroid normal Resp Effort & Inspection: normal respiratory effort Auscultation: clear to auscultation bilaterally Percussion: percussion normal Cardio Jugular venous distension: no JVD Palpation: normal PMI Rate: regular rate Rhythm: regular rhythm Heart sounds: S1 normal heart sound present and S2 normal heart sound present GI Inspection: Yes normal to inspection Palpation (GI): No hepatosplenomegaly present Skin General skin exam: no rashes or lesions noted Extrem General: Yes no clubbing, cyanosis or edema Assessment and Plan Assessment & Plan (1) Back pain: Code(s): M54.9 - Dorsalgia, unspecified Plan: stable; same rx Orders: Orders XR shoulder RT min 2V Today M25.519 - Pain in unspecified shoulder PT Evaluation and Treatment Today M77.8 - Other enthesopathies, not elsewhere classified Medications: Refilled methadone 40 mg (4 x 10 mg) PO BID 240 tabs 0RF 21 days M25.569 - Pain in unspecified knee, M54.9 - Dorsalgia, unspecified oxycodone 10 mg PO Q4H PRN 45 tabs 0RF Pain 7 days Coding Level of Care Code Est Pt Level 3 (94481) Diagnoses Back pain M54.9
== END 2024-03-26 14:19 | disposition home or self-care (01) ==
PROVIDERS: PCP Internal Medicine; Visit Provider Internal Medicine
DX: M54.9 Dorsalgia, unspecified (principal)
CPT/HCPCS: 99213

== ENCOUNTER 2024-03-26 14:29 | Outpatient (REF) | payer OTHER, SELFPAY ==
--- NOTE | ~2024-03-26 | XR_ITS ---
EXAMINATION: XR SHOULDER, RIGHT CLINICAL INFORMATION: Pain and unspecified shoulder COMPARISON: None available. TECHNIQUE: AP external rotation, Grashey, scapular Y, and axillary views of the right shoulder. FINDINGS: The bones and soft tissues are normal. No fracture. Glenohumeral and acromioclavicular alignment is anatomic with normal joint space. Tiny ossific density is adjacent to the greater tubercle. Dystrophic calcification in the subcutaneous tissue of the mid right arm. XR/XR shoulder RT min 2V IMPRESSION: No acute fracture or dislocation of the right shoulder.
[2024-03-26 16:05] LABS: Thyroid Stimulating Hormone 0.21 uIU/mL (0.32-4.0)
== END 2024-03-26 14:30 | disposition home or self-care (01) ==
LOC: HO.XRAY 14:29
PROVIDERS: PCP Internal Medicine; Visit Provider Internal Medicine
DX: M25.511 Pain in right shoulder (principal); Z13.89 Encounter for screening for other disorder
CPT/HCPCS: 36415; 73030; 84443

== ENCOUNTER 2024-04-24 09:50 | Outpatient (AMB) | payer OTHER, SELFPAY ==
[2024-04-24 10:00] VITALS: BMI 39.3
--- NOTE | 2024-04-24 10:00 | A.OFFVIS_ITS ---
Vital Signs 04/24/24 10:00 04/24/24 10:01 Height 5 ft 5 in 5 ft 5 in Weight 236 lb 236 lb BMI 39.3 39.3 Intake Visit Reasons: Newprob-pain in right shoulder Intake Note: Honey is a 58 year old right hand dominant female who presents today for a new problem visit with complaints of right shoulder pain. Patient reports that she has had ongoing right shoulder pain for months, the left shoulder has recently become painful as well. Her pain is felt all the time, and is at its worst at night and wakes her up from her sleep. Pain increases with lateral above the shoulder movements. Occasional tingling in the the right hand Allergies No Known Allergies [No Known Allergies*] Allergy (Verified 04/24/24 10:01) HPI HPI Newprob-pain in right shoulder: Details: Honey is a 58 year old right hand dominant female who presents today for a new problem visit with complaints of right shoulder pain. Patient reports that she has had ongoing right shoulder pain for months, the left shoulder has recently become painful as well. Her pain is felt all the time, and is at its worst at night and wakes her up from her sleep. Pain increases with lateral above the shoulder movements. Occasional tingling in the the right hand [facility] Medical History Neuropathy of genitofemoral nerve History of COVID-19 HTN (hypertension) GERD (gastroesophageal reflux disease) COVID-19 vaccine series completed Osteoarthritis Obesity Hypothyroidism Hernia of abdominal cavity Surgical History History of left knee replacement H/O colonoscopy Hx of umbilical hernia repair Hx of breast reduction, elective Family History Father Esophageal cancer Mother No problems noted. Maternal Grandmother Osteoarthritis Sister No problems noted. Social History Household Members: Spouse Housing: House Are you a primary career manager to a significant other at home: No Do you presently have visiting nurse or other home services: No Alcohol intake: current Alcohol intake frequency: holidays/special occasions only Patient Tobacco Use Status: Never used Tobacco Tobacco use type: Cigarette Years Smoked: 40 e-Cigarette/Vaping Use: Never Used Second Hand Smoke Exposure: No service: No Current occupational status: retired Current occupation: Right Handed Cognitive needs: No Hearing needs: No Vision needs: Yes (reading glasses) Physical Exam Vital Signs: BMI result Body Mass Index 39.3 Extrem Other: Subdeltoid pain with Gan and Neer testing bilaterally. 4/+5 strength empty can testing bilaterally. Full range of motion bilaterally Results Reviewed Results Reviewed: I personally reviewed relevant radiographs. Normal right shoulder radiographs Assessment & Plan Assessment & Plan (1) Bilateral shoulder bursitis: Code(s): M75.51 - Bursitis of right shoulder; M75.52 - Bursitis of left shoulder Category: Medical Plan: Honey has shoulder bursitis. I injected her right shoulder and recommend physical therapy. Coding Level of Care Code Est Pt Level 3 (12528) Diagnoses Bilateral shoulder bursitis M75.51; M75.52
[2024-04-24 10:01] VITALS: BMI 39.3
== END 2024-04-24 11:04 | disposition home or self-care (01) ==
PROVIDERS: PCP Internal Medicine; Visit Provider Orthopaedic Surgery
DX: M75.51 Bursitis of right shoulder (principal); M75.52 Bursitis of left shoulder
CPT/HCPCS: 20610; 99213

== ENCOUNTER → 2024-04-24 09:50 | Outpatient (BNVA) | payer OTHER, SELFPAY | PROVIDERS: PCP Internal Medicine; Visit Provider Orthopaedic Surgery | DX: M75.51 Bursitis of right shoulder (principal); M75.52 Bursitis of left shoulder | CPT/HCPCS: 20610; 99212; J0665; J1100 ==

== ENCOUNTER 2024-04-25 09:31 | Outpatient (AMB) | payer OTHER, SELFPAY ==
--- NOTE | 2024-04-25 09:32 | MHC.PC.OV ---
Vital Signs 04/25/24 09:33 Height 5 ft 5 in Weight 234 lb BMI 38.9 BP 132/88 Blood Pressure Location Lt brachial Position Sitting Pulse 78 Pulse Source Pulse Oximeter Pulse Oximetry (%) 98 Oxygen Delivery Method Room Air Intake Visit Reasons: 1 Month F/U Allergies No Known Allergies [No Known Allergies*] Allergy (Verified 04/25/24 09:33) Tobacco use date assessed: 10/15/23 Dental Screening Dental Screen Date: 10/15/23 HPI 1 Month F/U HPI Details chronic back pain on rx; doing well and compliant [facility] Medical History Neuropathy of genitofemoral nerve History of COVID-19 HTN (hypertension) GERD (gastroesophageal reflux disease) COVID-19 vaccine series completed Osteoarthritis Obesity Hypothyroidism Hernia of abdominal cavity Surgical History History of left knee replacement H/O colonoscopy Hx of umbilical hernia repair Hx of breast reduction, elective Family History Father Esophageal cancer Mother No problems noted. Maternal Grandmother Osteoarthritis Sister No problems noted. Social History Household Members: Spouse Housing: House Are you a primary rn palliative care to a significant other at home: No Do you presently have visiting nurse or other home services: No Alcohol intake: current Alcohol intake frequency: holidays/special occasions only Patient Tobacco Use Status: Former Tobacco user Tobacco use type: Cigarette Years Smoked: 40 e-Cigarette/Vaping Use: Never Used Second Hand Smoke Exposure: No service: No Current occupational status: retired Current occupation: Right Handed Cognitive needs: No Hearing needs: No Vision needs: Yes (reading glasses) Questionnaire PHQ-9 Over the last 2 weeks, how often have you been bothered by any of the following problems? 1. Little interest or pleasure in doing things: not at all 2. Feeling down, depressed, or hopeless: not at all 3. Trouble falling or staying asleep, or sleeping too much: not at all 4. Feeling tired or having little energy: not at all 5. Poor appetite or overeating: not at all 6. Feeling bad about yourself - or that you are a failure or have let yourself or your family down: not at all 7. Trouble concentrating on things, such as reading the newspaper or watching television: not at all 8. Moving or speaking so slowly that other people could have noticed. Or the opposite - being so fidgety or restless that you have been moving around a lot more than usual: not at all 9. Thoughts that you would be better off or of hurting yourself in some way: not at all Total score: 0 Depression Screening Interpretation: Negative Depression Screening Done: Yes 89216 - PHQ-9 Billing: Yes Source: Developed by Drs. Cecil Harley, Carlos Collins and colleagues, with an educational sanjay from [employer]. Thrive Questionnaire Date Thrive assessed: 11/01/23 AUDIT C Alcohol Use Questionnaire (AUDIT-C) 1. How often do you have a drink containing alcohol?: Monthly or less 2. How many drinks containing alcohol do you have on a typical day when you are drinking?: 1 or 2 3. How often do you have six or more drinks on one occasion?: Never Total Score: 1 Score Reviewed/Action Taken: Yes GHULAM-7 AMB Questionnaire GHULAM-7 Date GHULAM - 7 assessed: 11/01/23 Source: Developed by Drs. Cecil Harley, Shanell Suarez, Carlos Seth and colleagues, with an educational sanjay from [employer]. Review of Systems Const Denies chills, Denies headache(s) and Denies weight loss ENT Denies headache(s) Card Denies chest pain, Denies syncope, Denies irregular heart rhythm and Denies dyspnea Resp Denies chest congestion, Denies cough and Denies dyspnea GI Denies abdominal pain, Denies change in stool character, Denies nausea and Denies vomiting Musc Denies deformity and Denies joint swelling Neuro Denies syncope and Denies headache(s) Physical exam (Primary Care) Vital Signs: Last Vital Signs Pulse 78 04/25/24 09:33 BP 132/88 04/25/24 09:33 Pulse Ox 98 04/25/24 09:33 Oxygen Delivery Method Room Air 04/25/24 09:33 BMI result Body Mass Index 38.9 Tobacco/Smoking Status: Tobacco use Status Tobacco use date assessed 10/15/23 04/25/24 09:34 Patient Tobacco Use Status Former Tobacco user 04/25/24 09:34 Tobacco use type Cigarette 04/25/24 09:34 e-Cigarette/Vaping Use Never Used 04/25/24 09:34 PHQ-9: PHQ-9 Score PHQ-9: Total score 0 04/25/24 09:38 Depression Screening Interpretation: Negative Thrive Assessment: Date of Thrive Assessment Date Thrive assessed 11/01/23 04/25/24 09:34 Const General: cooperative, comfortable, no acute distress and alert Neck Neck: Yes no lymphadenopathy Thyroid: Thyroid normal Resp Effort & Inspection: normal respiratory effort Auscultation: clear to auscultation bilaterally Percussion: percussion normal Cardio Jugular venous distension: no JVD Palpation: normal PMI Rate: regular rate Rhythm: regular rhythm Heart sounds: S1 normal heart sound present and S2 normal heart sound present GI Inspection: Yes normal to inspection Palpation (GI): No hepatosplenomegaly present Skin General skin exam: no rashes or lesions noted Extrem General: Yes no clubbing, cyanosis or edema Assessment and Plan Assessment & Plan (1) Low back pain: Code(s): M54.50 - Low back pain, unspecified Plan: stable; same rx Medications: Refilled methadone 40 mg (4 x 10 mg) PO BID 21 days 240 tabs 0RF pain M25.569 - Pain in unspecified knee, M54.9 - Dorsalgia, unspecified oxycodone 10 mg PO Q4H 7 days PRN 45 tabs 0RF Pain Coding Level of Care Code Est Pt Level 3 (70140) Diagnoses Low back pain M54.50
[2024-04-25 09:33] VITALS: BP 132/88; PULSE 78; O2SAT 98; BMI 38.9
== END 2024-04-25 09:53 | disposition home or self-care (01) ==
PROVIDERS: PCP Internal Medicine; Visit Provider Internal Medicine
DX: M54.50 Low back pain, unspecified (principal)
CPT/HCPCS: 99213

== ENCOUNTER 2024-05-23 08:34 | Outpatient (AMB) | payer OTHER, SELFPAY ==
[2024-05-23 08:42] VITALS: BP 134/84; PULSE 73; O2SAT 94; BMI 38.4
--- NOTE | 2024-05-23 08:42 | MHC.PC.OV ---
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 Accompanied by: Self / Same As Patient Allergies No Known Allergies [No Known Allergies*] Allergy (Verified 05/23/24 08:44) Medication List - Last Reconciled 05/23/24 by Barrera Coronado MD acetaminophen 650 mg (2 x 325 mg) PO Q6H PRN 30 days aspirin 325 mg PO BID 42 days celecoxib 200 mg PO BID chlorthalidone 25 mg PO DAILY famotidine 40 mg PO DAILY ibuprofen 600 mg PO TID PRN levothyroxine 50 mcg PO DAILY levothyroxine 200 mcg PO DAILY methadone 40 mg (4 x 10 mg) PO BID 21 days naloxone 4 mg/actuation (Narcan) 1 spray intranasal Q2M omeprazole 40 mg PO DAILY oxycodone 10 mg PO Q4H PRN 7 days psyllium 1 packet PO DAILY sertraline 50 mg PO DAILY Tobacco use date assessed: 10/15/23 Dental Screening Dental Screen Date: 10/15/23 HPI 1 Month F/U HPI Details chronic back pain on rx; doing well and compliant [facility] Medical History Neuropathy of genitofemoral nerve History of COVID-19 HTN (hypertension) GERD (gastroesophageal reflux disease) COVID-19 vaccine series completed Osteoarthritis Obesity Hypothyroidism Hernia of abdominal cavity Surgical History History of left knee replacement H/O colonoscopy Hx of umbilical hernia repair Hx of breast reduction, elective Family History Father Esophageal cancer Mother No problems noted. Maternal Grandmother Osteoarthritis Sister No problems noted. Social History Household Members: Spouse Housing: House Are you a primary health care / medical job titles to a significant other at home: No Do you presently have visiting nurse or other home services: No Alcohol intake: current Alcohol intake frequency: holidays/special occasions only Patient Tobacco Use Status: Former Tobacco user Tobacco use type: Cigarette Years Smoked: 40 e-Cigarette/Vaping Use: Never Used Second Hand Smoke Exposure: No service: No Current occupational status: retired Current occupation: Right Handed Cognitive needs: No Hearing needs: No Vision needs: Yes (reading glasses) Questionnaire PHQ-9 Over the last 2 weeks, how often have you been bothered by any of the following problems? 1. Little interest or pleasure in doing things: not at all 2. Feeling down, depressed, or hopeless: not at all 3. Trouble falling or staying asleep, or sleeping too much: not at all 4. Feeling tired or having little energy: not at all 5. Poor appetite or overeating: not at all 6. Feeling bad about yourself - or that you are a failure or have let yourself or your family down: not at all 7. Trouble concentrating on things, such as reading the newspaper or watching television: not at all 8. Moving or speaking so slowly that other people could have noticed. Or the opposite - being so fidgety or restless that you have been moving around a lot more than usual: not at all 9. Thoughts that you would be better off or of hurting yourself in some way: not at all Total score: 0 Depression Screening Interpretation: Negative Depression Screening Done: Yes 92770 - PHQ-9 Billing: Yes Source: Developed by Drs. Cecil Harley, Carlos Collins and colleagues, with an educational sanjay from [facility]. Thrive Questionnaire Date Thrive assessed: 11/01/23 AUDIT C Alcohol Use Questionnaire (AUDIT-C) 1. How often do you have a drink containing alcohol?: Monthly or less 2. How many drinks containing alcohol do you have on a typical day when you are drinking?: 1 or 2 3. How often do you have six or more drinks on one occasion?: Never Total Score: 1 Score Reviewed/Action Taken: Yes GHULAM-7 AMB Questionnaire GHULAM-7 Date GHULAM - 7 assessed: 11/01/23 Source: Developed by Drs. Cecil Harley, Carlos Collins and colleagues, with an educational sanjay from [facility]. Review of Systems Const Denies chills, Denies headache(s) and Denies weight loss ENT Denies headache(s) Card Denies chest pain, Denies syncope, Denies irregular heart rhythm and Denies dyspnea Resp Denies chest congestion, Denies cough and Denies dyspnea GI Denies abdominal pain, Denies change in stool character, Denies nausea and Denies vomiting Musc Denies deformity and Denies joint swelling Neuro Denies syncope and Denies headache(s) Physical exam (Primary Care) Vital Signs: Last Vital Signs Pulse 73 05/23/24 08:42 BP 134/84 05/23/24 08:42 Pulse Ox 94 05/23/24 08:42 Oxygen Delivery Method Room Air 05/23/24 08:42 BMI result Body Mass Index 38.4 Tobacco/Smoking Status: Tobacco use Status Tobacco use date assessed 10/15/23 05/23/24 08:47 Patient Tobacco Use Status Former Tobacco user 05/23/24 08:47 Tobacco use type Cigarette 05/23/24 08:47 e-Cigarette/Vaping Use Never Used 05/23/24 08:47 PHQ-9: PHQ-9 Score PHQ-9: Total score 0 05/23/24 08:47 Depression Screening Interpretation: Negative Thrive Assessment: Date of Thrive Assessment Date Thrive assessed 11/01/23 05/23/24 08:47 Const General: cooperative, comfortable, no acute distress and alert Neck Neck: Yes no lymphadenopathy Thyroid: Thyroid normal Resp Effort & Inspection: normal respiratory effort Auscultation: clear to auscultation bilaterally Percussion: percussion normal Cardio Jugular venous distension: no JVD Palpation: normal PMI Rate: regular rate Rhythm: regular rhythm Heart sounds: S1 normal heart sound present and S2 normal heart sound present GI Inspection: Yes normal to inspection Palpation (GI): No hepatosplenomegaly present Skin General skin exam: no rashes or lesions noted Extrem General: Yes no clubbing, cyanosis or edema Assessment and Plan Assessment & Plan (1) Low back pain: Code(s): M54.50 - Low back pain, unspecified Plan: stable; same rx Medications: Refilled oxycodone 10 mg PO Q4H 7 days PRN 45 tabs 0RF Pain methadone 40 mg (4 x 10 mg) PO BID 21 days 240 tabs 0RF pain M25.569 - Pain in unspecified knee, M54.9 - Dorsalgia, unspecified Coding Level of Care Code Est Pt Level 3 (08764) Diagnoses Low back pain M54.50
== END 2024-05-23 09:05 | disposition home or self-care (01) ==
PROVIDERS: PCP Internal Medicine; Visit Provider Internal Medicine
DX: M54.50 Low back pain, unspecified (principal)
CPT/HCPCS: 99213

== ENCOUNTER 2024-06-23 08:41 | Outpatient (AMB) | payer OTHER, SELFPAY ==
[2024-06-23 08:46] VITALS: BP 132/84; PULSE 78; O2SAT 93; BMI 38.4
--- NOTE | 2024-06-23 08:46 | A.OFFPC_ITS ---
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 Accompanied by: Self / Same As Patient Allergies No Known Allergies [No Known Allergies*] Allergy (Verified 06/23/24 08:48) Medication List - Last Reconciled 06/23/24 by Barrera Coronado MD acetaminophen 650 mg (2 x 325 mg) PO Q6H PRN 30 days aspirin 325 mg PO BID 42 days celecoxib 200 mg PO BID chlorthalidone 25 mg PO DAILY famotidine 40 mg PO DAILY ibuprofen 600 mg PO TID PRN levothyroxine 50 mcg PO DAILY levothyroxine 200 mcg PO DAILY methadone 40 mg (4 x 10 mg) PO BID 21 days naloxone 4 mg/actuation (Narcan) 1 spray intranasal Q2M omeprazole 40 mg PO DAILY oxycodone 10 mg PO Q4H PRN 7 days psyllium 1 packet PO DAILY sertraline 50 mg PO DAILY Tobacco use date assessed: 10/15/23 Dental Screening Dental Screen Date: 10/15/23 HPI 1 Month F/U HPI Details f/u chronic back pain; doing well on rx PFSH Medical History Neuropathy of genitofemoral nerve History of COVID-19 HTN (hypertension) GERD (gastroesophageal reflux disease) COVID-19 vaccine series completed Osteoarthritis Obesity Hypothyroidism Hernia of abdominal cavity Surgical History History of left knee replacement H/O colonoscopy Hx of umbilical hernia repair Hx of breast reduction, elective Family History Father Esophageal cancer Mother No problems noted. Maternal Grandmother Osteoarthritis Sister No problems noted. Social History Household Members: Spouse Housing: House Are you a primary transitional care nurse to a significant other at home: No Do you presently have visiting nurse or other home services: No Alcohol intake: current Alcohol intake frequency: holidays/special occasions only Patient Tobacco Use Status: Former Tobacco user Tobacco use type: Cigarette Years Smoked: 40 e-Cigarette/Vaping Use: Never Used Second Hand Smoke Exposure: No service: No Current occupational status: retired Current occupation: Right Handed Cognitive needs: No Hearing needs: No Vision needs: Yes (reading glasses) Questionnaire Thrive Questionnaire Date Thrive assessed: 11/01/23 Are you currently unemployed and looking for a job?: No GHULAM-7 AMB Questionnaire GHULAM-7 Date GHULAM - 7 assessed: 11/01/23 Source: Developed by Drs. Cecil Harley, Shanell Suarez, Carlos Seth and colleagues, with an educational sanjay from [employer]. Review of Systems Const Denies chills, Denies headache(s) and Denies weight loss ENT Denies headache(s) Card Denies chest pain, Denies syncope, Denies irregular heart rhythm and Denies dyspnea Resp Denies chest congestion, Denies cough and Denies dyspnea GI Denies abdominal pain, Denies change in stool character, Denies nausea and Denies vomiting Musc Denies deformity and Denies joint swelling Neuro Denies syncope and Denies headache(s) Physical exam (Primary Care) Vital Signs: Last Vital Signs Pulse 78 06/23/24 08:46 BP 132/84 06/23/24 08:46 Pulse Ox 93 06/23/24 08:46 Oxygen Delivery Method Room Air 06/23/24 08:46 BMI result Body Mass Index 38.4 Tobacco/Smoking Status: Tobacco use Status Tobacco use date assessed 10/15/23 06/23/24 08:51 Patient Tobacco Use Status Former Tobacco user 06/23/24 08:51 Tobacco use type Cigarette 06/23/24 08:51 e-Cigarette/Vaping Use Never Used 06/23/24 08:51 Thrive Assessment: Date of Thrive Assessment Date Thrive assessed 11/01/23 06/23/24 08:51 Const General: cooperative, comfortable, no acute distress and alert Neck Neck: Yes no lymphadenopathy Thyroid: Thyroid normal Resp Effort & Inspection: normal respiratory effort Auscultation: clear to auscultation bilaterally Percussion: percussion normal Cardio Jugular venous distension: no JVD Palpation: normal PMI Rate: regular rate Rhythm: regular rhythm Heart sounds: S1 normal heart sound present and S2 normal heart sound present GI Inspection: Yes normal to inspection Palpation (GI): No hepatosplenomegaly present Skin General skin exam: no rashes or lesions noted Extrem General: Yes no clubbing, cyanosis or edema Coding Level of Care Code Est Pt Level 3 (57346) Diagnoses Low back pain M54.50 Assessment & Plan Assessment & Plan (1) Low back pain: Code(s): M54.50 - Low back pain, unspecified Category: Medical Plan: stable; same rx Medications: Refilled oxycodone 10 mg PO Q4H 7 days PRN 45 tabs 0RF Pain methadone 40 mg (4 x 10 mg) PO BID 21 days 240 tabs 0RF pain M25.569 - Pain in unspecified knee, M54.9 - Dorsalgia, unspecified
== END 2024-06-23 09:03 | disposition home or self-care (01) ==
PROVIDERS: PCP Internal Medicine; Visit Provider Internal Medicine
DX: M54.50 Low back pain, unspecified (principal)

== ENCOUNTER → 2024-06-23 08:41 | Outpatient (BNVA) | payer OTHER, SELFPAY | PROVIDERS: PCP Internal Medicine; Visit Provider Internal Medicine | DX: M54.50 Low back pain, unspecified (principal) | CPT/HCPCS: 99212 ==

== ENCOUNTER 2024-07-24 09:27 | Outpatient (AMB) | payer OTHER, SELFPAY ==
[2024-07-24 09:28] VITALS: BP 132/86; PULSE 84; O2SAT 92; BMI 38.6
--- NOTE | 2024-07-24 09:28 | A.OFFPC_ITS ---
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 Accompanied by: Self / Same As Patient Allergies No Known Allergies [No Known Allergies*] Allergy (Verified 07/24/24 09:29) Medication List - Last Reconciled 07/24/24 by Barrera Coronado MD acetaminophen 650 mg (2 x 325 mg) PO Q6H PRN 30 days aspirin 325 mg PO BID 42 days celecoxib 200 mg PO BID chlorthalidone 25 mg PO DAILY famotidine 40 mg PO DAILY ibuprofen 600 mg PO TID PRN levothyroxine 50 mcg PO DAILY levothyroxine 200 mcg PO DAILY methadone 40 mg (4 x 10 mg) PO BID 21 days naloxone 4 mg/actuation (Narcan) 1 spray intranasal Q2M omeprazole 40 mg PO DAILY oxycodone 10 mg PO Q4H PRN 7 days psyllium 1 packet PO DAILY sertraline 50 mg PO DAILY Tobacco use date assessed: 10/15/23 Dental Screening Dental Screen Date: 10/15/23 HPI 1 month f/u HPI Details chronic low back pain on rx; doing well; compliant [facility] Medical History Neuropathy of genitofemoral nerve History of COVID-19 HTN (hypertension) GERD (gastroesophageal reflux disease) COVID-19 vaccine series completed Osteoarthritis Obesity Hypothyroidism Hernia of abdominal cavity Surgical History History of left knee replacement H/O colonoscopy Hx of umbilical hernia repair Hx of breast reduction, elective Family History Father Esophageal cancer Mother No problems noted. Maternal Grandmother Osteoarthritis Sister No problems noted. Social History Household Members: Spouse Housing: House Are you a primary senior resident care director to a significant other at home: No Do you presently have visiting nurse or other home services: No Alcohol intake: current Alcohol intake frequency: holidays/special occasions only Patient Tobacco Use Status: Former Tobacco user Tobacco use type: Cigarette Years Smoked: 40 e-Cigarette/Vaping Use: Never Used Second Hand Smoke Exposure: No service: No Current occupational status: retired Current occupation: Right Handed Cognitive needs: No Hearing needs: No Vision needs: Yes (reading glasses) Questionnaire Thrive Questionnaire Date Thrive assessed: 11/01/23 Are you currently unemployed and looking for a job?: No AUDIT C Alcohol Use Questionnaire (AUDIT-C) 2. How many drinks containing alcohol do you have on a typical day when you are drinking?: 1 or 2 3. How often do you have six or more drinks on one occasion?: Never Total Score: 0 GHULAM-7 AMB Questionnaire GHULAM-7 Date GHULAM - 7 assessed: 11/01/23 Source: Developed by Drs. Cecil Harley, Shanell Suarez, Carlos Seth and colleagues, with an educational sanjay from [employer]. Review of Systems Const Denies chills, Denies headache(s) and Denies weight loss ENT Denies headache(s) Card Denies chest pain, Denies syncope, Denies irregular heart rhythm and Denies dyspnea Resp Denies chest congestion, Denies cough and Denies dyspnea GI Denies abdominal pain, Denies change in stool character, Denies nausea and Denies vomiting Musc Denies deformity and Denies joint swelling Neuro Denies syncope and Denies headache(s) Physical exam (Primary Care) Vital Signs: Last Vital Signs Pulse 84 07/24/24 09:28 BP 132/86 07/24/24 09:28 Pulse Ox 92 07/24/24 09:28 Oxygen Delivery Method Room Air 07/24/24 09:28 BMI result Body Mass Index 38.6 Tobacco/Smoking Status: Tobacco use Status Tobacco use date assessed 10/15/23 07/24/24 09:32 Patient Tobacco Use Status Former Tobacco user 07/24/24 09:32 Tobacco use type Cigarette 07/24/24 09:32 e-Cigarette/Vaping Use Never Used 07/24/24 09:32 Thrive Assessment: Date of Thrive Assessment Date Thrive assessed 11/01/23 07/24/24 09:32 Const General: cooperative, comfortable, no acute distress and alert Neck Neck: Yes no lymphadenopathy Thyroid: Thyroid normal Resp Effort & Inspection: normal respiratory effort Auscultation: clear to auscultation bilaterally Percussion: percussion normal Cardio Jugular venous distension: no JVD Palpation: normal PMI Rate: regular rate Rhythm: regular rhythm Heart sounds: S1 normal heart sound present and S2 normal heart sound present GI Inspection: Yes normal to inspection Palpation (GI): No hepatosplenomegaly present Skin General skin exam: no rashes or lesions noted Extrem General: Yes no clubbing, cyanosis or edema Coding Level of Care Code Est Pt Level 3 (21353) Diagnoses Back pain M54.9 Assessment & Plan Assessment & Plan (1) Back pain: Code(s): M54.9 - Dorsalgia, unspecified Category: Medical Plan: stable; same rx Orders: Referrals Orthopedics Referral M75.51 - Bursitis of right shoulder, M75.52 - Bursitis of left shoulder Medications: Refilled methadone 40 mg (4 x 10 mg) PO BID 21 days 240 tabs 0RF pain M25.569 - Pain in unspecified knee, M54.9 - Dorsalgia, unspecified oxycodone 10 mg PO Q4H 7 days PRN 45 tabs 0RF Pain
== END 2024-07-24 09:43 | disposition home or self-care (01) ==
LOC: HO.HMCH 09:27
PROVIDERS: PCP Internal Medicine; Visit Provider Internal Medicine
DX: M54.9 Dorsalgia, unspecified (principal)

== ENCOUNTER → 2024-07-24 09:27 | Outpatient (BNVA) | payer OTHER, SELFPAY | PROVIDERS: PCP Internal Medicine; Visit Provider Internal Medicine | DX: M54.9 Dorsalgia, unspecified (principal) | CPT/HCPCS: 99212 ==

== ENCOUNTER 2024-07-25 14:00 | Outpatient (RCR) | payer OTHER, SELFPAY ==
--- NOTE | 2024-06-16 14:50 | MHC.PT.EP ---
[facility] [place] Office [place] Office [place] Office [address] [phone] F: [phone] F: [phone] F: [phone] F: [phone] Physical Therapy Plan of Care Date of Evaluation: 06/16/24 Date of Surgery: Diagnosis: B shoulder bursitis Assessment: 58 y/o R hand dominant female referred to PT with B shoulder bursitis. Reports pain and difficulty with reaching, grooming, dressing, brushing teeth, lifting, and sleeping. Examination shows painful arc with abduction and flexion, decreased shoulder strength, decreased upper trap length, pain, and impaired postural awareness. S/s consistent with diagnosis and tendinopathy. Recommend PT 2x/week for 5 weeks to address impairments, implement HEP, and optimize functional mobility Frequency and Duration: The patient will be seen 2x/week for 5 weeks Short Term Goals: 3 weeks I with HEP Egg Sorter Goals: 5 weeks I with HEP and self management of sx Pt will be able to reach overhead with pain < 3/10 Pt will be able to carry grocery bag wtih pain < 3/10 Treatment Plan: Modalities to reduce pain, spasms and effusion. Manual therapy to restore motion and function. Therapeutic exercise to improve strength and flexibility. Neuromuscular re-education for posture and balance. Therapeutic activities to return to functional activities of daily living. Electronically signed by: Lizabeth Conrad PT Please sign and return to therapist. Thank you for your referral.
--- NOTE | 2024-08-25 13:57 | MHC.PT.DC ---
[facility] [place] Office [place] Office [place] Office [address] Emi Bennett [address] [phone] F: [phone] F: [phone] F: [phone] F: [phone] Physical Therapy Discharge Report Diagnosis: B shoulder bursitis Date of Surgery: Date of Evaluation: 06/16/24 Date of Discharge: 08/25/24 Treatments to Date: 9 Cancellations to Date: 1 No Shows to Date: 0 Discharge Status: Independent with HEP Discharge Summary: B shoulder ROM appears WFL except L ER (40*) and IR. She performs exercises quickly and needs cues to decrease pace and work on eccentric control. She had no pain with R shoulder exercises today but L shoulder was painful with ER. ? tendinopathy verse small tear. She cancelled last appointment as she would like MRI and will continue HEP I. Electronically signed by: Lizabeth Conrad PT Please sign and return to therapist. Thank you for your referral.
== END 2024-08-25 13:58 | disposition home or self-care (01) ==
LOC: HO.PTCHIC 14:00
PROVIDERS: PCP Internal Medicine; Visit Provider Orthopaedic Surgery
DX: M75.51 Bursitis of right shoulder (principal); M75.52 Bursitis of left shoulder
CPT/HCPCS: 97014; 97110; 97140; 97161

== ENCOUNTER 2024-08-22 08:47 | Outpatient (REF) | payer OTHER, SELFPAY ==
[2024-08-22 12:01] LABS: Thyroid Stimulating Hormone 0.28 uIU/mL (0.32-4.0)
== END 2024-08-22 08:48 | disposition home or self-care (01) ==
LOC: HO.LAB 08:47
PROVIDERS: PCP Internal Medicine; Visit Provider Internal Medicine
DX: M54.50 Low back pain, unspecified (principal); Z13.29 Encounter for screening for other suspected endocrine disorder; Z23 Encounter for immunization
CPT/HCPCS: 36415; 84443; 90471; 90656; 96127; 99212

== ENCOUNTER 2024-08-22 08:47 | Outpatient (AMB) | payer OTHER, SELFPAY ==
[2024-08-22 08:50] VITALS: BP 122/80; PULSE 87; O2SAT 98; BMI 39.3
--- NOTE | 2024-08-22 08:50 | MHC.PC.OV ---
Vital Signs 08/22/24 08:50 Height 5 ft 5 in Weight 236 lb BMI 39.3 BP 122/80 Blood Pressure Location Lt brachial Position Sitting Pulse 87 Pulse Source Pulse Oximeter Pulse Oximetry (%) 98 Oxygen Delivery Method Room Air Intake Visit Reasons: 1 Month F/U Accompanied by: Self / Same As Patient Allergies No Known Allergies [No Known Allergies*] Allergy (Verified 08/22/24 08:51) Medication List - Last Reconciled 08/22/24 by Barrera Coronado MD acetaminophen 650 mg (2 x 325 mg) PO Q6H PRN 30 days aspirin 325 mg PO BID 42 days celecoxib 200 mg PO BID chlorthalidone 25 mg PO DAILY famotidine 40 mg PO DAILY ibuprofen 600 mg PO TID PRN levothyroxine 50 mcg PO DAILY levothyroxine 200 mcg PO DAILY methadone 40 mg (4 x 10 mg) PO BID 21 days naloxone 4 mg/actuation (Narcan) 1 spray intranasal Q2M omeprazole 40 mg PO DAILY oxycodone 10 mg PO Q4H PRN 7 days psyllium 1 packet PO DAILY sertraline 50 mg PO DAILY Tobacco use date assessed: 08/22/24 Dental Screening Dental Screen Date: 08/22/24 Did you have a dental visit in the last 12 months?: Yes Did you have a dental problem in the last 6 months where you did not have access to dental care?: No Was dental information given to patient?: Patient has dentist HPI 1 Month F/U HPI Details chronic back pain; due for meds; doing well and compliant [facility] Medical History Neuropathy of genitofemoral nerve History of COVID-19 HTN (hypertension) GERD (gastroesophageal reflux disease) COVID-19 vaccine series completed Osteoarthritis Obesity Hypothyroidism Hernia of abdominal cavity Surgical History History of left knee replacement H/O colonoscopy Hx of umbilical hernia repair Hx of breast reduction, elective Family History Father Esophageal cancer Mother No problems noted. Maternal Grandmother Osteoarthritis Sister No problems noted. Social History Household Members: Spouse Housing: House Are you a primary senior care provider to a significant other at home: No Do you presently have visiting nurse or other home services: No Alcohol intake: current Alcohol intake frequency: holidays/special occasions only Patient Tobacco Use Status: Former Tobacco user Tobacco use type: Cigarette Years Smoked: 40 e-Cigarette/Vaping Use: Never Used Second Hand Smoke Exposure: No service: No Current occupational status: retired Current occupation: Right Handed Cognitive needs: No Hearing needs: No Vision needs: Yes (reading glasses) Questionnaire PHQ-9 Over the last 2 weeks, how often have you been bothered by any of the following problems? 1. Little interest or pleasure in doing things: not at all 2. Feeling down, depressed, or hopeless: not at all 3. Trouble falling or staying asleep, or sleeping too much: not at all 4. Feeling tired or having little energy: not at all 5. Poor appetite or overeating: not at all 6. Feeling bad about yourself - or that you are a failure or have let yourself or your family down: not at all 7. Trouble concentrating on things, such as reading the newspaper or watching television: not at all 8. Moving or speaking so slowly that other people could have noticed. Or the opposite - being so fidgety or restless that you have been moving around a lot more than usual: not at all 9. Thoughts that you would be better off or of hurting yourself in some way: not at all Total score: 0 Depression Screening Interpretation: Negative Depression Screening Done: Yes 09721 - PHQ-9 Billing: Yes Source: Developed by Drs. Cecil Harley, Shanell Suarez, Carlos Seth and colleagues, with an educational sanjay from [employer] Thrive Questionnaire Date Thrive assessed: 08/22/24 I am a: Patient What is your living situation today?: I have a steady place to live Within the past 12 months, did the food you bought not last and you didn't have the money to get more?: Never true Within the past 12 months, did you worry whether your food would run out before you got money to buy more?: Never true Do you have trouble paying for medicines?: No Do you have trouble getting transportation to medical appointments?: No Do you have trouble paying your heating and electricity bill?: No Do you have trouble taking care of your child, family member or friend?: No Do you have trouble with day-to-day activities such as bathing, preparing meals, shopping, managing finances, etc.?: No Are you currently unemployed and looking for a job?: No Are you interested in more education?: No Please select the resources that you would like help with: None Currently or been in a relationship where the following occur: No concerns reported THRIVE Score: 0 AUDIT C Alcohol Use Questionnaire (AUDIT-C) 2. How many drinks containing alcohol do you have on a typical day when you are drinking?: 1 or 2 3. How often do you have six or more drinks on one occasion?: Never Total Score: 0 GHULAM-7 AMB Questionnaire GHULAM-7 Date GHULAM - 7 assessed: 08/22/24 Feeling nervous, anxious, or on edge: 0 = Not at all Not being able to stop or control worryin = Not at all Worrying too much about different things: 0 = Not at all Trouble relaxin = Not at all Being so restless that it is hard to sit still: 0 = Not at all Becoming easily annoyed or irritable: 0 = Not at all Feeling afraid as if something awful might happen: 0 = Not at all Total GHULAM-7 score (0-4 normal; 5-9 mild; 10-14 moderate; 15-21 severe): 0 Source: Developed by Drs. Cecil Harley, Shanell Suarez, Carlos Seth and colleagues, with an educational sanjay from [employer] Review of Systems Const Denies chills, Denies headache(s) and Denies weight loss ENT Denies headache(s) Card Denies chest pain, Denies syncope, Denies irregular heart rhythm and Denies dyspnea Resp Denies chest congestion, Denies cough and Denies dyspnea GI Denies abdominal pain, Denies change in stool character, Denies nausea and Denies vomiting Musc Denies deformity and Denies joint swelling Neuro Denies syncope and Denies headache(s) Physical exam (Primary Care) Vital Signs: Last Vital Signs Pulse 87 08/22/24 08:50 BP 122/80 08/22/24 08:50 Pulse Ox 98 08/22/24 08:50 Oxygen Delivery Method Room Air 08/22/24 08:50 BMI result Body Mass Index 39.3 Tobacco/Smoking Status: Tobacco use Status Tobacco use date assessed 08/22/24 08/22/24 08:55 Patient Tobacco Use Status Former Tobacco user 08/22/24 08:55 Tobacco use type Cigarette 08/22/24 08:55 e-Cigarette/Vaping Use Never Used 08/22/24 08:55 PHQ-9: PHQ-9 Score PHQ-9: Total score 0 08/22/24 08:55 Depression Screening Interpretation: Negative Thrive Assessment: Date of Thrive Assessment Date Thrive assessed 08/22/24 08/22/24 08:55 Currently or been in a relationship where the following occur: No concerns reported Const General: cooperative, comfortable, no acute distress and alert Neck Neck: Yes no lymphadenopathy Thyroid: Thyroid normal Resp Effort & Inspection: normal respiratory effort Auscultation: clear to auscultation bilaterally Percussion: percussion normal Cardio Jugular venous distension: no JVD Palpation: normal PMI Rate: regular rate Rhythm: regular rhythm Heart sounds: S1 normal heart sound present and S2 normal heart sound present GI Inspection: Yes normal to inspection Palpation (GI): No hepatosplenomegaly present Skin General skin exam: no rashes or lesions noted Extrem General: Yes no clubbing, cyanosis or edema Coding Level of Care Code Est Pt Level 3 (03714) Diagnoses Low back pain M54.50 Additional Codes PHQ-9 - 93411 - PHQ-9 Billing: Yes ([id number]) Assessment & Plan Assessment & Plan (1) Low back pain: Code(s): M54.50 - Low back pain, unspecified Category: Medical Plan: stable; same rx Orders: Orders Thyroid Stimulating Hormone Today Z13.29 - Encounter for screening for other suspected endocrine disorder Influenza [id number] Immunization Today Z23 - Encounter for immunization Medications: New Fluarix Triv [id number] (PF) (flu vacc [id number] 6mos up(PF)) 0.5 mL IM ONCE 0.5 mL 0RF NS Z23 - Encounter for immunization Refilled methadone 40 mg (4 x 10 mg) PO BID 21 days 240 tabs 0RF pain M25.569 - Pain in unspecified knee, M54.9 - Dorsalgia, unspecified oxycodone 10 mg PO Q4H 7 days PRN 45 tabs 0RF Pain
== END 2024-08-22 09:06 | disposition home or self-care (01) ==
PROVIDERS: PCP Internal Medicine; Visit Provider Internal Medicine
DX: Z23 Encounter for immunization (principal); M54.50 Low back pain, unspecified

== ENCOUNTER 2024-09-22 09:33 | Outpatient (AMB) | payer OTHER, SELFPAY ==
--- NOTE | 2024-09-22 09:35 | A.OFFPC_ITS ---
Vital Signs 09/22/24 09:38 Height 5 ft 5 in Weight 232 lb 8 oz BMI 38.7 BP 120/82 Blood Pressure Location Lt brachial Position Sitting Pulse 84 Pulse Source Pulse Oximeter Pulse Oximetry (%) 97 Oxygen Delivery Method Room Air Intake Visit Reasons: Med Management Intake Note: Patient is here to follow up on Med Management. [employer] Police Sergeant Required: No Home Care Manager Rn: Not Required per policy Accompanied by: Self / Same As Patient Allergies No Known Allergies [No Known Allergies*] Allergy (Verified 09/22/24 09:37) Medication List - Last Reconciled 09/22/24 by Barrera Coronado MD acetaminophen 650 mg (2 x 325 mg) PO Q6H PRN 30 days aspirin 325 mg PO BID 42 days celecoxib 200 mg PO BID chlorthalidone 25 mg PO DAILY famotidine 40 mg PO DAILY ibuprofen 600 mg PO TID PRN levothyroxine 50 mcg PO DAILY levothyroxine 200 mcg PO DAILY methadone 40 mg (4 x 10 mg) PO BID 21 days naloxone 4 mg/actuation (Narcan) 1 spray intranasal Q2M omeprazole 40 mg PO DAILY oxycodone 10 mg PO Q4H PRN 7 days psyllium 1 packet PO DAILY sertraline 50 mg PO DAILY Tobacco use date assessed: 09/22/24 Dental Screening Dental Screen Date: 09/22/24 Did you have a dental visit in the last 12 months?: Yes Did you have a dental problem in the last 6 months where you did not have access to dental care?: No Was dental information given to patient?: Patient has dentist HPI HPI Comments History of Present Illness Details chronic back pain on rx; doing well on current regimen PFSH Medical History Neuropathy of genitofemoral nerve History of COVID-19 HTN (hypertension) GERD (gastroesophageal reflux disease) COVID-19 vaccine series completed Osteoarthritis Obesity Hypothyroidism Hernia of abdominal cavity Surgical History History of left knee replacement H/O colonoscopy Hx of umbilical hernia repair Hx of breast reduction, elective Family History Father Esophageal cancer Mother No problems noted. Maternal Grandmother Osteoarthritis Sister No problems noted. Social History Household Members: Spouse Housing: House Are you a primary care program director to a significant other at home: No Do you presently have visiting nurse or other home services: No Alcohol intake: current Alcohol intake frequency: holidays/special occasions only Patient Tobacco Use Status: Former Tobacco user Tobacco use type: Cigarette Years Smoked: 40 e-Cigarette/Vaping Use: Never Used Second Hand Smoke Exposure: No service: No Current occupational status: retired Current occupation: Right Handed Cognitive needs: No Hearing needs: No Vision needs: Yes (reading glasses) Questionnaire PHQ-9 Over the last 2 weeks, how often have you been bothered by any of the following problems? 1. Little interest or pleasure in doing things: not at all 2. Feeling down, depressed, or hopeless: not at all 3. Trouble falling or staying asleep, or sleeping too much: not at all 4. Feeling tired or having little energy: not at all 5. Poor appetite or overeating: not at all 6. Feeling bad about yourself - or that you are a failure or have let yourself or your family down: not at all 7. Trouble concentrating on things, such as reading the newspaper or watching television: not at all 8. Moving or speaking so slowly that other people could have noticed. Or the opposite - being so fidgety or restless that you have been moving around a lot more than usual: not at all 9. Thoughts that you would be better off or of hurting yourself in some way: not at all Total score: 0 Depression Screening Interpretation: Negative Depression Screening Done: Yes Source: Developed by Drs. Cecil Harley, Shanell Suarez, Carlos Seth and colleagues, with an educational sanjay from [employer]. Thrive Questionnaire Date Thrive assessed: 09/22/24 I am a: Patient What is your living situation today?: I have a steady place to live Within the past 12 months, did the food you bought not last and you didn't have the money to get more?: Never true Within the past 12 months, did you worry whether your food would run out before you got money to buy more?: Never true Do you have trouble paying for medicines?: No Do you have trouble getting transportation to medical appointments?: No Do you have trouble paying your heating and electricity bill?: No Do you have trouble taking care of your child, family member or friend?: No Do you have trouble with day-to-day activities such as bathing, preparing meals, shopping, managing finances, etc.?: No Are you currently unemployed and looking for a job?: No Are you interested in more education?: No Currently or been in a relationship where the following occur: No concerns reported THRIVE Score: 0 AUDIT C Alcohol Use Questionnaire (AUDIT-C) 1. How often do you have a drink containing alcohol?: Monthly or less 2. How many drinks containing alcohol do you have on a typical day when you are drinking?: 1 or 2 Total Score: 1 GHULAM-7 AMB Questionnaire GHULAM-7 Date GHULAM - 7 assessed: 09/22/24 Feeling nervous, anxious, or on edge: 0 = Not at all Not being able to stop or control worryin = Not at all Worrying too much about different things: 0 = Not at all Trouble relaxin = Not at all Being so restless that it is hard to sit still: 0 = Not at all Becoming easily annoyed or irritable: 0 = Not at all Feeling afraid as if something awful might happen: 0 = Not at all Total GHULAM-7 score (0-4 normal; 5-9 mild; 10-14 moderate; 15-21 severe): 0 Source: Developed by Drs. Cecil Harley, Shanell Suarez, Carlos Seth and colleagues, with an educational sanjay from [employer]. Review of Systems Const Denies chills, Denies headache(s) and Denies weight loss ENT Denies headache(s) Card Denies chest pain, Denies syncope, Denies irregular heart rhythm and Denies dyspnea Resp Denies chest congestion, Denies cough and Denies dyspnea GI Denies abdominal pain, Denies change in stool character, Denies nausea and Denies vomiting Musc Denies deformity and Denies joint swelling Neuro Denies syncope and Denies headache(s) Physical exam (Primary Care) Vital Signs: Last Vital Signs Pulse 84 09/22/24 09:38 BP 120/82 09/22/24 09:38 Pulse Ox 97 09/22/24 09:38 Oxygen Delivery Method Room Air 09/22/24 09:38 BMI result Body Mass Index 38.7 Tobacco/Smoking Status: Tobacco use Status Tobacco use date assessed 09/22/24 09/22/24 09:42 Patient Tobacco Use Status Former Tobacco user 09/22/24 09:42 Tobacco use type Cigarette 09/22/24 09:42 e-Cigarette/Vaping Use Never Used 09/22/24 09:42 PHQ-9: PHQ-9 Score PHQ-9: Total score 0 09/22/24 09:42 Depression Screening Interpretation: Negative Thrive Assessment: Date of Thrive Assessment Date Thrive assessed 09/22/24 09/22/24 09:42 Currently or been in a relationship where the following occur: No concerns reported Const General: cooperative, comfortable, no acute distress and alert Neck Neck: Yes no lymphadenopathy Thyroid: Thyroid normal Resp Effort & Inspection: normal respiratory effort Auscultation: clear to auscultation bilaterally Percussion: percussion normal Cardio Jugular venous distension: no JVD Palpation: normal PMI Rate: regular rate Rhythm: regular rhythm Heart sounds: S1 normal heart sound present and S2 normal heart sound present GI Inspection: Yes normal to inspection Palpation (GI): No hepatosplenomegaly present Skin General skin exam: no rashes or lesions noted Extrem General: Yes no clubbing, cyanosis or edema Coding Level of Care Code Est Pt Level 3 (45402) Diagnoses Low back pain M54.50 Assessment & Plan Assessment & Plan (1) Low back pain: Code(s): M54.50 - Low back pain, unspecified Category: Medical Plan: cont same rx Medications: Refilled methadone 40 mg (4 x 10 mg) PO BID 21 days 240 tabs 0RF pain M25.569 - Pain in unspecified knee, M54.9 - Dorsalgia, unspecified oxycodone 10 mg PO Q4H 7 days PRN 45 tabs 0RF Pain
[2024-09-22 09:38] VITALS: BP 120/82; PULSE 84; O2SAT 97; BMI 38.7
== END 2024-09-22 09:56 | disposition home or self-care (01) ==
PROVIDERS: PCP Internal Medicine; Visit Provider Internal Medicine
DX: M54.50 Low back pain, unspecified (principal)

== ENCOUNTER → 2024-09-22 09:33 | Outpatient (BNVA) | payer OTHER, SELFPAY | PROVIDERS: PCP Internal Medicine; Visit Provider Internal Medicine | DX: M54.50 Low back pain, unspecified (principal); M25.569 Pain in unspecified knee | CPT/HCPCS: 99212 ==

== ENCOUNTER → 2024-10-22 09:26 | Outpatient (BNVA) | payer OTHER, SELFPAY | PROVIDERS: PCP Internal Medicine; Visit Provider Internal Medicine | DX: M54.50 Low back pain, unspecified (principal) | CPT/HCPCS: 99212 ==

== ENCOUNTER 2024-11-19 09:42 | Outpatient (AMB) | payer OTHER, SELFPAY ==
--- NOTE | 2024-11-19 09:52 | MHC.PC.OV ---
Vital Signs 11/19/24 09:53 Height 5 ft 5 in Weight 229 lb 4 oz BMI 38.1 BP 120/72 Blood Pressure Location Lt brachial Position Sitting Pulse 84 Pulse Source Pulse Oximeter Temp 97.1 F Temp Source Temporal Artery Scan Pulse Oximetry (%) 95 Oxygen Delivery Method Room Air Intake Visit Reasons: Med Management Intake Note: Patient is here to follow up on Med management. Manufacturing Baker Required: No Architectural Manager: Not Required per policy Accompanied by: Self / Same As Patient Allergies No Known Allergies [No Known Allergies*] Allergy (Verified 11/19/24 09:52) Medication List - Last Reconciled 11/19/24 by Barrera Coronado MD acetaminophen 650 mg (2 x 325 mg) PO Q6H PRN 30 days aspirin 325 mg PO BID 42 days celecoxib 200 mg PO BID chlorthalidone 25 mg PO DAILY famotidine 40 mg PO DAILY ibuprofen 600 mg PO TID PRN levothyroxine 50 mcg PO DAILY levothyroxine 200 mcg PO DAILY methadone 40 mg (4 x 10 mg) PO BID 21 days naloxone 4 mg/actuation (Narcan) 1 spray intranasal Q2M omeprazole 40 mg PO DAILY oxycodone 10 mg PO Q4H PRN 7 days psyllium 1 packet PO DAILY sertraline 50 mg PO DAILY Tobacco use date assessed: 11/19/24 Dental Screening Dental Screen Date: 11/19/24 HPI Med Management HPI Details f/u chronic back pain; very anxious PFSH Medical History Neuropathy of genitofemoral nerve History of COVID-19 HTN (hypertension) GERD (gastroesophageal reflux disease) COVID-19 vaccine series completed Osteoarthritis Obesity Hypothyroidism Hernia of abdominal cavity Surgical History History of left knee replacement H/O colonoscopy Hx of umbilical hernia repair Hx of breast reduction, elective Family History Father Esophageal cancer Mother No problems noted. Maternal Grandmother Osteoarthritis Sister No problems noted. Social History Household Members: Spouse Housing: House Are you a primary clinical care coordinator to a significant other at home: No Do you presently have visiting nurse or other home services: No Alcohol intake: current Alcohol intake frequency: holidays/special occasions only Patient Tobacco Use Status: Former Tobacco user Tobacco use type: Cigarette Years Smoked: 40 e-Cigarette/Vaping Use: Never Used Second Hand Smoke Exposure: No service: No Current occupational status: retired Current occupation: Right Handed Cognitive needs: No Hearing needs: No Vision needs: Yes (reading glasses) Questionnaire Thrive Questionnaire Date Thrive assessed: 09/22/24 GHULAM-7 AMB Questionnaire GHULAM-7 Date GHULAM - 7 assessed: 09/22/24 Source: Developed by Drs. Cecil Harley, Shanell Suarez, Carlos Seth and colleagues, with an educational sanjay from [employer]. Review of Systems Const Denies chills, Denies headache(s) and Denies weight loss ENT Denies headache(s) Card Denies chest pain, Denies syncope, Denies irregular heart rhythm and Denies dyspnea Resp Denies chest congestion, Denies cough and Denies dyspnea GI Denies abdominal pain, Denies change in stool character, Denies nausea and Denies vomiting Musc Denies deformity and Denies joint swelling Neuro Denies syncope and Denies headache(s) Physical exam (Primary Care) Vital Signs: Last Vital Signs Temp 97.1 F 11/19/24 09:53 Pulse 84 11/19/24 09:53 BP 120/72 11/19/24 09:53 Pulse Ox 95 11/19/24 09:53 Oxygen Delivery Method Room Air 11/19/24 09:53 BMI result Body Mass Index 38.1 Tobacco/Smoking Status: Tobacco use Status Tobacco use date assessed 11/19/24 11/19/24 09:58 Patient Tobacco Use Status Former Tobacco user 11/19/24 09:58 Tobacco use type Cigarette 11/19/24 09:58 e-Cigarette/Vaping Use Never Used 11/19/24 09:58 Thrive Assessment: Date of Thrive Assessment Date Thrive assessed 09/22/24 11/19/24 09:58 Const General: cooperative, comfortable, no acute distress and alert Neck Neck: Yes no lymphadenopathy Thyroid: Thyroid normal Resp Effort & Inspection: normal respiratory effort Auscultation: clear to auscultation bilaterally Percussion: percussion normal Cardio Jugular venous distension: no JVD Palpation: normal PMI Rate: regular rate Rhythm: regular rhythm Heart sounds: S1 normal heart sound present and S2 normal heart sound present GI Inspection: Yes normal to inspection Palpation (GI): No hepatosplenomegaly present Skin General skin exam: no rashes or lesions noted Extrem General: Yes no clubbing, cyanosis or edema Coding Level of Care Code Est Pt Level 3 (47218) Diagnoses Low back pain M54.50 Assessment & Plan Assessment & Plan (1) Low back pain: Code(s): M54.50 - Low back pain, unspecified Category: Medical Plan: stable; smae rx Medications: Refilled oxycodone 10 mg PO Q4H 7 days PRN 45 tabs 0RF Pain methadone 40 mg (4 x 10 mg) PO BID 21 days 240 tabs 0RF pain M25.569 - Pain in unspecified knee, M54.9 - Dorsalgia, unspecified
[2024-11-19 09:53] VITALS: BP 120/72; PULSE 84; TEMP 36.2; O2SAT 95; BMI 38.1
== END 2024-11-19 10:25 | disposition home or self-care (01) ==
PROVIDERS: PCP Internal Medicine; Visit Provider Internal Medicine
DX: M54.50 Low back pain, unspecified (principal)

== ENCOUNTER → 2024-11-19 09:42 | Outpatient (BNVA) | payer OTHER, SELFPAY | PROVIDERS: PCP Internal Medicine; Visit Provider Internal Medicine | DX: M54.50 Low back pain, unspecified (principal) | CPT/HCPCS: 99212 ==

== ENCOUNTER 2024-12-19 14:55 | Outpatient (AMB) | payer OTHER, SELFPAY ==
[2024-12-19 15:08] VITALS: BP 118/64; PULSE 98; O2SAT 95; BMI 37.8
--- NOTE | 2024-12-19 15:08 | A.OFFPC_ITS ---
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: No Accompanied by: Self / Same As Patient Allergies No Known Allergies [No Known Allergies*] Allergy (Verified 12/19/24 15:39) Medication List - Last Reconciled 12/21/24 by Adrian Quinonez MD acetaminophen 650 mg (2 x 325 mg) PO Q6H PRN 30 days aspirin 325 mg PO BID 42 days chlorthalidone 25 mg PO DAILY famotidine 40 mg PO DAILY ibuprofen 600 mg PO TID PRN levothyroxine 200 mcg PO DAILY levothyroxine 50 mcg PO DAILY methadone 40 mg (4 x 10 mg) PO BID 21 days naloxone 4 mg/actuation (Narcan) 1 spray intranasal Q2M omeprazole 40 mg PO DAILY oxycodone 10 mg PO Q4H PRN 7 days psyllium 1 packet PO DAILY sertraline 50 mg PO DAILY Tobacco use date assessed: 12/19/24 Dental Screening Dental Screen Date: 12/19/24 Did you have a dental visit in the last 12 months?: Yes Did you have a dental problem in the last 6 months where you did not have access to dental care?: No Was dental information given to patient?: Patient has dentist HPI COMPLEX MED REVIEW HPI Details Patient comes in today for her follow up visit - is transferring over from Dr. Coronado, who retired from the practice a couple of weeks ago Patient states that she has been on chronic pain medications for over 15 years - she has been on Methadone 40 mg BID and Oxycodone 10 mg every 4-6 hours PRN since she had Dr. Cardoza as her PCP many years ago She later transferred over to Dr. Coronado when Dr. Cardoza stopped practicing years ago States that she takes her pain medications for chronic low back pain and bilateral knee pain although she reports that her knee pains have improved since her knee replacement surgeries done a couple of years ago States that she has been stable on her current pain medications and these allow her to at least be functional and be able to work and get through the day States that in all the years that she has been on her pain medications, she has never taken them inappropriately or asked for early refills or dose escalations States that Dr. Coronado used to do random drug screens on her and she has no problem continuing to do this if it is required States that she feels okay otherwise She denies any headaches or dizziness Denies any chest pains, no shortness of breath No nausea/vomiting, no abdominal pain No change in bowel habits noted [facility] Medical History (Updated 12/21/24 @ 06:06 by Adrian Quinonez MD) Obesity (BMI 30-39.9) GERD without esophagitis Acquired hypothyroidism Essential hypertension Bilateral primary osteoarthritis of knee Lumbar degenerative disc disease Neuropathy of genitofemoral nerve History of COVID-19 GERD (gastroesophageal reflux disease) COVID-19 vaccine series completed Osteoarthritis Hernia of abdominal cavity Surgical History History of left knee replacement H/O colonoscopy Hx of umbilical hernia repair Hx of breast reduction, elective Family History Father Esophageal cancer Mother No problems noted. Maternal Grandmother Osteoarthritis Sister No problems noted. Social History Household Members: Spouse Housing: House Are you a primary foster care therapist to a significant other at home: No Do you presently have visiting nurse or other home services: No Alcohol intake: current Alcohol intake frequency: holidays/special occasions only Patient Tobacco Use Status: Former Tobacco user Tobacco use type: Cigarette Years Smoked: 40 e-Cigarette/Vaping Use: Never Used Second Hand Smoke Exposure: No service: No Current occupational status: retired Current occupation: Right Handed Cognitive needs: No Hearing needs: No Vision needs: Yes (reading glasses) Questionnaire PHQ-9 Over the last 2 weeks, how often have you been bothered by any of the following problems? 1. Little interest or pleasure in doing things: not at all 2. Feeling down, depressed, or hopeless: not at all 3. Trouble falling or staying asleep, or sleeping too much: not at all 4. Feeling tired or having little energy: not at all 5. Poor appetite or overeating: not at all 6. Feeling bad about yourself - or that you are a failure or have let yourself or your family down: not at all 7. Trouble concentrating on things, such as reading the newspaper or watching television: not at all 8. Moving or speaking so slowly that other people could have noticed. Or the opposite - being so fidgety or restless that you have been moving around a lot more than usual: not at all 9. Thoughts that you would be better off or of hurting yourself in some way: not at all Total score: 0 Depression Screening Interpretation: Negative Depression Screening Done: Yes 37619 - PHQ-9 Billing: Yes Source: Developed by Drs. Cecil Harley, Shanell Suarez, Carlos Seth and colleagues, with an educational sanjay from [employer]. Thrive Questionnaire Date Thrive assessed: 12/19/24 I am a: Patient What is your living situation today?: I have a steady place to live Within the past 12 months, did the food you bought not last and you didn't have the money to get more?: Never true Within the past 12 months, did you worry whether your food would run out before you got money to buy more?: Never true Do you have trouble paying for medicines?: No Do you have trouble getting transportation to medical appointments?: No Do you have trouble paying your heating and electricity bill?: No Do you have trouble taking care of your child, family member or friend?: No Do you have trouble with day-to-day activities such as bathing, preparing meals, shopping, managing finances, etc.?: No Are you currently unemployed and looking for a job?: No Are you interested in more education?: No Please select the resources that you would like help with: None Currently or been in a relationship where the following occur: No concerns reported THRIVE Score: 0 AUDIT C Alcohol Use Questionnaire (AUDIT-C) 1. How often do you have a drink containing alcohol?: Monthly or less 2. How many drinks containing alcohol do you have on a typical day when you are drinking?: 1 or 2 3. How often do you have six or more drinks on one occasion?: Never Total Score: 1 Score Reviewed/Action Taken: Yes GHULAM-7 AMB Questionnaire GHULAM-7 Date GHULAM - 7 assessed: 12/19/24 Feeling nervous, anxious, or on edge: 0 = Not at all Not being able to stop or control worryin = Not at all Worrying too much about different things: 0 = Not at all Trouble relaxin = Not at all Being so restless that it is hard to sit still: 0 = Not at all Becoming easily annoyed or irritable: 0 = Not at all Feeling afraid as if something awful might happen: 0 = Not at all Total GHULAM-7 score (0-4 normal; 5-9 mild; 10-14 moderate; 15-21 severe): 0 Source: Developed by Drs. Cecil Harley, Shanell Suarez, Carlos Seth and colleagues, with an educational sanjay from [employer]. Review of Systems Const Denies chills, Denies fatigue, Denies fever(s) and Denies headache(s) ENT Denies dysphagia, Denies dizziness, Denies otalgia, Denies headache(s), Denies neck pain, Denies odynophagia and Denies sore throat Card Denies chest pain, Denies palpitations and Denies dyspnea Resp Denies chest congestion, Denies cough and Denies dyspnea GI Denies abdominal pain, Denies constipation, Denies dysphagia, Denies heartburn, Denies diarrhea, Denies nausea, Denies odynophagia and Denies vomiting Denies difficulty voiding, Denies nocturia, Denies dysuria and Denies urinary urgency Musc Reports back pain (over the lower back - chronic), Reports arthralgias (in both knees (chronic), although her knee pains have decreased since TKA) and Denies neck pain Skin/Breast Denies rash Neuro Denies dizziness and Denies headache(s) Endo Denies fatigue and Denies palpitations Physical exam (Primary Care) Vital Signs: Last Vital Signs Pulse 98 12/19/24 15:08 BP 118/64 12/19/24 15:08 Pulse Ox 95 12/19/24 15:08 Oxygen Delivery Method Room Air 12/19/24 15:08 BMI result Body Mass Index 37.8 Tobacco/Smoking Status: Tobacco use Status Tobacco use date assessed 12/19/24 12/19/24 15:09 Patient Tobacco Use Status Former Tobacco user 12/19/24 15:09 Tobacco use type Cigarette 12/19/24 15:09 e-Cigarette/Vaping Use Never Used 12/19/24 15:09 PHQ-9: PHQ-9 Score PHQ-9: Total score 0 12/19/24 15:52 Depression Screening Interpretation: Negative Thrive Assessment: Date of Thrive Assessment Date Thrive assessed 12/19/24 12/19/24 15:19 Currently or been in a relationship where the following occur: No concerns reported Const General: no acute distress and alert HENMT Ears: TM's normal bilaterally and EAC's normal Throat: Yes posterior oropharynx normal and Yes tonsils normal (no TP congestion) Neck Neck: Yes supple and No lymphadenopathy Thyroid: Thyroid normal Resp Auscultation: clear to auscultation bilaterally, no rales and no wheezes Cardio Rate: regular rate Rhythm: regular rhythm Heart sounds: no murmurs GI Palpation (GI): Soft to palpation and nontender Auscultation: normal bowel sounds General: Yes no CVA tenderness Back/Spine/Pelvis Back: no CVA tenderness Thoracic/Lumbar Spine: lumbar spinal tenderness Skin Rashes: no rashes Extrem Other: (+) healed vertical scar over the anterior aspect of both knees General: Yes no clubbing, cyanosis or edema Right lower extremity: knee Details: tenderness; no swelling Left lower extremity: knee Details: tenderness; no swelling Coding Level of Care Code Est Pt Level 4 (89514) Diagnoses Degeneration of intervertebral disc of lumbar region with discogenic back pain M51.360 Disc-related pain type: discogenic back pain only Bilateral primary osteoarthritis of knee M17.0 Essential hypertension I10 Acquired hypothyroidism E03.9 GERD without esophagitis K21.9 Anxiety F41.9 Obesity (BMI 30-39.9) E66.9 Additional Codes PHQ-9 - 23316 - PHQ-9 Billing: Yes ([id number]) Assessment & Plan Assessment & Plan (1) Lumbar degenerative disc disease: Code(s): M51.369 - Other intervertebral disc degeneration, lumbar region without mention of lumbar back pain or lower extremity pain Category: Medical Qualifiers: Disc-related pain type: discogenic back pain only Qualified Code(s): M51.360 - Other intervertebral disc degeneration, lumbar region with discogenic back pain only Plan: Reinforced activity and weight-lifting restrictions Patient has reportedly been on Methadone 40 mg BID and Oxycodone 10 mg Q 4 hours PRN for her chronic low back pain and joint (knee) pains for over 15 years, ever since she had Dr. Cardoza as her PCP Relates that Dr. Cardoza has tried her on several different pain medications years ago and that Methadone was the one that provided her with the best pain relief with least side effects States that these medications help with her chronic pain and allow her to stay active and to continue working and have some quality of life She transferred over to Dr. Coronado when Dr. Cardoza retired from active practice years ago and Dr. Coroando continued her on her current medications Relates that she has had multiple random drug screens done and has never tested inappropriately at any time Adds that she has been on the same pain medications for many years and has never once taken them inappropriately or asked for any early refills or dose escalations and is hoping to be able to continue on the same medications, which she states she manages judiciously Have advised patient at present, I will keep her on the same medications but will likely her renew her pain management agreement at her next visit - Rx refilled Have advised her that I will continue to request for random drug screens as a requirement of the pain management agreement that she will be renewing at her next visit (2) Bilateral primary osteoarthritis of knee: Code(s): M17.0 - Bilateral primary osteoarthritis of knee Category: Medical Plan: S/P left TKA on 10/18/2021 and right TKA on 10/24/2022, both with Dr. Yusuf Patient states that she still has (chronic) bilateral knee pains but these have improved a lot with her joint replacement surgeries Continue Ibuprofen 600 mg TID PRN or Acetaminophen 650 mg Q 6 hours PRN, Methadone 40 mg BID and Oxycodone 10 mg Q 4 hours PRN Follow-up with orthopedics as scheduled (3) Essential hypertension: Code(s): I10 - Essential (primary) hypertension Category: Medical Plan: Reinforced low-sodium diet - goal is systolic BP of 120 mm or less Continue Chlorthalidone 25 mg QD Patient is reminded to continue monitoring her blood pressure regularly (4) Acquired hypothyroidism: Code(s): E03.9 - Hypothyroidism, unspecified Category: Medical Plan: Continue Levothyroxine 250 mcg QD Will have patient recheck her labs and TFTs in a few weeks for follow up, as she has not had any follow up labs done in almost a year now (5) GERD without esophagitis: Code(s): K21.9 - Gastro-esophageal reflux disease without esophagitis Category: Medical Plan: Dietary restrictions reinforced Continue Omeprazole 40 mg QD and Famotidine 40 mg QD PRN (6) Anxiety: Code(s): F41.9 - Anxiety disorder, unspecified Category: Medical Plan: Continue Sertraline 50 mg QD (7) Obesity (BMI 30-39.9): Code(s): E66.9 - Obesity, unspecified Category: Medical Plan: Reinforced diet/exercise as tolerated/lose weight Plan Follow up in 1 month Orders: Orders Complete Blood Count Auto Diff 3 Weeks D64.9 - Anemia, unspecified Lipid Panel 3 Weeks E78.00 - Pure hypercholesterolemia, unspecified UA CC w/rflx Micro + Cult 3 Weeks R30.0 - Dysuria Free T4 (Free Thyroxine) 3 Weeks E03.9 - Hypothyroidism, unspecified Thyroid Stimulating Hormone 3 Weeks E03.9 - Hypothyroidism, unspecified Triiodothyronine T3 Total 3 Weeks R79.89 - Other specified abnormal findings of blood chemistry Comprehensive Coleman. Panel Fast 3 Weeks E78.00 - Pure hypercholesterolemia, unspecified Vitamin B12 and Folate 3 Weeks E53.8 - Deficiency of other specified B group vitamins Vitamin D 25-OH Total 3 Weeks E55.9 - Vitamin D deficiency, unspecified Medications: Refilled methadone 40 mg (4 x 10 mg) PO BID 21 days 240 tabs 0RF pain M25.569 - Pain in unspecified knee, M54.9 - Dorsalgia, unspecified oxycodone 10 mg PO Q4H 7 days PRN 45 tabs 0RF Pain
== END 2024-12-19 16:00 | disposition home or self-care (01) ==
LOC: HO.HMCH 14:55
PROVIDERS: PCP Internal Medicine; Visit Provider Internal Medicine
DX: M51.360 Other intervertebral disc degeneration, lumbar region with discogenic back pain only (principal); M17.0 Bilateral primary osteoarthritis of knee; E66.9 Obesity, unspecified; Z68.37 Body mass index [BMI] 37.0-37.9, adult; I10 Essential (primary) hypertension; E03.9 Hypothyroidism, unspecified; K21.9 Gastro-esophageal reflux disease without esophagitis; F41.9 Anxiety disorder, unspecified

== ENCOUNTER → 2024-12-19 14:55 | Outpatient (BNVA) | payer OTHER, SELFPAY | PROVIDERS: PCP Internal Medicine; Visit Provider Internal Medicine | DX: M51.360 Other intervertebral disc degeneration, lumbar region with discogenic back pain only (principal); M17.0 Bilateral primary osteoarthritis of knee; I10 Essential (primary) hypertension; E03.9 Hypothyroidism, unspecified; K21.9 Gastro-esophageal reflux disease without esophagitis; F41.9 Anxiety disorder, unspecified; E66.9 Obesity, unspecified; R79.89 Other specified abnormal findings of blood chemistry; E78.00 Pure hypercholesterolemia, unspecified; E53.8 Deficiency of other specified B group vitamins; E55.9 Vitamin D deficiency, unspecified; Z68.37 Body mass index [BMI] 37.0-37.9, adult | CPT/HCPCS: 96127; 99212 ==

== ENCOUNTER 2025-01-01 10:44 | Outpatient (REF) | payer OTHER, SELFPAY ==
[2025-01-01 10:59] LABS: MANUAL DIFF FLAG NO
[2025-01-01 12:06] LABS: Basophils Percent Auto 0.4 % (0-2); Eosinophils Absolute Auto 0.3 X10*3/uL (0.0-0.4); Eosinophils Percent Auto 4.5 % (0-4); Hematocrit 40.7 % (37.0-47.0); Hemoglobin 13.3 g/dl (12.0-16.0); Imm Gran Abs Auto 0.02 X10*3/uL (0.00-0.03); Imm Gran Pct Auto 0.3 % (0.0-0.4); Lymphocytes Absolute Auto 2.1 X10*3/uL (1.2-4.9); Lymphocytes Percent Auto 30.4 % (20-40); Mean Corpuscular HGB Conc 32.7 g/dl (31.0-35.0); Mean Corpuscular Hemoglobin 29.2 pg (27.0-33.0); Mean Corpuscular Volume 89.5 fL (80.0-98.0); Mean Platelet Volume 9.8 fL (9.4-12.3); Monocytes Absolute Auto 0.5 X10*3/uL (0.1-1.2); Monocytes Percent Auto 6.6 % (2-11); Neutrophils Percent Auto 57.8 % (45-73); Platelet Count 279 X10*3/uL (160-400); Red Blood Count 4.55 X10*6/uL (4.20-5.50); Red Cell Distribution Width 13.4 % (11.0-16.0); White Blood Count 6.9 X10*3/uL (4.8-10.8)
[2025-01-01 12:22] LABS: Appearance Urine Clear; Color Urine Yellow; Glucose Urine UA Negative (Negative); Leukocyte Esterase Urine Moderate (2+) (Negative); Nitrite Urine Negative (Negative); Specific Gravity - Urine 1.015 (1.005-1.025); UMIC TRIGGER UACC YES; Urine Blood Negative (Negative); Urine Ketones Negative (Negative); Urine Protein Negative (Neg-Trace)
[2025-01-01 12:27] LABS: Bacteria Urine None Seen (None Seen); Hyaline Casts Urine 0-2 /LPF (0-2); RBC Urine 0-2 /HPF (0-2); Squamous Epithelial Cell Urine 0-2 /HPF (0-2); UACC Culture Trigger YES
[2025-01-01 12:44] LABS: Alanine Aminotransferase 18 U/L (0-31); Anion Gap 13 (12-20); Aspartate Amino Transferase 18 U/L (5-31); Bilirubin Total 0.4 mg/dL (0.0-1.0); Blood Urea Nitrogen 19 mg/dL (9-16); Calcium 9.1 mg/dL (8.4-10.2); Carbon Dioxide 34 mmol/L (22-29); Chloride 98 mmol/L (96-108); Cholesterol 245 mg/dL (<200); Estimated Glomerular Filt Rate > 60; Glucose Fasting 98 mg/dL (60-99); HDL Cholesterol 50 mg/dL (>40); LDL Cholesterol Calculated 158 mg/dL (<100); Potassium 3.3 mmol/L (3.3-5.1); Sodium 142 mmol/L (135-145); Total Protein 7.4 g/dL (6.5-8.0); Triglycerides 188 mg/dL (<150)
[2025-01-01 12:53] LABS: Alkaline Phosphatase 75 U/L (39-117); Free T4 (Free Thyroxine) 1.35 ng/dL (0.71-1.85); Thyroid Stimulating Hormone 0.19 uIU/mL (0.32-4.0); Vitamin D 25-OH Total 30.5 ng/mL (>30)
[2025-01-01 13:07] LABS: Folate 13.7 ng/mL (> or = 4.0); Vitamin B12 673 pg/mL (200-900)
[2025-01-02 04:33] LABS: Triiodothyronine T3 Total 88 ng/dL (76-181)
== END 2025-01-01 10:45 | disposition home or self-care (01) ==
LOC: HO.LAB 10:44
PROVIDERS: PCP Internal Medicine; Visit Provider Internal Medicine
DX: E78.00 Pure hypercholesterolemia, unspecified (principal); D64.9 Anemia, unspecified; E03.9 Hypothyroidism, unspecified; R79.89 Other specified abnormal findings of blood chemistry; E55.9 Vitamin D deficiency, unspecified; E53.9 Vitamin B deficiency, unspecified; R30.0 Dysuria
CPT/HCPCS: 36415; 80053; 80061; 81001; 82306; 82607; 82746; 84439; 84443; 84480; 85025; 87086

== ENCOUNTER 2025-01-15 12:04 | Outpatient (AMB) | payer OTHER, SELFPAY ==
[2025-01-15 12:28] VITALS: BP 124/68; PULSE 88; O2SAT 94; BMI 38.2
--- NOTE | 2025-01-15 12:28 | A.OFFPC_ITS ---
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 Required: No Accompanied by: Self / Same As Patient Allergies No Known Allergies [No Known Allergies*] Allergy (Verified 01/15/25 12:55) Medication List - Last Reconciled 01/15/25 by Adrian Quinonez MD acetaminophen 650 mg (2 x 325 mg) PO Q6H PRN 30 days aspirin 325 mg PO BID 42 days chlorthalidone 25 mg PO DAILY famotidine 40 mg PO DAILY ibuprofen 600 mg PO TID PRN levothyroxine 200 mcg PO DAILY levothyroxine 50 mcg PO DAILY methadone 40 mg (4 x 10 mg) PO BID 21 days naloxone 4 mg/actuation (Narcan) 1 spray intranasal Q2M omeprazole 40 mg PO DAILY oxycodone 10 mg PO Q4H PRN 7 days psyllium 1 packet PO DAILY sertraline 50 mg PO DAILY Tobacco use date assessed: 01/15/25 Dental Screening Dental Screen Date: 01/15/25 Did you have a dental visit in the last 12 months?: Yes Did you have a dental problem in the last 6 months where you did not have access to dental care?: No Was dental information given to patient?: Patient has dentist HPI Med Management HPI Details Patient comes in today for her follow up visit States that she feels okay She denies any headaches or dizziness Denies any chest pains, no shortness of breath No nausea/vomiting, no abdominal pain No change in bowel habits noted States that her current pain medications is helping with her chronic low back pain and allow her to be able to stay productive - will need her pain meds Rx refilled today She had her follow-up labs done a couple of weeks ago - to discuss her results [facility] Medical History (Updated 01/19/25 @ 01:36 by Adrian Quinonez MD) Mixed hyperlipidemia Pure hypercholesterolemia Obesity (BMI 30-39.9) GERD without esophagitis Acquired hypothyroidism Essential hypertension Bilateral primary osteoarthritis of knee Lumbar degenerative disc disease Neuropathy of genitofemoral nerve History of COVID-19 GERD (gastroesophageal reflux disease) COVID-19 vaccine series completed Osteoarthritis Hernia of abdominal cavity Surgical History History of left knee replacement H/O colonoscopy Hx of umbilical hernia repair Hx of breast reduction, elective Family History Father Esophageal cancer Mother No problems noted. Maternal Grandmother Osteoarthritis Sister No problems noted. Social History Household Members: Spouse Housing: House Are you a primary healthcare architect to a significant other at home: No Do you presently have visiting nurse or other home services: No Alcohol intake: current Alcohol intake frequency: holidays/special occasions only Patient Tobacco Use Status: Former Tobacco user Tobacco use type: Cigarette Years Smoked: 40 e-Cigarette/Vaping Use: Never Used Second Hand Smoke Exposure: No service: No Current occupational status: retired Current occupation: Right Handed Cognitive needs: No Hearing needs: No Vision needs: Yes (reading glasses) Questionnaire PHQ-9 Over the last 2 weeks, how often have you been bothered by any of the following problems? 1. Little interest or pleasure in doing things: not at all 2. Feeling down, depressed, or hopeless: not at all 3. Trouble falling or staying asleep, or sleeping too much: not at all 4. Feeling tired or having little energy: not at all 5. Poor appetite or overeating: not at all 6. Feeling bad about yourself - or that you are a failure or have let yourself or your family down: not at all 7. Trouble concentrating on things, such as reading the newspaper or watching television: not at all 8. Moving or speaking so slowly that other people could have noticed. Or the opposite - being so fidgety or restless that you have been moving around a lot more than usual: not at all 9. Thoughts that you would be better off or of hurting yourself in some way: not at all Total score: 0 Depression Screening Interpretation: Negative Depression Screening Done: Yes 05872 - PHQ-9 Billing: Yes Source: Developed by Drs. Cecil Harley, Shanell Suarez, Carlos Seth and colleagues, with an educational sanjay from [employer]. Thrive Questionnaire Date Thrive assessed: 01/15/25 I am a: Patient What is your living situation today?: I have a steady place to live Within the past 12 months, did the food you bought not last and you didn't have the money to get more?: Never true Within the past 12 months, did you worry whether your food would run out before you got money to buy more?: Never true Do you have trouble paying for medicines?: No Do you have trouble getting transportation to medical appointments?: No Do you have trouble paying your heating and electricity bill?: No Do you have trouble taking care of your child, family member or friend?: No Do you have trouble with day-to-day activities such as bathing, preparing meals, shopping, managing finances, etc.?: No Are you currently unemployed and looking for a job?: No Are you interested in more education?: No Please select the resources that you would like help with: None Currently or been in a relationship where the following occur: No concerns reported THRIVE Score: 0 AUDIT C Alcohol Use Questionnaire (AUDIT-C) 1. How often do you have a drink containing alcohol?: Never 3. How often do you have six or more drinks on one occasion?: Never Total Score: 0 Score Reviewed/Action Taken: Yes GHULAM-7 AMB Questionnaire GHULAM-7 Date GHULAM - 7 assessed: 01/15/25 Feeling nervous, anxious, or on edge: 0 = Not at all Not being able to stop or control worryin = Not at all Worrying too much about different things: 0 = Not at all Trouble relaxin = Not at all Being so restless that it is hard to sit still: 0 = Not at all Becoming easily annoyed or irritable: 0 = Not at all Feeling afraid as if something awful might happen: 0 = Not at all Total GHULAM-7 score (0-4 normal; 5-9 mild; 10-14 moderate; 15-21 severe): 0 Source: Developed by Drs. Cecil Harley, Shanell Suarez, Carlos Seth and colleagues, with an educational sanjay from [employer]. Review of Systems Const Denies chills, Denies fatigue, Denies fever(s) and Denies headache(s) ENT Denies dysphagia, Denies dizziness, Denies otalgia, Denies headache(s), Denies neck pain, Denies odynophagia and Denies sore throat Card Denies chest pain, Denies palpitations and Denies dyspnea Resp Denies chest congestion, Denies cough and Denies dyspnea GI Denies abdominal pain, Denies constipation, Denies dysphagia, Denies heartburn, Denies diarrhea, Denies nausea, Denies odynophagia and Denies vomiting Denies difficulty voiding, Denies nocturia, Denies dysuria and Denies urinary urgency Musc Reports back pain (over the lower back - chronic), Reports arthralgias (in both knees (chronic), although her knee pains have decreased since TKA) and Denies neck pain Skin/Breast Denies rash Neuro Denies dizziness and Denies headache(s) Endo Denies fatigue and Denies palpitations Physical exam (Primary Care) Vital Signs: Last Vital Signs Pulse 88 01/15/25 12:28 BP 124/68 01/15/25 12:28 Pulse Ox 94 01/15/25 12:28 Oxygen Delivery Method Room Air 01/15/25 12:28 BMI result Body Mass Index 38.2 Tobacco/Smoking Status: Tobacco use Status Tobacco use date assessed 01/15/25 01/15/25 12:30 Patient Tobacco Use Status Former Tobacco user 01/15/25 12:30 Tobacco use type Cigarette 01/15/25 12:30 e-Cigarette/Vaping Use Never Used 01/15/25 12:30 PHQ-9: PHQ-9 Score PHQ-9: Total score 0 01/15/25 12:58 Depression Screening Interpretation: Negative Thrive Assessment: Date of Thrive Assessment Date Thrive assessed 01/15/25 01/15/25 12:30 Currently or been in a relationship where the following occur: No concerns reported Const General: no acute distress and alert HENMT Throat: Yes posterior oropharynx normal and Yes tonsils normal (no TP congestion) Neck Neck: Yes supple and No lymphadenopathy Thyroid: Thyroid normal Resp Auscultation: clear to auscultation bilaterally, no rales and no wheezes Cardio Rate: regular rate Rhythm: regular rhythm Heart sounds: no murmurs GI Palpation (GI): Soft to palpation and nontender Auscultation: normal bowel sounds General: Yes no CVA tenderness Back/Spine/Pelvis Back: no CVA tenderness Thoracic/Lumbar Spine: lumbar spinal tenderness Skin Rashes: no rashes Extrem Other: (+) healed vertical scar over the anterior aspect of both knees General: Yes no clubbing, cyanosis or edema Right lower extremity: knee Details: tenderness; no swelling Left lower extremity: knee Details: tenderness; no swelling Results Reviewed Results Reviewed: Laboratory Tests 01/01/25 01/01/25 10:51 10:57 WBC 6.9 Hgb 13.3 Hct 40.7 Plt Count 279 Sodium 142 Potassium 3.3 Creatinine 0.79 Estimated GFR > 60 Fasting Glucose 98 Calcium 9.1 AST 18 ALT 18 Triglycerides 188 H Cholesterol 245 H LDL Cholesterol, Calc 158 H HDL Cholesterol 50 Vitamin B12 673 25-OH Vitamin D Total 30.5 TSH 0.19 L Free T4 1.35 Total T3 88 Ur Specific [place] 1.015 Urine Protein Negative Urine Glucose (UA) Negative Urine Blood Negative Urine Nitrite Negative Ur Leukocyte Esterase Moderate (2+) H Coding Level of Care Code Est Pt Level 4 (24993) Diagnoses Degeneration of intervertebral disc of lumbar region with discogenic back pain M51.360 Disc-related pain type: discogenic back pain only Bilateral primary osteoarthritis of knee M17.0 Essential hypertension I10 Acquired hypothyroidism E03.9 Mixed hyperlipidemia E78.2 GERD without esophagitis K21.9 Anxiety F41.9 Obesity (BMI 30-39.9) E66.9 Additional Codes PHQ-9 - 29551 - PHQ-9 Billing: Yes ([id number]) Assessment & Plan Assessment & Plan (1) Lumbar degenerative disc disease: Code(s): M51.369 - Other intervertebral disc degeneration, lumbar region without mention of lumbar back pain or lower extremity pain Category: Medical Qualifiers: Disc-related pain type: discogenic back pain only Qualified Code(s): M51.360 - Other intervertebral disc degeneration, lumbar region with discogenic back pain only Plan: Reinforced activity and weight-lifting restrictions Patient has reportedly been on Methadone 40 mg BID and Oxycodone 10 mg Q 4 hours PRN for her chronic low back pain and joint (knee) pains for over 15 years, ever since she had Dr. Cardoza as her PCP Relates that Dr. Cardoza has tried her on several different pain medications years ago and that Methadone was the one that provided her with the best pain relief and the least side effects States that these medications help with her chronic pain and allow her to stay active and to continue working and have some quality of life She transferred over to Dr. Coronado when Dr. Cardoza retired from active practice years ago and Dr. Coronado continued her on her current medications Adds that she has been on the same pain medications for many years and has never once taken them inappropriately or asked for any early refills or dose escalations Per previous discussion, I will continue patient on the same medications but w ill need her to renew her pain management agreement today and continue random drug screens as a requirement of the agreement (2) Bilateral primary osteoarthritis of knee: Code(s): M17.0 - Bilateral primary osteoarthritis of knee Category: Medical Plan: S/P left TKA on 10/18/2021 and right TKA on 10/24/2022, both with Dr. Yusuf Patient states that she still has (chronic) bilateral knee pains but these have improved a lot with her joint replacement surgeries Continue Ibuprofen 600 mg TID PRN or Acetaminophen 650 mg Q 6 hours PRN, Methadone 40 mg BID and Oxycodone 10 mg Q 4 hours PRN Follow-up with orthopedics as scheduled (3) Essential hypertension: Code(s): I10 - Essential (primary) hypertension Category: Medical Plan: Reinforced low-sodium diet - goal is systolic BP of 120 mm or less Continue Chlorthalidone 25 mg QD Patient is reminded to continue monitoring her blood pressure regularly (4) Acquired hypothyroidism: Code(s): E03.9 - Hypothyroidism, unspecified Category: Medical Plan: Her TFTs have remained normal on her recent labs Continue Levothyroxine 250 mcg QD (5) Mixed hyperlipidemia: Code(s): E78.2 - Mixed hyperlipidemia Category: Medical Plan: Results of her labs done a couple of weeks ago reviewed and discussed with patient - she is advised that her cholesterol levels are elevated and have increased from previous Reinforce low-cholesterol diet Patient is agreeable to starting on cholesterol-lowering medications - we will start her on Atorvastatin 10 mg QD Will have her recheck her fasting lipids in a few months for follow-up - these will be ordered accordingly (6) GERD without esophagitis: Code(s): K21.9 - Gastro-esophageal reflux disease without esophagitis Category: Medical Plan: Dietary restrictions reinforced Continue Omeprazole 40 mg QD and Famotidine 40 mg QD PRN (7) Anxiety: Code(s): F41.9 - Anxiety disorder, unspecified Category: Medical Plan: Continue Sertraline 50 mg QD (8) Obesity (BMI 30-39.9): Code(s): E66.9 - Obesity, unspecified Category: Medical Plan: Reinforced diet/exercise as tolerated/lose weight Plan Follow up in 1 month Medications: New atorvastatin 10 mg PO BEDTIME 30 days 30 tabs 3RF Refilled methadone 40 mg (4 x 10 mg) PO BID 21 days 240 tabs 0RF pain M25.569 - Pain in unspecified knee, M54.9 - Dorsalgia, unspecified oxycodone 10 mg PO Q4H 7 days PRN 45 tabs 0RF Pain
== END 2025-01-15 13:16 | disposition home or self-care (01) ==
LOC: HO.HMCH 12:05
PROVIDERS: PCP Internal Medicine; Visit Provider Internal Medicine
DX: M51.360 Other intervertebral disc degeneration, lumbar region with discogenic back pain only (principal); M17.0 Bilateral primary osteoarthritis of knee; E66.9 Obesity, unspecified; Z68.38 Body mass index [BMI] 38.0-38.9, adult; I10 Essential (primary) hypertension; E03.9 Hypothyroidism, unspecified; E78.2 Mixed hyperlipidemia; K21.9 Gastro-esophageal reflux disease without esophagitis; F41.9 Anxiety disorder, unspecified

== ENCOUNTER → 2025-01-15 12:04 | Outpatient (BNVA) | payer OTHER, SELFPAY | PROVIDERS: PCP Internal Medicine; Visit Provider Internal Medicine | DX: M51.360 Other intervertebral disc degeneration, lumbar region with discogenic back pain only (principal); M17.0 Bilateral primary osteoarthritis of knee; I10 Essential (primary) hypertension; E03.9 Hypothyroidism, unspecified; E78.2 Mixed hyperlipidemia; K21.9 Gastro-esophageal reflux disease without esophagitis; F41.9 Anxiety disorder, unspecified; E66.9 Obesity, unspecified; Z68.38 Body mass index [BMI] 38.0-38.9, adult; Z87.891 Personal history of nicotine dependence; Z79.899 Other long term (current) drug therapy | CPT/HCPCS: 96127; 99212 ==

== ENCOUNTER 2025-02-13 13:06 | Outpatient (AMB) | payer OTHER, SELFPAY ==
--- NOTE | 2025-02-13 13:07 | MHC.PC.OV ---
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: No Accompanied by: Self / Same As Patient Allergies No Known Allergies [No Known Allergies*] Allergy (Verified 02/13/25 13:23) Medication List - Last Reconciled 02/13/25 by Adrian Quinonez MD acetaminophen 650 mg (2 x 325 mg) PO Q6H PRN 30 days aspirin 325 mg PO BID 42 days atorvastatin 10 mg PO BEDTIME 30 days chlorthalidone 25 mg PO DAILY famotidine 40 mg PO DAILY ibuprofen 600 mg PO TID PRN levothyroxine 200 mcg PO DAILY levothyroxine 50 mcg PO DAILY methadone 40 mg (4 x 10 mg) PO BID 21 days naloxone 4 mg/actuation (Narcan) 1 spray intranasal Q2M omeprazole 40 mg PO DAILY oxycodone 10 mg PO Q4H PRN 7 days psyllium 1 packet PO DAILY sertraline 50 mg PO DAILY Tobacco use date assessed: 02/13/25 Dental Screening Dental Screen Date: 02/13/25 Did you have a dental visit in the last 12 months?: Yes Did you have a dental problem in the last 6 months where you did not have access to dental care?: No Was dental information given to patient?: Patient has dentist HPI Med Management HPI Details Patient comes in today for her follow up visit States that she feels okay She denies any headaches or dizziness Denies any chest pains, no shortness of breath No nausea/vomiting, no abdominal pain No change in bowel habits noted States that her current pain medication is helping with her chronic low back pain, which is mostly unchanged from previous, and allows her to continue to stay productive - will need her pain meds Rx refilled today [facility] Medical History Mixed hyperlipidemia Pure hypercholesterolemia Obesity (BMI 30-39.9) GERD without esophagitis Acquired hypothyroidism Essential hypertension Bilateral primary osteoarthritis of knee Lumbar degenerative disc disease Neuropathy of genitofemoral nerve History of COVID-19 GERD (gastroesophageal reflux disease) COVID-19 vaccine series completed Osteoarthritis Hernia of abdominal cavity Surgical History History of left knee replacement H/O colonoscopy Hx of umbilical hernia repair Hx of breast reduction, elective Family History Father Esophageal cancer Mother No problems noted. Maternal Grandmother Osteoarthritis Sister No problems noted. Social History Household Members: Spouse Housing: House Are you a primary rn primary care to a significant other at home: No Do you presently have visiting nurse or other home services: No Alcohol intake: current Alcohol intake frequency: holidays/special occasions only Patient Tobacco Use Status: Former Tobacco user Tobacco use type: Cigarette Years Smoked: 40 e-Cigarette/Vaping Use: Never Used Second Hand Smoke Exposure: No service: No Current occupational status: retired Current occupation: Right Handed Current occupational exposures/hazards: No Cognitive needs: No Hearing needs: No Vision needs: Yes (reading glasses) Questionnaire PHQ-9 Over the last 2 weeks, how often have you been bothered by any of the following problems? 1. Little interest or pleasure in doing things: not at all 2. Feeling down, depressed, or hopeless: not at all 3. Trouble falling or staying asleep, or sleeping too much: not at all 4. Feeling tired or having little energy: not at all 5. Poor appetite or overeating: not at all 6. Feeling bad about yourself - or that you are a failure or have let yourself or your family down: not at all 7. Trouble concentrating on things, such as reading the newspaper or watching television: not at all 8. Moving or speaking so slowly that other people could have noticed. Or the opposite - being so fidgety or restless that you have been moving around a lot more than usual: not at all 9. Thoughts that you would be better off or of hurting yourself in some way: not at all Total score: 0 Depression Screening Interpretation: Negative Depression Screening Done: Yes 70900 - PHQ-9 Billing: Yes Source: Developed by Drs. Cecil Harley, Shanell Suarez, Carlos Seth and colleagues, with an educational sanjay from [employer] Thrive Questionnaire Date Thrive assessed: 02/13/25 I am a: Patient What is your living situation today?: I have a steady place to live Within the past 12 months, did the food you bought not last and you didn't have the money to get more?: Never true Within the past 12 months, did you worry whether your food would run out before you got money to buy more?: Never true Do you have trouble paying for medicines?: No Do you have trouble getting transportation to medical appointments?: No Do you have trouble paying your heating and electricity bill?: No Do you have trouble taking care of your child, family member or friend?: No Do you have trouble with day-to-day activities such as bathing, preparing meals, shopping, managing finances, etc.?: No Are you currently unemployed and looking for a job?: No Are you interested in more education?: No Please select the resources that you would like help with: None Currently or been in a relationship where the following occur: No concerns reported THRIVE Score: 0 AUDIT C Alcohol Use Questionnaire (AUDIT-C) 1. How often do you have a drink containing alcohol?: Never 3. How often do you have six or more drinks on one occasion?: Never Total Score: 0 Score Reviewed/Action Taken: Yes GHULAM-7 AMB Questionnaire GHULAM-7 Date GHULAM - 7 assessed: 02/13/25 Feeling nervous, anxious, or on edge: 0 = Not at all Not being able to stop or control worryin = Not at all Worrying too much about different things: 0 = Not at all Trouble relaxin = Not at all Being so restless that it is hard to sit still: 0 = Not at all Becoming easily annoyed or irritable: 0 = Not at all Feeling afraid as if something awful might happen: 0 = Not at all Total GHULAM-7 score (0-4 normal; 5-9 mild; 10-14 moderate; 15-21 severe): 0 Source: Developed by Drs. Cecil Harley, Shanell Suarez, Carlos Seth and colleagues, with an educational sanjay from [employer] Review of Systems Const Denies chills, Denies fatigue, Denies fever(s) and Denies headache(s) ENT Denies dysphagia, Denies dizziness, Denies otalgia, Denies headache(s), Denies neck pain, Denies odynophagia and Denies sore throat Card Denies chest pain, Denies palpitations and Denies dyspnea Resp Denies chest congestion, Denies cough and Denies dyspnea GI Denies abdominal pain, Denies constipation, Denies dysphagia, Denies heartburn, Denies diarrhea, Denies nausea, Denies odynophagia and Denies vomiting Denies difficulty voiding, Denies nocturia, Denies dysuria and Denies urinary urgency Musc Reports back pain (over the lower back - chronic), Reports arthralgias (in both knees (chronic), although her knee pains have decreased since TKA) and Denies neck pain Skin/Breast Denies rash Neuro Denies dizziness and Denies headache(s) Endo Denies fatigue and Denies palpitations Physical exam (Primary Care) Vital Signs: Last Vital Signs Pulse 90 02/13/25 13:08 BP 118/76 02/13/25 13:08 Pulse Ox 95 02/13/25 13:08 Oxygen Delivery Method Room Air 02/13/25 13:08 BMI result Body Mass Index 38.0 Tobacco/Smoking Status: Tobacco use Status Tobacco use date assessed 02/13/25 02/13/25 13:11 Patient Tobacco Use Status Former Tobacco user 02/13/25 13:11 Tobacco use type Cigarette 02/13/25 13:11 e-Cigarette/Vaping Use Never Used 02/13/25 13:11 PHQ-9: PHQ-9 Score PHQ-9: Total score 0 02/13/25 13:11 Depression Screening Interpretation: Negative Thrive Assessment: Date of Thrive Assessment Date Thrive assessed 02/13/25 02/13/25 13:11 Currently or been in a relationship where the following occur: No concerns reported Const General: no acute distress and alert HENMT Ears: TM's normal bilaterally and EAC's normal Throat: Yes posterior oropharynx normal and Yes tonsils normal (no TP congestion) Neck Neck: Yes supple and No lymphadenopathy Thyroid: Thyroid normal Resp Auscultation: clear to auscultation bilaterally, no rales and no wheezes Cardio Rate: regular rate Rhythm: regular rhythm Heart sounds: no murmurs GI Palpation (GI): Soft to palpation and nontender Auscultation: normal bowel sounds General: Yes no CVA tenderness Back/Spine/Pelvis Back: no CVA tenderness Thoracic/Lumbar Spine: lumbar spinal tenderness Skin Rashes: no rashes Extrem Other: (+) healed vertical scar over the anterior aspect of both knees General: Yes no clubbing, cyanosis or edema Right lower extremity: knee Details: tenderness; no swelling Left lower extremity: knee Details: tenderness; no swelling Coding Level of Care Code Est Pt Level 4 (08905) Diagnoses Degeneration of intervertebral disc of lumbar region with discogenic back pain M51.360 Disc-related pain type: discogenic back pain only Bilateral primary osteoarthritis of knee M17.0 Essential hypertension I10 Acquired hypothyroidism E03.9 Mixed hyperlipidemia E78.2 GERD without esophagitis K21.9 Anxiety F41.9 Obesity (BMI 30-39.9) E66.9 Additional Codes PHQ-9 - 03447 - PHQ-9 Billing: Yes ([id number]) Assessment & Plan Assessment & Plan (1) Lumbar degenerative disc disease: Code(s): M51.369 - Other intervertebral disc degeneration, lumbar region without mention of lumbar back pain or lower extremity pain Category: Medical Qualifiers: Disc-related pain type: discogenic back pain only Qualified Code(s): M51.360 - Other intervertebral disc degeneration, lumbar region with discogenic back pain only Plan: Reinforced activity and weight-lifting restrictions Patient has reportedly been on Methadone 40 mg BID and Oxycodone 10 mg Q 4 hours PRN for her chronic low back pain and joint (knee) pains for over 15 years, ever since she had Dr. Cardoza as her PCP Recalls that Dr. Cardoza has tried her on several different pain medications years ago and that Methadone was the one that provided her with the best pain relief and the least side effects States that these medications are helping with her chronic pain and allow her to stay active and to continue working and have some quality of life She transferred over to Dr. Coronado when Dr. Cardoza retired from active practice years ago and Dr. Coronado continued her on her current medications Adds that she has been on the same pain medications for many years and has never once taken them inappropriately or asked for any early refills or dose escalations Per previous discussion, I will continue patient on the same medications; as per the stipulations in her pain management agreement, we will need to continue random/unannounced drug screens and/or pill counts going forward (2) Bilateral primary osteoarthritis of knee: Code(s): M17.0 - Bilateral primary osteoarthritis of knee Category: Medical Plan: S/P left TKA on 10/18/2021 and right TKA on 10/24/2022, both with Dr. Yusuf Patient states that she still has (chronic) bilateral knee pains but these have improved a lot with her joint replacement surgeries Continue Ibuprofen 600 mg TID PRN or Acetaminophen 650 mg Q 6 hours PRN, Methadone 40 mg BID and Oxycodone 10 mg Q 4 hours PRN Follow-up with orthopedics as scheduled (3) Essential hypertension: Code(s): I10 - Essential (primary) hypertension Category: Medical Plan: Reinforced low-sodium diet - goal is systolic BP of 120 mm or less Continue Chlorthalidone 25 mg QD Patient is reminded to continue monitoring her blood pressure regularly (4) Acquired hypothyroidism: Code(s): E03.9 - Hypothyroidism, unspecified Category: Medical Plan: Continue Levothyroxine 250 mcg QD (5) Mixed hyperlipidemia: Code(s): E78.2 - Mixed hyperlipidemia Category: Medical Plan: Reinforced low-cholesterol diet Continue Atorvastatin 10 mg QD Will have her recheck her fasting lipids in a couple of months for follow-up - these will be ordered accordingly when it is time (6) GERD without esophagitis: Code(s): K21.9 - Gastro-esophageal reflux disease without esophagitis Category: Medical Plan: Dietary restrictions reinforced Continue Omeprazole 40 mg QD and Famotidine 40 mg QD PRN (7) Anxiety: Code(s): F41.9 - Anxiety disorder, unspecified Category: Medical Plan: Continue Sertraline 50 mg QD (8) Obesity (BMI 30-39.9): Code(s): E66.9 - Obesity, unspecified Category: Medical Plan: Reinforced diet/exercise as tolerated/lose weight Plan Follow up in 1 month Medications: Refilled methadone 40 mg (4 x 10 mg) PO BID 21 days 240 tabs 0RF pain M25.569 - Pain in unspecified knee, M54.9 - Dorsalgia, unspecified oxycodone 10 mg PO Q4H 7 days PRN 45 tabs 0RF Pain
[2025-02-13 13:08] VITALS: BP 118/76; PULSE 90; O2SAT 95; BMI 38.0
== END 2025-02-13 13:41 | disposition home or self-care (01) ==
LOC: HO.HMCH 13:07
PROVIDERS: PCP Internal Medicine; Visit Provider Internal Medicine
DX: M51.360 Other intervertebral disc degeneration, lumbar region with discogenic back pain only (principal); M17.0 Bilateral primary osteoarthritis of knee; E66.9 Obesity, unspecified; Z68.38 Body mass index [BMI] 38.0-38.9, adult; I10 Essential (primary) hypertension; E03.9 Hypothyroidism, unspecified; E78.2 Mixed hyperlipidemia; K21.9 Gastro-esophageal reflux disease without esophagitis; F41.9 Anxiety disorder, unspecified

== ENCOUNTER → 2025-02-13 13:06 | Outpatient (BNVA) | payer OTHER, SELFPAY | PROVIDERS: PCP Internal Medicine; Visit Provider Internal Medicine | DX: M51.360 Other intervertebral disc degeneration, lumbar region with discogenic back pain only (principal); G89.29 Other chronic pain; M17.0 Bilateral primary osteoarthritis of knee; I10 Essential (primary) hypertension; E03.9 Hypothyroidism, unspecified; E78.2 Mixed hyperlipidemia; K21.9 Gastro-esophageal reflux disease without esophagitis; F41.9 Anxiety disorder, unspecified; E66.9 Obesity, unspecified; Z68.38 Body mass index [BMI] 38.0-38.9, adult | CPT/HCPCS: 96127; 99212 ==

== ENCOUNTER 2025-03-13 11:14 | Outpatient (AMB) | payer OTHER, SELFPAY ==
[2025-03-13 11:18] VITALS: BP 118/76; PULSE 76; O2SAT 97; BMI 38.1
--- NOTE | 2025-03-13 11:18 | A.OFFPC_ITS ---
Vital Signs 03/13/25 11:18 Height 5 ft 5 in Weight 229 lb 4 oz BMI 38.1 BP 118/76 Blood Pressure Location Rt femoral Position Sitting Pulse 76 Pulse Source Pulse Oximeter Pulse Oximetry (%) 97 Oxygen Delivery Method Room Air Intake Visit Reasons: med Management Monogram Maker Required: No Accompanied by: Self / Same As Patient Allergies No Known Allergies (No Known Allergies*) Allergy (Verified 03/13/25 11:59) Medication List - Last Reconciled 03/13/25 by Adrian Quinonez MD acetaminophen 650 mg (2 x 325 mg) PO Q6H PRN 30 days aspirin 325 mg PO BID 42 days atorvastatin 10 mg PO BEDTIME 30 days chlorthalidone 25 mg PO DAILY 90 days famotidine 40 mg PO DAILY ibuprofen 600 mg PO TID PRN levothyroxine 200 mcg PO DAILY levothyroxine 50 mcg PO DAILY methadone 40 mg (4 x 10 mg) PO BID 21 days naloxone 4 mg/actuation (Narcan) 1 spray intranasal Q2M omeprazole 40 mg PO DAILY oxycodone 10 mg PO Q4H PRN 7 days psyllium 1 packet PO DAILY sertraline 50 mg PO DAILY Tobacco use date assessed: 03/13/25 Dental Screening Dental Screen Date: 03/13/25 Did you have a dental visit in the last 12 months?: Yes Did you have a dental problem in the last 6 months where you did not have access to dental care?: No Was dental information given to patient?: Patient has dentist HPI med Management HPI Details Patient comes in today for her follow up visit States that she feels okay and that her current pain medications are helping with her chronic low back pain, which is mostly unchanged from previous - as before, she will need her pain meds Rx refilled today She denies any headaches or dizziness Denies any chest pains, no shortness of breath No nausea/vomiting, no abdominal pain No change in bowel habits noted PFSH Medical History Mixed hyperlipidemia Pure hypercholesterolemia Obesity (BMI 30-39.9) GERD without esophagitis Acquired hypothyroidism Essential hypertension Bilateral primary osteoarthritis of knee Lumbar degenerative disc disease Neuropathy of genitofemoral nerve History of COVID-19 GERD (gastroesophageal reflux disease) COVID-19 vaccine series completed Osteoarthritis Hernia of abdominal cavity Surgical History History of left knee replacement H/O colonoscopy Hx of umbilical hernia repair Hx of breast reduction, elective Family History Father Esophageal cancer Mother No problems noted. Maternal Grandmother Osteoarthritis Sister No problems noted. Social History Household Members: Spouse Housing: House Are you a primary customer care voice consultant to a significant other at home: No Do you presently have visiting nurse or other home services: No Alcohol intake: current Alcohol intake frequency: holidays/special occasions only Patient Tobacco Use Status: Former Tobacco user Tobacco use type: Cigarette Years Smoked: 40 e-Cigarette/Vaping Use: Never Used Second Hand Smoke Exposure: No service: No Current occupational status: retired Current occupation: Right Handed Current occupational exposures/hazards: No Cognitive needs: No Hearing needs: No Vision needs: Yes (reading glasses) Questionnaire PHQ-9 Over the last 2 weeks, how often have you been bothered by any of the following problems? 1. Little interest or pleasure in doing things: not at all 2. Feeling down, depressed, or hopeless: not at all 3. Trouble falling or staying asleep, or sleeping too much: not at all 4. Feeling tired or having little energy: not at all 5. Poor appetite or overeating: not at all 6. Feeling bad about yourself - or that you are a failure or have let yourself or your family down: not at all 7. Trouble concentrating on things, such as reading the newspaper or watching television: not at all 8. Moving or speaking so slowly that other people could have noticed. Or the opposite - being so fidgety or restless that you have been moving around a lot more than usual: not at all 9. Thoughts that you would be better off or of hurting yourself in some way: not at all Total score: 0 Depression Screening Interpretation: Negative Depression Screening Done: Yes 85482 - PHQ-9 Billing: Yes Source: Developed by Drs. Cecil Harley, Shanell Suarez, Carlos Seth and colleagues, with an educational sanjay from [employer]. Thrive Questionnaire Date Thrive assessed: 03/13/25 I am a: Patient What is your living situation today?: I have a steady place to live Within the past 12 months, did the food you bought not last and you didn't have the money to get more?: Never true Within the past 12 months, did you worry whether your food would run out before you got money to buy more?: Never true Do you have trouble paying for medicines?: No Do you have trouble getting transportation to medical appointments?: No Do you have trouble paying your heating and electricity bill?: No Do you have trouble taking care of your child, family member or friend?: No Do you have trouble with day-to-day activities such as bathing, preparing meals, shopping, managing finances, etc.?: No Are you currently unemployed and looking for a job?: No Are you interested in more education?: No Please select the resources that you would like help with: None Currently or been in a relationship where the following occur: No concerns reported THRIVE Score: 0 AUDIT C Alcohol Use Questionnaire (AUDIT-C) 1. How often do you have a drink containing alcohol?: Never 3. How often do you have six or more drinks on one occasion?: Never Total Score: 0 Score Reviewed/Action Taken: Yes GHULAM-7 AMB Questionnaire GHULAM-7 Date GHULAM - 7 assessed: 03/13/25 Feeling nervous, anxious, or on edge: 0 = Not at all Not being able to stop or control worryin = Not at all Worrying too much about different things: 0 = Not at all Trouble relaxin = Not at all Being so restless that it is hard to sit still: 0 = Not at all Becoming easily annoyed or irritable: 0 = Not at all Feeling afraid as if something awful might happen: 0 = Not at all Total GHULAM-7 score (0-4 normal; 5-9 mild; 10-14 moderate; 15-21 severe): 0 Source: Developed by Drs. Cecil Harley, Shanell Suarez, Carlos Seth and colleagues, with an educational sanjay from [employer]. Review of Systems Const Denies chills, Denies fatigue, Denies fever(s) and Denies headache(s) ENT Denies dysphagia, Denies dizziness, Denies otalgia, Denies headache(s), Denies neck pain, Denies odynophagia and Denies sore throat Card Denies chest pain, Denies palpitations and Denies dyspnea Resp Denies chest congestion, Denies cough and Denies dyspnea GI Denies abdominal pain, Denies constipation, Denies dysphagia, Denies heartburn, Denies diarrhea, Denies nausea, Denies odynophagia and Denies vomiting Denies difficulty voiding, Denies nocturia, Denies dysuria and Denies urinary urgency Musc Reports back pain (over the lower back - chronic), Reports arthralgias (in both knees (chronic), although her knee pains have decreased since TKA) and Denies neck pain Skin/Breast Denies rash Neuro Denies dizziness and Denies headache(s) Endo Denies fatigue and Denies palpitations Physical exam (Primary Care) Vital Signs: Last Vital Signs Pulse 76 03/13/25 11:18 BP 118/76 03/13/25 11:18 Pulse Ox 97 03/13/25 11:18 Oxygen Delivery Method Room Air 03/13/25 11:18 BMI result Body Mass Index 38.1 Tobacco/Smoking Status: Tobacco use Status Tobacco use date assessed 03/13/25 03/13/25 11:24 Patient Tobacco Use Status Former Tobacco user 03/13/25 11:24 Tobacco use type Cigarette 03/13/25 11:24 e-Cigarette/Vaping Use Never Used 03/13/25 11:24 PHQ-9: PHQ-9 Score PHQ-9: Total score 0 03/13/25 11:59 Depression Screening Interpretation: Negative Thrive Assessment: Date of Thrive Assessment Date Thrive assessed 03/13/25 03/13/25 11:24 Currently or been in a relationship where the following occur: No concerns reported Const General: no acute distress and alert HENMT Ears: TM's normal bilaterally and EAC's normal Throat: Yes posterior oropharynx normal and Yes tonsils normal (no TP congestion) Neck Neck: Yes supple and No lymphadenopathy Thyroid: Thyroid normal Resp Auscultation: clear to auscultation bilaterally, no rales and no wheezes Cardio Rate: regular rate Rhythm: regular rhythm Heart sounds: no murmurs GI Palpation (GI): Soft to palpation and nontender Auscultation: normal bowel sounds General: Yes no CVA tenderness Back/Spine/Pelvis Back: no CVA tenderness Thoracic/Lumbar Spine: lumbar spinal tenderness Skin Rashes: no rashes Extrem Other: (+) healed vertical scar over the anterior aspect of both knees General: Yes no clubbing, cyanosis or edema Right lower extremity: knee Details: tenderness; no swelling Left lower extremity: knee Details: tenderness; no swelling Coding Level of Care Code Est Pt Level 4 (20176) Diagnoses Degeneration of intervertebral disc of lumbar region with discogenic back pain M51.360 Disc-related pain type: discogenic back pain only Bilateral primary osteoarthritis of knee M17.0 Essential hypertension I10 Acquired hypothyroidism E03.9 Mixed hyperlipidemia E78.2 GERD without esophagitis K21.9 Anxiety F41.9 Obesity (BMI 30-39.9) E66.9 Additional Codes PHQ-9 - 26182 - PHQ-9 Billing: Yes ([id number]) Assessment & Plan Assessment & Plan (1) Lumbar degenerative disc disease: Code(s): M51.369 - Other intervertebral disc degeneration, lumbar region without mention of lumbar back pain or lower extremity pain Category: Medical Qualifiers: Disc-related pain type: discogenic back pain only Qualified Code(s): M51.360 - Other intervertebral disc degeneration, lumbar region with discogenic back pain only Plan: Reinforced activity and weight-lifting restrictions Patient has reportedly been on Methadone 40 mg BID and Oxycodone 10 mg Q 4 hours PRN for her chronic low back pain and joint (knee) pains for over 15 years, ever since she had Dr. Cardoza as her PCP She recalls that Dr. Cardoza tried her on several different pain medications years ago and that Methadone was the one that provided her with the best pain relief and the least side effects and states that these medications are helping with her chronic pain and allow her to stay active and to continue working and have some quality of life She transferred over to Dr. Coronado when Dr. Cardoza retired from active practice years ago and Dr. Coronado continued her on her current medications She has reportedly been on the same pain medications for many years and has never taken them inappropriately or asked for any early refills or dose escalations over the years Per previous discussion, I will continue patient on the same medications - Rx for both Methadone and Oxycodone refilled today (2) Bilateral primary osteoarthritis of knee: Code(s): M17.0 - Bilateral primary osteoarthritis of knee Category: Medical Plan: S/P left TKA on 10/18/2021 and right TKA on 10/24/2022, both with Dr. Yusuf Patient states that she still has (chronic) bilateral knee pains but these have improved a lot with her joint replacement surgeries Continue Ibuprofen 600 mg TID PRN or Acetaminophen 650 mg Q 6 hours PRN, Methadone 40 mg BID and Oxycodone 10 mg Q 4 hours PRN Follow-up with orthopedics as scheduled (3) Essential hypertension: Code(s): I10 - Essential (primary) hypertension Category: Medical Plan: Reinforced low-sodium diet - goal is systolic BP of 120 mm or less Continue Chlorthalidone 25 mg QD Patient is reminded to continue monitoring her blood pressure regularly (4) Acquired hypothyroidism: Code(s): E03.9 - Hypothyroidism, unspecified Category: Medical Plan: Continue Levothyroxine 250 mcg QD (5) Mixed hyperlipidemia: Code(s): E78.2 - Mixed hyperlipidemia Category: Medical Plan: Reinforced low-cholesterol diet Continue Atorvastatin 10 mg QD Will have her recheck her fasting lipids and labs next month for follow-up (6) GERD without esophagitis: Code(s): K21.9 - Gastro-esophageal reflux disease without esophagitis Category: Medical Plan: Dietary restrictions reinforced Continue Omeprazole 40 mg QD and Famotidine 40 mg QD PRN (7) Anxiety: Code(s): F41.9 - Anxiety disorder, unspecified Category: Medical Plan: Continue Sertraline 50 mg QD (8) Obesity (BMI 30-39.9): Code(s): E66.9 - Obesity, unspecified Category: Medical Plan: Reinforced diet/exercise as tolerated/lose weight Plan Follow up in 1 month Orders: Orders Complete Blood Count Auto Diff 4 Weeks D64.9 - Anemia, unspecified Comprehensive [place]. Panel Fast 4 Weeks E78.00 - Pure hypercholesterolemia, unspecified Lipid Panel 4 Weeks E78.00 - Pure hypercholesterolemia, unspecified Free T4 (Free Thyroxine) 4 Weeks E03.9 - Hypothyroidism, unspecified Thyroid Stimulating Hormone 4 Weeks E03.9 - Hypothyroidism, unspecified UA CC w/rflx Micro + Cult 4 Weeks R30.0 - Dysuria Vitamin B12 and Folate 4 Weeks E53.8 - Deficiency of other specified B group vitamins Vitamin D 25-OH Total 4 Weeks E55.9 - Vitamin D deficiency, unspecified Medications: Refilled methadone 40 mg (4 x 10 mg) PO BID 240 tabs 0RF 21 days M25.569 - Pain in unspecified knee, M54.9 - Dorsalgia, unspecified oxycodone 10 mg PO Q4H PRN 45 tabs 0RF Pain 7 days
== END 2025-03-13 12:18 | disposition home or self-care (01) ==
LOC: HO.HMCH 11:14
PROVIDERS: PCP Internal Medicine; Visit Provider Internal Medicine
DX: M51.360 Other intervertebral disc degeneration, lumbar region with discogenic back pain only (principal); M17.0 Bilateral primary osteoarthritis of knee; E66.9 Obesity, unspecified; Z68.38 Body mass index [BMI] 38.0-38.9, adult; I10 Essential (primary) hypertension; E03.9 Hypothyroidism, unspecified; E78.2 Mixed hyperlipidemia; K21.9 Gastro-esophageal reflux disease without esophagitis; F41.9 Anxiety disorder, unspecified

== ENCOUNTER → 2025-03-13 11:14 | Outpatient (BNVA) | payer OTHER, SELFPAY | PROVIDERS: PCP Internal Medicine; Visit Provider Internal Medicine | DX: M51.360 Other intervertebral disc degeneration, lumbar region with discogenic back pain only (principal); M17.0 Bilateral primary osteoarthritis of knee; I10 Essential (primary) hypertension; E03.9 Hypothyroidism, unspecified; E78.2 Mixed hyperlipidemia; K21.9 Gastro-esophageal reflux disease without esophagitis; F41.9 Anxiety disorder, unspecified; E66.9 Obesity, unspecified; Z68.38 Body mass index [BMI] 38.0-38.9, adult | CPT/HCPCS: 96127; 99212 ==

== ENCOUNTER 2025-04-01 10:23 | Outpatient (REF) | payer OTHER, SELFPAY ==
[2025-04-01 10:54] LABS: MANUAL DIFF FLAG NO
[2025-04-01 11:03] LABS: Hematocrit 39.5 % (37.0-47.0); Hemoglobin 12.9 g/dl (12.0-16.0); Imm Gran Abs Auto 0.01 X10*3/uL (0.00-0.03); Imm Gran Pct Auto 0.1 % (0.0-0.4); Lymphocytes Absolute Auto 2.4 X10*3/uL (1.2-4.9); Mean Corpuscular HGB Conc 32.7 g/dl (31.0-35.0); Mean Corpuscular Hemoglobin 28.8 pg (27.0-33.0); Mean Corpuscular Volume 88.2 fL (80.0-98.0); NRBC Abs Auto 0.000 X10*3/uL (0.0-0.012); NRBC Pct Auto 0.0 /100WBC (0.0-0.2); Platelet Count 248 X10*3/uL (160-400); Red Blood Count 4.48 X10*6/uL (4.20-5.50); White Blood Count 8.1 X10*3/uL (4.8-10.8)
[2025-04-01 12:04] LABS: Albumin Level 4.3 g/dL (3.5-5.0); Alkaline Phosphatase 74 U/L (39-117); Anion Gap 10 (12-20); Aspartate Amino Transferase 20 U/L (5-31); Blood Urea Nitrogen 15 mg/dL (9-16); Calcium 9.0 mg/dL (8.4-10.2); Carbon Dioxide 37 mmol/L (22-29); Chloride 98 mmol/L (96-108); Cholesterol 160 mg/dL (<200); Estimated Glomerular Filt Rate > 60; HDL Cholesterol 50 mg/dL (>40); Potassium 3.3 mmol/L (3.3-5.1); Sodium 142 mmol/L (135-145); Total Protein 7.3 g/dL (6.5-8.0); Triglycerides 122 mg/dL (<150)
[2025-04-01 12:10] LABS: Appearance Urine Clear; Glucose Urine UA Negative (Negative); PH 8.5 (5.0-9.0); Specific Gravity - Urine 1.010 (1.005-1.025); UMIC TRIGGER UACC YES
[2025-04-01 12:16] LABS: UACC Culture Trigger YES
[2025-04-01 12:17] LABS: Alanine Aminotransferase 21 U/L (0-31)
[2025-04-01 12:18] LABS: Free T4 (Free Thyroxine) 1.51 ng/dL (0.71-1.85); Thyroid Stimulating Hormone 0.04 uIU/mL (0.32-4.0)
[2025-04-01 12:38] LABS: Folate 17.5 ng/mL (> or = 4.0); Vitamin B12 763 pg/mL (200-900)
== END 2025-04-01 10:24 | disposition home or self-care (01) ==
LOC: HO.LAB 10:23
PROVIDERS: PCP Internal Medicine; Visit Provider Internal Medicine
DX: D64.9 Anemia, unspecified (principal); R30.0 Dysuria; E53.8 Deficiency of other specified B group vitamins; E55.9 Vitamin D deficiency, unspecified; E78.00 Pure hypercholesterolemia, unspecified; E03.9 Hypothyroidism, unspecified
CPT/HCPCS: 36415; 80053; 80061; 81001; 81003; 82306; 82607; 82746; 84439; 84443; 85025; 87086

== ENCOUNTER 2025-04-10 09:27 | Outpatient (AMB) | payer OTHER, SELFPAY ==
--- NOTE | 2025-04-10 09:30 | MHC.PC.OV ---
Vital Signs 04/10/25 09:31 Height 5 ft 5 in Weight 227 lb 8 oz BMI 37.9 BP 124/82 Blood Pressure Location Rt femoral Position Sitting Pulse 75 Pulse Source Pulse Oximeter Pulse Oximetry (%) 95 Oxygen Delivery Method Room Air Intake Visit Reasons: Med Management Contact Center Manager Required: No Accompanied by: Self / Same As Patient Allergies No Known Allergies (No Known Allergies*) Allergy (Verified 04/10/25 10:10) Medication List - Last Reconciled 04/10/25 by Adrian Quinonez MD acetaminophen 650 mg (2 x 325 mg) PO Q6H PRN 30 days aspirin 325 mg PO BID 42 days atorvastatin 10 mg PO BEDTIME 30 days chlorthalidone 25 mg PO DAILY 90 days famotidine 40 mg PO DAILY ibuprofen 600 mg PO TID PRN levothyroxine 200 mcg PO DAILY levothyroxine 50 mcg PO DAILY methadone 40 mg (4 x 10 mg) PO BID 21 days naloxone 4 mg/actuation (Narcan) 1 spray intranasal Q2M omeprazole 40 mg PO DAILY oxycodone 10 mg PO Q4H PRN 7 days psyllium 1 packet PO DAILY sertraline 50 mg PO DAILY Tobacco use date assessed: 04/10/25 Dental Screening Dental Screen Date: 04/10/25 Did you have a dental visit in the last 12 months?: Yes Did you have a dental problem in the last 6 months where you did not have access to dental care?: No Was dental information given to patient?: Patient has dentist HPI Med Management HPI Details Patient comes in today for her follow up visit States that she feels okay She denies any headaches or dizziness Denies any chest pains, no shortness of breath No nausea/vomiting, no abdominal pain No change in bowel habits noted States that her current pain medications are still helping with her chronic low back pain, which is mostly unchanged from previous and she will need her pain meds Rx refilled today She had her follow up labs done last week - to discuss her results [facility] Medical History Mixed hyperlipidemia Pure hypercholesterolemia Obesity (BMI 30-39.9) GERD without esophagitis Acquired hypothyroidism Essential hypertension Bilateral primary osteoarthritis of knee Lumbar degenerative disc disease Neuropathy of genitofemoral nerve History of COVID-19 GERD (gastroesophageal reflux disease) COVID-19 vaccine series completed Osteoarthritis Hernia of abdominal cavity Surgical History History of left knee replacement H/O colonoscopy Hx of umbilical hernia repair Hx of breast reduction, elective Family History Father Esophageal cancer Mother No problems noted. Maternal Grandmother Osteoarthritis Sister No problems noted. Social History Household Members: Spouse Housing: House Are you a primary health care sanitary technician to a significant other at home: No Do you presently have visiting nurse or other home services: No Alcohol intake: current Alcohol intake frequency: holidays/special occasions only Patient Tobacco Use Status: Former Tobacco user Tobacco use type: Cigarette Years Smoked: 40 e-Cigarette/Vaping Use: Never Used Second Hand Smoke Exposure: No service: No Current occupational status: retired Current occupation: Right Handed Current occupational exposures/hazards: No Cognitive needs: No Hearing needs: No Vision needs: Yes (reading glasses) Questionnaire PHQ-9 Over the last 2 weeks, how often have you been bothered by any of the following problems? 1. Little interest or pleasure in doing things: not at all 2. Feeling down, depressed, or hopeless: not at all 3. Trouble falling or staying asleep, or sleeping too much: not at all 4. Feeling tired or having little energy: not at all 5. Poor appetite or overeating: not at all 6. Feeling bad about yourself - or that you are a failure or have let yourself or your family down: not at all 7. Trouble concentrating on things, such as reading the newspaper or watching television: not at all 8. Moving or speaking so slowly that other people could have noticed. Or the opposite - being so fidgety or restless that you have been moving around a lot more than usual: not at all 9. Thoughts that you would be better off or of hurting yourself in some way: not at all Total score: 0 Depression Screening Interpretation: Negative Depression Screening Done: Yes 91902 - PHQ-9 Billing: Yes Source: Developed by Drs. Cecil Harley, Shanell Suarez, Carlos Seth and colleagues, with an educational sanjay from [employer]. Thrive Questionnaire Date Thrive assessed: 04/10/25 I am a: Patient What is your living situation today?: I have a steady place to live Within the past 12 months, did the food you bought not last and you didn't have the money to get more?: Never true Within the past 12 months, did you worry whether your food would run out before you got money to buy more?: Never true Do you have trouble paying for medicines?: No Do you have trouble getting transportation to medical appointments?: No Do you have trouble paying your heating and electricity bill?: No Do you have trouble taking care of your child, family member or friend?: No Do you have trouble with day-to-day activities such as bathing, preparing meals, shopping, managing finances, etc.?: No Are you currently unemployed and looking for a job?: No Are you interested in more education?: No Please select the resources that you would like help with: None Currently or been in a relationship where the following occur: No concerns reported THRIVE Score: 0 AUDIT C Alcohol Use Questionnaire (AUDIT-C) 1. How often do you have a drink containing alcohol?: Never 3. How often do you have six or more drinks on one occasion?: Never Total Score: 0 Score Reviewed/Action Taken: Yes GHULAM-7 AMB Questionnaire GHULAM-7 Date GHULAM - 7 assessed: 04/10/25 Feeling nervous, anxious, or on edge: 0 = Not at all Not being able to stop or control worryin = Not at all Worrying too much about different things: 0 = Not at all Trouble relaxin = Not at all Being so restless that it is hard to sit still: 0 = Not at all Becoming easily annoyed or irritable: 0 = Not at all Feeling afraid as if something awful might happen: 0 = Not at all Total GHULAM-7 score (0-4 normal; 5-9 mild; 10-14 moderate; 15-21 severe): 0 Source: Developed by Drs. Cecil Harley, Shanell Suarez, Carlos Seth and colleagues, with an educational sanjay from [employer]. Review of Systems Const Denies chills, Denies fatigue, Denies fever(s) and Denies headache(s) ENT Denies dysphagia, Denies dizziness, Denies otalgia, Denies headache(s), Denies neck pain, Denies odynophagia and Denies sore throat Card Denies chest pain, Denies palpitations and Denies dyspnea Resp Denies chest congestion, Denies cough and Denies dyspnea GI Denies abdominal pain, Denies constipation, Denies dysphagia, Denies heartburn, Denies diarrhea, Denies nausea, Denies odynophagia and Denies vomiting Denies difficulty voiding, Denies nocturia, Denies dysuria and Denies urinary urgency Musc Details: (+) pain in her feet also lately, especially over the top of the left foot Reports back pain (over the lower back - chronic), Reports arthralgias (in both knees (chronic), although her knee pains have decreased since TKA) and Denies neck pain Skin/Breast Denies rash Neuro Denies dizziness and Denies headache(s) Endo Denies fatigue and Denies palpitations Physical exam (Primary Care) Vital Signs: Last Vital Signs Pulse 75 04/10/25 09:31 BP 124/82 04/10/25 09:31 Pulse Ox 95 04/10/25 09:31 Oxygen Delivery Method Room Air 04/10/25 09:31 BMI result Body Mass Index 37.9 Tobacco/Smoking Status: Tobacco use Status Tobacco use date assessed 04/10/25 04/10/25 09:36 Patient Tobacco Use Status Former Tobacco user 04/10/25 09:36 Tobacco use type Cigarette 04/10/25 09:36 e-Cigarette/Vaping Use Never Used 04/10/25 09:36 PHQ-9: PHQ-9 Score PHQ-9: Total score 0 04/10/25 09:36 Depression Screening Interpretation: Negative Thrive Assessment: Date of Thrive Assessment Date Thrive assessed 04/10/25 04/10/25 09:36 Currently or been in a relationship where the following occur: No concerns reported Const General: no acute distress and alert HENMT Ears: TM's normal bilaterally and EAC's normal Throat: Yes posterior oropharynx normal and Yes tonsils normal (no TP congestion) Neck Neck: Yes supple and No lymphadenopathy Thyroid: Thyroid normal Resp Auscultation: clear to auscultation bilaterally, no rales and no wheezes Cardio Rate: regular rate Rhythm: regular rhythm Heart sounds: no murmurs GI Palpation (GI): Soft to palpation and nontender Auscultation: normal bowel sounds General: Yes no CVA tenderness Back/Spine/Pelvis Back: no CVA tenderness Thoracic/Lumbar Spine: lumbar spinal tenderness Skin Rashes: no rashes Extrem Other: (+) healed vertical scar over the anterior aspect of both knees General: Yes no clubbing, cyanosis or edema Right lower extremity: knee Details: tenderness; no swelling Left lower extremity: knee Details: tenderness; no swelling Results Reviewed Results Reviewed: Laboratory Tests 04/01/25 04/01/25 10:46 10:48 WBC 8.1 Hgb 12.9 Hct 39.5 Plt Count 248 Sodium 142 Potassium 3.3 Creatinine 0.91 Estimated GFR > 60 Fasting Glucose 102 H Calcium 9.0 AST 20 ALT 21 Triglycerides 122 Cholesterol 160 LDL Cholesterol, Calc 86 HDL Cholesterol 50 Vitamin B12 763 25-OH Vitamin D Total 32.2 TSH 0.04 L Free T4 1.51 Ur Specific [place] 1.010 Urine Protein Negative Urine Glucose (UA) Negative Urine Blood Negative Urine Nitrite Negative Ur Leukocyte Esterase Large (3+) H Coding Level of Care Code Est Pt Level 4 (99334) Diagnoses Degeneration of intervertebral disc of lumbar region with discogenic back pain M51.360 Disc-related pain type: discogenic back pain only Bilateral primary osteoarthritis of knee M17.0 Essential hypertension I10 Acquired hypothyroidism E03.9 Mixed hyperlipidemia E78.2 GERD without esophagitis K21.9 Anxiety F41.9 Obesity (BMI 30-39.9) E66.9 Additional Codes PHQ-9 - 22155 - PHQ-9 Billing: Yes ([id number]) Assessment & Plan Assessment & Plan (1) Lumbar degenerative disc disease: Code(s): M51.369 - Other intervertebral disc degeneration, lumbar region without mention of lumbar back pain or lower extremity pain Category: Medical Qualifiers: Disc-related pain type: discogenic back pain only Qualified Code(s): M51.360 - Other intervertebral disc degeneration, lumbar region with discogenic back pain only Plan: Reinforced activity and weight-lifting restrictions Patient has reportedly been on Methadone 40 mg BID and Oxycodone 10 mg Q 4 hours PRN for her chronic low back pain and joint (knee) pains for over 15 years, ever since she had Dr. Cardoza as her PCP She recalls that Dr. Cardoza tried her on several different pain medications years ago and that Methadone was the one that provided her with the best pain relief and the least side effects and states that these medications are helping with her chronic pain and allow her to stay active and to continue working and have some quality of life She transferred over to Dr. Coronado when Dr. Cardoza retired from active practice years ago and Dr. Coronado continued her on her current medications She has reportedly been on the same pain medications for many years and has never taken them inappropriately or asked for any early refills or dose escalations over the years Continue both Methadone and Oxycodone as before - Rx refilled today (2) Bilateral primary osteoarthritis of knee: Code(s): M17.0 - Bilateral primary osteoarthritis of knee Category: Medical Plan: S/P left TKA on 10/18/2021 and right TKA on 10/24/2022, both with Dr. Yusuf Patient states that she still has (chronic) bilateral knee pains but these have improved a lot with her joint replacement surgeries Continue Ibuprofen 600 mg TID PRN or Acetaminophen 650 mg Q 6 hours PRN, Methadone 40 mg BID and Oxycodone 10 mg Q 4 hours PRN Follow-up with orthopedics as scheduled (3) Essential hypertension: Code(s): I10 - Essential (primary) hypertension Category: Medical Plan: Reinforced low-sodium diet - goal is systolic BP of 120 mm or less Continue Chlorthalidone 25 mg QD Patient is reminded to continue monitoring her blood pressure regularly (4) Acquired hypothyroidism: Code(s): E03.9 - Hypothyroidism, unspecified Category: Medical Plan: Her free T4 level was within normal range on her recent labs but it is at the high end of normal; her TSH remains suppressed Continue Levothyroxine 250 mcg QD and we will continue to monitor her TFTs regularly (5) Mixed hyperlipidemia: Code(s): E78.2 - Mixed hyperlipidemia Category: Medical Plan: Results of her labs done last week reviewed and discussed with patient - have advised her that her cholesterol levels have improved significantly from previous, with her total cholesterol now at 160 mg/dl and LDL cholesterol at 86 mg/dl Reinforced low-cholesterol diet and continue Atorvastatin 10 mg QD (Rx refilled) (6) GERD without esophagitis: Code(s): K21.9 - Gastro-esophageal reflux disease without esophagitis Category: Medical Plan: Dietary restrictions reinforced Continue Omeprazole 40 mg QD and Famotidine 40 mg QD PRN (7) Anxiety: Code(s): F41.9 - Anxiety disorder, unspecified Category: Medical Plan: Continue Sertraline 50 mg QD (8) Obesity (BMI 30-39.9): Code(s): E66.9 - Obesity, unspecified Category: Medical Plan: Reinforced diet/exercise as tolerated/lose weight Plan Follow up in 1 month Medications: Changed From atorvastatin 10 mg PO BEDTIME 30 days 30 tabs 3RF To atorvastatin 10 mg PO BEDTIME 90 tabs 1RF 90 days Refilled methadone 40 mg (4 x 10 mg) PO BID 240 tabs 0RF 21 days M25.569 - Pain in unspecified knee, M54.9 - Dorsalgia, unspecified oxycodone 10 mg PO Q4H PRN 45 tabs 0RF Pain 7 days
[2025-04-10 09:31] VITALS: BP 124/82; PULSE 75; O2SAT 95; BMI 37.9
--- OUTSIDE RECORDS SUMMARY | 2025-04-10 09:40 | XMS_ITS | Clinical Summary ---
Author Organization [facility] Address [address] [place], [place] [id number] Phone Care Team Providers Care Administrative Technician Name Role Phone Unavailable Primary Care Provider Unavailabl e Social History Tobacco Use Types Packs/Day Years Used Date Smoking Tobacco: Never Assessed Education Answer Date Recorded Are you interested in more education? Not on zoraida e 01/13/2023 Are you concerned about learning? Not on file 01/13/2023 No 01/13/2023 No 01/13/2023 Digital Access Answer Date Recorded No 02/13/2023 No 02/13/2023 Reliable internet access at home? Not on file 02/13/2023 Device with a working camera? Not on file Comments Unknown Sex and Gender Information Value Date Recorded Sex Assigned at Not on file Legal Sex Female 11:28 AM EST Gender Identity Not on file Sexual Orientation Not on file Plan of Treatment Not on file Medical Devices Not on file Additional Source Comments The information contained in this document represents components of the legal health record. It is not the complete legal health record.[facility]
== END 2025-04-10 10:25 | disposition home or self-care (01) ==
LOC: HO.HMCH 09:28
PROVIDERS: PCP Internal Medicine; Visit Provider Internal Medicine
DX: M51.360 Other intervertebral disc degeneration, lumbar region with discogenic back pain only (principal); E66.9 Obesity, unspecified; Z68.37 Body mass index [BMI] 37.0-37.9, adult; M17.0 Bilateral primary osteoarthritis of knee; I10 Essential (primary) hypertension; E03.9 Hypothyroidism, unspecified; E78.2 Mixed hyperlipidemia; K21.9 Gastro-esophageal reflux disease without esophagitis; F41.9 Anxiety disorder, unspecified

== ENCOUNTER → 2025-04-10 09:27 | Outpatient (BNVA) | payer OTHER, SELFPAY | PROVIDERS: PCP Internal Medicine; Visit Provider Internal Medicine | DX: M51.360 Other intervertebral disc degeneration, lumbar region with discogenic back pain only (principal); M17.0 Bilateral primary osteoarthritis of knee; I10 Essential (primary) hypertension; E03.9 Hypothyroidism, unspecified; E78.2 Mixed hyperlipidemia; K21.9 Gastro-esophageal reflux disease without esophagitis; F41.9 Anxiety disorder, unspecified; E66.9 Obesity, unspecified; Z68.37 Body mass index [BMI] 37.0-37.9, adult | CPT/HCPCS: 96127; 99212 ==

== ENCOUNTER 2025-05-08 09:33 | Outpatient (AMB) | payer OTHER, SELFPAY ==
[2025-05-08 09:37] VITALS: BP 110/62; PULSE 76; O2SAT 94; BMI 38.0
--- NOTE | 2025-05-08 09:37 | A.OFFPC_ITS ---
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 Accompanied by: Self / Same As Patient Allergies No Known Allergies (No Known Allergies*) Allergy (Verified 05/08/25 10:14) Medication List - Last Reconciled 05/08/25 by Adrian Quinonez MD acetaminophen 650 mg (2 x 325 mg) PO Q6H PRN 30 days aspirin 325 mg PO BID 42 days atorvastatin 10 mg PO BEDTIME 90 days chlorthalidone 25 mg PO DAILY 90 days famotidine 40 mg PO DAILY ibuprofen 600 mg PO TID PRN levothyroxine 200 mcg PO DAILY levothyroxine 50 mcg PO DAILY methadone 40 mg (4 x 10 mg) PO BID 21 days naloxone 4 mg/actuation (Narcan) 1 spray intranasal Q2M omeprazole 40 mg PO DAILY oxycodone 10 mg PO Q4H PRN 7 days psyllium 1 packet PO DAILY sertraline 50 mg PO DAILY Tobacco use date assessed: 05/08/25 Dental Screening Dental Screen Date: 05/08/25 HPI Med Management HPI Details Patient comes in today for her follow up visit States that she feels okay and that her current pain medications are still helping adequately with her chronic low back pain, which is mostly unchanged from previous She denies any headaches or dizziness Denies any chest pains, no shortness of breath No nausea/vomiting, no abdominal pain No change in bowel habits noted She will need her pain meds Rx refilled today [facility] Medical History Mixed hyperlipidemia Pure hypercholesterolemia Obesity (BMI 30-39.9) GERD without esophagitis Acquired hypothyroidism Essential hypertension Bilateral primary osteoarthritis of knee Lumbar degenerative disc disease Neuropathy of genitofemoral nerve History of COVID-19 GERD (gastroesophageal reflux disease) COVID-19 vaccine series completed Osteoarthritis Hernia of abdominal cavity Surgical History History of left knee replacement H/O colonoscopy Hx of umbilical hernia repair Hx of breast reduction, elective Family History Father Esophageal cancer Mother No problems noted. Maternal Grandmother Osteoarthritis Sister No problems noted. Social History Household Members: Spouse Housing: House Are you a primary emergency care attendant to a significant other at home: No Do you presently have visiting nurse or other home services: No Alcohol intake: current Alcohol intake frequency: holidays/special occasions only Patient Tobacco Use Status: Former Tobacco user Tobacco use type: Cigarette Years Smoked: 40 e-Cigarette/Vaping Use: Never Used Second Hand Smoke Exposure: No service: No Current occupational status: retired Current occupation: Right Handed Current occupational exposures/hazards: No Cognitive needs: No Hearing needs: No Vision needs: Yes (reading glasses) Questionnaire PHQ-9 Over the last 2 weeks, how often have you been bothered by any of the following problems? 1. Little interest or pleasure in doing things: not at all 2. Feeling down, depressed, or hopeless: not at all 3. Trouble falling or staying asleep, or sleeping too much: not at all 4. Feeling tired or having little energy: not at all 5. Poor appetite or overeating: not at all 6. Feeling bad about yourself - or that you are a failure or have let yourself or your family down: not at all 7. Trouble concentrating on things, such as reading the newspaper or watching television: not at all 8. Moving or speaking so slowly that other people could have noticed. Or the opposite - being so fidgety or restless that you have been moving around a lot more than usual: not at all 9. Thoughts that you would be better off or of hurting yourself in some way: not at all Total score: 0 Depression Screening Interpretation: Negative Depression Screening Done: Yes 35864 - PHQ-9 Billing: Yes Source: Developed by Drs. Cecil Harley, Shanell Suarez, Carlos Seth and colleagues, with an educational sanjay from [employer]. Thrive Questionnaire Date Thrive assessed: 05/08/25 I am a: Patient What is your living situation today?: I have a steady place to live Within the past 12 months, did the food you bought not last and you didn't have the money to get more?: Never true Within the past 12 months, did you worry whether your food would run out before you got money to buy more?: Never true Do you have trouble paying for medicines?: No Do you have trouble getting transportation to medical appointments?: No Do you have trouble paying your heating and electricity bill?: No Do you have trouble taking care of your child, family member or friend?: No Do you have trouble with day-to-day activities such as bathing, preparing meals, shopping, managing finances, etc.?: No Are you currently unemployed and looking for a job?: No Are you interested in more education?: No Please select the resources that you would like help with: None Currently or been in a relationship where the following occur: No concerns reported THRIVE Score: 0 AUDIT C Alcohol Use Questionnaire (AUDIT-C) 1. How often do you have a drink containing alcohol?: Never 3. How often do you have six or more drinks on one occasion?: Never Total Score: 0 Score Reviewed/Action Taken: Yes GHULAM-7 AMB Questionnaire GHULAM-7 Date GHULAM - 7 assessed: 05/08/25 Feeling nervous, anxious, or on edge: 0 = Not at all Not being able to stop or control worryin = Not at all Worrying too much about different things: 0 = Not at all Trouble relaxin = Not at all Being so restless that it is hard to sit still: 0 = Not at all Becoming easily annoyed or irritable: 0 = Not at all Feeling afraid as if something awful might happen: 0 = Not at all Total GHULAM-7 score (0-4 normal; 5-9 mild; 10-14 moderate; 15-21 severe): 0 Source: Developed by Drs. Cecil Harley, Shanell Suarez, Carlos Seth and colleagues, with an educational sanjay from [employer]. Review of Systems Const Denies chills, Denies fatigue, Denies fever(s) and Denies headache(s) ENT Denies dysphagia, Denies dizziness, Denies otalgia, Denies headache(s), Denies neck pain, Denies odynophagia and Denies sore throat Card Denies chest pain, Denies palpitations and Denies dyspnea Resp Denies chest congestion, Denies cough and Denies dyspnea GI Denies abdominal pain, Denies constipation, Denies dysphagia, Denies heartburn, Denies diarrhea, Denies nausea, Denies odynophagia and Denies vomiting Denies difficulty voiding, Denies nocturia, Denies dysuria and Denies urinary urgency Musc Reports back pain (over the lower back - chronic), Reports arthralgias (in both knees (chronic), although her knee pains have decreased since TKA) and Denies neck pain Skin/Breast Denies rash Neuro Denies dizziness and Denies headache(s) Endo Denies fatigue and Denies palpitations Physical exam (Primary Care) Vital Signs: Last Vital Signs Pulse 76 05/08/25 09:37 BP 110/62 05/08/25 09:37 Pulse Ox 94 05/08/25 09:37 Oxygen Delivery Method Room Air 05/08/25 09:37 BMI result Body Mass Index 38.0 Tobacco/Smoking Status: Tobacco use Status Tobacco use date assessed 05/08/25 05/08/25 09:43 Patient Tobacco Use Status Former Tobacco user 05/08/25 09:43 Tobacco use type Cigarette 05/08/25 09:43 e-Cigarette/Vaping Use Never Used 05/08/25 09:43 PHQ-9: PHQ-9 Score PHQ-9: Total score 0 05/08/25 10:19 Depression Screening Interpretation: Negative Thrive Assessment: Date of Thrive Assessment Date Thrive assessed 05/08/25 05/08/25 09:43 Currently or been in a relationship where the following occur: No concerns reported Const General: no acute distress and alert HENMT Ears: TM's normal bilaterally and EAC's normal Throat: Yes posterior oropharynx normal and Yes tonsils normal (no TP congestion) Neck Neck: Yes supple and No lymphadenopathy Thyroid: Thyroid normal Resp Auscultation: clear to auscultation bilaterally, no rales and no wheezes Cardio Rate: regular rate Rhythm: regular rhythm Heart sounds: no murmurs GI Palpation (GI): Soft to palpation and nontender Auscultation: normal bowel sounds General: Yes no CVA tenderness Back/Spine/Pelvis Back: no CVA tenderness Thoracic/Lumbar Spine: lumbar spinal tenderness Skin Rashes: no rashes Extrem Other: (+) healed vertical scar over the anterior aspect of both knees General: Yes no clubbing, cyanosis or edema Right lower extremity: knee Details: tenderness; no swelling Left lower extremity: knee Details: tenderness; no swelling Coding Level of Care Code Est Pt Level 4 (65215) Diagnoses Degeneration of intervertebral disc of lumbar region with discogenic back pain M51.360 Disc-related pain type: discogenic back pain only Bilateral primary osteoarthritis of knee M17.0 Essential hypertension I10 Acquired hypothyroidism E03.9 Mixed hyperlipidemia E78.2 GERD without esophagitis K21.9 Anxiety F41.9 Obesity (BMI 30-39.9) E66.9 Additional Codes PHQ-9 - 48567 - PHQ-9 Billing: Yes ([id number]) Assessment & Plan Assessment & Plan (1) Lumbar degenerative disc disease: Code(s): M51.369 - Other intervertebral disc degeneration, lumbar region without mention of lumbar back pain or lower extremity pain Category: Medical Qualifiers: Disc-related pain type: discogenic back pain only Qualified Code(s): M51.360 - Other intervertebral disc degeneration, lumbar region with discogenic back pain only Plan: Reinforced activity and weight-lifting restrictions Patient has been on Methadone 40 mg BID and Oxycodone 10 mg Q 4 hours PRN for her chronic low back pain and joint (knee) pains for over 15 years, ever since she had Dr. Cardoza as her PCP She recalls that Dr. Cardoza tried her on several different pain medications years ago and that Methadone was the one that provided her with the best pain relief and the least side effects and states that these medications are helping with her chronic pain and allow her to stay active and to continue working and have some quality of life She transferred over to our practice when Dr. Cardoza retired from active practice years ago and Dr. Coronado continued her on her current medications She has reportedly been on the same pain medications for many years and has never taken them inappropriately or asked for any early refills or dose escalations over the years Continue both Methadone and Oxycodone as before - Rx refilled today (2) Bilateral primary osteoarthritis of knee: Code(s): M17.0 - Bilateral primary osteoarthritis of knee Category: Medical Plan: S/P left TKA on 10/18/2021 and right TKA on 10/24/2022, both with Dr. Yusuf Patient states that she still has (chronic) bilateral knee pains but these have improved a lot with her joint replacement surgeries Continue Ibuprofen 600 mg TID PRN or Acetaminophen 650 mg Q 6 hours PRN, Methadone 40 mg BID and Oxycodone 10 mg Q 4 hours PRN Follow-up with orthopedics as scheduled (3) Essential hypertension: Code(s): I10 - Essential (primary) hypertension Category: Medical Plan: Reinforced low-sodium diet - goal is systolic BP of 120 mm or less Continue Chlorthalidone 25 mg QD Patient is reminded to continue monitoring her blood pressure regularly (4) Acquired hypothyroidism: Code(s): E03.9 - Hypothyroidism, unspecified Category: Medical Plan: Her free T4 level was within normal range on her recent labs; her TSH remains suppressed Continue Levothyroxine 250 mcg QD and we will continue to monitor her TFTs regularly (5) Mixed hyperlipidemia: Code(s): E78.2 - Mixed hyperlipidemia Category: Medical Plan: Reinforced low-cholesterol diet Continue Atorvastatin 10 mg QD (6) GERD without esophagitis: Code(s): K21.9 - Gastro-esophageal reflux disease without esophagitis Category: Medical Plan: Dietary restrictions reinforced Continue Omeprazole 40 mg QD and Famotidine 40 mg QD PRN (7) Anxiety: Code(s): F41.9 - Anxiety disorder, unspecified Category: Medical Plan: Continue Sertraline 50 mg QD (8) Obesity (BMI 30-39.9): Code(s): E66.9 - Obesity, unspecified Category: Medical Plan: Reinforced diet/exercise as tolerated/lose weight Plan Follow up in 1 month Medications: Refilled oxycodone 10 mg PO Q4H PRN 45 tabs 0RF Pain 7 days methadone 40 mg (4 x 10 mg) PO BID 240 tabs 0RF 21 days M25.569 - Pain in unspecified knee, M54.9 - Dorsalgia, unspecified
--- OUTSIDE RECORDS SUMMARY | 2025-05-08 09:37 | XMS_ITS | Clinical Summary ---
Author Organization [facility] Address [address] [place], [place] [id number] Phone Care Team Providers Care Operations And Maintenance Manager Name Role Phone Unavailable Primary Care Provider [...] It is not the complete legal health record.[facility]
== END 2025-05-08 10:25 | disposition home or self-care (01) ==
LOC: HO.HMCH 09:33
PROVIDERS: PCP Internal Medicine; Visit Provider Internal Medicine
DX: M51.360 Other intervertebral disc degeneration, lumbar region with discogenic back pain only (principal); M17.0 Bilateral primary osteoarthritis of knee; E66.9 Obesity, unspecified; Z68.38 Body mass index [BMI] 38.0-38.9, adult; I10 Essential (primary) hypertension; E03.9 Hypothyroidism, unspecified; E78.2 Mixed hyperlipidemia; K21.9 Gastro-esophageal reflux disease without esophagitis; F41.9 Anxiety disorder, unspecified

== ENCOUNTER → 2025-05-08 09:33 | Outpatient (BNVA) | payer OTHER, SELFPAY | PROVIDERS: PCP Internal Medicine; Visit Provider Internal Medicine | DX: M51.360 Other intervertebral disc degeneration, lumbar region with discogenic back pain only (principal); M17.0 Bilateral primary osteoarthritis of knee; I10 Essential (primary) hypertension; E03.9 Hypothyroidism, unspecified; E78.2 Mixed hyperlipidemia; K21.9 Gastro-esophageal reflux disease without esophagitis; F41.9 Anxiety disorder, unspecified; E66.9 Obesity, unspecified; Z68.38 Body mass index [BMI] 38.0-38.9, adult | CPT/HCPCS: 96127; 99212 ==

== ENCOUNTER 2025-06-05 09:39 | Outpatient (AMB) | payer OTHER, SELFPAY ==
[2025-06-05 09:49] VITALS: BP 118/80; PULSE 78; O2SAT 94; BMI 38.6
--- NOTE | 2025-06-05 09:49 | MHC.PC.OV ---
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: No Accompanied by: Self / Same As Patient Allergies No Known Allergies (No Known Allergies*) Allergy (Verified 06/05/25 10:06) Medication List - Last Reconciled 06/05/25 by Adrian Quinonez MD acetaminophen 650 mg (2 x 325 mg) PO Q6H PRN 30 days aspirin 325 mg PO BID 42 days atorvastatin 10 mg PO BEDTIME 90 days chlorthalidone 25 mg PO DAILY 90 days famotidine 40 mg PO DAILY ibuprofen 600 mg PO TID PRN levothyroxine 50 mcg PO DAILY levothyroxine 200 mcg PO DAILY methadone 40 mg (4 x 10 mg) PO BID 21 days naloxone 4 mg/actuation (Narcan) 1 spray intranasal Q2M omeprazole 40 mg PO DAILY oxycodone 10 mg PO Q4H PRN 7 days psyllium 1 packet PO DAILY sertraline 50 mg PO DAILY Tobacco use date assessed: 06/05/25 Dental Screening Dental Screen Date: 06/05/25 Did you have a dental visit in the last 12 months?: Yes Did you have a dental problem in the last 6 months where you did not have access to dental care?: No Was dental information given to patient?: Patient has dentist HPI Med management HPI Details Patient comes in today for her follow up visit States that she feels okay Relates that her current pain medications are still helping adequately with her chronic low back pain, which is mostly unchanged from previous - she will need her pain meds Rx refilled today She denies any headaches or dizziness Denies any chest pains, no shortness of breath No nausea/vomiting, no abdominal pain No change in bowel habits noted PFSH Medical History Mixed hyperlipidemia Pure hypercholesterolemia Obesity (BMI 30-39.9) GERD without esophagitis Acquired hypothyroidism Essential hypertension Bilateral primary osteoarthritis of knee Lumbar degenerative disc disease Neuropathy of genitofemoral nerve History of COVID-19 GERD (gastroesophageal reflux disease) COVID-19 vaccine series completed Osteoarthritis Hernia of abdominal cavity Surgical History History of left knee replacement H/O colonoscopy Hx of umbilical hernia repair Hx of breast reduction, elective Family History Father Esophageal cancer Mother No problems noted. Maternal Grandmother Osteoarthritis Sister No problems noted. Social History Household Members: Spouse Housing: House Are you a primary animal care service worker to a significant other at home: No Do you presently have visiting nurse or other home services: No Alcohol intake: current Alcohol intake frequency: holidays/special occasions only Patient Tobacco Use Status: Former Tobacco user Tobacco use type: Cigarette Years Smoked: 40 e-Cigarette/Vaping Use: Never Used Second Hand Smoke Exposure: No service: No Current occupational status: retired Current occupation: Right Handed Current occupational exposures/hazards: No Cognitive needs: No Hearing needs: No Vision needs: Yes (reading glasses) Questionnaire PHQ-9 Over the last 2 weeks, how often have you been bothered by any of the following problems? Depression Screening Interpretation: Negative Depression Screening Done: Yes Source: Developed by Drs. Cecil Harley, Shanell Suarez, Carlos Seth and colleagues, with an educational sanjay from [employer]. Thrive Questionnaire Date Thrive assessed: 01/15/25 I am a: Patient What is your living situation today?: I have a steady place to live Within the past 12 months, did the food you bought not last and you didn't have the money to get more?: Never true Within the past 12 months, did you worry whether your food would run out before you got money to buy more?: Never true Do you have trouble paying for medicines?: No Do you have trouble getting transportation to medical appointments?: No Do you have trouble paying your heating and electricity bill?: No Do you have trouble taking care of your child, family member or friend?: No Do you have trouble with day-to-day activities such as bathing, preparing meals, shopping, managing finances, etc.?: No Are you currently unemployed and looking for a job?: No Are you interested in more education?: No Please select the resources that you would like help with: None Currently or been in a relationship where the following occur: No concerns reported THRIVE Score: 0 AUDIT C Alcohol Use Questionnaire (AUDIT-C) 1. How often do you have a drink containing alcohol?: Never 3. How often do you have six or more drinks on one occasion?: Never Total Score: 0 Score Reviewed/Action Taken: Yes GHULAM-7 AMB Questionnaire GHULAM-7 Date GHULAM - 7 assessed: 05/08/25 Source: Developed by Drs. Cecil Harley, Shanell Suarez, Carlos Seth and colleagues, with an educational sanjay from [employer]. Review of Systems Const Denies fatigue, Denies fever(s) and Denies headache(s) ENT Denies dysphagia, Denies dizziness, Denies otalgia, Denies headache(s), Denies neck pain, Denies odynophagia and Denies sore throat Card Denies chest pain, Denies palpitations and Denies dyspnea Resp Denies chest congestion, Denies cough and Denies dyspnea GI Denies abdominal pain, Denies constipation, Denies dysphagia, Denies heartburn, Denies diarrhea, Denies nausea, Denies odynophagia and Denies vomiting Denies difficulty voiding, Denies nocturia, Denies dysuria and Denies urinary urgency Musc Reports back pain (over the lower back - chronic), Reports arthralgias (in both knees (chronic), although her knee pains have decreased since TKA) and Denies neck pain Skin/Breast Denies rash Neuro Denies dizziness and Denies headache(s) Endo Denies fatigue and Denies palpitations Physical exam (Primary Care) Vital Signs: Last Vital Signs Pulse 78 06/05/25 09:49 BP 118/80 06/05/25 09:49 Pulse Ox 94 06/05/25 09:49 Oxygen Delivery Method Room Air 06/05/25 09:49 BMI result Body Mass Index 38.6 Tobacco/Smoking Status: Tobacco use Status Tobacco use date assessed 06/05/25 06/05/25 09:51 Patient Tobacco Use Status Former Tobacco user 06/05/25 09:51 Tobacco use type Cigarette 06/05/25 09:51 e-Cigarette/Vaping Use Never Used 06/05/25 09:51 Depression Screening Interpretation: Negative Thrive Assessment: Date of Thrive Assessment Date Thrive assessed 01/15/25 06/05/25 09:51 Currently or been in a relationship where the following occur: No concerns reported Const General: no acute distress and alert HENMT Throat: Yes posterior oropharynx normal and Yes tonsils normal (no TP congestion) Neck Neck: Yes supple and No lymphadenopathy Thyroid: Thyroid normal Resp Auscultation: clear to auscultation bilaterally, no rales and no wheezes Cardio Rate: regular rate Rhythm: regular rhythm Heart sounds: no murmurs GI Palpation (GI): Soft to palpation and nontender Auscultation: normal bowel sounds General: Yes no CVA tenderness Back/Spine/Pelvis Back: no CVA tenderness Thoracic/Lumbar Spine: lumbar spinal tenderness Skin Rashes: no rashes Extrem Other: (+) healed vertical scar over the anterior aspect of both knees General: Yes no clubbing, cyanosis or edema Right lower extremity: knee Details: tenderness; no swelling Left lower extremity: knee Details: tenderness; no swelling Coding Level of Care Code Est Pt Level 4 (30020) Diagnoses Degeneration of intervertebral disc of lumbar region with discogenic back pain M51.360 Disc-related pain type: discogenic back pain only Bilateral primary osteoarthritis of knee M17.0 Essential hypertension I10 Acquired hypothyroidism E03.9 Mixed hyperlipidemia E78.2 GERD without esophagitis K21.9 Anxiety F41.9 Obesity (BMI 30-39.9) E66.9 Assessment & Plan Assessment & Plan (1) Lumbar degenerative disc disease: Code(s): M51.369 - Other intervertebral disc degeneration, lumbar region without mention of lumbar back pain or lower extremity pain Category: Medical Qualifiers: Disc-related pain type: discogenic back pain only Qualified Code(s): M51.360 - Other intervertebral disc degeneration, lumbar region with discogenic back pain only Plan: Reinforced activity and weight-lifting restrictions Patient has been on Methadone 40 mg BID and Oxycodone 10 mg Q 4 hours PRN for her chronic low back pain and joint (knee) pains for over 15 years, ever since she had Dr. Cardoza as her PCP She recalls that Dr. Cardoza tried her on several different pain medications years ago and that Methadone was the one that provided her with the best pain relief and the least side effects and states that these medications are helping with her chronic pain and allow her to stay active and to continue working and have some quality of life She transferred over to our practice when Dr. Cardoza retired from active practice years ago and Dr. Coronado continued her on her current medications She has reportedly been on the same pain medications for many years and has never taken them inappropriately or asked for any early refills or dose escalations over the years Continue both Methadone and Oxycodone as before - Rx refilled today (2) Bilateral primary osteoarthritis of knee: Code(s): M17.0 - Bilateral primary osteoarthritis of knee Category: Medical Plan: S/P left TKA on 10/18/2021 and right TKA on 10/24/2022, both with Dr. Yusuf Patient states that she still has (chronic) bilateral knee pains but these have improved a lot with her joint replacement surgeries Continue Ibuprofen 600 mg TID PRN or Acetaminophen 650 mg Q 6 hours PRN, Methadone 40 mg BID and Oxycodone 10 mg Q 4 hours PRN Follow-up with orthopedics as scheduled (3) Essential hypertension: Code(s): I10 - Essential (primary) hypertension Category: Medical Plan: Reinforced low-sodium diet - goal is systolic BP of 120 mm or less Continue Chlorthalidone 25 mg QD Patient is reminded to continue monitoring her blood pressure regularly (4) Acquired hypothyroidism: Code(s): E03.9 - Hypothyroidism, unspecified Category: Medical Plan: Her free T4 level was within normal range on her recent labs done a few months ago; her TSH remains suppressed Continue Levothyroxine 250 mcg QD and we will continue to monitor her TFTs regularly (5) Mixed hyperlipidemia: Code(s): E78.2 - Mixed hyperlipidemia Category: Medical Plan: Reinforced low-cholesterol diet Continue Atorvastatin 10 mg QD Will have patient recheck her labs and fasting lipids next month for follow up (6) GERD without esophagitis: Code(s): K21.9 - Gastro-esophageal reflux disease without esophagitis Category: Medical Plan: Dietary restrictions reinforced Continue Omeprazole 40 mg QD and Famotidine 40 mg QD PRN (7) Anxiety: Code(s): F41.9 - Anxiety disorder, unspecified Category: Medical Plan: Continue Sertraline 50 mg QD (8) Obesity (BMI 30-39.9): Code(s): E66.9 - Obesity, unspecified Category: Medical Plan: Reinforced diet/exercise as tolerated/lose weight Plan Follow up in 1 month Orders: Orders Lipid Panel 06/27/25 E78.00 - Pure hypercholesterolemia, unspecified Free T4 (Free Thyroxine) 06/27/25 E03.9 - Hypothyroidism, unspecified Vitamin B12 and Folate 06/27/25 E53.8 - Deficiency of other specified B group vitamins UA CC w/rflx Micro + Cult 06/27/25 R30.0 - Dysuria Complete Blood Count Auto Diff 06/27/25 D64.9 - Anemia, unspecified Comprehensive [place]. Panel Fast 06/27/25 E78.00 - Pure hypercholesterolemia, unspecified Thyroid Stimulating Hormone 06/27/25 E03.9 - Hypothyroidism, unspecified Vitamin D 25-OH Total 06/27/25 E55.9 - Vitamin D deficiency, unspecified Hemoglobin A1c 06/27/25 E11.9 - Type 2 diabetes mellitus without complications Medications: Refilled oxycodone 10 mg PO Q4H PRN 45 tabs 0RF Pain 7 days methadone 40 mg (4 x 10 mg) PO BID 240 tabs 0RF 21 days M25.569 - Pain in unspecified knee, M54.9 - Dorsalgia, unspecified
--- OUTSIDE RECORDS SUMMARY | 2025-06-05 10:14 | XMS_ITS | Clinical Summary ---
Author Organization [facility] Address [address] [place], [place] [id number] Phone Care Team Providers Care Cello Teacher Name Role Phone Unavailable Primary Care Provider [...] It is not the complete legal health record.[facility]
== END 2025-06-05 10:31 | disposition home or self-care (01) ==
LOC: HO.HMCH 09:40
PROVIDERS: PCP Internal Medicine; Visit Provider Internal Medicine
DX: M51.360 Other intervertebral disc degeneration, lumbar region with discogenic back pain only (principal); E66.9 Obesity, unspecified; M17.0 Bilateral primary osteoarthritis of knee; Z68.38 Body mass index [BMI] 38.0-38.9, adult; I10 Essential (primary) hypertension; E03.9 Hypothyroidism, unspecified; E78.2 Mixed hyperlipidemia; K21.9 Gastro-esophageal reflux disease without esophagitis; F41.9 Anxiety disorder, unspecified

== ENCOUNTER → 2025-06-05 09:39 | Outpatient (BNVA) | payer OTHER, SELFPAY | PROVIDERS: PCP Internal Medicine; Visit Provider Internal Medicine | DX: M51.360 Other intervertebral disc degeneration, lumbar region with discogenic back pain only (principal); M17.0 Bilateral primary osteoarthritis of knee; I10 Essential (primary) hypertension; E03.9 Hypothyroidism, unspecified; E78.2 Mixed hyperlipidemia; K21.9 Gastro-esophageal reflux disease without esophagitis; F41.9 Anxiety disorder, unspecified; E66.9 Obesity, unspecified; E78.00 Pure hypercholesterolemia, unspecified; R30.0 Dysuria; D64.9 Anemia, unspecified; E55.9 Vitamin D deficiency, unspecified; E11.9 Type 2 diabetes mellitus without complications; Z68.38 Body mass index [BMI] 38.0-38.9, adult | CPT/HCPCS: 99212 ==

== ENCOUNTER 2025-06-30 09:43 | Outpatient (REF) | payer OTHER, SELFPAY ==
[2025-06-30 10:04] LABS: MANUAL DIFF FLAG NO
[2025-06-30 10:33] LABS: Hematocrit 41.2 % (37.0-47.0); Hemoglobin 13.1 g/dl (12.0-16.0); Imm Gran Abs Auto 0.02 X10*3/uL (0.00-0.03); Imm Gran Pct Auto 0.2 % (0.0-0.4); Lymphocytes Absolute Auto 2.6 X10*3/uL (1.2-4.9); Mean Corpuscular HGB Conc 31.8 g/dl (31.0-35.0); Mean Corpuscular Hemoglobin 28.9 pg (27.0-33.0); Mean Corpuscular Volume 90.7 fL (80.0-98.0); NRBC Abs Auto 0.000 X10*3/uL (0.0-0.012); NRBC Pct Auto 0.0 /100WBC (0.0-0.2); Platelet Count 291 X10*3/uL (160-400); Red Blood Count 4.54 X10*6/uL (4.20-5.50); White Blood Count 8.1 X10*3/uL (4.8-10.8)
[2025-06-30 10:43] LABS: Appearance Urine Clear; Glucose Urine UA Negative (Negative); PH 7.0 (5.0-9.0); Specific Gravity - Urine 1.015 (1.005-1.025); UMIC TRIGGER UACC YES
[2025-06-30 10:53] LABS: UACC Culture Trigger YES
[2025-06-30 11:31] LABS: Alanine Aminotransferase 17 U/L (0-31); Albumin Level 4.2 g/dL (3.5-5.0); Alkaline Phosphatase 72 U/L (39-117); Anion Gap 13 (12-20); Aspartate Amino Transferase 21 U/L (5-31); Blood Urea Nitrogen 22 mg/dL (9-16); Calcium 9.1 mg/dL (8.4-10.2); Carbon Dioxide 35 mmol/L (22-29); Chloride 100 mmol/L (96-108); Cholesterol 171 mg/dL (<200); Estimated Glomerular Filt Rate > 60; Free T4 (Free Thyroxine) 1.33 ng/dL (0.71-1.85); HDL Cholesterol 47 mg/dL (>40); Potassium 3.7 mmol/L (3.3-5.1); Sodium 144 mmol/L (135-145); Thyroid Stimulating Hormone 0.05 uIU/mL (0.32-4.0); Total Protein 7.2 g/dL (6.5-8.0); Triglycerides 134 mg/dL (<150)
[2025-06-30 11:37] LABS: Folate 12.7 ng/mL (> or = 4.0); Vitamin B12 604 pg/mL (200-900)
== END 2025-06-30 09:44 | disposition home or self-care (01) ==
LOC: HO.LAB 09:43
PROVIDERS: PCP Internal Medicine; Visit Provider Internal Medicine
DX: E11.9 Type 2 diabetes mellitus without complications (principal); E53.8 Deficiency of other specified B group vitamins; D64.9 Anemia, unspecified; E78.00 Pure hypercholesterolemia, unspecified; E03.9 Hypothyroidism, unspecified; E55.9 Vitamin D deficiency, unspecified
CPT/HCPCS: 36415; 80053; 80061; 81001; 82306; 82607; 82746; 83036; 84439; 84443; 85025; 87086

== ENCOUNTER 2025-07-03 09:34 | Outpatient (AMB) | payer OTHER, SELFPAY ==
[2025-07-03 09:38] VITALS: BP 132/84; PULSE 79; O2SAT 96; BMI 38.7
--- NOTE | 2025-07-03 09:38 | MHC.PC.OV ---
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: No Accompanied by: Self / Same As Patient Allergies No Known Allergies (No Known Allergies*) Allergy (Verified 07/03/25 10:06) Medication List - Last Reconciled 07/03/25 by Adrian Quinonez MD acetaminophen 650 mg (2 x 325 mg) PO Q6H PRN 30 days aspirin 325 mg PO BID 42 days atorvastatin 10 mg PO BEDTIME 90 days chlorthalidone 25 mg PO DAILY 90 days famotidine 40 mg PO DAILY ibuprofen 600 mg PO TID PRN levothyroxine 50 mcg PO DAILY levothyroxine 200 mcg PO DAILY methadone 40 mg (4 x 10 mg) PO BID 21 days naloxone 4 mg/actuation (Narcan) 1 spray intranasal Q2M omeprazole 40 mg PO DAILY oxycodone 10 mg PO Q4H PRN 7 days psyllium 1 packet PO DAILY sertraline 50 mg PO DAILY Tobacco use date assessed: 07/03/25 Dental Screening Dental Screen Date: 07/03/25 Did you have a dental visit in the last 12 months?: Yes Did you have a dental problem in the last 6 months where you did not have access to dental care?: No Was dental information given to patient?: Patient has dentist HPI Med Management HPI Details Patient comes in today for her follow up visit States that she feels okay and that her current pain medications are helping adequately with her chronic low back pain, which is mostly unchanged from previous States that she will need her pain meds Rx refilled today Would also like to see if she can try one of the GLP-1s to help her lose weight States that she has tried everything she can think of to lose some weight but has not been successful at all She denies any headaches or dizziness Denies any chest pains, no shortness of breath No nausea/vomiting, no abdominal pain No change in bowel habits noted She had her follow up labs done a few days ago - to discuss her results [facility] Medical History (Updated 07/03/25 @ 10:30 by Adrian Quinonez MD) Vitamin D deficiency Mixed hyperlipidemia Pure hypercholesterolemia Obesity (BMI 30-39.9) GERD without esophagitis Acquired hypothyroidism Essential hypertension Bilateral primary osteoarthritis of knee Lumbar degenerative disc disease Neuropathy of genitofemoral nerve History of COVID-19 GERD (gastroesophageal reflux disease) COVID-19 vaccine series completed Osteoarthritis Hernia of abdominal cavity Surgical History History of left knee replacement H/O colonoscopy Hx of umbilical hernia repair Hx of breast reduction, elective Family History Father Esophageal cancer Mother No problems noted. Maternal Grandmother Osteoarthritis Sister No problems noted. Social History Household Members: Spouse Housing: House Are you a primary career services manager to a significant other at home: No Do you presently have visiting nurse or other home services: No Alcohol intake: current Alcohol intake frequency: holidays/special occasions only Patient Tobacco Use Status: Former Tobacco user Tobacco use type: Cigarette Years Smoked: 40 e-Cigarette/Vaping Use: Never Used Second Hand Smoke Exposure: No service: No Current occupational status: retired Current occupation: Right Handed Current occupational exposures/hazards: No Cognitive needs: No Hearing needs: No Vision needs: Yes (reading glasses) Questionnaire PHQ-9 Over the last 2 weeks, how often have you been bothered by any of the following problems? Depression Screening Interpretation: Negative Depression Screening Done: Yes Source: Developed by Drs. Cecil Harley, Shanell Suarez, Carlos Seth and colleagues, with an educational sanjay from [employer]. Thrive Questionnaire Date Thrive assessed: 01/15/25 I am a: Patient What is your living situation today?: I have a steady place to live Within the past 12 months, did the food you bought not last and you didn't have the money to get more?: Never true Within the past 12 months, did you worry whether your food would run out before you got money to buy more?: Never true Do you have trouble paying for medicines?: No Do you have trouble getting transportation to medical appointments?: No Do you have trouble paying your heating and electricity bill?: No Do you have trouble taking care of your child, family member or friend?: No Do you have trouble with day-to-day activities such as bathing, preparing meals, shopping, managing finances, etc.?: No Are you currently unemployed and looking for a job?: No Are you interested in more education?: No Please select the resources that you would like help with: None Currently or been in a relationship where the following occur: No concerns reported THRIVE Score: 0 AUDIT C Alcohol Use Questionnaire (AUDIT-C) 1. How often do you have a drink containing alcohol?: Never 3. How often do you have six or more drinks on one occasion?: Never Total Score: 0 Score Reviewed/Action Taken: Yes GHULAM-7 AMB Questionnaire GHULAM-7 Date GHULAM - 7 assessed: 05/08/25 Source: Developed by Drs. Cecil Harley, Shanell Suarez, Carlos Seth and colleagues, with an educational sanjay from [employer]. Review of Systems Const Denies fatigue, Denies fever(s) and Denies headache(s) ENT Denies dysphagia, Denies dizziness, Denies otalgia, Denies headache(s), Denies neck pain, Denies odynophagia and Denies sore throat Card Denies chest pain, Denies palpitations and Denies dyspnea Resp Denies chest congestion, Denies cough and Denies dyspnea GI Denies abdominal pain, Denies constipation, Denies dysphagia, Denies heartburn, Denies diarrhea, Denies nausea, Denies odynophagia and Denies vomiting Denies difficulty voiding, Denies nocturia, Denies dysuria and Denies urinary urgency Musc Reports back pain (over the lower back - chronic), Reports arthralgias (in both knees (chronic), although her knee pains have decreased since TKA) and Denies neck pain Skin/Breast Denies rash Neuro Denies dizziness and Denies headache(s) Endo Denies fatigue and Denies palpitations Physical exam (Primary Care) Vital Signs: Last Vital Signs Pulse 79 07/03/25 09:38 BP 132/84 07/03/25 09:38 Pulse Ox 96 07/03/25 09:38 Oxygen Delivery Method Room Air 07/03/25 09:38 BMI result Body Mass Index 38.7 Tobacco/Smoking Status: Tobacco use Status Tobacco use date assessed 07/03/25 07/03/25 09:46 Patient Tobacco Use Status Former Tobacco user 07/03/25 09:39 Tobacco use type Cigarette 07/03/25 09:39 e-Cigarette/Vaping Use Never Used 07/03/25 09:39 Depression Screening Interpretation: Negative Thrive Assessment: Date of Thrive Assessment Date Thrive assessed 01/15/25 07/03/25 09:39 Currently or been in a relationship where the following occur: No concerns reported Const General: no acute distress and alert HENMT Throat: Yes posterior oropharynx normal and Yes tonsils normal (no TP congestion) Neck Neck: Yes supple and No lymphadenopathy Thyroid: Thyroid normal Resp Auscultation: clear to auscultation bilaterally, no rales and no wheezes Cardio Rate: regular rate Rhythm: regular rhythm Heart sounds: no murmurs GI Palpation (GI): Soft to palpation and nontender Auscultation: normal bowel sounds General: Yes no CVA tenderness Back/Spine/Pelvis Back: no CVA tenderness Thoracic/Lumbar Spine: lumbar spinal tenderness Skin Rashes: no rashes Extrem Other: (+) healed vertical scar over the anterior aspect of both knees General: Yes no clubbing, cyanosis or edema Right lower extremity: knee Details: tenderness; no swelling Left lower extremity: knee Details: tenderness; no swelling Results Reviewed Results Reviewed: Laboratory Tests 06/30/25 06/30/25 09:54 09:57 WBC 8.1 Hgb 13.1 Hct 41.2 Plt Count 291 Sodium 144 Potassium 3.7 Creatinine 0.94 Estimated GFR > 60 Fasting Glucose 90 Hemoglobin A1c % 5.4 Calcium 9.1 AST 21 ALT 17 Triglycerides 134 Cholesterol 171 LDL Cholesterol, Calc 98 HDL Cholesterol 47 Vitamin B12 604 25-OH Vitamin D Total 32.8 TSH 0.05 L Free T4 1.33 Ur Specific [place] 1.015 Urine Protein Negative Urine Glucose (UA) Negative Urine Blood Negative Urine Nitrite Negative Ur Leukocyte Esterase Moderate (2+) H Coding Level of Care Code Est Pt Level 4 (02947) Diagnoses Degeneration of intervertebral disc of lumbar region with discogenic back pain M51.360 Disc-related pain type: discogenic back pain only Bilateral primary osteoarthritis of knee M17.0 Essential hypertension I10 Acquired hypothyroidism E03.9 Mixed hyperlipidemia E78.2 GERD without esophagitis K21.9 Vitamin D deficiency E55.9 Anxiety F41.9 Obesity (BMI 30-39.9) E66.9 Assessment & Plan Assessment & Plan (1) Lumbar degenerative disc disease: Code(s): M51.369 - Other intervertebral disc degeneration, lumbar region without mention of lumbar back pain or lower extremity pain Category: Medical Qualifiers: Disc-related pain type: discogenic back pain only Qualified Code(s): M51.360 - Other intervertebral disc degeneration, lumbar region with discogenic back pain only Plan: Reinforced activity and weight-lifting restrictions Patient has been on Methadone 40 mg BID and Oxycodone 10 mg Q 4 hours PRN for her chronic low back pain and joint (knee) pains for over 15 years, ever since she had Dr. Cardoza as her PCP She recalls that Dr. Cardoza tried her on several different pain medications years ago and that Methadone was the one that provided her with the best pain relief and the least side effects and states that these medications are helping with her chronic pain and allow her to stay active and to continue working and have some quality of life She transferred over to our practice when Dr. Cardoza retired from active practice years ago and Dr. Coronado continued her on her current medications She has reportedly been on the same pain medications for many years and has never taken them inappropriately or asked for any early refills or dose escalations over the years Continue both Methadone and Oxycodone as before - Rx refilled today (2) Bilateral primary osteoarthritis of knee: Code(s): M17.0 - Bilateral primary osteoarthritis of knee Category: Medical Plan: S/P left TKA on 10/18/2021 and right TKA on 10/24/2022, both with Dr. Yusuf Patient states that she still has (chronic) bilateral knee pains but these have improved a lot with her joint replacement surgeries Continue Ibuprofen 600 mg TID PRN or Acetaminophen 650 mg Q 6 hours PRN, Methadone 40 mg BID and Oxycodone 10 mg Q 4 hours PRN Follow-up with orthopedics as scheduled (3) Essential hypertension: Code(s): I10 - Essential (primary) hypertension Category: Medical Plan: Reinforced low-sodium diet - goal is systolic BP of 120 mm or less Continue Chlorthalidone 25 mg QD Patient is reminded to continue monitoring her blood pressure regularly (4) Acquired hypothyroidism: Code(s): E03.9 - Hypothyroidism, unspecified Category: Medical Plan: Her free T4 level was within normal range on her recent labs done a few months ago; her TSH remains suppressed Continue Levothyroxine 250 mcg QD and we will continue to monitor her TFTs regularly (5) Mixed hyperlipidemia: Code(s): E78.2 - Mixed hyperlipidemia Category: Medical Plan: Results of her labs done a few days ago reviewed and discussed with patient Reinforced low-cholesterol diet Continue Atorvastatin 10 mg QD (6) GERD without esophagitis: Code(s): K21.9 - Gastro-esophageal reflux disease without esophagitis Category: Medical Plan: Dietary restrictions reinforced Continue Omeprazole 40 mg QD and Famotidine 40 mg QD PRN (7) Vitamin D deficiency: Code(s): E55.9 - Vitamin D deficiency, unspecified Category: Medical Plan: Patient states that she has been taking OTC Vitamin D3 1000 units QD She is advised that her Vitamin D level is still low normal on her recent labs and have instructed her to start taking 2000 units QD (8) Anxiety: Code(s): F41.9 - Anxiety disorder, unspecified Category: Medical Plan: Continue Sertraline 50 mg QD (9) Obesity (BMI 30-39.9): Code(s): E66.9 - Obesity, unspecified Category: Medical Plan: Reinforced diet/exercise as tolerated/lose weight Per request, will try sending in Rx for Zepbound 2.5 mg SQ once a week to help her lose weight but advised patient that this may require a PA and may not be approved unless she is currently participating in a certified weight management program Plan Follow up in 1 month Medications: New tirzepatide (weight loss) (Zepbound) for 4 weeks - BMI > 38 2.5 mg (0.5 mL) subcut QWEEK 2 mL 0RF E66.9 - Obesity, unspecified cholecalciferol (vitamin D3) 50 mcg PO DAILY 90 caps 3RF 90 days E55.9 - Vitamin D deficiency, unspecified Refilled oxycodone 10 mg PO Q4H PRN 45 tabs 0RF Pain 7 days methadone 40 mg (4 x 10 mg) PO BID 240 tabs 0RF 21 days M25.569 - Pain in unspecified knee, M54.9 - Dorsalgia, unspecified
--- OUTSIDE RECORDS SUMMARY | 2025-07-03 10:54 | XMS_ITS | Clinical Summary ---
Author Organization [facility] Address [address] [place], [place] [id number] Phone Care Team Providers Care Rough Rounder Machine Name Role Phone Unavailable Primary Care Provider [...] It is not the complete legal health record.[facility]
== END 2025-07-03 10:25 | disposition home or self-care (01) ==
LOC: HO.HMCH 09:35
PROVIDERS: PCP Internal Medicine; Visit Provider Internal Medicine
DX: M51.360 Other intervertebral disc degeneration, lumbar region with discogenic back pain only (principal); M17.0 Bilateral primary osteoarthritis of knee; E66.9 Obesity, unspecified; Z68.38 Body mass index [BMI] 38.0-38.9, adult; I10 Essential (primary) hypertension; E03.9 Hypothyroidism, unspecified; E78.2 Mixed hyperlipidemia; K21.9 Gastro-esophageal reflux disease without esophagitis; E55.9 Vitamin D deficiency, unspecified; F41.9 Anxiety disorder, unspecified

== ENCOUNTER → 2025-07-03 09:34 | Outpatient (BNVA) | payer OTHER, SELFPAY | PROVIDERS: PCP Internal Medicine; Visit Provider Internal Medicine | DX: M51.360 Other intervertebral disc degeneration, lumbar region with discogenic back pain only (principal); M17.0 Bilateral primary osteoarthritis of knee; I10 Essential (primary) hypertension; E03.9 Hypothyroidism, unspecified; E78.2 Mixed hyperlipidemia; K21.9 Gastro-esophageal reflux disease without esophagitis; E55.9 Vitamin D deficiency, unspecified; F41.9 Anxiety disorder, unspecified; E66.9 Obesity, unspecified; Z68.38 Body mass index [BMI] 38.0-38.9, adult | CPT/HCPCS: 99212 ==

== ENCOUNTER 2025-07-31 09:22 | Outpatient (AMB) | payer OTHER, SELFPAY ==
[2025-07-31 09:36] VITALS: BP 130/86; PULSE 87; O2SAT 98; BMI 38.1
--- NOTE | 2025-07-31 09:36 | A.OFFPC_ITS ---
Vital Signs 07/31/25 09:36 Height 5 ft 5 in Weight 229 lb 4 oz BMI 38.1 BP 130/86 Blood Pressure Location Lt brachial Position Sitting Pulse 87 Pulse Source Pulse Oximeter Pulse Oximetry (%) 98 Oxygen Delivery Method Room Air Intake Visit Reasons: Med Management Information Architect Required: No Accompanied by: Self / Same As Patient Allergies No Known Allergies (No Known Allergies*) Allergy (Verified 07/31/25 10:17) Medication List - Last Reconciled 07/31/25 by Adrian Quinonez MD acetaminophen 650 mg (2 x 325 mg) PO Q6H PRN 30 days aspirin 325 mg PO BID 42 days atorvastatin 10 mg PO BEDTIME 90 days chlorthalidone 25 mg PO DAILY 90 days cholecalciferol (vitamin D3) 50 mcg PO DAILY 90 days famotidine 40 mg PO DAILY ibuprofen 600 mg PO TID PRN levothyroxine 50 mcg PO DAILY levothyroxine 200 mcg PO DAILY methadone 40 mg (4 x 10 mg) PO BID 21 days naloxone 4 mg/actuation (Narcan) 1 spray intranasal Q2M omeprazole 40 mg PO DAILY oxycodone 10 mg PO Q4H PRN 7 days psyllium 1 packet PO DAILY sertraline 50 mg PO DAILY tirzepatide (weight loss) (Zepbound) 2.5 mg (0.5 mL) subcut QWEEK Tobacco use date assessed: 07/31/25 Dental Screening Dental Screen Date: 07/31/25 HPI Med Management HPI Details Patient comes in today for her follow up visit States that she feels okay and that her current pain medications are helping adequately with her chronic low back pain, which is mostly unchanged from previous States that she will need her pain meds Rx refilled today and that her Rx's will need a PA done again at this time She denies any headaches or dizziness Denies any chest pains, no shortness of breath No nausea/vomiting, no abdominal pain No change in bowel habits noted [facility] Medical History Vitamin D deficiency Mixed hyperlipidemia Pure hypercholesterolemia Obesity (BMI 30-39.9) GERD without esophagitis Acquired hypothyroidism Essential hypertension Bilateral primary osteoarthritis of knee Lumbar degenerative disc disease Neuropathy of genitofemoral nerve History of COVID-19 GERD (gastroesophageal reflux disease) COVID-19 vaccine series completed Osteoarthritis Hernia of abdominal cavity Surgical History History of left knee replacement H/O colonoscopy Hx of umbilical hernia repair Hx of breast reduction, elective Family History Father Esophageal cancer Mother No problems noted. Maternal Grandmother Osteoarthritis Sister No problems noted. Social History Household Members: Spouse Housing: House Are you a primary administrator health care facility to a significant other at home: No Do you presently have visiting nurse or other home services: No Alcohol intake: current Alcohol intake frequency: holidays/special occasions only Patient Tobacco Use Status: Former Tobacco user Tobacco use type: Cigarette Years Smoked: 40 e-Cigarette/Vaping Use: Never Used Second Hand Smoke Exposure: No service: No Current occupational status: retired Current occupation: Right Handed Current occupational exposures/hazards: No Cognitive needs: No Hearing needs: No Vision needs: Yes (reading glasses) Questionnaire PHQ-9 Over the last 2 weeks, how often have you been bothered by any of the following problems? 1. Little interest or pleasure in doing things: not at all 2. Feeling down, depressed, or hopeless: not at all 3. Trouble falling or staying asleep, or sleeping too much: not at all 4. Feeling tired or having little energy: not at all 5. Poor appetite or overeating: not at all 6. Feeling bad about yourself - or that you are a failure or have let yourself or your family down: not at all 7. Trouble concentrating on things, such as reading the newspaper or watching television: not at all 8. Moving or speaking so slowly that other people could have noticed. Or the opposite - being so fidgety or restless that you have been moving around a lot more than usual: not at all 9. Thoughts that you would be better off or of hurting yourself in some way: not at all Total score: 0 Depression Screening Interpretation: Negative Depression Screening Done: Yes 14812 - PHQ-9 Billing: Yes Source: Developed by Drs. Cecil Harley, Shanell Suarez, Carlos Seth and colleagues, with an educational sanjay from [employer]. Thrive Questionnaire Date Thrive assessed: 07/31/25 I am a: Patient What is your living situation today?: I have a steady place to live Within the past 12 months, did the food you bought not last and you didn't have the money to get more?: Never true Within the past 12 months, did you worry whether your food would run out before you got money to buy more?: Never true Do you have trouble paying for medicines?: No Do you have trouble getting transportation to medical appointments?: No Do you have trouble paying your heating and electricity bill?: No Do you have trouble taking care of your child, family member or friend?: No Do you have trouble with day-to-day activities such as bathing, preparing meals, shopping, managing finances, etc.?: No Are you currently unemployed and looking for a job?: No Are you interested in more education?: No Please select the resources that you would like help with: None Currently or been in a relationship where the following occur: No concerns reported THRIVE Score: 0 AUDIT C Alcohol Use Questionnaire (AUDIT-C) 1. How often do you have a drink containing alcohol?: Never 3. How often do you have six or more drinks on one occasion?: Never Total Score: 0 Score Reviewed/Action Taken: Yes GHULAM-7 AMB Questionnaire GHULAM-7 Date GHULAM - 7 assessed: 07/31/25 Feeling nervous, anxious, or on edge: 0 = Not at all Not being able to stop or control worryin = Not at all Worrying too much about different things: 0 = Not at all Trouble relaxin = Not at all Being so restless that it is hard to sit still: 0 = Not at all Becoming easily annoyed or irritable: 0 = Not at all Feeling afraid as if something awful might happen: 0 = Not at all Total GHULAM-7 score (0-4 normal; 5-9 mild; 10-14 moderate; 15-21 severe): 0 Source: Developed by Drs. Cecil Harley, Shanell Suarez, Carlos Seth and colleagues, with an educational sanjay from [employer]. Review of Systems Const Denies fatigue, Denies fever(s) and Denies headache(s) ENT Denies dysphagia, Denies dizziness, Denies otalgia, Denies headache(s), Denies neck pain, Denies odynophagia and Denies sore throat Card Denies chest pain, Denies palpitations and Denies dyspnea Resp Denies chest congestion, Denies cough and Denies dyspnea GI Denies abdominal pain, Denies constipation, Denies dysphagia, Denies heartburn, Denies diarrhea, Denies nausea, Denies odynophagia and Denies vomiting Denies difficulty voiding, Denies nocturia, Denies dysuria and Denies urinary urgency Musc Reports back pain (over the lower back - chronic), Reports arthralgias (in both knees (chronic), although her knee pains have decreased since TKA) and Denies neck pain Skin/Breast Denies rash Neuro Denies dizziness and Denies headache(s) Endo Denies fatigue and Denies palpitations Physical exam (Primary Care) Vital Signs: Last Vital Signs Pulse 87 07/31/25 09:36 BP 130/86 07/31/25 09:36 Pulse Ox 98 07/31/25 09:36 Oxygen Delivery Method Room Air 07/31/25 09:36 BMI result Body Mass Index 38.1 Tobacco/Smoking Status: Tobacco use Status Tobacco use date assessed 07/31/25 07/31/25 09:41 Patient Tobacco Use Status Former Tobacco user 07/31/25 09:41 Tobacco use type Cigarette 07/31/25 09:41 e-Cigarette/Vaping Use Never Used 07/31/25 09:41 PHQ-9: PHQ-9 Score PHQ-9: Total score 0 07/31/25 09:41 Depression Screening Interpretation: Negative Thrive Assessment: Date of Thrive Assessment Date Thrive assessed 07/31/25 07/31/25 09:41 Currently or been in a relationship where the following occur: No concerns reported Const General: no acute distress and alert HENMT Throat: Yes posterior oropharynx normal and Yes tonsils normal (no TP congestion) Neck Neck: Yes supple and No lymphadenopathy Thyroid: Thyroid normal Resp Auscultation: clear to auscultation bilaterally, no rales and no wheezes Cardio Rate: regular rate Rhythm: regular rhythm Heart sounds: no murmurs GI Palpation (GI): Soft to palpation and nontender Auscultation: normal bowel sounds General: Yes no CVA tenderness Back/Spine/Pelvis Back: no CVA tenderness Thoracic/Lumbar Spine: lumbar spinal tenderness Skin Rashes: no rashes Extrem Other: (+) healed vertical scar over the anterior aspect of both knees General: Yes no clubbing, cyanosis or edema Right lower extremity: knee Details: tenderness; no swelling Left lower extremity: knee Details: tenderness; no swelling Coding Level of Care Code Est Pt Level 4 (21992) Diagnoses Lumbar degenerative disc disease M51.369 Bilateral primary osteoarthritis of knee M17.0 Mixed hyperlipidemia E78.2 Essential hypertension I10 Acquired hypothyroidism E03.9 GERD without esophagitis K21.9 Vitamin D deficiency E55.9 Anxiety F41.9 Obesity (BMI 30-39.9) E66.9 Additional Codes PHQ-9 - 57065 - PHQ-9 Billing: Yes ([id number]) Assessment & Plan Assessment & Plan (1) Lumbar degenerative disc disease: Code(s): M51.369 - Other intervertebral disc degeneration, lumbar region without mention of lumbar back pain or lower extremity pain Category: Medical Plan: Reinforced activity and weight-lifting restrictions Patient has been on Methadone 40 mg BID and Oxycodone 10 mg Q 4 hours PRN for her chronic low back pain and joint (knee) pains for over 15 years, ever since she had Dr. Cardoza as her PCP She recalls that Dr. Cardoza tried her on several different pain medications years ago and that Methadone was the one that provided her with the best pain relief and the least side effects and states that these medications are helping with her chronic pain and allow her to stay active and to continue working and have some quality of life She transferred over to our practice when Dr. Cardoza retired from active practice years ago and Dr. Coronado continued her on her current medications She has reportedly been on the same pain medications for many years and has never taken them inappropriately or asked for any early refills or dose escalations over the years Continue both Methadone and Oxycodone as before - Rx refilled today (2) Bilateral primary osteoarthritis of knee: Code(s): M17.0 - Bilateral primary osteoarthritis of knee Category: Medical Plan: S/P left TKA on 10/18/2021 and right TKA on 10/24/2022, both with Dr. Yusuf Patient states that she still has (chronic) bilateral knee pains but these have improved a lot with her joint replacement surgeries Continue Ibuprofen 600 mg TID PRN or Acetaminophen 650 mg Q 6 hours PRN, Methadone 40 mg BID and Oxycodone 10 mg Q 4 hours PRN Follow-up with orthopedics as scheduled (3) Mixed hyperlipidemia: Code(s): E78.2 - Mixed hyperlipidemia Category: Medical Plan: Reinforced low-cholesterol diet Continue Atorvastatin 10 mg QD (4) Essential hypertension: Code(s): I10 - Essential (primary) hypertension Category: Medical Plan: Reinforced low-sodium diet - goal is systolic BP of 120 mm or less Continue Chlorthalidone 25 mg QD Patient is reminded to continue monitoring her blood pressure regularly (5) Acquired hypothyroidism: Code(s): E03.9 - Hypothyroidism, unspecified Category: Medical Plan: Her free T4 level was within normal range on her recent labs done last month; her TSH remains suppressed Continue Levothyroxine 250 mcg QD and we will continue to monitor her TFTs regularly (6) GERD without esophagitis: Code(s): K21.9 - Gastro-esophageal reflux disease without esophagitis Category: Medical Plan: Dietary restrictions reinforced Continue Omeprazole 40 mg QD and Famotidine 40 mg QD PRN (7) Vitamin D deficiency: Code(s): E55.9 - Vitamin D deficiency, unspecified Category: Medical Plan: Patient states that she has been taking OTC Vitamin D3 1000 units QD She is advised that her Vitamin D level is still low normal on her recent labs and have instructed her to start taking 2000 units QD (8) Anxiety: Code(s): F41.9 - Anxiety disorder, unspecified Category: Medical Plan: Continue Sertraline 50 mg QD (9) Obesity (BMI 30-39.9): Code(s): E66.9 - Obesity, unspecified Category: Medical Plan: Reinforced diet/exercise as tolerated/lose weight We tried starting her on Zepbound last month but her insurance denied her Rx Have advised her that we can refer her to weight management if she is really interested in trying them to help her lose weight - patient states that she will think about it and will call for referral if she decides to pursue this Plan Follow up in 1 month Medications: Refilled methadone 40 mg (4 x 10 mg) PO BID 240 tabs 0RF 21 days M25.569 - Pain in unspecified knee, M54.9 - Dorsalgia, unspecified oxycodone 10 mg PO Q4H PRN 45 tabs 0RF Pain 7 days
--- OUTSIDE RECORDS SUMMARY | 2025-07-31 10:13 | XMS_ITS | Clinical Summary ---
Author Organization [facility] Address [address] [place], [place] [id number] Phone Care Team Providers Care Lathe Winder Name Role Phone Unavailable Primary Care Provider [...] It is not the complete legal health record.[facility]
== END 2025-07-31 10:29 | disposition home or self-care (01) ==
LOC: HO.HMCH 09:23
PROVIDERS: PCP Internal Medicine; Visit Provider Internal Medicine
DX: M51.369 Other intervertebral disc degeneration, lumbar region without mention of lumbar back pain or lower extremity pain (principal); M17.0 Bilateral primary osteoarthritis of knee; E78.2 Mixed hyperlipidemia; I10 Essential (primary) hypertension; E03.9 Hypothyroidism, unspecified; K21.9 Gastro-esophageal reflux disease without esophagitis; E55.9 Vitamin D deficiency, unspecified; F41.9 Anxiety disorder, unspecified; E66.9 Obesity, unspecified; Z68.38 Body mass index [BMI] 38.0-38.9, adult

== ENCOUNTER → 2025-07-31 09:22 | Outpatient (BNVA) | payer OTHER, SELFPAY | PROVIDERS: PCP Internal Medicine; Visit Provider Internal Medicine | DX: M51.369 Other intervertebral disc degeneration, lumbar region without mention of lumbar back pain or lower extremity pain (principal); M54.50 Low back pain, unspecified; G89.29 Other chronic pain; M17.0 Bilateral primary osteoarthritis of knee; Z96.653 Presence of artificial knee joint, bilateral; Z87.891 Personal history of nicotine dependence; E78.2 Mixed hyperlipidemia; I10 Essential (primary) hypertension; E03.9 Hypothyroidism, unspecified; K21.9 Gastro-esophageal reflux disease without esophagitis; E55.9 Vitamin D deficiency, unspecified; F41.9 Anxiety disorder, unspecified; E66.9 Obesity, unspecified; Z79.891 Long term (current) use of opiate analgesic; Z13.31 Encounter for screening for depression; Z13.39 Encounter for screening examination for other mental health and behavioral disorders; Z76.0 Encounter for issue of repeat prescription | CPT/HCPCS: 96127; 99212 ==

== ENCOUNTER 2025-08-28 09:23 | Outpatient (AMB) | payer OTHER, SELFPAY ==
[2025-08-28 09:31] VITALS: BP 116/78; PULSE 83; RESP 18; O2SAT 95; BMI 38.0
--- NOTE | 2025-08-28 09:31 | A.OFFPC_ITS ---
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: No Accompanied by: Self / Same As Patient Allergies No Known Allergies (No Known Allergies*) Allergy (Verified 08/28/25 10:08) Medication List - Last Reconciled 08/28/25 by Adrian Quinonez MD acetaminophen 650 mg (2 x 325 mg) PO Q6H PRN 30 days atorvastatin 10 mg PO BEDTIME 90 days chlorthalidone 25 mg PO DAILY 90 days cholecalciferol (vitamin D3) 50 mcg PO DAILY 90 days famotidine 40 mg PO DAILY ibuprofen 600 mg PO TID PRN levothyroxine 200 mcg PO DAILY levothyroxine 50 mcg PO DAILY methadone 40 mg (4 x 10 mg) PO BID 21 days naloxone 4 mg/actuation (Narcan) 1 spray intranasal Q2M omeprazole 40 mg PO DAILY oxycodone 10 mg PO Q4H PRN 7 days sertraline 50 mg PO DAILY 90 days tirzepatide (weight loss) (Zepbound) 2.5 mg (0.5 mL) subcut QWEEK Tobacco use date assessed: 08/28/25 Dental Screening Dental Screen Date: 08/28/25 Did you have a dental visit in the last 12 months?: Yes Did you have a dental problem in the last 6 months where you did not have access to dental care?: No Was dental information given to patient?: Patient has dentist HPI Med Management HPI Details Patient comes in today for her follow up visit States that she feels okay and that her current pain medications are helping adequately with her chronic low back pain, which is mostly unchanged from previous States that she has still not gotten her prior authorization for her Methadone approved and she has been getting by with paying jeronimo for them at this time and she is afraid that her pharmacy will stop her from doing this at some point She reached out again to her insurance recently and was reportedly told that all they need is a phone call from our office with regards to her 'planned limitation program' She denies any headaches or dizziness Denies any chest pains, no increased shortness of breath No nausea/vomiting, no abdominal pain No change in bowel habits noted PFSH Medical History Vitamin D deficiency Mixed hyperlipidemia Pure hypercholesterolemia Obesity (BMI 30-39.9) GERD without esophagitis Acquired hypothyroidism Essential hypertension Bilateral primary osteoarthritis of knee Lumbar degenerative disc disease Neuropathy of genitofemoral nerve History of COVID-19 GERD (gastroesophageal reflux disease) COVID-19 vaccine series completed Osteoarthritis Hernia of abdominal cavity Surgical History History of left knee replacement H/O colonoscopy Hx of umbilical hernia repair Hx of breast reduction, elective Family History Father Esophageal cancer Mother No problems noted. Maternal Grandmother Osteoarthritis Sister No problems noted. Social History Household Members: Spouse Housing: House Are you a primary manager care management to a significant other at home: No Do you presently have visiting nurse or other home services: No Alcohol intake: current Alcohol intake frequency: holidays/special occasions only Patient Tobacco Use Status: Former Tobacco user Tobacco use type: Cigarette Years Smoked: 40 e-Cigarette/Vaping Use: Never Used Second Hand Smoke Exposure: No service: No Current occupational status: retired Current occupation: Right Handed Current occupational exposures/hazards: No Cognitive needs: No Hearing needs: No Vision needs: Yes (reading glasses) Questionnaire PHQ-9 Over the last 2 weeks, how often have you been bothered by any of the following problems? 1. Little interest or pleasure in doing things: not at all 2. Feeling down, depressed, or hopeless: not at all 3. Trouble falling or staying asleep, or sleeping too much: not at all 4. Feeling tired or having little energy: not at all 5. Poor appetite or overeating: not at all 6. Feeling bad about yourself - or that you are a failure or have let yourself or your family down: not at all 7. Trouble concentrating on things, such as reading the newspaper or watching television: not at all 8. Moving or speaking so slowly that other people could have noticed. Or the opposite - being so fidgety or restless that you have been moving around a lot more than usual: not at all 9. Thoughts that you would be better off or of hurting yourself in some way: not at all Total score: 0 Depression Screening Interpretation: Negative Depression Screening Done: Yes 87921 - PHQ-9 Billing: Yes Source: Developed by Drs. Cecil Harley, Shanell Suarez, Carlos Seth and colleagues, with an educational sanjay from [employer]. Thrive Questionnaire Date Thrive assessed: 08/28/25 I am a: Patient What is your living situation today?: I have a steady place to live Within the past 12 months, did the food you bought not last and you didn't have the money to get more?: Never true Within the past 12 months, did you worry whether your food would run out before you got money to buy more?: Never true Do you have trouble paying for medicines?: No Do you have trouble getting transportation to medical appointments?: No Do you have trouble paying your heating and electricity bill?: No Do you have trouble taking care of your child, family member or friend?: No Do you have trouble with day-to-day activities such as bathing, preparing meals, shopping, managing finances, etc.?: No Are you currently unemployed and looking for a job?: No Are you interested in more education?: No Please select the resources that you would like help with: None Currently or been in a relationship where the following occur: No concerns reported THRIVE Score: 0 AUDIT C Alcohol Use Questionnaire (AUDIT-C) 1. How often do you have a drink containing alcohol?: Never 3. How often do you have six or more drinks on one occasion?: Never Total Score: 0 Score Reviewed/Action Taken: Yes GHULAM-7 AMB Questionnaire GHULAM-7 Date GHULAM - 7 assessed: 08/28/25 Feeling nervous, anxious, or on edge: 0 = Not at all Not being able to stop or control worryin = Not at all Worrying too much about different things: 0 = Not at all Trouble relaxin = Not at all Being so restless that it is hard to sit still: 0 = Not at all Becoming easily annoyed or irritable: 0 = Not at all Feeling afraid as if something awful might happen: 0 = Not at all Total GHULAM-7 score (0-4 normal; 5-9 mild; 10-14 moderate; 15-21 severe): 0 Source: Developed by Drs. Cecil Harley, Shanell Suarez, Carlos Seth and colleagues, with an educational sanjay from [employer]. Review of Systems Const Denies chills, Denies fatigue, Denies fever(s) and Denies headache(s) ENT Denies dysphagia, Denies dizziness, Denies otalgia, Denies headache(s), Denies neck pain, Denies odynophagia and Denies sore throat Card Denies chest pain, Denies palpitations and Denies dyspnea Resp Denies chest congestion, Denies cough and Denies dyspnea GI Denies abdominal pain, Denies constipation, Denies dysphagia, Denies heartburn, Denies diarrhea, Denies nausea, Denies odynophagia and Denies vomiting Denies difficulty voiding, Denies nocturia, Denies dysuria and Denies urinary urgency Musc Reports back pain (over the lower back - chronic), Reports arthralgias (in both knees (chronic), although her knee pains have decreased since TKA) and Denies neck pain Skin/Breast Denies rash Neuro Denies dizziness and Denies headache(s) Endo Denies fatigue and Denies palpitations Physical exam (Primary Care) Vital Signs: Last Vital Signs Pulse 83 08/28/25 09:31 Resp 18 08/28/25 09:31 BP 116/78 08/28/25 09:31 Pulse Ox 95 08/28/25 09:31 Oxygen Delivery Method Room Air 08/28/25 09:31 BMI result Body Mass Index 38.0 Tobacco/Smoking Status: Tobacco use Status Tobacco use date assessed 08/28/25 08/28/25 09:36 Patient Tobacco Use Status Former Tobacco user 08/28/25 09:36 Tobacco use type Cigarette 08/28/25 09:36 e-Cigarette/Vaping Use Never Used 08/28/25 09:36 PHQ-9: PHQ-9 Score PHQ-9: Total score 0 08/28/25 09:45 Depression Screening Interpretation: Negative Thrive Assessment: Date of Thrive Assessment Date Thrive assessed 08/28/25 08/28/25 09:36 Currently or been in a relationship where the following occur: No concerns reported Const General: no acute distress and alert HENMT Ears: TM's normal bilaterally and EAC's normal Throat: Yes posterior oropharynx normal and Yes tonsils normal (no TP congestion) Neck Neck: Yes supple and No lymphadenopathy Thyroid: Thyroid normal Resp Auscultation: clear to auscultation bilaterally, no rales and no wheezes Cardio Rate: regular rate Rhythm: regular rhythm Heart sounds: no murmurs GI Palpation (GI): Soft to palpation and nontender Auscultation: normal bowel sounds General: Yes no CVA tenderness Back/Spine/Pelvis Back: no CVA tenderness Thoracic/Lumbar Spine: lumbar spinal tenderness Skin Rashes: no rashes Extrem Other: (+) healed vertical scar over the anterior aspect of both knees General: Yes no clubbing, cyanosis or edema Right lower extremity: knee Details: tenderness; no swelling Left lower extremity: knee Details: tenderness; no swelling Coding Level of Care Code Est Pt Level 4 (70956) Diagnoses Degeneration of intervertebral disc of lumbar region with discogenic back pain M51.360 Disc-related pain type: discogenic back pain only Bilateral primary osteoarthritis of knee M17.0 Mixed hyperlipidemia E78.2 Essential hypertension I10 Acquired hypothyroidism E03.9 GERD without esophagitis K21.9 Vitamin D deficiency E55.9 Anxiety F41.9 Obesity (BMI 30-39.9) E66.9 Additional Codes PHQ-9 - 36899 - PHQ-9 Billing: Yes ([id number]) Assessment & Plan Assessment & Plan (1) Lumbar degenerative disc disease: Code(s): M51.369 - Other intervertebral disc degeneration, lumbar region without mention of lumbar back pain or lower extremity pain Category: Medical Qualifiers: Disc-related pain type: discogenic back pain only Qualified Code(s): M51.360 - Other intervertebral disc degeneration, lumbar region with discogenic back pain only Plan: Reinforced activity and weight-lifting restrictions Patient has been on Methadone 40 mg BID and Oxycodone 10 mg Q 4 hours PRN for her chronic low back pain and joint (knee) pains for over 15 years, ever since she had Dr. Cardoza as her PCP She recalls that Dr. Cardoza tried her on several different pain medications years ago and that Methadone was the one that provided her with the best pain relief and the least side effects and states that these medications are helping with her chronic pain and allow her to stay active and to continue working and have some quality of life She transferred over to our practice when Dr. Cardoza retired from active practice years ago and Dr. oCronado continued her on her current medications She has reportedly been on the same pain medications for many years and has never taken them inappropriately or asked for any early refills or dose escalations over the years Continue both Methadone and Oxycodone as before - Rx refilled today Will have office staff look into her current prescription issues and call up her insurance company to help get these resolved KATIE (2) Bilateral primary osteoarthritis of knee: Code(s): M17.0 - Bilateral primary osteoarthritis of knee Category: Medical Plan: S/P left TKA on 10/18/2021 and right TKA on 10/24/2022, both with Dr. Yusuf Patient states that she still has (chronic) bilateral knee pains but these have improved a lot with her joint replacement surgeries Continue Ibuprofen 600 mg TID PRN or Acetaminophen 650 mg Q 6 hours PRN, Methadone 40 mg BID and Oxycodone 10 mg Q 4 hours PRN Follow-up with orthopedics as scheduled (3) Mixed hyperlipidemia: Code(s): E78.2 - Mixed hyperlipidemia Category: Medical Plan: Reinforced low-cholesterol diet Continue Atorvastatin 10 mg QD Will have her recheck her labs and fasting lipids next month for follow up (4) Essential hypertension: Code(s): I10 - Essential (primary) hypertension Category: Medical Plan: Reinforced low-sodium diet - goal is systolic BP of 120 mm or less Continue Chlorthalidone 25 mg QD Patient is reminded to continue monitoring her blood pressure regularly (5) Acquired hypothyroidism: Code(s): E03.9 - Hypothyroidism, unspecified Category: Medical Plan: Continue Levothyroxine 250 mcg QD Will continue to monitor her TFTs regularly and recheck them next month for follow up (6) GERD without esophagitis: Code(s): K21.9 - Gastro-esophageal reflux disease without esophagitis Category: Medical Plan: Dietary restrictions reinforced Continue Omeprazole 40 mg QD and Famotidine 40 mg QD PRN (7) Vitamin D deficiency: Code(s): E55.9 - Vitamin D deficiency, unspecified Category: Medical Plan: Continue OTC Vitamin D3 2000 units QD Will recheck her Vitamin D level as well next month for follow up (8) Anxiety: Code(s): F41.9 - Anxiety disorder, unspecified Category: Medical Plan: Continue Sertraline 50 mg QD (9) Obesity (BMI 30-39.9): Code(s): E66.9 - Obesity, unspecified Category: Medical Plan: Reinforced diet/exercise as tolerated/lose weight We tried starting her on Zepbound a couple of months ago but her insurance denied her Rx Have advised her that we can refer her to weight management if she is really interested in trying them to help her lose weight - patient states that she will think about it and will call for referral if she decides to pursue this Plan Follow up in 1 month Orders: Orders Comprehensive [place]. Panel Fast 10/01/25 E78.00 - Pure hypercholesterolemia, unspecified Complete Blood Count Auto Diff 10/01/25 D64.9 - Anemia, unspecified Lipid Panel 10/01/25 E78.00 - Pure hypercholesterolemia, unspecified Free T4 (Free Thyroxine) 10/01/25 E03.9 - Hypothyroidism, unspecified Thyroid Stimulating Hormone 10/01/25 E03.9 - Hypothyroidism, unspecified UA CC w/rflx Micro + Cult 10/01/25 R30.0 - Dysuria Vitamin D 25-OH Total 10/01/25 E55.9 - Vitamin D deficiency, unspecified Medications: Refilled methadone 40 mg (4 x 10 mg) PO BID 240 tabs 0RF 21 days M25.569 - Pain in unspecified knee, M54.9 - Dorsalgia, unspecified oxycodone 10 mg PO Q4H PRN 45 tabs 0RF Pain 7 days
== END 2025-08-28 10:24 | disposition home or self-care (01) ==
LOC: HO.HMCH 09:24
PROVIDERS: PCP Internal Medicine; Visit Provider Internal Medicine
DX: M51.360 Other intervertebral disc degeneration, lumbar region with discogenic back pain only (principal); M17.0 Bilateral primary osteoarthritis of knee; E66.9 Obesity, unspecified; Z68.38 Body mass index [BMI] 38.0-38.9, adult; E78.2 Mixed hyperlipidemia; I10 Essential (primary) hypertension; E03.9 Hypothyroidism, unspecified; K21.9 Gastro-esophageal reflux disease without esophagitis; E55.9 Vitamin D deficiency, unspecified; F41.9 Anxiety disorder, unspecified

== ENCOUNTER → 2025-08-28 09:23 | Outpatient (BNVA) | payer OTHER, SELFPAY | PROVIDERS: PCP Internal Medicine; Visit Provider Internal Medicine | DX: M51.360 Other intervertebral disc degeneration, lumbar region with discogenic back pain only (principal); M25.569 Pain in unspecified knee; M17.0 Bilateral primary osteoarthritis of knee; Z96.653 Presence of artificial knee joint, bilateral; G89.29 Other chronic pain; E78.2 Mixed hyperlipidemia; I10 Essential (primary) hypertension; E03.9 Hypothyroidism, unspecified; K21.9 Gastro-esophageal reflux disease without esophagitis; E55.9 Vitamin D deficiency, unspecified; F41.9 Anxiety disorder, unspecified; E66.9 Obesity, unspecified; Z13.31 Encounter for screening for depression; Z13.39 Encounter for screening examination for other mental health and behavioral disorders; Z87.891 Personal history of nicotine dependence; Z76.0 Encounter for issue of repeat prescription | CPT/HCPCS: 96127; 99212 ==